=== PATIENT | male | born 1950 | race Caucasian/White ===

== ENCOUNTER → 2016-11-25 | Outpatient (CLI) | payer OTHER ==
[2016-11-25 12:58] LABS: BASO % 0.2 %; BASO ABS # 0.02 K/uL (0-0.2); COMPLETE YES; EOS % 2.2 %; IG% 0.7 %; LYMPH % 14.5 %; LYMPH ABS # 1.68 K/uL (1.2-3.4); MEAN CELL VOLUME 88.4 fL (80-100); MEAN CORPUSCULAR HEMOGLOBIN 29.5 pg (25-34); MEAN CORPUSCULAR HGB CONC 33.4 g/dl (32-36); MEAN PLATELET VOLUME 10.4 fL (7.4-10.4); MONO % 6.8 %; NEUT % 75.6 %; PLATELET COUNT 288 K/uL (130-400); RED BLOOD COUNT 4.64 M/uL (4.7-6.1); WHITE BLOOD COUNT 11.61 K/uL (4.8-10.8)
[2016-11-25 13:14] LABS: ALT/SGPT 30 U/L (12-78); AST/SGOT 17 U/L (15-37); BLOOD UREA NITROGEN 20 mg/dl (7-18); BUN/CREATININE RATIO 16.4 (10-20); CALCIUM 8.7 mg/dl (8.5-10.1); CARBON DIOXIDE 27 mmol/L (21-32); CHLORIDE 106 mmol/L (98-107); GLUCOSE 122 mg/dl (70-99); POTASSIUM 3.5 mmol/L (3.5-5.1); SODIUM 140 mmol/L (136-145)
[2016-11-25 13:24] LABS: ALB/GLOB RATIO 0.8 (0.9-2); ALKALINE PHOSPHATASE 91 U/L (45-117); CHOLESTEROL 103 mg/dl (0-200); CHOLESTEROL/HDL RATIO 3.7; HDL CHOLESTEROL 28 mg/dl; LDL CHOLESTEROL CALCULATED 34 mg/dl; THYROID STIMULATING HORMONE 0.682 uIu/ml (0.300-4.500); TRIGLYCERIDES 207 mg/dl (0-150); VERY LOW DENSITY LIPOPROT CALC 41 mg/dl
== END | disposition home or self-care (01) ==
LOC: C.LABPBG 08:42
PROVIDERS: ATTEND Neuromusculoskeletal Medicine & OMM
DX: Z00.00 Encounter for general adult medical examination without abnormal findings (principal); N40.0 Benign prostatic hyperplasia without lower urinary tract symptoms; E66.9 Obesity, unspecified

== ENCOUNTER → 2016-12-19 | Outpatient (CLI) | payer OTHER ==
[2016-12-19 12:49] LABS: ESTIMATED AVERAGE GLUCOSE 114 mg/dl; HA1C FLAG Normal (Normal)
== END | disposition home or self-care (01) ==
LOC: C.LABPBG 07:52
PROVIDERS: ATTEND Neuromusculoskeletal Medicine & OMM
DX: R73.09 Other abnormal glucose (principal)

== ENCOUNTER → 2017-04-22 | Outpatient (CLI) | payer OTHER ==
[2017-04-22 18:04] LABS: URINE APPEARANCE CLEAR (CLEAR); URINE BILIRUBIN NEG (NEG); URINE COLOR YELLOW; URINE NITRITE NEG (NEG); URINE SPECIFIC GRAVITY 1.023 (1.000-1.030); UROBILINOGEN NEG (NEG)
[2017-04-22 18:09] LABS: MANUAL MICROSCOPIC REQUIRED? NO; REVIEW REQ? NO
== END | disposition home or self-care (01) ==
LOC: C.LABSPEC 10:55
PROVIDERS: ATTEND Family Medicine
DX: R32 Unspecified urinary incontinence (principal)

== ENCOUNTER → 2017-04-23 | Outpatient (CLI) | payer OTHER ==
[2017-04-23 12:36] LABS: BASO % 0.2 %; BASO ABS # 0.02 K/uL (0-0.2); EOS % 2.3 %; EOS ABS # 0.24 K/uL (0-0.5); HEMATOCRIT 38.4 % (42-52); HEMOGLOBIN 13.1 g/dL (14.0-18.0); IG# 0.13 K/uL (0.00-0.02); LYMPH % 14.7 %; LYMPH ABS # 1.53 K/uL (1.2-3.4); MEAN CELL VOLUME 89.1 fL (80-100); MEAN CORPUSCULAR HEMOGLOBIN 30.4 pg (25-34); MEAN CORPUSCULAR HGB CONC 34.1 g/dl (32-36); MEAN PLATELET VOLUME 10.2 fL (7.4-10.4); MONO % 6.4 %; MONO ABS # 0.67 K/uL (0.11-0.59); NEUT % 75.1 %; PLATELET COUNT 251 K/uL (130-400); RED CELL DISTRIBUTION WIDTH CV 14.7 % (11.5-14.5); RED CELL DISTRIBUTION WIDTH SD 47.6 fL (36.4-46.3); WHITE BLOOD COUNT 10.39 K/uL (4.8-10.8)
[2017-04-23 12:48] LABS: ALBUMIN 3.4 gm/dl (3.4-5.0); ALT/SGPT 29 U/L (12-78); BLOOD UREA NITROGEN 17 mg/dl (7-18); CALCIUM 8.8 mg/dl (8.5-10.1); CARBON DIOXIDE 30 mmol/L (21-32); CHOLESTEROL 123 mg/dl (0-200); CREATININE 1.06 mg/dl (0.60-1.40); GLUCOSE 108 mg/dl (70-99); POTASSIUM 3.6 mmol/L (3.5-5.1); SODIUM 137 mmol/L (136-145)
[2017-04-23 12:51] LABS: ALKALINE PHOSPHATASE 92 U/L (45-117); AST/SGOT 18 U/L (15-37); LDL CHOLESTEROL CALCULATED 46 mg/dl; TOTAL PROTEIN 7.4 gm/dl (6.4-8.2)
== END | disposition home or self-care (01) ==
LOC: C.LABPBG 09:33
PROVIDERS: ATTEND Family Medicine
DX: E78.5 Hyperlipidemia, unspecified (principal); I10 Essential (primary) hypertension

== ENCOUNTER → 2017-05-16 | Outpatient (CLI) | payer OTHER ==
[2017-05-16 12:27] LABS: BASO % 0.2 %; BASO ABS # 0.02 K/uL (0-0.2); EOS ABS # 0.22 K/uL (0-0.5); HEMATOCRIT 39.6 % (42-52); HEMOGLOBIN 13.6 g/dL (14.0-18.0); IG# 0.07 K/uL (0.00-0.02); LYMPH % 15.2 %; MEAN CELL VOLUME 88.2 fL (80-100); MEAN CORPUSCULAR HEMOGLOBIN 30.3 pg (25-34); MEAN CORPUSCULAR HGB CONC 34.3 g/dl (32-36); MEAN PLATELET VOLUME 10.6 fL (7.4-10.4); MONO % 6.4 %; MONO ABS # 0.71 K/uL (0.11-0.59); NEUT % 75.6 %; NEUT ABS # 8.43 K/uL (1.4-6.5); PLATELET COUNT 279 K/uL (130-400); RED CELL DISTRIBUTION WIDTH CV 14.3 % (11.5-14.5); WHITE BLOOD COUNT 11.15 K/uL (4.8-10.8)
[2017-05-16 15:40] LABS: TRANSFERRIN 187 mg/dl (200-360)
== END | disposition home or self-care (01) ==
LOC: C.LABPBG 09:34
PROVIDERS: ATTEND Family Medicine
DX: D64.9 Anemia, unspecified (principal)

== ENCOUNTER 2019-07-04 11:22 | Inpatient (IN) ==
--- NOTE | 2019-07-04 12:20 | XRay Report ---
XR chest 1V portable HISTORY: Atypical Chest Pain COMPARISON: Chest 04/26/2019. FINDINGS: No change in the low lung volumes and cardiomegaly. No pleural effusions. There is mild satish tral pulmonary vascular congestion without overt edema. Left basilar densities remain unchanged. No p leural effusions. No pneumothorax. IMPRESSION: No change in the cardiomegaly, mild congestive change, and left basilar densities. ACT 112: Negative or not required by law. Electronically signed by: Karlo Garcia M.D. 07/04/2019 12:19 PM
[2019-07-04 12:27] LABS: Basophils # (auto) 0.02 K/uL (0-0.2); Basophils % (auto) 0.1 %; Eosinophils # (auto) 0.27 K/uL (0-0.5); Eosinophils % (auto) 1.8 %; Hematocrit (blood only) 42.5 % (42-52); Hemoglobin 13.6 g/dL (14.0-18.0); Immature Granulocytes # (auto) 0.09 K/uL (0.00-0.02); Immature Granulocytes % (auto) 0.6 %; Lymphocytes # (auto) 1.88 K/uL (1.2-3.4); Lymphocytes % (auto) 12.4 %; Mean Corpuscular Hemoglobin 29.4 pg (25-34); Mean Platelet Volume 10.3 fL (7.4-10.4); Monocytes # (auto) 0.95 K/uL (0.11-0.59); Monocytes % (auto) 6.3 %; Neutrophils % (auto) 78.8 %; Platelet Count 187 K/uL (130-400); RDW Coefficient of Variation 15.6 % (11.5-14.5); RDW Standard Deviation 52.8 fL (36.4-46.3); Red Blood Count 4.62 M/uL (4.7-6.1); White Blood Count 15.11 K/uL (4.8-10.8)
[2019-07-04 13:02] LABS: Albumin Globulin Ratio 0.7 (0.9-2); Albumin Level 3.4 gm/dl (3.4-5.0); BUN Creatinine Ratio 9.6 (10-20); Bilirubin,Total 0.6 mg/dl (0.2-1); Calcium 8.6 mg/dl (8.5-10.1); Est GFR (African American) 85.5; Est GFR (Non-African American) 73.8; Globulin 5.2 gm/dl (2.5-4.0); Phosphorus 3.1 mg/dl (2.5-4.9); Thyroid Stimulating Hormone 1.24 uIu/ml (0.300-4.500); Total Protein 8.6 gm/dl (6.4-8.2); Troponin I 0.017 ng/ml (0-0.045)
[2019-07-04 13:12] LABS: Influenza A virus by PCR Neg for Influ A (Neg); Influenza B virus by PCR Neg for Influ B (Neg)
[2019-07-04] MEDS ORDERED: ALBUT/IPRATROP 3MG/0.5MG NEB 3 ML VIAL NEB STA (13:53)
[2019-07-04] MEDS ORDERED: methylPREDNISolone 125 MG/2 ML VIAL IV STA (13:53)
[2019-07-04 14:12] LABS: INR 1.1 (0.9-1.1); Partial Thromboplastin Ratio 0.9; Partial Thromboplastin Time 24.9 Seconds (21.0-31.0); Prothrombin Time 11.1 Seconds (9.0-12.0)
[2019-07-04] MEDS ORDERED: OPTIRAY 320 125ml IV PRN (14:48)
[2019-07-04 14:49] LABS: Base Excess VBG 7.7 mEq/L; HCO3 VBG 37 mmol/L; Oxygen Saturation VBG < 60.0 %; PCO2 VBG 73 mmHg (38-50); PO2 VBG 35 mmHg; pH VBG 7.32 (7.36-7.41)
[2019-07-04 15:05] LABS: Potassium 3.8 mmol/L (3.5-5.1)
--- NOTE | 2019-07-04 15:05 | CT Scan Report ---
CHEST CTA for PULMONARY ARTERIES CT DOSE: 869.82 mGy.cm HISTORY: Shortness of breath. Difficulty breathing. TECHNIQUE: Multiaxial CT images of the chest were performed following the intravenous administration of contrast to evaluate the pulmonary arteries. Maximal intensity projection images were also obtaine d. A dose lowering technique was utilized adhering to the principles of ALARA. COMPARISON STUDY: None. FINDINGS: Normal caliber thoracic aorta with no evidence for dissection. The heart is mildly enlarged . There is a moderate pericardial effusion demonstrating a maximal thickness of 1.7 cm. No pleural ef fusions. Cholelithiasis. The visualized liver, spleen, adrenal glands are unremarkable. Normal esopha jeff. No mediastinal or hilar lymphadenopathy. Mild respiratory motion artifact. No definite filling d efects within the pulmonary arteries to suggest pulmonary embolus. No suspicious lytic or blastic oss eous lesions. No acute fractures within the visualized osseous structures. No pneumothorax. The centr al airways are patent. A few bibasilar and right posterior linear densities consistent with subsegmen huy atelectasis. Otherwise, lungs are clear. IMPRESSION: 1. No evidence for pulmonary embolus. 2. Moderate pericardial effusion. 3. Cholelithiasis. ACT 112: Negative or not required by law. Electronically signed by: Karlo Garcia M.D. 07/04/2019 3:04 PM
[2019-07-04 15:10] LABS: Magnesium 1.7 mg/dl (1.8-2.4)
[2019-07-04] MEDS ORDERED: FUROSEMIDE 40 MG/4 ML VIAL IV STA (15:31)
[2019-07-04] MEDS ORDERED: DOXYCYCLINE HYCLATE 100 MG in DEXTROSE 5% 100 ML IV STA (15:31)
[2019-07-04] MEDS ORDERED: MAGNESIUM SULFATE / D5W 1 GM/100 ML BAG IV ONE (15:32)
--- NOTE | 2019-07-04 16:42 | History & Physical Report ---
Date of Service July 04, 2019 Assessment & Plan (1) Acute and chronic respiratory failure: Admit to PCU on telemetry, Vital signs every 4 hours, Continue supplemental oxygen to keep oxygenation above 88%, Continue albuterol sulfate HFA 2 puff inhalation as needed, Possibly due to pneumonia with elevated white blood cell count, Blood cultures, sputum cultures pending, Empirically started ceftriaxone 2 g IV daily and doxycycline 100 mg IV twice daily for possible pneumonia. If blood cultures sputum cultures negative discontinue antibiotics. DVT prophylaxis SCDs and teds Full code Present on Admission?: Yes (2) Pericardial effusion: Discussed with Dr. Blake-cardiology. Recommended to start colchicine empirically-loading dose of 1.2, then continue 0.6 mg daily twice daily for 3 months if this is deemed to be due to viral pericarditis. Start ibuprofen 600 mg p.o. every 8 hours TTE pending Consult cardiology Present on Admission?: Yes (3) Hypercapnia: Chronic hypercapnia, patient is chronically retaining CO2. Supposed to have CPAP at night. Patient reports that CPAP is still on its way to his house. Use hospital CPAP while patient is hospitalized. Settings were placed Present on Admission?: Yes (4) Volume overload: Patient has 1+ pitting edema of the lower extremities but he does not appear to be overly volume overloaded. In the setting of moderate pericardial effusion would reevaluate patient in the morning in order to continue diuresis. Patient received only 1 dose of Lasix 40 mg IV in the ER and had brisk diuresis. Strict in and out, Daily weight, Restrict p.o. water to 1200 mils per day Present on Admission?: Yes (5) Acute diastolic (congestive) heart failure: As discussed above. We will carefully administer another dose of Lasix since patient has moderate pericardial effusion. TTE pending, s/p TTE ordered reevaluate and order another dose of Lasix if necessary. Present on Admission?: Yes (6) Morbid obesity with BMI of 40.0-44.9, adult: Patient advised to start proper diet, exercises and lifestyle changes. Present on Admission?: Yes (7) Anemia: H&H stable, 13.6/42.5 Mild megaloblastic anemia Iron study pending Present on Admission?: Yes (8) Leukocytosis: likely due to the PNA, see above Present on Admission?: Yes (9) Hypertension: BP elevated in the ER without focal signs. Present on Admission?: Yes (10) Hyperlipidemia: Fasting lipid panel pending, continue atorvastatin 40 mg p.o. daily Present on Admission?: Yes (11) GERD without esophagitis: Stable, continue omeprazole 20 mg p.o. daily Present on Admission?: Yes (12) Benign prostatic hyperplasia with urinary obstruction: Stable, continue tamsulosin 0.4 mg p.o. daily. Present on Admission?: Yes (13) Hypomagnesemia: Magnesium 1.7, in the ER replenish and 1 bag of IV. Recheck magnesium tomorrow a.m. and replenish as needed. Present on Admission?: Yes History of Present Illness Chief Complaint: Shortness of breath Primary Care Provider: Brittaney Dunn DO The patient is a 67 years old male with past medical history of diastolic congestive heart failure, morbid obesity with a BMI of 44.9, rheumatoid arthritis, anemia, hyperlipidemia, hypertension, GERD, first-degree AV block, benign prostatic hypertrophy, who started to have shortness of breath approximately 3 weeks ago and swelling of the lower extremities bilaterally. Patient went to see his PCP 2 weeks ago and he was diagnosed with walking pneumonia. He was given oxygen and nebulizer to use at night. Patient supposed to receive set CPAP soon and while he was waiting for CPAP he was using oxygen 2 L intermittently. Patient reports that he gained approximately 10 to 15 pounds of weight. He also reports feeling short of breath when he lays down to sleep. He coughs up some clear sputum and denies any fever, chills, chest pain, abdominal pain, frequency, urgency, history of smoking, history of exposure to dust and fumes,, recent travel or sick contacts. Labs are reviewed which shows WBCs of 15.11, RBCs 4.62, hemoglobin 13.6, hematocrit 42.5, platelets 187, PT 11.1, INR 1.1, APTT 24.9, body gases VBG 7.32, PCO2 73, PO2 35, HCO3 37, O2 saturation less than 60, base excess 7.7, sodium 139, potassium 3.8, chloride 101, carbon dioxide 34, anion gap 4, BUN 10, creatinine 1.03, GFR 73.8, glucose 98, lactate 1.5, calcium 8.6, phosphorus 3.1, magnesium 1.7, replenished in the ER, total bili 0.6, AST 14, ALT 24, alkaline phosphatase 129, troponin 0.017, BNP 144, total protein 8.6, albumin 3.4, globulin 5.2, lipase 83, TSH 1.24., Influenza A negative and influenza B negative. CTA of the chest shows no evidence of pulmonary embolism. A normal caliber thoracic aorta with no evidence of dissection. The heart is mildly enlarged. There is a moderate pericardial effusion demonstrated a maximal thickness of 1.7 cm. No pleural effusions. Cholelithiasis. The visualized liver spleen and adrenal glands are unremarkable. Normal esophagus. No mediastinal or hilar lymphadenopathy. Mild respiratory motion artifact. No definitive filling defects within the pulmonary arteries to suggest pulmonary embolus. No suspicious lytic or blastic osseous lesion. No acute fracture within the visualized osseous structure. No pneumothorax. The central airways are patent. A few bibasilar and right poste rior liner density consistent with subsegmental atelectasis. Otherwise lungs are clear.The decision was made to admit pt to PCU on tele for moderate pericarditis and CHF exacerbation. Allergies Allergy/AdvReac Type Severity Reaction Status Date / Time No Known Drug Allergies Allergy Verified 07/04/19 12:00 Home Medications Home Medications Medication Instructions Recorded Confirmed Type ascorbic acid (vitamin C) 500 mg 500 mg PO BID #60 cap 11/02/18 07/04/19 Rx capsule lisinopril 40 mg tablet 40 mg PO DAILY #30 tab 11/02/18 07/04/19 Rx multivitamin with minerals 1 tab PO DAILY #30 tab 11/02/18 07/04/19 Rx omega-3 fatty acids 1,000 mg 1,000 mg PO DAILY #30 cap 11/02/18 07/04/19 Rx capsule atorvastatin 40 mg tablet 40 mg PO DAILY #90 tab 11/04/18 07/04/19 Rx omeprazole 20 mg capsule,delayed See Rx Instructions .ROUTE 12/18/18 07/04/19 Rx release .COMPLEX #90 capsule albuterol sulfate 90 mcg/actuation 1 puffs INH .COMPLEX PRN #18 gm 02/12/19 07/04/19 Rx aerosol inhaler amlodipine 5 mg tablet 5 mg PO DAILY #90 tab 02/22/19 07/04/19 Rx cetirizine 10 mg tablet 10 mg PO HS #60 tab 03/12/19 07/04/19 Rx Oxygen Home #1 ea 03/29/19 07/04/19 Rx Portable Oxygen #1 ea 04/29/19 07/04/19 Rx trazodone 150 mg tablet 225 mg PO HS #135 tab 05/27/19 07/04/19 Rx potassium chloride 20 mEq 20 meq PO DAILY #30 tab 06/09/19 07/04/19 Rx tablet,extended release furosemide 20 mg tablet 20 mg PO BID #60 tab 06/18/19 07/04/19 Rx BiPAP #1 ea 07/02/19 07/04/19 Rx dutasteride 0.5 mg PO DAILY 07/04/19 07/04/19 History tamsulosin 0.4 mg PO DAILY 07/04/19 07/04/19 History Past Med/Surg History Medical History Allergic rhinitis Anatomical narrow angle, bilateral Anemia Arthritis Benign prostatic hyperplasia with urinary obstruction Central pterygium of left eye Combined forms of age-related cataract of both eyes Depression with anxiety Dry eye syndrome of bilateral lacrimal glands First degree AV block GERD without esophagitis History of alcohol abuse Hyperlipidemia Hypertension Internal hemorrhoids Nocturnal hypoxia Obstructive sleep apnea Pes planus Rectal bleeding (Resolved) Rheumatoid arthritis Right bundle branch block (RBBB) Strabismic amblyopia, right eye Strabismic amblyopia, right eye Urinary incontinence Venous insufficiency (chronic) (peripheral) Surgical History History of appendectomy History of prostate biopsy Family History Mother Diabetes Hypertension Other Blindness FH: cataracts Family history of blindness Glaucoma History of cataract Denies family history of Ovarian cancer Prostate cancer Myocardial infarction Breast cancer Colorectal cancer Social History Preferred Language: Lao Communication Ability: Effective Visual Impairment: Limited Hearing Ability: Normal Quality Control Assessor Required: No Beliefs That Will Affect Care: None marital status: Current Living Situation: Spouse current occupational status: retired Other Information That Helps Us Care for You: No Feels Safe at Home: Yes Safety Concerns: Feels Safe At This Time Smoking Status: Never smoker Do You Dip or Chew Tobacco: No ; Second Hand Exposure: No ; Tobacco Cessation Education Requested by Patient: No Hx Alcohol Use: No Hx Substance Use: No Childhood Exposure to Second-Hand Smoke: No Diet Comment: regular caffeine: No Dental Care, Regularly: No Physical Activity Frequency: Other Physical Activity Frequency Comment: limited by physical condition Seatbelt Use: always Sunscreen Use: No Review of Systems Review of Systems: All systems reviewed & are unremarkable except as noted in HPI & below Physical Exam Constitutional: WD/WN, vitals as above well developed and + ill appearing Eyes: PERRL, conjunctivae normal, anicteric sclerae ENMT: external ear and nose normal, oropharynx normal Neck: trachea midline, no thyromegaly Respiratory: normal respiratory effort, lungs clear to auscultation + respiratory distress, + labored breathing, + uses accessory muscles and + hyperresonance to percussion Auscultation: + crackles and + wheezes Cardiovascular: RRR, no murmur, no edema Vessels: + JVD and dorsalis pedis pulses present Extremities: + pedal edema Musculoskeletal: no cyanosis or clubbing, extremities motor strength 5/5 Skin: no rashes, warm and dry Neurologic: patellar DTR's 2+ bilat, sensation intact Psychiatric: A+Ox3, euthymic affect Lymphatic: no cervical or axillary lymphadenopathy Results & Data Vital Signs (Past 12 Hours) Vital Signs Temp Pulse Pulse Resp BP Pulse Ox 07/04/19 15:02 97 07/04/19 14:35 65 16 94 07/04/19 14:00 76 26 H 163/106 H 07/04/19 13:36 167/129 H 07/04/19 13:00 83 18 07/04/19 12:04 86 26 H 168/79 H 07/04/19 12:00 86 27 H 93 07/04/19 11:54 80 24 92 07/04/19 11:52 92 07/04/19 11:37 36.9 C 83 22 183/87 H 89 L 07/04/19 11:30 91 H 23 87 L 07/04/19 11:28 92 H 28 H 183/87 H 90 07/04/19 11:07 88 L Code Status & VTE Plan Code Status Full Code VTE Prophylaxis Plan VTE Prophylaxis will be ordered: No PG Care Time/CCT Total # of Minutes Spent Total Time Spent with Patient: Total time spent is greater than 50% in coordination of care (as documented) at patient's floor/unit and/or counseling patient: Coding Level of Care Code 17805 Initial Inpt Care Lvl 3 Diagnoses Acute and chronic respiratory failure J96.20 Pericardial effusion I31.3 Hypercapnia R06.89 Volume overload E87.70 Hypervolemia type: unspecified Acute diastolic (congestive) heart failure I50.31 Morbid obesity with BMI of 40.0-44.9, adult E66.01; Z68.41 Anemia D64.9 Anemia type: unspecified type Leukocytosis D72.829 Hypertension I10 Hypertension type: essential hypertension Hyperlipidemia E78.5 Hyperlipidemia type: unspecified GERD without esophagitis K21.9 Benign prostatic hyperplasia with urinary obstruction N40.1; N13.8 Hypomagnesemia E83.42 (1) Anemia Anemia type: unspecified type Qualified Code(s): D64.9 - Anemia, unspecified (2) Hyperlipidemia Hyperlipidemia type: unspecified Qualified Code(s): E78.5 - Hyperlipidemia, unspecified (3) Hypertension Hypertension type: essential hypertension Qualified Code(s): I10 - Essential (primary) hypertension (4) Volume overload Hypervolemia type: unspecified Qualified Code(s): E87.70 - Fluid overload, unspecified
--- NOTE | 2019-07-04 16:53 | Emergency Department Note ---
Entered by Isha Islas acting as a scribe for History of Present Illness General Chief complaint: Shortness of Breath/Dyspnea Stated complaint: Breathing difficulty Time Seen by Provider: 07/04/19 11:42 Source: patient and other (nursing staff) History of Present Illness Onset (ago): week(s) 3 Location: chest Quality: + other (SOB ) Exacerbated By: + other (lying down) Associated symptoms: + cough (wet, with clear sputum ) and + other (Negative fevers, recent steroid use, recent antibiotic use, or hx of smoking) The patient is a 68 year old male who presents to the ED with complaints of SOB beginning 3 weeks ago. As per nursing staff, the patient went to his PCP 2 weeks ago and was diagnosed with walking pneumonia. Nursing staff reports the patient was given oxygen and a nebulizer to use at night. Nursing staff states the patient does not normally wear oxygen however, he has been wearing his oxygen all the time due to his shortness of breath. The patient reports lying down worsens his shortness of breath. He has a wet cough with clear sputum but denies any fevers, recent steroid use, recent antibiotic use, hx of smoking. Home Medications Home Medications Medication Instructions Recorded Confirmed Type ascorbic acid (vitamin C) 500 mg 500 mg PO BID #60 cap 11/02/18 07/04/19 Rx capsule lisinopril 40 mg tablet 40 mg PO DAILY #30 tab 11/02/18 07/04/19 Rx multivitamin with minerals 1 tab PO DAILY #30 tab 11/02/18 07/04/19 Rx omega-3 fatty acids 1,000 mg 1,000 mg PO DAILY #30 cap 11/02/18 07/04/19 Rx capsule atorvastatin 40 mg tablet 40 mg PO DAILY #90 tab 11/04/18 07/04/19 Rx omeprazole 20 mg capsule,delayed See Rx Instructions .ROUTE 12/18/18 07/04/19 Rx release .COMPLEX #90 capsule albuterol sulfate 90 mcg/actuation 1 puffs INH .COMPLEX PRN #18 gm 02/12/19 07/04/19 Rx aerosol inhaler amlodipine 5 mg tablet 5 mg PO DAILY #90 tab 02/22/19 07/04/19 Rx cetirizine 10 mg tablet 10 mg PO HS #60 tab 03/12/19 07/04/19 Rx Oxygen Home #1 ea 03/29/19 07/04/19 Rx Portable Oxygen #1 ea 04/29/19 07/04/19 Rx trazodone 150 mg tablet 225 mg PO HS #135 tab 05/27/19 07/04/19 Rx potassium chloride 20 mEq 20 meq PO DAILY #30 tab 06/09/19 07/04/19 Rx tablet,extended release furosemide 20 mg tablet 20 mg PO BID #60 tab 06/18/19 07/04/19 Rx BiPAP #1 ea 07/02/19 07/04/19 Rx dutasteride 0.5 mg PO DAILY 07/04/19 07/04/19 History tamsulosin 0.4 mg PO DAILY 07/04/19 07/04/19 History Allergies Allergy/AdvReac Type Severity Reaction Status Date / Time No Known Drug Allergies Allergy Verified 07/04/19 12:00 Past Med/Surg History Medical History Allergic rhinitis Anatomical narrow angle, bilateral Anemia Arthritis Benign prostatic hyperplasia with urinary obstruction Central pterygium of left eye Combined forms of age-related cataract of both eyes Depression with anxiety Dry eye syndrome of bilateral lacrimal glands First degree AV block GERD without esophagitis History of alcohol abuse Hyperlipidemia Hypertension Internal hemorrhoids Nocturnal hypoxia Obstructive sleep apnea Pes planus Rectal bleeding (Resolved) Rheumatoid arthritis Right bundle branch block (RBBB) Strabismic amblyopia, right eye Strabismic amblyopia, right eye Urinary incontinence Venous insufficiency (chronic) (peripheral) Surgical History History of appendectomy History of prostate biopsy Family History Mother Diabetes Hypertension Other Blindness FH: cataracts Family history of blindness Glaucoma History of cataract Denies family history of Ovarian cancer Prostate cancer Myocardial infarction Breast cancer Colorectal cancer Social History Preferred Language: Israeli Communication Ability: Effective Visual Impairment: Limited Hearing Ability: Normal Meat Hostess Required: No Beliefs That Will Affect Care: None marital status: Current Living Situation: Spouse current occupational status: retired Other Information That Helps Us Care for You: No Feels Safe at Home: Yes Safety Concerns: Feels Safe At This Time Smoking Status: Never smoker Do You Dip or Chew Tobacco: No ; Second Hand Exposure: No ; Tobacco Cessation Education Requested by Patient: No Hx Alcohol Use: No Hx Substance Use: No Childhood Exposure to Second-Hand Smoke: No Diet Comment: regular caffeine: No Dental Care, Regularly: No Physical Activity Frequency: Other Physical Activity Frequency Comment: limited by physical condition Seatbelt Use: always Sunscreen Use: No Review of Systems See HPI for pertinent positives & negatives. and A total of 10 systems reviewed and were otherwise negative Physical Exam Vital Signs Vital Signs - 24 hr 07/04/19 11:07 07/04/19 11:28 07/04/19 11:30 Temperature Temperature Source Pulse Rate 92 H 91 H Pulse Rate [Apical] Pulse Rate from SpO2 Sensor 72 91 H Pulse Rhythm Pulse Strength Respiratory Rate 28 H 23 Respiratory Effort / Characteristics Non-Labored Spontaneous Respiratory Depth Normal Respiratory Pattern Regular Blood Pressure 183/87 H Blood Pressure Mean 95 Blood Pressure Position Pulse Oximetry 88 L 90 87 L Oxygen Delivery Method Room Air Room Air Nasal Cannula Oxygen Flow Rate 2 2 Sepsis Recent Fever Within 48 Hours Sepsis New/Unexplained Change in Mental Status Sepsis Action Taken by Nursing Oxygen Flow Rate - Titration 2 Pulse Oximetry Post Tiitration 92 07/04/19 11:37 07/04/19 11:52 07/04/19 11:54 Temperature 36.9 C Temperature Source Oral Pulse Rate 83 80 Pulse Rate [Apical] Pulse Rate from SpO2 Sensor Pulse Rhythm Regular Regular Pulse Strength Normal Respiratory Rate 22 24 Respiratory Effort / Characteristics Non-Labored Spontaneous Respiratory Depth Normal Respiratory Pattern Regular Blood Pressure 183/87 H Blood Pressure Mean 119 Blood Pressure Position Sitting Pulse Oximetry 89 L 92 92 Oxygen Delivery Method Room Air Nasal Cannula Nasal Cannula Oxygen Flow Rate 2 2 Sepsis Recent Fever Within 48 Hours No Sepsis New/Unexplained Change in Mental Status No Sepsis Action Taken by Nursing No Action Required Oxygen Flow Rate - Titration Pulse Oximetry Post Tiitration 07/04/19 12:00 07/04/19 12:04 07/04/19 13:00 Temperature Temperature Source Pulse Rate 86 86 83 Pulse Rate [Apical] Pulse Rate from SpO2 Sensor 88 Pulse Rhythm Pulse Strength Respiratory Rate 27 H 26 H 18 Respiratory Effort / Characteristics Respiratory Depth Respiratory Pattern Blood Pressure 168/79 H Blood Pressure Mean 113 Blood Pressure Position Pulse Oximetry 93 Oxygen Delivery Method Nasal Cannula Oxygen Flow Rate 2 Sepsis Recent Fever Within 48 Hours Sepsis New/Unexplained Change in Mental Status Sepsis Action Taken by Nursing Oxygen Flow Rate - Titration Pulse Oximetry Post Tiitration 07/04/19 13:36 07/04/19 14:00 07/04/19 14:35 Temperature Temperature Source Pulse Rate 76 Pulse Rate [Apical] 65 Pulse Rate from SpO2 Sensor Pulse Rhythm Pulse Strength Respiratory Rate 26 H 16 Respiratory Effort / Characteristics Spontaneous Respiratory Depth Respiratory Pattern Blood Pressure 167/129 H 163/106 H Blood Pressure Mean 150 129 Blood Pressure Position Pulse Oximetry 94 Oxygen Delivery Method Nasal Cannula Oxygen Flow Rate 2 Sepsis Recent Fever Within 48 Hours Sepsis New/Unexplained Change in Mental Status Sepsis Action Taken by Nursing Oxygen Flow Rate - Titration Pulse Oximetry Post Tiitration 07/04/19 15:02 07/04/19 16:00 07/04/19 16:01 Temperature Temperature Source Pulse Rate 88 85 Pulse Rate [Apical] Pulse Rate from SpO2 Sensor 99 H 89 84 Pulse Rhythm Pulse Strength Respiratory Rate 27 H 25 H Respiratory Effort / Characteristics Respiratory Depth Respiratory Pattern Blood Pressure 165/92 H Blood Pressure Mean 132 Blood Pressure Position Pulse Oximetry 97 97 95 Oxygen Delivery Method Oxygen Flow Rate Sepsis Recent Fever Within 48 Hours Sepsis New/Unexplained Change in Mental Status Sepsis Action Taken by Nursing Oxygen Flow Rate - Titration Pulse Oximetry Post Tiitration GENERAL: Awake, alert, fatigued-appearing, in no distress HENT: Normocephalic, atraumatic. Oropharynx unremarkable. EYES: Normal conjunctiva. Sclera non-icteric. NECK: Mild JVD. Supple. No nuchal rigidity. FROM. RESPIRATORY: Diminished breath sounds throughout with scant intermittent wheeze. CARDIAC: Regular rate, normal rhythm. Extremities warm and well perfused. Pulses equal. ABDOMEN: Soft, non-distended. No tenderness to palpation. No rebound or guarding. No masses. RECTAL: Deferred. MUSCULOSKELETAL: Chest examination reveals no tenderness. The back is symmetrical on inspection without obvious abnormality. There is no CVA tend erness to palpation. No joint edema. LOWER EXTREMITIES: 1+ BLE pitting edema. Calves are equal size bilaterally and non-tender. No discoloration. NEURO: Normal sensorium. No sensory or motor deficits noted. SKIN: No rash or jaundice noted. Course Course 1146: Past medical records reviewed. The patient was evaluated in room C9. A complete history and physical exam was performed. 1536: Discussed the patient's case with Dr. Rivera, [facility] Hospitalist. The patient will be evaluated for further management. Administered Medications Ioversol (Optiray 320 125ml) 120 ml IV ONCE PRN PRN Reason: Interaction Checking Stop: 07/08/19 14:47 Last Admin: 07/04/19 14:49 Dose: 120 ml Documented by: [id number] Discontinued Medications Albuterol (Duoneb) 3 ml NEB NOW STA Stop: 07/04/19 13:54 Last Admin: 07/04/19 14:33 Dose: 3 ml Documented by: [id number] Furosemide (Lasix) 40 mg IV NOW STA Stop: 07/04/19 15:32 Last Admin: 07/04/19 15:51 Dose: 40 mg Documented by: [id number] Doxycycline Hyclate 100 mg/ (Dextrose) 110 mls @ 50 mls/hr IV NOW STA Stop: 07/04/19 17:42 Last Admin: 07/04/19 15:58 Dose: 50 mls/hr Documented by: [id number] Magnesium Sulfate/Dextrose (Magnesium Sulfate / D5w) 1 gm in 100 mls @ 100 mls/hr IV ONE ONE Stop: 07/04/19 16:31 Last Infusion: 07/04/19 17:30 Dose: 0 mls/hr Documented by: [id number] Admin: 07/04/19 15:51 Dose: 100 mls/hr Documented by: [id number] Methylprednisolone (Solumedrol) 125 mg IV NOW STA Stop: 07/04/19 13:54 Last Admin: 07/04/19 14:41 Dose: 125 mg Documented by: [id number] Medical Decision Making Differential Diagnosis Differential diagnosis: Etiologies such as infections, reactive airway disease, pneumonia, pneumothorax, COPD, CHF, cardiac ischemia, pulmonary embolism, musculoskeletal, gastrointestinal, as well as others were entertained. Medical Records Attestation: I reviewed the patient's medical records. Home Medications Current Medication List: was personally reviewed by me Laboratory Data Attestation: I reviewed the patient's lab results. Result diagrams: 07/04/19 12:15 07/04/19 14:35 Lab Results 07/04/19 07/04/19 07/04/19 Range/Units 12:15 12:15 12:15 WBC 15.11 H (4.8-10.8) K/uL RBC 4.62 L (4.7-6.1) M/uL Hgb 13.6 L (14.0-18.0) g/dL Hct 42.5 (42-52) % MCV 92.0 (80-100) fL MCH 29.4 (25-34) pg MCHC 32.0 (32-36) g/dL RDW Std Deviation 52.8 H (36.4-46.3) fL RDW Coeff of Darian 15.6 H (11.5-14.5) % Plt Count 187 (130-400) K/uL MPV 10.3 (7.4-10.4) fL Immature Gran % (Auto) 0.6 % Neut % (Auto) 78.8 % Lymph % (Auto) 12.4 % [place] % (Auto) 6.3 % Eos % (Auto) 1.8 % Baso % (Auto) 0.1 % Immature Gran # (Auto) 0.09 H (0.00-0.02) K/uL Neut # (Auto) 11.90 H (1.4-6.5) K/uL Lymph # (Auto) 1.88 (1.2-3.4) K/uL [place] # (Auto) 0.95 H (0.11-0.59) K/uL Eos # (Auto) 0.27 (0-0.5) K/uL Baso # (Auto) 0.02 (0-0.2) K/uL PT Cancelled INR Cancelled APTT Cancelled PTT Ratio Cancelled VBG pH VBG pCO2 VBG pO2 VBG HCO3 VBG O2 Saturation VBG Base Excess Barometric Pressure Sodium 139 (136-145) mmol/L Potassium (3.5-5.1) mmol/L Chloride 101 (98-107) mmol/L Carbon Dioxide 34 H (21-32) mmol/L Anion Gap 4.0 (3-11) BUN 10 (7-18) mg/dl Creatinine 1.03 (0.6-1.4) mg/dl Est Cr Clr Drug Dosing 80.0 ml/min Est GFR ( Amer) 85.5 Est GFR (Non-Af Amer) 73.8 BUN/Creatinine Ratio 9.6 L (10-20) Glucose 98 (70-99) mg/dl Lactate (0.4-2.0) mmol/L Calcium 8.6 (8.5-10.1) mg/dl Phosphorus 3.1 (2.5-4.9) mg/dl Magnesium (1.8-2.4) mg/dl Total Bilirubin 0.6 (0.2-1) mg/dl AST (15-37) U/L ALT 24 (12-78) U/L Alkaline Phosphatase 129 H (45-117) U/L Troponin I 0.017 (0-0.045) ng/ml NT-Pro-B Natriuret Pep 144 (0-900) pg/ml Total Protein 8.6 H (6.4-8.2) gm/dl Albumin 3.4 (3.4-5.0) gm/dl Globulin 5.2 H (2.5-4.0) gm/dl Albumin/Globulin Ratio 0.7 L (0.9-2) Lipase 83 (73-393) U/L TSH 1.240 (0.300-4.500) uIu/ml Influenza Type A (PCR) (Neg) Influenza Type B (PCR) (Neg) 07/04/19 07/04/19 07/04/19 Range/Units 12:15 13:40 13:40 WBC (4.8-10.8) K/uL RBC (4.7-6.1) M/uL Hgb (14.0-18.0) g/dL Hct (42-52) % MCV (80-100) fL MCH (25-34) pg MCHC (32-36) g/dL RDW Std Deviation (36.4-46.3) fL RDW Coeff of Darian (11.5-14.5) % Plt Count (130-400) K/uL MPV (7.4-10.4) fL Immature Gran % (Auto) % Neut % (Auto) % Lymph % (Auto) % [place] % (Auto) % Eos % (Auto) % Baso % (Auto) % Immature Gran # (Auto) (0.00-0.02) K/uL Neut # (Auto) (1.4-6.5) K/uL Lymph # (Auto) (1.2-3.4) K/uL [place] # (Auto) (0.11-0.59) K/uL Eos # (Auto) (0-0.5) K/uL Baso # (Auto) (0-0.2) K/uL PT INR APTT PTT Ratio VBG pH Cancelled VBG pCO2 Cancelled VBG pO2 Cancelled VBG HCO3 Cancelled VBG O2 Saturation Cancelled VBG Base Excess Cancelled Barometric Pressure Cancelled Sodium (136-145) mmol/L Potassium (3.5-5.1) mmol/L Chloride (98-107) mmol/L Carbon Dioxide (21-32) mmol/L Anion Gap (3-11) BUN (7-18) mg/dl Creatinine (0.6-1.4) mg/dl Est Cr Clr Drug Dosing ml/min Est GFR ( Amer) Est GFR (Non-Af Amer) BUN/Creatinine Ratio (10-20) Glucose (70-99) mg/dl Lactate (0.4-2.0) mmol/L Calcium (8.5-10.1) mg/dl Phosphorus (2.5-4.9) mg/dl Magnesium (1.8-2.4) mg/dl Total Bilirubin (0.2-1) mg/dl AST (15-37) U/L ALT (12-78) U/L Alkaline Phosphatase (45-117) U/L Troponin I (0-0.045) ng/ml NT-Pro-B Natriuret Pep (0-900) pg/ml Total Protein (6.4-8.2) gm/dl Albumin (3.4-5.0) gm/dl Globulin (2.5-4.0) gm/dl Albumin/Globulin Ratio (0.9-2) Lipase (73-393) U/L TSH (0.300-4.500) uIu/ml Influenza Type A (PCR) Neg for Influ A (Neg) Influenza Type B (PCR) Neg for Influ B (Neg) 07/04/19 07/04/19 07/04/19 Range/Units 13:40 14:28 14:28 WBC (4.8-10.8) K/uL RBC (4.7-6.1) M/uL Hgb (14.0-18.0) g/dL Hct (42-52) % MCV (80-100) fL MCH (25-34) pg MCHC (32-36) g/dL RDW Std Deviation (36.4-46.3) fL RDW Coeff of Darian (11.5-14.5) % Plt Count (130-400) K/uL MPV (7.4-10.4) fL Immature Gran % (Auto) % Neut % (Auto) % Lymph % (Auto) % [place] % (Auto) % Eos % (Auto) % Baso % (Auto) % Immature Gran # (Auto) (0.00-0.02) K/uL Neut # (Auto) (1.4-6.5) K/uL Lymph # (Auto) (1.2-3.4) K/uL [place] # (Auto) (0.11-0.59) K/uL Eos # (Auto) (0-0.5) K/uL Baso # (Auto) (0-0.2) K/uL PT 11.1 INR 1.1 APTT 24.9 PTT Ratio 0.9 VBG pH 7.32 L VBG pCO2 73 H VBG pO2 35 VBG HCO3 37 VBG O2 Saturation < 60.0 VBG Base Excess 7.7 Barometric Pressure 741.1 Sodium (136-145) mmol/L Potassium (3.5-5.1) mmol/L Chloride (98-107) mmol/L Carbon Dioxide (21-32) mmol/L Anion Gap (3-11) BUN (7-18) mg/dl Creatinine (0.6-1.4) mg/dl Est Cr Clr Drug Dosing ml/min Est GFR ( Amer) Est GFR (Non-Af Amer) BUN/Creatinine Ratio (10-20) Glucose (70-99) mg/dl Lactate 1.5 (0.4-2.0) mmol/L Calcium (8.5-10.1) mg/dl Phosphorus (2.5-4.9) mg/dl Magnesium (1.8-2.4) mg/dl Total Bilirubin (0.2-1) mg/dl AST (15-37) U/L ALT (12-78) U/L Alkaline Phosphatase (45-117) U/L Troponin I (0-0.045) ng/ml NT-Pro-B Natriuret Pep (0-900) pg/ml Total Protein (6.4-8.2) gm/dl Albumin (3.4-5.0) gm/dl Globulin (2.5-4.0) gm/dl Albumin/Globulin Ratio (0.9-2) Lipase (73-393) U/L TSH (0.300-4.500) uIu/ml Influenza Type A (PCR) (Neg) Influenza Type B (PCR) (Neg) 07/04/19 Range/Units 14:35 WBC (4.8-10.8) K/uL RBC (4.7-6.1) M/uL Hgb (14.0-18.0) g/dL Hct (42-52) % MCV (80-100) fL MCH (25-34) pg MCHC (32-36) g/dL RDW Std Deviation (36.4-46.3) fL RDW Coeff of Darian (11.5-14.5) % Plt Count (130-400) K/uL MPV (7.4-10.4) fL Immature Gran % (Auto) % Neut % (Auto) % Lymph % (Auto) % [place] % (Auto) % Eos % (Auto) % Baso % (Auto) % Immature Gran # (Auto) (0.00-0.02) K/uL Neut # (Auto) (1.4-6.5) K/uL Lymph # (Auto) (1.2-3.4) K/uL [place] # (Auto) (0.11-0.59) K/uL Eos # (Auto) (0-0.5) K/uL Baso # (Auto) (0-0.2) K/uL PT INR APTT PTT Ratio VBG pH VBG pCO2 VBG pO2 VBG HCO3 VBG O2 Saturation VBG Base Excess Barometric Pressure Sodium (136-145) mmol/L Potassium 3.8 (3.5-5.1) mmol/L Chloride (98-107) mmol/L Carbon Dioxide (21-32) mmol/L Anion Gap (3-11) BUN (7-18) mg/dl Creatinine (0.6-1.4) mg/dl Est Cr Clr Drug Dosing ml/min Est GFR ( Amer) Est GFR (Non-Af Amer) BUN/Creatinine Ratio (10-20) Glucose (70-99) mg/dl Lactate (0.4-2.0) mmol/L Calcium (8.5-10.1) mg/dl Phosphorus (2.5-4.9) mg/dl Magnesium 1.7 L (1.8-2.4) mg/dl Total Bilirubin (0.2-1) mg/dl AST 14 L (15-37) U/L ALT (12-78) U/L Alkaline Phosphatase (45-117) U/L Troponin I (0-0.045) ng/ml NT-Pro-B Natriuret Pep (0-900) pg/ml Total Protein (6.4-8.2) gm/dl Albumin (3.4-5.0) gm/dl Globulin (2.5-4.0) gm/dl Albumin/Globulin Ratio (0.9-2) Lipase (73-393) U/L TSH (0.300-4.500) uIu/ml Influenza Type A (PCR) (Neg) Influenza Type B (PCR) (Neg) Imaging Data Radiologist's Impression: Radiology results as stated below per my review and the radiologist's interpretation: XR chest 1V portable HISTORY: Atypical Chest Pain COMPARISON: Chest 04/26/2019. FINDINGS: No change in the low lung volumes and cardiomegaly. No pleural effusions. There is mild central pulmonary vascular congestion without overt edema. Left basilar densities remain unchanged. No pleural effusions. No pneumothorax. IMPRESSION: No change in the cardiomegaly, mild congestive change, and left basilar densities. ACT 112: Negative or not required by law. Electronically signed by: Karlo Garcia M.D. 07/04/2019 12:19 PM CHEST CTA for PULMONARY ARTERIES CT DOSE: 869.82 mGy.cm HISTORY: Shortness of breath. Difficulty breathing. TECHNIQUE: Multiaxial CT images of the chest were performed following the intravenous administration of contrast to evaluate the pulmonary arteries. Maximal intensity projection images were also obtained. A dose lowering technique was utilized adhering to the principles of ALARA. COMPARISON STUDY: None. FINDINGS: Normal caliber thoracic aorta with no evidence for dissection. The heart is mildly enlarged. There is a moderate pericardial effusion demonstrating a maximal thickness of 1.7 cm. No pleural effusions. Cholelithiasis. The visualized liver, spleen, adrenal glands are unremarkable. Normal esophagus. No mediastinal or hilar lymphadenopathy. Mild respiratory motion artifact. No definite filling defects within the pulmonary arteries to suggest pulmonary embolus. No suspicious lytic or blastic osseous lesions. No acute fractures within the visualized osseous structures. No pneumothorax. The central airways are patent. A few bibasilar and right posterior linear densities consistent with subsegmental atelectasis. Otherwise, lungs are clear. IMPRESSION: 1. No evidence for pulmonary embolus. 2. Moderate pericardial effusion. 3. Cholelithiasis. ACT 112: Negative or not required by law. Electronically signed by: Karlo Garcia M.D. 07/04/2019 3:04 PM ECG Data Attestation: I personally reviewed and interpreted this ECG as follows: Indication: + SOB/dyspnea Rate (beats per minute): 88 Rhythm: + sinus with SA ECG Intervals/blocks: + Right Bundle branch block ECG ST segments: no ST depression and no ST elevation ECG Findings: + Other (QT-c 471, QRS 134) Blood Pressure Blood Pressure Findings: Elevated blood pressure Blood Pressure Disposition: further management by hospitalist TOM Kovacs The patient is a pleasant 68-year-old gentleman with a past medical history of diastolic heart failure on Lasix, GABRIELLE with nocturnal oxygen recently prescribed while awaiting CPAP for home, hypertension, hyperlipidemia, morbid obesity who presents emergency department with worsening shortness of breath with cough and congestion over the past several weeks being treated with course of steroids PCP per patient per HPI. On arrival the patient is fatigued, uncomfortable with mild dyspnea but no acute distress, afebrile with O2 saturation 88% on room air vital signs otherwise stable. On exam the patient has mild JVD with 1+ bilateral lower extremity edema. He has diminished breath sounds throughout with a scant intermittent wheeze. EKG demonstrates right bundle branch block similar to prior without overt acute ischemia. Chest x-ray with mild vascular congestion without overt edema. There are stable left basilar densities which are most likely atelectasis given not present on CT. WBC 15, nonspecific and in the setting of being on steroids per the patient. H/H 13.6/42.5 similar to prior values. Platelets within normal limits. VBG with pH of 7.32 and PCO2 of 73 likely representing a chronic component of hypercapnia given bicarb of 34 on chemistry. Magnesium 1.7 with repletion provided. Lactate 1.5, within normal limits. Electrolytes and LFTs otherwise unremarkable. Troponin 0.017, detectable but within normal limits. BNP 144, within normal limits. Flu negative. A CTA of the chest was performed and negative for PE or focal infiltrates. Comment is made of few bibasilar and right posterior linear densities that are consistent with atelectasis. Note is made of a moderate pericardial effusion. Etiology to the patient's hypoxia is likely multifactorial. Given the patient's bilateral lower extremity pitting edema certainly likely has a component of volume overload. The patient's chronic hypercapnia likely related to a component of restrictive lung disease as well with a possible component of bronchitis given his persistent cough. Patient was treated with dose of steroids, DuoNeb, doxycycline and Lasix. The patient's worsening respiratory symptoms reasonable to admit the patient for further management. The patient is agreeable with this. Case was discussed with Dr. Rivera, [facility] hospitalist, who will evaluate the patient for admission. Cardiac monitoring: An order was placed for continuous cardiac monitoring. The monitor shows a rate of 88 with sinus with SA rhythm. Impression & Plan Hypoxia, Volume overload, Hypercapnia, Right bundle branch block (RBBB) Discharge Plan Visit Data *Final* Discharge Date/Time: 07/04/19 17:32 Chief Complaint: Shortness of Breath/Dyspnea Stated Complaint: Breathing difficulty ED Provider: Freddy Herrera Discharge Problem: Hypoxia, Volume overload, Hypercapnia, Right bundle branch block (RBBB) Patient Disposition: Admitted As Inpatient Discharge Instructions Interventions: ED Discharge Assessment Last Done: 07/04/19 17:32 Discharge Problem: Volume overload Qualifiers: Hypervolemia type: unspecified Qualified Code(s): E87.70 - Fluid overload, uns pecified The scribe's documentation has been prepared under my direction and personally r eviewed by me in its entirety. I confirm that the note above accurately reflects all work, treatment, procedures, and medical decision making performed by me.
[2019-07-04] MEDS ORDERED: COLCHICINE 0.6 MG TAB PO STA (17:50)
[2019-07-04] MEDS ORDERED: [UNRECOGNIZED DRUG - OTHER] INH SCH (17:50)
[2019-07-04] MEDS ORDERED: ONDANSETRON INJ 2 MG/ML 2 ML VIAL IV PRN (17:50)
[2019-07-04] MEDS ORDERED: MAGNESIUM HYDROXIDE SUSP 30 ML UDC PO PRN (17:50)
[2019-07-04] MEDS ORDERED: ALUMINUM/MAGNESIUM SUSP 30 ML UDC PO PRN (17:50)
[2019-07-04] MEDS ORDERED: POLYETHYLENE (MIRALAX) 17 GM PACK PO PRN (17:50)
[2019-07-04] MEDS ORDERED: ALBUTEROL HFA 8 GM INHALER INH PRN (17:50)
[2019-07-04] MEDS ORDERED: ACETAMINOPHEN 325 MG TAB PO PRN (17:50)
[2019-07-04] MEDS ORDERED: IBUPROFEN 600 MG TAB PO SCH (18:00)
[2019-07-04] MEDS ORDERED: cefTRIAXone SODIUM 2,000 MG in DEXTROSE 5% 50 ML IV SCH (18:30)
[2019-07-04] MEDS: AMLODIPINE BESYLATE 5 MG TAB PO SCH (18:42)
[2019-07-04] MEDS: lisinopriL 40 MG TAB PO SCH (18:43)
[2019-07-04] MEDS: ATORVASTATIN 40 MG TAB PO SCH (18:43)
[2019-07-04] MEDS: TRAZODONE HCL 50 MG TAB PO SCH (19:58)
[2019-07-04] MEDS: ASCORBIC ACID 500 MG TAB PO SCH (19:58)
[2019-07-04] MEDS: CETIRIZINE HCL 10 MG TABLET PO SCH (19:58)
[2019-07-04] MEDS: COLCHICINE 0.6 MG TAB PO SCH (19:58)
[2019-07-04 20:35] LABS: Appearance Urine Clear (Clear); Bilirubin Urine Negative (Negative); Blood Urine Negative (Negative); Color Urine Yellow; Glucose Urine UA Negative (Negative); Ketones Urine Negative (Negative); Leukocyte Esterase Urine Negative (Negative); Nitrite Urine Negative (Negative); Protein Urine Negative (Negative); Urobilinogen Urine Negative (Negative)
[2019-07-05 02:40] LABS: Reticulocyte % 1.2 % (0.5-2.0); Reticulocytes # 0.05 10^6/uL (0.02-0.10)
[2019-07-05 02:44] LABS: Hematocrit (blood only) 40.9 % (42-52); Hemoglobin 13.2 g/dL (14.0-18.0); Mean Corpuscular Hemoglobin 29.4 pg (25-34); Mean Corpuscular Hgb Conc 32.3 g/dL (32-36); Mean Corpuscular Volume 91.1 fL (80-100); Mean Platelet Volume 10.4 fL (7.4-10.4); Platelet Count 287 K/uL (130-400); RDW Coefficient of Variation 15.5 % (11.5-14.5); Red Blood Count 4.49 M/uL (4.7-6.1); White Blood Count 16.36 K/uL (4.8-10.8)
[2019-07-05 02:58] LABS: Alanine Aminotransferase 22 U/L (12-78); Albumin Level 3.2 gm/dl (3.4-5.0); Aspartate Aminotransferase 11 U/L (15-37); BUN Creatinine Ratio 11.8 (10-20); Basophils # (auto) 0.01 K/uL (0-0.2); Basophils % (auto) 0.1 %; Blood Urea Nitrogen 15 mg/dl (7-18); Calcium 9.1 mg/dl (8.5-10.1); Carbon Dioxide 34 mmol/L (21-32); Chloride 99 mmol/L (98-107); Creatinine Clr Calc Pharmacy 62.9 ml/min; Est GFR (African American) 63.9; Est GFR (Non-African American) 55.2; Glucose 170 mg/dl (70-99); Immature Granulocytes # (auto) 0.07 K/uL (0.00-0.02); Immature Granulocytes % (auto) 0.4 %; Lymphocytes # (auto) 0.93 K/uL (1.2-3.4); Lymphocytes % (auto) 5.7 %; Magnesium 1.9 mg/dl (1.8-2.4); Monocytes # (auto) 0.28 K/uL (0.11-0.59); Monocytes % (auto) 1.7 %; Neutrophils # (auto) 15.07 K/uL (1.4-6.5); Neutrophils % (auto) 92.1 %; Potassium 4.3 mmol/L (3.5-5.1); RBC Morphology Unremarkable; Sodium 138 mmol/L (136-145)
[2019-07-05 03:03] LABS: Albumin Globulin Ratio 0.7 (0.9-2); Alkaline Phosphatase 118 U/L (45-117); Bilirubin,Total 0.3 mg/dl (0.2-1); Chol HDL Ratio 3; Cholesterol 123 mg/dl (0-200); Globulin 4.8 gm/dl (2.5-4.0); HDL Cholesterol 46 mg/dl; Iron 44 mcg/dl (35-175); LDL Cholesterol Calculated 64 mg/dl; Total Iron Binding Capacity 251 mcg/dl (250-450); Triglycerides 65 mg/dl (0-150); Troponin I < 0.015 ng/ml (0-0.045); VLDL Cholesterol 13 mg/dl
[2019-07-05 03:21] LABS: Folate (Folic Acid) 15.5 ng/ml (>5.38)
[2019-07-05] MEDS ORDERED: IBUPROFEN 600 MG TAB PO SCH (06:00)
[2019-07-05 06:18] LABS: Estimated Average Glucose 140 mg/dl; Hemoglobin A1C 6.5 % (4.5-5.6)
[2019-07-05] MEDS: lisinopriL 40 MG TAB PO SCH (08:34)
[2019-07-05] MEDS: ASCORBIC ACID 500 MG TAB PO SCH ×2 (08:34→20:16)
[2019-07-05] MEDS: OMEGA-3 (PURIFIED FISH OIL) 1 GM CAP PO SCH (08:34)
[2019-07-05] MEDS: POTASSIUM CHLORIDE 20 MEQ TABCR PO SCH (08:35)
[2019-07-05] MEDS: COLCHICINE 0.6 MG TAB PO SCH (08:35)
[2019-07-05] MEDS: ATORVASTATIN 40 MG TAB PO SCH (08:36)
[2019-07-05] MEDS: TAMSULOSIN HCL 0.4 MG CAP PO SCH (08:36)
[2019-07-05] MEDS: PANTOprazole 40 MG TAB PO SCH (08:36)
[2019-07-05] MEDS: CEROVITE ADV FORMULA TAB PO SCH (08:36)
[2019-07-05] MEDS: AMLODIPINE BESYLATE 5 MG TAB PO SCH (08:37)
[2019-07-05] MEDS ORDERED: FUROSEMIDE 40 MG/4 ML VIAL IV SCH (09:00)
[2019-07-05] MEDS ORDERED: FUROSEMIDE 40 MG in SYRINGE 0 ML IV SCH (09:00)
--- NOTE | 2019-07-05 13:00 | XCELERA ---
[id number] [id number]
--- NOTE | 2019-07-05 14:20 | Electrocardiogram Report ---
Test Reason : Blood Pressure : / mmHG Vent. Rate : 088 BPM Atrial Rate : 088 BPM P-R Int : 274 ms QRS Dur : 134 ms QT Int : 390 ms P-R-T Axes : 047 091 009 degrees QTc Int : 471 ms Sinus rhythm with marked sinus arrhythmia with 1st degree A-V block Right bundle branch block Abnormal ECG When compared with ECG of 26-APR-2019 10:39, No significant change was found Confirmed by Donnie Christensen ([id number]) on 07/05/2019 2:20:11 PM Referred By: REFERRED SELF Confirmed By:Donnie Christensen
--- NOTE | 2019-07-05 15:14 | Cardiology Consultation ---
Date of Consultation July 05, 2019 Assessment & Plan (1) Pericardial effusion: His asymmetric, mostly posterior pericardial effusion has been noted since March 2019 and does not appear hemodynamically significant. There is some mild increase on echocardiogram over this time, but this could be related to his worsening volume retention. Etiology is uncertain, rheumatoid arthritis can cause pericardial effusions, viral illness can be associated with this as well, often the source is idiopathic. Would recommend a follow-up echocardiogram at some point to ensure that this does not progress in future months. No immediate intervention necessary. (2) Acute and chronic respiratory failure: Although this patient does have an element of hypervolemia and possibly some diastolic congestive heart failure, this does not account for his profound daytime hypoxia with a relatively normal chest x-ray and chest CT. Despite significant respiratory symptoms since last January, he has had multiple prior chest x-rays which did not show infiltrates at the time of symptomatic exacerbation either. Although he has severe nocturnal hypoxemia due to sleep apnea, this may not fully explain his daytime hypoxemia in the absence of concurrent lung disease. Although there is some question of orthopnea historically, he denies this to me and is lying flat currently with no difficulty. No doubt he is currently volume overloaded and would benefit from diuresis/volume unloading, but attributing his hypoxemia and chronic complaints to diastolic heart failure may distract from evaluation of his underlying pulmonary disease. On this basis, would recommend pulmonary evaluation, he apparently was scheduled for pulmonary function test, but I was unable to locate any results. (3) Acute diastolic (congestive) heart failure: As noted, there is some element of volume overload/diastolic congestive heart failure, but I believe this is a relatively minor contributor to his overall respiratory failure. Since his pericardial effusion does not appear hemodynamically significant and he is hypertensive, would recommend aggressive diuresis while he is an inpatient. Could restart furosemide 40 mg IV twice daily. (4) Hypoxia: As noted above, his degree of hypoxia it is well out of proportion to any chest x-ray or exam findings from congestive heart failure (would expect significant pulmonary edema on chest x-ray and very abnormal lung exam in a patient who had hypoxia from heart failure). (5) Nocturnal hypoxia: As noted, he has severe sleep apnea. (6) Obstructive sleep apnea: (7) Venous insufficiency (chronic) (peripheral): Unclear to what degree his leg edema is due to venous insufficiency. He is currently hypervolemic overall and would benefit from diuresis. (8) Morbid obesity with BMI of 40.0-44.9, adult: (9) Rheumatoid arthritis: History of Present Illness Reason for Consultation: 67-year-old man with cardiac history notable only for diastolic congestive heart failure, who has multiple other medical problems including rheumatoid arthritis, admitted 07/04/2019 with progressive weight gain, lower extremity edema, and dyspnea on exertion. Patient first noted increased ankle edema September 2018, apparently no respiratory symptoms at that time. By January 2019 he had gained 13 pounds and was noted to have significant wheezing, treated with inhaled beta agonists and prednisone. Chest x-ray at that time was read as negative for significant pathology. In March he presented with increasing dyspnea and was found to become hypoxic on exertion (84% on room air after short walk). He was admitted overnight, felt to be volume overloaded, and treated with diuretics (discharged on furosemide 20 mg daily). An echocardiogram during that hospitalization showed normal systolic function with mild LVH, normal right ventricular systolic pressure, and a small predominantly posterior pericardial effusion. Of note, his chest x-ray during this hospitalization again showed clear lungs. In April he desaturated again on a 6-minute walk test. In May he was seen in the primary care office and noted progressive dyspnea and wheezing which worsened when he ran out of his Lasix. This month (June 2019) he underwent a sleep study that showed very severe sleep apnea/hypopnea with severe nocturnal hypoxemia. This was corrected with BiPAP. He presented to the ER yesterday with progressive edema and dyspnea,He received IV diuretics but his input/output appeared fairly neutral, did have a 3 pound weight loss overnight. At the time of my evaluation, the patient was lying flat and noted no dyspnea at rest. He has been wearing oxygen for several months now, but even with supplemental oxygen he notes dyspnea on minor exertion. No chest pain at any time. No subjective palpitations, presyncope, or syncope. He denied orthopnea or PND, but has noted increasing ankle edema and weight gain. Echocardiogram today shows normal systolic function with no wall motion abnormalities, medical reception ior pericardial effusion is again noted and is mildly increased versus March 2019, however does not appear to be hemodynamically significant. Chest x-ray this admission shows mild congestive change with left basilar densities, a chest CT shows no pleural effusions and shows only a few bibasilar and right posterior linear densities consistent with subsegmental atelectasis, otherwise lungs are c lear. At rest, the patient had no complaints. Attending Physician: Jose Chambers DO Allergies Allergy/AdvReac Type Severity Reaction Status Date / Time No Known Drug Allergies Allergy Verified 07/04/19 12:00 Home Medications Home Medications Medication Instructions Recorded Confirmed Type ascorbic acid (vitamin C) 500 mg 500 mg PO BID #60 cap 11/02/18 07/04/19 Rx capsule lisinopril 40 mg tablet 40 mg PO DAILY #30 tab 11/02/18 07/04/19 Rx multivitamin with minerals 1 tab PO DAILY #30 tab 11/02/18 07/04/19 Rx omega-3 fatty acids 1,000 mg 1,000 mg PO DAILY #30 cap 11/02/18 07/04/19 Rx capsule atorvastatin 40 mg tablet 40 mg PO DAILY #90 tab 11/04/18 07/04/19 Rx omeprazole 20 mg capsule,delayed See Rx Instructions .ROUTE 12/18/18 07/04/19 Rx release .COMPLEX #90 capsule albuterol sulfate 90 mcg/actuation 1 puffs INH .COMPLEX PRN #18 gm 02/12/19 07/04/19 Rx aerosol inhaler amlodipine 5 mg tablet 5 mg PO DAILY #90 tab 02/22/19 07/04/19 Rx cetirizine 10 mg tablet 10 mg PO HS #60 tab 03/12/19 07/04/19 Rx Oxygen Home #1 ea 03/29/19 07/04/19 Rx Portable Oxygen #1 ea 04/29/19 07/04/19 Rx trazodone 150 mg tablet 225 mg PO HS #135 tab 05/27/19 07/04/19 Rx potassium chloride 20 mEq 20 meq PO DAILY #30 tab 06/09/19 07/04/19 Rx tablet,extended release furosemide 20 mg tablet 20 mg PO BID #60 tab 06/18/19 07/04/19 Rx BiPAP #1 ea 07/02/19 07/04/19 Rx dutasteride 0.5 mg PO DAILY 07/04/19 07/04/19 History tamsulosin 0.4 mg PO DAILY 07/04/19 07/04/19 History Patient History Medical History Allergic rhinitis Anatomical narrow angle, bilateral Anemia Arthritis Benign prostatic hyperplasia with urinary obstruction Central pterygium of left eye Combined forms of age-related cataract of both eyes Depression with anxiety Dry eye syndrome of bilateral lacrimal glands First degree AV block GERD without esophagitis History of alcohol abuse Hyperlipidemia Hypertension Internal hemorrhoids Nocturnal hypoxia Obstructive sleep apnea Pes planus Rectal bleeding (Resolved) Rheumatoid arthritis Right bundle branch block (RBBB) (Acute) Strabismic amblyopia, right eye Strabismic amblyopia, right eye Urinary incontinence Venous insufficiency (chronic) (peripheral) Surgical History History of appendectomy History of prostate biopsy Family History History of cataract Diabetes Mother Family history of blindness Blindness FH: cataracts Glaucoma Hypertension Mother Denies family history of Ovarian cancer Prostate cancer Myocardial infarction Breast cancer Colorectal cancer Social History Preferred Language: Wolof Communication Ability: Effective Visual Impairment: Limited Hearing Ability: Normal Senior 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 Required: No Beliefs That Will Affect Care: None marital status: Current Living Situation: Spouse current occupational status: retired Other Information That Helps Us Care for You: No Feels Safe at Home: Yes Safety Concerns: Feels Safe At This Time Smoking Status: Never smoker Do You Dip or Chew Tobacco: No ; Second Hand Exposure: No ; Tobacco Cessation Education Requested by Patient: No Hx Alcohol Use: No Hx Substance Use: No Childhood Exposure to Second-Hand Smoke: No Diet Comment: regular caffeine: No Dental Care, Regularly: No Physical Activity Frequency: Other Physical Activity Frequency Comment: limited by physical condition Seatbelt Use: always Sunscreen Use: No Review of Systems Constitutional: + fatigue and + weight gain; no fever, no chills and no weight loss Eyes: no problem reported Ear, Nose, Mouth, Throat: no problem reported Respiratory: as per Subjective / HPI, + cough, + dyspnea, + dyspnea on exertion and + wheezing Cardiovascular: as per Subjective / HPI and + edema; no chest pain Gastrointestinal: no abdominal pain and no change in stools Musculoskeletal: no problem reported Integumentary: no rash and no new lesions Neurologic: no falls and no syncope Psychiatric: no problem reported Hematologic / Lymphatic: no easy bleeding and no easy bruising Physical Exam Physical Exam: Obese white male who appears somewhat chronically ill but not acutely distressed. BP consistently mildly hypertensive (BP of 99/87 from this morning is likely erroneous). Pulse in the 22800 range, generally normal). Respirations 1827 range. Skin: No generalized lesions. No ecchymoses. HEENT: Unremarkable. Neck: Jugular venous pulse is elevated to the angle of the jaw at 45 degrees, no obvious carotid bruits. Lungs: Mildly decreased breath sounds but generally clear. Wheezing noted on forced exhalation only. No accessory muscle use, abdominal paradox, or intercostal retractions. Cardiac: Regular rhythm with faint heart tones. No obvious murmur, gallop, or rub. Abdomen: Soft and nontender. Extremities: 1-2+ pretibial pitting edema. Pulses intact. Neurologic: Alert and oriented, normal affect, nonfocal. Results & Data ([facility]) Laboratory Results 07/04/19 07/04/19 07/05/19 12:15 20:45 02:28 WBC 16.36 H Hgb 13.2 L BUN Creatinine Troponin I < 0.015 NT-Pro-B Natriuret Pep 144 LDL Cholesterol, Calc 07/05/19 07/05/19 02:28 07:45 WBC Hgb BUN 15 Creatinine 1.31 Troponin I < 0.015 < 0.015 NT-Pro-B Natriuret Pep LDL Cholesterol, Calc 64 Diagnostic Findings As noted, multiple prior chest x-rays showed no infiltrates, his admission chest x-ray did suggest "mild" pulmonary vascular congestion, but CT did not show significant infiltrates. Echocardiograms in March and currently have shown normal systolic function with an asymmetric posterior pericardial effusion which is moderate (posteriorly) and trivial (anteriorly), not felt to be hemodynamically significant. ECG shows sinus rhythm with right bundle branch block, no acute findings. PG Care Time/CCT Total # of Minutes Spent Total Time Spent with Patient: Total time spent is greater than 50% in coordination of care (as documented) at patient's floor/unit and/or counseling patient: Coding Level of Care Code 27113 Initial Inpt Care Lvl 3 Diagnoses Pericardial effusion I31.3 Acute and chronic respiratory failure J96.20 Acute diastolic (congestive) heart failure I50.31 Hypoxia R09.02 Nocturnal hypoxia G47.34 Obstructive sleep apnea G47.33 Venous insufficiency (chronic) (peripheral) I87.2 Morbid obesity with BMI of 40.0-44.9, adult E66.01; Z68.41 Rheumatoid arthritis M06.9
--- NOTE | 2019-07-05 16:53 | Hospitalist Progress Note ---
Date of Service July 05, 2019 Assessment & Plan (1) Acute and chronic respiratory failure: While he recently had a pneumonia, his body habitus and his sleep study as well as his clear lungs on exam/CT, and echo that does not show anything diagnostic for hypoxia, all plead heavily towards obesity hypoventilation. -Discussed with the patient frankly, he expresses a good understanding that his weight is probably a significant contributor to his breathing difficulties -Treat nocturnal hypoxia with BiPAP as outlined in sleep study, goal to get it set up to be there whenever he gets out of the hospital -Started to discuss weight lossit seems that the "low hanging fruit" would be changing out candies and cookies for other snack foods to reduce his calorie intake. Per Randle [place] his resting energy expenditure is about 0 tana, started to teach him the basic idea of calorie restriction and calorie dense foods. He expressed a degree of understanding. -Continue oxygen support during his waking hours as well (2) Pericardial effusion: Agree with cardiology this is probably an incidental asymptomatic finding of uncertain significance, but given that he shows no tamponade type physiology no difficulty with forward blood flow, and no pulmonary edema, it seems unlikely that this is causative of any of his suffering. DC colchicine and ibuprofen. Follow. (3) Hypercapnia: Chronic hypercapnia, seems to be related to obesity hypoventilation. BiPAP at night, lifestyle changes outlined above. (4) Volume overload: Almost certainly venous stasis related, especially given that he has no pulmonary edema. (5) Acute diastolic (congestive) heart failure: After further review, I do not believe that he is suffering from any HFpEF at this time. I suspect that his breathing issues all relates to his weight. He shows no pulmonary edema on chest CT. DC diuretics. (6) Morbid obesity with BMI of 40.0-44.9, adult: Seems to be causative of his breathing difficulties. (7) Anemia: H&H stable, 13.6/42.5 Mild megaloblastic anemia Iron study pending, outpatient follow-up (8) Leukocytosis: likely due to the PNA/steroids given as an outpatient, follow-up CBC 1 to 2 weeks to ensure resolution (9) Hypertension: Pressure is reasonable, will continue to follow (10) Hyperlipidemia: Continue atorvastatin (11) GERD without esophagitis: Stable, continue omeprazole 20 mg p.o. daily (12) Benign prostatic hyperplasia with urinary obstruction: Stable, continue tamsulosin 0.4 mg p.o. daily. (13) Hypomagnesemia: Magnesium 1.7, in the ER replenish and 1 bag of IV. Recheck magnesium tomorrow a.m. and replenish as needed. (14) DVT prophylaxis: lovenox (15) Discharge planning issues: hopefully home tomorrow w Bipap set up, plan for lifestyle change, O2 (he already has) Admission and Anticipated Discharge Date Admission Date: July 04, 2019 Subjective Feeling okay at rest. No acute complaints. Discussing his chronic shortness of breath, it seems that even prior to his pneumonia he was struggling particularly with exertion. Since the pneumonia he is just never really bounced back, noting that his breathing got worse at that time and has not really improved since. No current fevers chills sweats cough sputum. On review of his diet, he notes that he eats about 1 meal a dayconsisting usually of a cup of rice or some beings and portion of chicken or pork most commonly. He drinks diet sodas predominantly. However he does note snacking excessively on candy and cookies. Is hard to quantify exactly how much, but he does note admittedly a lot. Review of Systems Review of Systems: All systems reviewed & are unremarkable except as noted in HPI & below Physical Exam Physical Exam: In general he is awake and alert pleasant no distress. HEENT normocephalic atraumatic mucous membranes moist. Lungs are diminished bilaterally no rales rhonchi or wheezes good effort no accessory muscle use. Skin shows no rashes no pallor or icterus. Neuro shows cranial nerves II through XII are grossly intact gross motor and sensory are intact. Results & Data ([facility]) Vital Signs (Past 12 Hours) Vital Signs Temp Pulse Pulse Resp BP BP Pulse Ox 07/05/19 15:59 98.2 F 82 20 128/61 92 07/05/19 11:41 78 07/05/19 08:04 97.7 F 90 20 99/87 L 96 PG Care Time/CCT Total # of Minutes Spent Total Time Spent with Patient: Total time spent is greater than 50% in coordination of care (as documented) at patient's floor/unit and/or counseling patient: Coding Level of Care Code 07600 Subseq Hosp Care Lvl 3 Diagnoses Acute and chronic respiratory failure J96.20 Pericardial effusion I31.3 Hypercapnia R06.89 Volume overload E87.70 Hypervolemia type: unspecified Acute diastolic (congestive) heart failure I50.31 Morbid obesity with BMI of 40.0-44.9, adult E66.01; Z68.41 Anemia D64.9 Anemia type: unspecified type Leukocytosis D72.829 Hypertension I10 Hypertension type: essential hypertension Hyperlipidemia E78.5 Hyperlipidemia type: unspecified GERD without esophagitis K21.9 Benign prostatic hyperplasia with urinary obstruction N40.1; N13.8 Hypomagnesemia E83.42 DVT prophylaxis Z29.9 Discharge planning issues Z02.9 (1) Volume overload Hypervolemia type: unspecified Qualified Code(s): E87.70 - Fluid overload, unspecified (2) Anemia Anemia type: unspecified type Qualified Code(s): D64.9 - Anemia, unspecified (3) Hypertension Hypertension type: essential hypertension Qualified Code(s): I10 - Essential (primary) hypertension (4) Hyperlipidemia Hyperlipidemia type: unspecified Qualified Code(s): E78.5 - Hyperlipidemia, unspecified
[2019-07-05] MEDS: TRAZODONE HCL 50 MG TAB PO SCH (20:16)
[2019-07-05] MEDS: CETIRIZINE HCL 10 MG TABLET PO SCH (20:16)
[2019-07-06] MEDS: PANTOprazole 40 MG TAB PO SCH (07:37)
[2019-07-06] MEDS: ASCORBIC ACID 500 MG TAB PO SCH ×2 (07:37→20:43)
[2019-07-06] MEDS: TAMSULOSIN HCL 0.4 MG CAP PO SCH (07:38)
[2019-07-06] MEDS: lisinopriL 40 MG TAB PO SCH (07:38)
[2019-07-06] MEDS: POTASSIUM CHLORIDE 20 MEQ TABCR PO SCH (07:38)
[2019-07-06] MEDS: OMEGA-3 (PURIFIED FISH OIL) 1 GM CAP PO SCH (07:39)
[2019-07-06] MEDS: CEROVITE ADV FORMULA TAB PO SCH (07:39)
[2019-07-06] MEDS: AMLODIPINE BESYLATE 5 MG TAB PO SCH (07:41)
[2019-07-06] MEDS: ENOXAPARIN INJ 40 MG/0.4 ML SYR SQ SCH (07:41)
[2019-07-06] MEDS: ATORVASTATIN 40 MG TAB PO SCH (07:42)
--- NOTE | 2019-07-06 11:09 | Cardiology Progress Note ---
Date of Service July 06, 2019 Assessment & Plan (1) Pericardial effusion: Not felt to be hemodynamically significant. However, would recommend a follow-up echocardiogram at some point to ensure that this does not progress in future months. No immediate intervention necessary. (2) Acute and chronic respiratory failure: See consultation from yesterday. Briefly, although this patient does have an element of hypervolemia and possibly some diastolic congestive heart failure, this does not account for his profound daytime hypoxia with a relatively normal chest x-ray and chest CT. No doubt he is currently volume overloaded and would benefit from diuresis/volume unloading, but attributing his hypoxemia and chronic complaints to diastolic heart failure may distract from evaluation of his underlying pulmonary disease. On this basis, would recommend pulmonary evaluation, he apparently was scheduled for pulmonary function test, but I was unable to locate any results. (3) Acute diastolic (congestive) heart failure: As noted, there is some element of volume overload/diastolic congestive heart failure, recommend aggressive diuresis while he is an inpatient. His weight is within 2 pounds of admission, suggesting minimal diuresis thus far, therefore would add furosemide 40 mg IV twice daily (unless his diarrhea is copious and he has excessive fluid losses) with target volume unloading at least 5-8 pounds fluid weight. (4) Nocturnal hypoxia: As noted, he has severe sleep apnea. (5) Obstructive sleep apnea: (6) Venous insufficiency (chronic) (peripheral): Unclear to what degree his leg edema is due to venous insufficiency. He is currently hypervolemic overall and would benefit from diuresis. (7) Morbid obesity with BMI of 40.0-44.9, adult: (8) Rheumatoid arthritis: Admission and Anticipated Discharge Date Admission Date: July 04, 2019 Subjective Patient states that he had a "bad" night, primarily due to significant diarrhea. Still becomes dyspneic with minimal exertion. No chest pain, palpitations, lightheadedness, presyncope, or syncope. Physical Exam Physical Exam: Obese white male who appears somewhat uncomfortable but not severely distressed. BP normotensive, pulse 80-90 bpm. Respirations 1820. Skin: No generalized lesions. No ecchymoses. HEENT: Unremarkable. Neck: Jugular venous pulse is elevated to the angle of the jaw at 45 degrees, no obvious carotid bruits. Lungs: Mildly decreased breath sounds but generally clear. Wheezing noted on forced exhalation only. No accessory muscle use, abdominal paradox, or intercostal retractions. Cardiac: Regular rhythm with faint heart tones. No obvious murmur, gallop, or rub. Abdomen: Soft and nontender. Extremities: 1-2+ pretibial pitting edema. Pulses intact. Neurologic: Alert and oriented, anxious affect, nonfocal. Results & Data ([facility]) Vital Signs (Past 12 Hours) Vital Signs Temp Pulse Pulse Pulse Pulse Resp BP 07/06/19 10:16 97.7 F 79 90 88 20 140/80 07/06/19 07:34 97.7 F 90 20 140/80 07/06/19 03:15 79 07/06/19 03:14 98.2 F 90 19 141/62 H 07/05/19 23:28 98.4 F 85 19 134/53 L BP Pulse Ox 07/06/19 10:16 128/61 93 07/06/19 07:34 93 07/06/19 03:15 07/06/19 03:14 93 07/05/19 23:28 95 PG Care Time/CCT Total # of Minutes Spent Total Time Spent with Patient: Total time spent is greater than 50% in coordination of care (as documented) at patient's floor/unit and/or counseling patient: Coding Level of Care Code 30562 Subseq Hosp Care Lvl 3 Diagnoses Pericardial effusion I31.3 Acute and chronic respiratory failure J96.20 Acute diastolic (congestive) heart failure I50.31 Nocturnal hypoxia G47.34 Obstructive sleep apnea G47.33 Venous insufficiency (chronic) (peripheral) I87.2 Morbid obesity with BMI of 40.0-44.9, adult E66.01; Z68.41 Rheumatoid arthritis M06.9
[2019-07-06 12:13] LABS: Basophils # (auto) 0.01 K/uL (0-0.2); Basophils % (auto) 0.1 %; Eosinophils # (auto) 0.12 K/uL (0-0.5); Eosinophils % (auto) 0.8 %; Hematocrit (blood only) 38.2 % (42-52); Immature Granulocytes # (auto) 0.05 K/uL (0.00-0.02); Immature Granulocytes % (auto) 0.3 %; Lymphocytes # (auto) 1.65 K/uL (1.2-3.4); Lymphocytes % (auto) 10.4 %; Mean Corpuscular Hemoglobin 29.4 pg (25-34); Mean Corpuscular Hgb Conc 31.4 g/dL (32-36); Mean Corpuscular Volume 93.6 fL (80-100); Mean Platelet Volume 10.6 fL (7.4-10.4); Monocytes # (auto) 0.95 K/uL (0.11-0.59); Neutrophils # (auto) 13.08 K/uL (1.4-6.5); Neutrophils % (auto) 82.4 %; Platelet Count 249 K/uL (130-400); RDW Coefficient of Variation 15.8 % (11.5-14.5); RDW Standard Deviation 54.3 fL (36.4-46.3); Red Blood Count 4.08 M/uL (4.7-6.1); White Blood Count 15.86 K/uL (4.8-10.8)
[2019-07-06 12:16] LABS: Allen Test Pos (Pos); Base Excess ABG 7.3 mEq/L (-9-1.8); HCO3 ABG 36 mmol/L (19-24); PCO2 ABG 74 mmHg (35-46); PO2 ABG 70 mmHg (80-95)
[2019-07-06 12:34] LABS: Calcium 8.7 mg/dl (8.5-10.1); Creatinine Clr Calc Pharmacy 73.2 ml/min; Est GFR (African American) 77.3; Est GFR (Non-African American) 66.7; Potassium 4.5 mmol/L (3.5-5.1)
--- NOTE | 2019-07-06 17:38 | Hospitalist Progress Note ---
Date of Service July 06, 2019 Assessment & Plan (1) Acute and chronic respiratory failure: While he recently had a pneumonia, his body habitus and his sleep study as well as his clear lungs on exam/CT, and echo that does not show anything diagnostic for hypoxia, all plead heavily towards obesity hypoventilation. -as the day progressed in attempts to get bipap covered ABG does show hypoventilation, PFTs c/w restrictive lung disease (and given no lung parenchymal disease on CT almost certainly points to OHS) -Treat nocturnal hypoxia with BiPAP as outlined in sleep study, goal to get it set up to be there whenever he gets out of the hospital -plan on weight lossit seems that the "low hanging fruit" would be changing out candies and cookies for other snack foods to reduce his calorie intake. Per Jer Montezuma his resting energy expenditure is about 2050 tana, working on teaching him the basic idea of calorie restriction and calorie dense foods. He expressed a degree of understanding and at least a strong motivation to quit candy -Continue oxygen support during his waking hours as well (2) Pericardial effusion: Agree with cardiology this is probably an incidental asymptomatic finding of uncertain significance, but given that he shows no tamponade type physiology no difficulty with forward blood flow, and no pulmonary edema, it seems unlikely that this is causative of any of his suffering. DC'd colchicine and ibuprofen. Follow up echo as outpt ~1 month for stability. (3) Hypercapnia: relates to KAREN/OHS. does have an acute component as evidenced by low pH on ABG - ?new weakness from recovering from pneumonia worsening respiratory muscle weakness (4) Volume overload: Almost certainly venous stasis related, especially given that he has no pulmonary edema. cardiology looking to offload volume - obviously carefully. (5) Acute diastolic (congestive) heart failure: After further review, I do not believe that he is suffering from any HFpEF at this time. I suspect that his breathing issues all relates to his weight. He shows no pulmonary edema on chest CT. (6) Morbid obesity with BMI of 40.0-44.9, adult: Seems to be causative of his breathing difficulties. (7) Anemia: H&H stable, follow clinically; otherwise outpt f/u - and colo if not done recently. (8) Leukocytosis: likely due to the PNA/steroids given as an outpatient, follow-up CBC 1 to 2 weeks to ensure resolution (9) Hypertension: pressures acceptable continue current meds, will continue to follow (10) Hyperlipidemia: Continue atorvastatin (11) GERD without esophagitis: Stable, continue omeprazole 20 mg p.o. daily (12) Benign prostatic hyperplasia with urinary obstruction: Stable, continue tamsulosin 0.4 mg p.o. daily. (13) Hypomagnesemia: Magnesium 1.7, in the ER replenish and 1 bag of IV. Recheck magnesium tomorrow a.m. and replenish as needed. (14) DVT prophylaxis: lovenox (15) Discharge planning issues: given that he appears to have fairly significant KAREN/OHS, and has an acute respiratory acidosis (albeit mild) i would be hard pressed to feel it safe to discharge him until we at least have some type of bipap device at home to assist in his sleep related breathing. is stable for medical, but would not feel it safe for home until respiratory issues have plan already set and in place. Admission and Anticipated Discharge Date Admission Date: July 04, 2019 Subjective had diarrhea through the night - stomach still a little queasy. eating well though no n/v. breathing about the same. motivated to stop candy - notes he did a few years ago and lost several pounds really quickly. doesn't really think there will be much of a barrier to doing so. discussed the physics of weight loss. otherwise no new complaints today working with case management - input greatly appreciated - they worked extensively all day on bipap or trilogy and surprsingly despite his sleep study showing severe karen, ABG showing elevated pCO2, clinical concern of obesity hypoventilation - unable to get approval as of yet. see a/p. Review of Systems Review of Systems: All systems reviewed & are unremarkable except as noted in HPI & below Physical Exam Physical Exam: gen awake pleasant nad heent nc at mmm breathing unlabored no accessory muscles good effort skin no rashes no pallor or icterus. neuro no focal deficits. Results & Data ([facility]) Vital Signs (Past 12 Hours) Vital Signs Temp Pulse Pulse Pulse Resp BP BP 07/06/19 16:00 97.7 F 74 18 128/78 07/06/19 10:16 97.7 F 79 90 88 20 140/80 128/61 07/06/19 07:34 97.7 F 90 20 140/80 Pulse Ox 07/06/19 16:00 87 L 07/06/19 10:16 93 07/06/19 07:34 93 PG Care Time/CCT Total # of Minutes Spent Total Time Spent with Patient: Total time spent is greater than 50% in coordination of care (as documented) at patient's floor/unit and/or counseling patient: Coding Level of Care Code 20823 Subseq Hosp Care Lvl 3 Diagnoses Acute and chronic respiratory failure J96.20 Pericardial effusion I31.3 Hypercapnia R06.89 Volume overload E87.70 Hypervolemia type: unspecified Acute diastolic (congestive) heart failure I50.31 Morbid obesity with BMI of 40.0-44.9, adult E66.01; Z68.41 Anemia D64.9 Anemia type: unspecified type Leukocytosis D72.829 Hypertension I10 Hypertension type: essential hypertension Hyperlipidemia E78.5 Hyperlipidemia type: unspecified GERD without esophagitis K21.9 Benign prostatic hyperplasia with urinary obstruction N40.1; N13.8 Hypomagnesemia E83.42 DVT prophylaxis Z29.9 Discharge planning issues Z02.9 (1) Anemia Anemia type: unspecified type Qualified Code(s): D64.9 - Anemia, unspecified (2) Hyperlipidemia Hyperlipidemia type: unspecified Qualified Code(s): E78.5 - Hyperlipidemia, unspecified (3) Hypertension Hypertension type: essential hypertension Qualified Code(s): I10 - Essential (primary) hypertension (4) Volume overload Hypervolemia type: unspecified Qualified Code(s): E87.70 - Fluid overload, unspecified
[2019-07-06] MEDS ORDERED: NYSTATIN POWDER 15GM BTL EXT ONE (19:00)
[2019-07-06] MEDS: NYSTATIN POWDER 15GM BTL EXT SCH (20:42)
[2019-07-06] MEDS: CETIRIZINE HCL 10 MG TABLET PO SCH (20:43)
[2019-07-06] MEDS: TRAZODONE HCL 50 MG TAB PO SCH (20:44)
[2019-07-07] MEDS: NYSTATIN POWDER 15GM BTL EXT SCH ×4 (09:02→21:06)
[2019-07-07] MEDS: TAMSULOSIN HCL 0.4 MG CAP PO SCH (09:02)
[2019-07-07] MEDS: AMLODIPINE BESYLATE 5 MG TAB PO SCH (09:03)
[2019-07-07] MEDS: ATORVASTATIN 40 MG TAB PO SCH (09:03)
[2019-07-07] MEDS: POTASSIUM CHLORIDE 20 MEQ TABCR PO SCH (09:03)
[2019-07-07] MEDS: OMEGA-3 (PURIFIED FISH OIL) 1 GM CAP PO SCH (09:03)
[2019-07-07] MEDS: CEROVITE ADV FORMULA TAB PO SCH (09:03)
[2019-07-07] MEDS: lisinopriL 40 MG TAB PO SCH (09:04)
[2019-07-07] MEDS: ENOXAPARIN INJ 40 MG/0.4 ML SYR SQ SCH (09:04)
[2019-07-07] MEDS: PANTOprazole 40 MG TAB PO SCH (09:04)
[2019-07-07] MEDS: ASCORBIC ACID 500 MG TAB PO SCH ×2 (09:04→21:05)
[2019-07-07 09:46] LABS: Basophils # (auto) 0.01 K/uL (0-0.2); Basophils % (auto) 0.1 %; Eosinophils # (auto) 0.24 K/uL (0-0.5); Eosinophils % (auto) 2.2 %; Hematocrit (blood only) 37.3 % (42-52); Hemoglobin 11.7 g/dL (14.0-18.0); Immature Granulocytes # (auto) 0.05 K/uL (0.00-0.02); Immature Granulocytes % (auto) 0.5 %; Lymphocytes # (auto) 1.61 K/uL (1.2-3.4); Lymphocytes % (auto) 14.7 %; Mean Corpuscular Hemoglobin 29.6 pg (25-34); Mean Corpuscular Hgb Conc 31.4 g/dL (32-36); Mean Corpuscular Volume 94.4 fL (80-100); Mean Platelet Volume 10.2 fL (7.4-10.4); Monocytes # (auto) 0.62 K/uL (0.11-0.59); Monocytes % (auto) 5.7 %; Neutrophils # (auto) 8.42 K/uL (1.4-6.5); Neutrophils % (auto) 76.8 %; Platelet Count 246 K/uL (130-400); RDW Coefficient of Variation 15.6 % (11.5-14.5); RDW Standard Deviation 54.1 fL (36.4-46.3); Red Blood Count 3.95 M/uL (4.7-6.1); White Blood Count 10.95 K/uL (4.8-10.8)
[2019-07-07 15:40] LABS: BUN Creatinine Ratio 19.4 (10-20); Calcium 8.4 mg/dl (8.5-10.1); Creatinine Clr Calc Pharmacy 72.6 ml/min; Est GFR (African American) 76.4; Potassium 4.1 mmol/L (3.5-5.1)
[2019-07-07 15:59] LABS: Magnesium 2.1 mg/dl (1.8-2.4); Phosphorus 2.8 mg/dl (2.5-4.9)
--- NOTE | 2019-07-07 20:38 | Hospitalist Progress Note ---
Date of Service July 07, 2019 Assessment & Plan (1) Acute and chronic respiratory failure: While he recently had a pneumonia, his body habitus and his sleep study as well as his clear lungs on exam/CT, and echo that does not show anything diagnostic for hypoxia, all plead heavily towards obesity hypoventilation. -as the day progressed in attempts to get bipap covered ABG does show hypoventilation, PFTs c/w restrictive lung disease (and given no lung parenchymal disease on CT almost certainly points to OHS) -Treat nocturnal hypoxia with BiPAP as outlined in sleep study, goal to get it set up to be there whenever he gets out of the hospital -plan on weight lossit seems that the "low hanging fruit" would be changing out candies and cookies for other snack foods to reduce his calorie intake. Per Jer Gaitan his resting energy expenditure is about 0 tana, working on teaching him the basic idea of calorie restriction and calorie dense foods. He expressed a degree of understanding and at least a strong motivation to quit candy -Continue oxygen support during his waking hours as well. Awaiting BIPAP for home. (2) Pericardial effusion: Agree with cardiology this is probably an incidental asymptomatic finding of uncertain significance, but given that he shows no tamponade type physiology no difficulty with forward blood flow, and no pulmonary edema, it seems unlikely that this is causative of any of his suffering. DC'd colchicine and ibuprofen. Follow up echo as outpt ~1 month for stability. (3) Hypercapnia: relates to GABRIELLE/OHS. does have an acute component as evidenced by low pH on ABG - ?new weakness from recovering from pneumonia worsening respiratory muscle weakness (4) Volume overload: Almost certainly venous stasis related, especially given that he has no pulmonary edema. cardiology looking to offload volume - obviously carefully. (5) Acute diastolic (congestive) heart failure: After further review, I do not believe that he is suffering from any HFpEF at this time. I suspect that his breathing issues all relates to his weight. He shows no pulmonary edema on chest CT. (6) Morbid obesity with BMI of 40.0-44.9, adult: Seems to be causative of his breathing difficulties. (7) Anemia: H&H stable, follow clinically; otherwise outpt f/u - and colo if not done recently. (8) Leukocytosis: likely due to the PNA/steroids given as an outpatient, follow-up CBC 1 to 2 weeks to ensure resolution (9) Hypertension: pressures acceptable continue current meds, will continue to follow (10) Hyperlipidemia: Continue atorvastatin (11) GERD without esophagitis: Stable, continue omeprazole 20 mg p.o. daily (12) Benign prostatic hyperplasia with urinary obstruction: Stable, continue tamsulosin 0.4 mg p.o. daily. (13) Hypomagnesemia: replenished (14) DVT prophylaxis: lovenox (15) Discharge planning issues: given that he appears to have fairly significant GABRIELLE/OHS, and has an acute respiratory acidosis (albeit mild) i would be hard pressed to feel it safe to discharge him until we at least have some type of bipap device at home to assist in his sleep related breathing. is stable for medical, but would not feel it safe for home until respiratory issues have plan already set and in place. Hoping for BIPAP either today 07/06 or 07/07 Admission and Anticipated Discharge Date Admission Date: July 04, 2019 Subjective Patient reports no news symptoms. Review of Systems Review of Systems: All systems reviewed & are unremarkable except as noted in HPI & below Physical Exam Physical Exam: Constitutional: WD/WN, vitals as above well developed Eyes: PERRL, conjunctivae normal, anicteric sclerae ENMT: external ear and nose normal, oropharynx normal Neck: trachea midline, no thyromegaly Respiratory: normal respiratory effort, lungs clear to auscultation Cardiovascular: RRR, no murmur, no edema Vessels: no JVD and dorsalis pedis pulses present Extremities: + pedal edema Musculoskeletal: no cyanosis or clubbing, extremities motor strength 5/5 Skin: no rashes, warm and dry Neurologic: patellar DTR's 2+ bilat, sensation intact Psychiatric: A+Ox3, euthymic affect Lymphatic: no cervical or axillary lymphadenopathy Results & Data ([facility]) Vital Signs (Past 12 Hours) Vital Signs Temp Pulse Pulse Pulse Resp BP BP 07/07/19 16:04 36.2 C L 64 17 146/81 H 07/07/19 09:56 36.9 C 76 76 77 18 140/80 149/73 H Pulse Ox 07/07/19 16:04 96 07/07/19 09:56 97 PG Care Time/CCT Total # of Minutes Spent Total Time Spent with Patient: Total time spent is greater than 50% in coordination of care (as documented) at patient's floor/unit and/or counseling patient: Coding Level of Care Code 64784 Subseq Hosp Care Lvl 3 Diagnoses Acute and chronic respiratory failure J96.20 Pericardial effusion I31.3 Hypercapnia R06.89 Volume overload E87.70 Hypervolemia type: unspecified Acute diastolic (congestive) heart failure I50.31 Morbid obesity with BMI of 40.0-44.9, adult E66.01; Z68.41 Anemia D64.9 Anemia type: unspecified type Leukocytosis D72.829 Hypertension I10 Hypertension type: essential hypertension Hyperlipidemia E78.5 Hyperlipidemia type: unspecified GERD without esophagitis K21.9 Benign prostatic hyperplasia with urinary obstruction N40.1; N13.8 Hypomagnesemia E83.42 DVT prophylaxis Z29.9 Discharge planning issues Z02.9 Time Spent (min) 35 Comment chart review (1) Anemia Anemia type: unspecified type Qualified Code(s): D64.9 - Anemia, unspecified (2) Hyperlipidemia Hyperlipidemia type: unspecified Qualified Code(s): E78.5 - Hyperlipidemia, unspecified (3) Hypertension Hypertension type: essential hypertension Qualified Code(s): I10 - Essential (primary) hypertension (4) Volume overload Hypervolemia type: unspecified Qualified Code(s): E87.70 - Fluid overload, unspecified
[2019-07-07 20:42] LABS: Hematocrit (blood only) 37.2 % (42-52); Hemoglobin 11.7 g/dL (14.0-18.0); Mean Corpuscular Hgb Conc 31.5 g/dL (32-36); Mean Corpuscular Volume 92.1 fL (80-100); Mean Platelet Volume 10.6 fL (7.4-10.4); Platelet Count 242 K/uL (130-400); RDW Coefficient of Variation 15.5 % (11.5-14.5); RDW Standard Deviation 52.9 fL (36.4-46.3); Red Blood Count 4.04 M/uL (4.7-6.1); White Blood Count 12.48 K/uL (4.8-10.8)
[2019-07-07] MEDS: CETIRIZINE HCL 10 MG TABLET PO SCH (21:06)
[2019-07-07] MEDS: TRAZODONE HCL 50 MG TAB PO SCH (21:11)
[2019-07-08] MEDS: ATORVASTATIN 40 MG TAB PO SCH (09:30)
[2019-07-08] MEDS: TAMSULOSIN HCL 0.4 MG CAP PO SCH (09:30)
[2019-07-08] MEDS: POTASSIUM CHLORIDE 20 MEQ TABCR PO SCH (09:30)
[2019-07-08] MEDS: AMLODIPINE BESYLATE 5 MG TAB PO SCH (09:31)
[2019-07-08] MEDS: CEROVITE ADV FORMULA TAB PO SCH (09:31)
[2019-07-08] MEDS: PANTOprazole 40 MG TAB PO SCH (09:32)
[2019-07-08] MEDS: lisinopriL 40 MG TAB PO SCH (09:32)
[2019-07-08] MEDS: OMEGA-3 (PURIFIED FISH OIL) 1 GM CAP PO SCH (09:32)
[2019-07-08] MEDS: ASCORBIC ACID 500 MG TAB PO SCH (09:33)
[2019-07-08] MEDS: ENOXAPARIN INJ 40 MG/0.4 ML SYR SQ SCH (09:34)
--- NOTE | 2019-07-13 16:32 | Discharge Summary ---
Date of Service July 08, 2019 Admission HPI Per Admitting Provider The patient is a 67 years old male with past medical history of diastolic congestive heart failure, morbid obesity with a BMI of 44.9, rheumatoid arthritis, anemia, hyperlipidemia, hypertension, GERD, first-degree AV block, benign prostatic hypertrophy, who started to have shortness of breath approximately 3 weeks ago and swelling of the lower extremities bilaterally. Patient went to see his PCP 2 weeks ago and he was diagnosed with walking pneumonia. He was given oxygen and nebulizer to use at night. Patient supposed to receive set CPAP soon and while he was waiting for CPAP he was using oxygen 2 L intermittently. Patient reports that he gained approximately 10 to 15 pounds of weight. He also reports feeling short of breath when he lays down to sleep. He coughs up some clear sputum and denies any fever, chills, chest pain, abdominal pain, frequency, urgency, history of smoking, history of exposure to dust and fumes,, recent travel or sick contacts. Labs are reviewed which shows WBCs of 15.11, RBCs 4.62, hemoglobin 13.6, hematocrit 42.5, platelets 187, PT 11.1, INR 1.1, APTT 24.9, body gases VBG 7.32, PCO2 73, PO2 35, HCO3 37, O2 saturation less than 60, base excess 7.7, sodium 139, potassium 3.8, chloride 101, carbon dioxide 34, anion gap 4, BUN 10, creatinine 1.03, GFR 73.8, glucose 98, lactate 1.5, calcium 8.6, phosphorus 3.1, magnesium 1.7, replenished in the ER, total bili 0.6, AST 14, ALT 24, alkaline phosphatase 129, troponin 0.017, BNP 144, total protein 8.6, albumin 3.4, globulin 5.2, lipase 83, TSH 1.24., Influenza A negative and influenza B negative. CTA of the chest shows no evidence of pulmonary embolism. A normal caliber thoracic aorta with no evidence of dissection. The heart is mildly enlarged. There is a moderate pericardial effusion demonstrated a maximal thickness of 1.7 cm. No pleural effusions. Cholelithiasis. The visualized liver spleen and adrenal glands are unremarkable. Normal esophagus. No mediastinal or hilar lymphadenopathy. Mild respiratory motion artifact. No definitive filling defects within the pulmonary arteries to suggest pulmonary embolus. No suspicious lytic or blastic osseous lesion. No acute fracture within the visualized osseous structure. No pneumothorax. The central airways are patent. A few bibasilar and right posterior liner density consistent with subsegmental atelectasis. Otherwise lungs are clear.The decision was made to admit pt to PCU on tele for moderate pericarditis and CHF exacerbation. Principal Diagnosis Acute on chronic hypercapnic respiratory failure Discharge Exam Constitutional: WD/WN, vitals as above well developed Eyes: PERRL, conjunctivae normal, anicteric sclerae ENMT: external ear and nose normal, oropharynx normal Neck: trachea midline, no thyromegaly Respiratory: normal respiratory effort, lungs clear to auscultation Cardiovascular: RRR, no murmur, no edema Vessels: no JVD and dorsalis pedis pulses present Extremities: + pedal edema Musculoskeletal: no cyanosis or clubbing, extremities motor strength 5/5 Skin: no rashes, warm and dry Neurologic: patellar DTR's 2+ bilat, sensation intact Psychiatric: A+Ox3, euthymic affect Lymphatic: no cervical or axillary lymphadenopathy Discharge Data Allergies Allergy/AdvReac Type Severity Reaction Status Date / Time No Known Drug Allergies Allergy Verified 07/04/19 12:00 Consultations 07/04/19 15:43 ED Decision to Admit Stat 07/04/19 20:34 Consult Cardiology Routine Ordered Studies 07/04/19 13:52 CT angio chest PE protocol Stat Hospital Course (1) Acute and chronic respiratory failure: While he recently had a pneumonia, his body habitus and his sleep study as well as his clear lungs on exam/CT, and echo that does not show anything diagnostic for hypoxia, all plead heavily towards obesity hypoventilation. -as the day progressed in attempts to get bipap covered ABG does show hypoventilation, PFTs c/w restrictive lung disease (and given no lung parenchymal disease on CT almost certainly points to OHS) -Treat nocturnal hypoxia with BiPAP as outlined in sleep study, goal to get it set up to be there whenever he gets out of the hospital -plan on weight lossit seems that the "low hanging fruit" would be changing out candies and cookies for other snack foods to reduce his calorie intake. Per Jer Gaitan his resting energy expenditure is about 0 tana, working on teaching him the basic idea of calorie restriction and calorie dense foods. He expressed a degree of understanding and at least a strong motivation to quit candy -Continue oxygen support during his waking hours as well. Awaiting BIPAP for home. (2) Pericardial effusion: Agree with cardiology this is probably an incidental asymptomatic finding of uncertain significance, but given that he shows no tamponade type physiology no difficulty with forward blood flow, and no pulmonary edema, it seems unlikely that this is causative of any of his suffering. DC'd colchicine and ibuprofen. Follow up echo as outpt ~1 month for stability. (3) Hypercapnia: relates to GABRIELLE/OHS. does have an acute component as evidenced by low pH on ABG - ?new weakness from recovering from pneumonia worsening respiratory muscle weakness (4) Volume overload: Almost certainly venous stasis related, especially given that he has no pulmonary edema. cardiology looking to offload volume - obviously carefully. (5) Acute diastolic (congestive) heart failure: After further review, I do not believe that he is suffering from any HFpEF at this time. I suspect that his breathing issues all relates to his weight. He shows no pulmonary edema on chest CT. (6) Morbid obesity with BMI of 40.0-44.9, adult: Seems to be causative of his breathing difficulties. (7) Anemia: H&H stable, follow clinically; otherwise outpt f/u - and colo if not done recently. (8) Leukocytosis: likely due to the PNA/steroids given as an outpatient, follow-up CBC 1 to 2 weeks to ensure resolution (9) Hypertension: pressures acceptable continue current meds, will continue to follow (10) Hyperlipidemia: Continue atorvastatin (11) GERD without esophagitis: Stable, continue omeprazole 20 mg p.o. daily (12) Benign prostatic hyperplasia with urinary obstruction: Stable, continue tamsulosin 0.4 mg p.o. daily. (13) Hypomagnesemia: replenished (14) DVT prophylaxis: lovenox (15) Discharge planning issues: given that he appears to have fairly significant GABRIELLE/OHS, and has an acute respiratory acidosis (albeit mild) i would be hard pressed to feel it safe to discharge him until we at least have some type of bipap device at home to assist in his sleep related breathing. is stable for medical, but would not feel it safe for home until respiratory issues have plan already set and in place. Total Time Total Time Spent Total Time Spent (In Minutes): 32 Total Time Includes: Examination of the Patient, Discharge Planning and Medication Reconciliation Discharge Plan Discharge Items Patient Disposition: Home - Self-Care Reason For Visit: PERICARDIAL EFFUSSION Discharge Diagnosis: hypoventilation syndrome (see below) Activity: Resume your previous activity Non-emergency contact: Primary Care Provider Call non-emergency contact if: you have any medication questions and your symptoms worsen Follow-up/Referrals: Brittaney Dunn DO [Primary Care Provider] - 07/14/19 9:20 am (PX NOTIFIED AT DISCHARGE OF FOLLOW-UP APPT.) Diet: Other - See Diet Comment Addtl Attending Provider Instructions: hypoventilation syndrome -what we're seeing is that your breathing issues do not appear to be true lung disease - your lungs look clear on chest CT (which is a good, accurate way to look for lung tissue disease) and your labs don't suggest any inflammat ion/infection (your white blood cells were a little up, but this fit more with the steroids you were on recently - Dr Dunn will repeat labs in a few weeks to ensure this goes back to normal) -what we do see on CT is that your lungs look fairly small/compressed compared to what we'd expect to be normal; this, combined with your sleep study, strongly suggests that the weight (and the fact that you hold your weight so much in the middle) is causing compression of your breathing -we'll need to treat this in mutliple ways -- managing the sleep-breathing portion as well as working on lifestyle change to help get some of the weight off (see below) sleep breathing -your sleep study from 06/28/19 showed really severe sleep apnea. what it showed was that you had somewhere on the order of 137 events an hour related to sleep apnea. -when we sleep, our brain secretes a natural muscle relaxant so that when we dream we don't wander around or wake up in our neighbor's yard! however, because of this, our neck muscles get loose and floppy allowing our airway to fold shut - this causes apnea (stop breathing) events, and hypopnea (ineffective breathing) events. these cause a whole slew of problems: most basically, nearly every event will disrupt sleep - our normal sleep cycle is 60-90 minutes of shallow --> deep sleep; in deep sleep is when we secrete the hormones that help us heal and feel refreshed, so when you have more than 2 events per minute on average, you're really rarely if ever hitting true deep sleep -- in that respect you probably feel way more tired than you realize (but likely aren't even aware of how bad you're feeling because it has been going on so long). beyond that, when we try to inhale against a closed airway, it generates a huge vacuum in our chest - this causes a lot of strain on our heart and the blood vessels in our lungs -- because of this, people with untreated sleep apnea are far more prone to heart failure, heart rhythm issues, and issues like pulmonary hypertension (high blood pressure in the lungs that interferes with our ability to get in oxygen). big picture, people with untreated or undertreated sleep apnea about 10 years younger than they should. -all of this is compounded by how the weight impedes your lungs' ability to expand -- so in addition to breathing getting blocked at your neck, your breathing is also likely moving a lot less air than your body needs due to chest wall and belly getting in the way of your lungs expanding as much as they should -the main treatment that can start to turn this quickly is the pressure mask. as we discussed, it can take a while to get used to, but it is absolutely critical to your well being -- so basically look at getting used to the mask as a "have to" rather than an "i should" or an "i guess i will" -- typically people will do better with behavior changes when they view it as an "i have to do this" -as you work on lifestyle change (see below) and some weight starts to come off, then your breathing should get easier from this as well (and while you might not be able to get rid of the mask entirely, they'll likely be able to dial back pressures to lower levels/be able to make it more comfortable/etc) lifestyle change -as noted above, a significant factor getting in the way of breathing all the time (and why you need oxygen even during the day) is that the way you hold your weight is getting in the way of your lungs being able to expand enough -dr dunn can measure this with lung volume measurements - called pulmonary function tests - if she feels it would help her take care of you better -we'll want to help you get weight off as best as possible - as this will help you breathe easier -basically, the way a human being gains or loses weight is based on how many tana ories they take in versus how many calories they burn off ----a calorie is simply a unit of energy - it's the basic unit that we use in measuring energy in/energy out in human beings (think of it like a solange) ----at your current age/weight, your body lugo about 2050 calories at rest (meaning that if you're doing absolutely nothing, your body lugo off about 2050 calories a day just to keep your heart beating, breathing, brain working, etc) (as you lose weight and there is less of you, that basic "burn" rate will get smaller -- if you google "basal energy expenditure" you can plug in your numbers and recalculate your "burn rate" when you lose weight) ----there are roughly 3500 calories in a pound, so to lose weight, you want to burn off more calories than you take in -- each time you burn off a total of 3500 calories more than you take in, you'll lose a pound ----remember that the scale might not always reflect this perfectly day-to-day -- things like fluid retention in your feet/legs can make the scale move more slowly than your "dry weight" would suggest ----as we discussed, the main foods getting you in trouble are the candies - candy is very calorie dense (meaning that you don't have to eat a lot to have it add up to a lot of calories) -- for instance, one [place] peanut butter meltaway (and they're pretty small) is 80 calories just for that one little bite. each [employer] chocolate chip cookie is almost 55 calories. one [place] Rancher is almost 25 calories. candy adds up really quickly as far as putting more calories in your body and adding weight. ---for the next several weeks, keep tabs on how many calories you're eating - in the world of [employer] and google, it's actually fairly easy to do -- apps such as "Lose it" are a free way of logging everything you eat and drink and it will keep a running tab of how much you're taking in, or you can google "calorie content of " or "nutrition information for " and get a reasonable estimate of how many calories are in what you're eating ---exercise (as best you are able) would help you get the weight down faster - as moving more helps you burn off calories above/beyond your resting rate of about 2050 calories per day. realize, however, that we all overestimate how much we burn off when we do things. as a reasonable reference, you'll burn off about 100-150 calories per mile you walk (so for comparison's sake, you have to walk at least a mile to burn off 2 peanut butter meltaways!). once again, in the world of google and smartphones, you can simply search for a reasonable "guestimate" on how many calories you'll burn in doing any particular activity. ---the goal will be to take in less calories than you burn off - and over time the weight should come down. as the weight comes down, then the breathing should get easier. *treating the sleep apnea may help you crave the sweets and candies less too - while it's "soft science" there is some science to suggest that when we're not sleeping well we find ourselves wanting sweeter foods to have a spike in certain hormones that briefly make us feel better. so all of it will work together to help you reclaim your health. pericardial effusion (fluid around the heart) -this was seen on the CT scan of your chest, and confirmed on the echocardiogram (ultrasound). it is a moderate amount of fluid, but it does not appear to actually be interfering with your heart's ability to fill with blood or pump blood, and appears only maybe slightly larger than it did on ultrasound several months ago. it is more or less an incidental finding that should be followed, but does not appear to be causing you harm at this time. Dr Dunn will guide you on follow ups for this Pending Studies at Discharge: No Stand-Alone Forms: [email or web address], Sm[facility] Cessation Medications and DC Order Prescriptions: New nystatin [Nystop] 100,000 unit/gram Powder 1 applic EXT QID Qty: 15 RF: 0 Continued atorvastatin 40 mg tablet 40 mg PO DAILY Qty: 90 RF: 1 omeprazole 20 mg capsule,delayed release(DR/EC) See Rx Instructions .ROUTE .COMPLEX Qty: 90 RF: 2 amlodipine 5 mg tablet 5 mg PO DAILY Qty: 90 RF: 3 (DME) Oxygen Home Liters Per Minute See Rx Instructions .ROUTE .MEDSUPPLY Qty: 1 RF: 0 trazodone 150 mg tablet 225 mg PO HS Qty: 135 RF: 0 (DME) BiPAP Qty: 1 RF: 0 (DME) Portable Oxygen Misc See Rx Instructions .ROUTE .MEDSUPPLY Qty: 1 RF: 0 furosemide [Lasix] 20 mg tablet 20 mg PO BID Qty: 60 RF: 0 ascorbic acid (vitamin C) 500 mg capsule 500 mg PO BID Qty: 60 RF: 5 lisinopril 40 mg tablet 40 mg PO DAILY Qty: 30 RF: 5 multivitamin with minerals [Men's One Daily] tablet 1 tab PO DAILY Qty: 30 RF: 5 omega-3 fatty acids 1,000 mg capsule 1,000 mg PO DAILY Qty: 30 RF: 5 cetirizine 10 mg tablet 10 mg PO HS Qty: 60 RF: 5 albuterol sulfate [Ventolin HFA] 90 mcg/actuation HFA aerosol inhaler 1 puffs INH .COMPLEX PRN (Reason: shortness of breath or wheezing) Qty: 18 RF: 0 potassium chloride 20 mEq tablet extended release 20 meq PO DAILY Qty: 30 RF: 5 tamsulosin 0.4 mg capsule 0.4 mg PO DAILY RF: 0 dutasteride 0.5 mg capsule 0.5 mg PO DAILY RF: 0 Discharge Orders: Discharge Order (Routine); Ordered 07/08/19 Ordered By: Joey Gregory/Other Patient Handouts: Diabetes Parachute/Combatant Diver Officer Complications, Diabetes Healt hy Meals, DVT Prevention, Diabetes Exercise Benefits, A1C Admission Data Admit Date/Time: 07/04/19 16:22 Attending Provider: Joey Glez Admit Provider: Alexsander Rivera Primary Care Provider: Brittaney Dunn Other Providers: Alexsander Rivera ; Donnie Christensen Other Interventions: Discharge Summary Assessment (RN) Last Done: 07/08/19 10:17 DC Date/Time DO NOT enter until pt leaves facility: 07/08/19 10:38 Coding Level of Care Code D/C Day Management >30 mins Diagnoses Acute and chronic respiratory failure J96.20 Pericardial effusion I31.3 Hypercapnia R06.89 Volume overload E87.70 Hypervolemia type: unspecified Acute diastolic (congestive) heart failure I50.31 Morbid obesity with BMI of 40.0-44.9, adult E66.01; Z68.41 Anemia D64.9 Anemia type: unspecified type Leukocytosis D72.829 Hypertension I10 Hypertension type: essential hypertension Hyperlipidemia E78.5 Hyperlipidemia type: unspecified GERD without esophagitis K21.9 Benign prostatic hyperplasia with urinary obstruction N40.1; N13.8 Hypomagnesemia E83.42 DVT prophylaxis Z29.9 Discharge planning issues Z02.9
== END 2019-07-08 10:38 | disposition home or self-care (01) | DRG 205 ==
LOC: ED 11:22 → 2E 16:22 → SUATTDRO 16:22 → 2E 17:32 → 3N 07-06 20:29

== ENCOUNTER 2023-02-06 11:23 | Inpatient (IN) ==
--- NOTE | 2023-02-06 11:31 | Emergency Department Note ---
Impression & Plan Cellulitis of scrotum, Hypervolemia, Elevated erythrocyte sedimentation rate, Elevated C-reactive protein ED Provider Note NAME: JULIEN LOGAN AGE: 72 SEX: M ARRIVES VIA: Ambulance INFORMANT: Patient ED PROVIDER(S): Freddy Herrera MD CHIEF COMPLAINT: Scrotal pain referred. PLAN: Disposition: Admit MEDICAL DECISION MAKING: The patient is a pleasant 72-year-old gentleman with a past medical history of restrictive lung disease, obesity hypoventilation syndrome on CPAP at night, diastolic heart failure, venous insufficiency, type 2 diabetes, BPH who presents emergency department via EMS, referred by his PCP office after being seen today in an emergency department follow-up after being seen in [place] yesterday evening for scrotal pain and swelling that began 2 days ago per his report. He reports they "did nothing" but does acknowledge that they did blood work and an ultrasound. He is not aware of the details of his results. Records were obtain ed and the patient had blood work and ultrasound. Ultrasound commented on possibly diminished blood flow to bilateral testes where bilateral torsion cannot be excluded however clinically this was considered to be not likely and orchitis was favored. He was treated with Levaquin and provided with a prescription. He denies any fevers, nausea, vomiting, diarrhea, burning with urination. Denies any cough, congestion, chest pain or abdominal pain. Per review of prior records patient was seen by heart failure clinic and is considered to have a dry weight of 260 pounds. On my evaluation the patient is no distress, afebrile heart in the 100s and blood pressure 150s/90s vital signs otherwise stable. He has 2+ pitting edema of bilateral lower extremities. He has significantly edematous scrotum without overt induration, erythema, warmth. It is diffusely tender without discrete underlying areas of fluctuance on exam. EKG demonstrates right bundle branch block and otherwise without overt acute ischemia, similar to prior. CXR negative for acute cardiopulmonary process. WBC 14.2 with neutrophil predominance though no significant left shift. H/H approximately prior your values though no recent values for comparison. Platelets within normal limits. ESR and CRP are elevated at 99 and 1.7, respectively. Chemistry without metabolic acidosis. Creatinine 1.4 slightly increased from baseline in the proximal to prior values. LFTs are unremarkable. BNP 115, mildly elevated but nonspecific and likely underestimated given patient's obesity. Procalcitonin is not elevated. UA without convincing evidence of infection. CT of the abdomen pelvis was performed and demonstrates diffuse wall thickening and edema of the scrotum. No organized fluid collection or soft tissue gas is seen. Enlarged inguinal lymph nodes are likely reactive. Given the contacting patient's significant tenderness suspect findings reflect cellulitis in setting of hypervolemia as well. Blood cultures were obtained and patient was treated with empiric Zosyn and daptomycin at this time. Additionally treated with Lasix for diuresis. Hay catheter placed to closely monitor diuresis but also to minimize contamination and irritation to scrotum. Of note, patient reports significant anxiety with procedures and so required sublingual Ativan for her IV placement as well as Hay catheter placement with Uro-Jet. To further characterize patient's symptoms scrotal ultrasound was performed and demonstrated normal color-flow and otherwise redemonstrates significant soft tissue edema. Findings reviewed the patient agrees with plan for admission for further management. Case was discussed with Dr. Osman [facility] hospitalist, who will evaluate the patient for admission. Triage Nursing notes reviewed and agree them. Prior/outside medical records reviewed Vital Signs: reviewed Differential diagnosis: Renal colic, UTI, appendicitis, diverticulitis, mesenteric ischemia, aortic pathology, infections, inflammatory bowel disease, PUD, biliary pathology, as well as other pathologies. ER treatment provided: See below. Diagnostics interpreted by me: ECG: Sinus tachycardia, 106 bpm, PVCs, right bundle branch block, no overt ST elevation or depression, QTc 470, QRS 138. Cardiac Monitoring: An order for continuous cardiac monitoring was placed and demonstrated Sinus tachycardia, 106 bpm, PVCs. Laboratory studies: See below Imaging studies: See below Consultation(s): Case was discussed with Dr. Osman, [facility] hospitalist, who will evaluate the pa tient for admission. HPI: The patient is a pleasant 72-year-old gentleman with a past medical history of restrictive lung disease, obesity hypoventilation syndrome on CPAP at night, diastolic heart failure, venous insufficiency, type 2 diabetes, BPH who presents emergency department via EMS, referred by his PCP office after being seen today in an emergency department follow-up after being seen in [place] yesterday evening for scrotal pain and swelling that began 2 days ago per his report. He reports they "did nothing" but does acknowledge that they did blood work and an ultrasound. He is not aware of the details of his results. He denies any fevers, nausea, vomiting, diarrhea, burning with urination. Denies any cough, congestion, chest pain or abdominal pain. Per review of prior records patient was seen by heart failure clinic and is considered to have a dry weight of 260 pounds. ROS: See above HPI for pertinent positives & negatives. A total of 10 systems reviewed and were otherwise negative. VITALS:See Below PHYSICAL EXAMINATION: GENERAL: Awake, alert, well-appearing, in no distress, BMI 41.3. HENT: Normocephalic, atraumatic. Oropharynx unremarkable. EYES: Normal conjunctiva. Sclera non-icteric. NECK: Supple. No nuchal rigidity. FROM. No JVD. RESPIRATORY: Clear to auscultation. CARDIAC: Regular rate, normal rhythm. Extremities warm and well perfused. Pulses equal. ABDOMEN: Soft, non-distended. No tenderness to palpation. No rebound or guarding. No masses. : Significantly edematous scrotum without overt induration, erythema, warmth. It is diffusely tender without discrete underlying areas of fluctuance on exam. MUSCULOSKELETAL: Chest examination reveals no tenderness. The back is symmetrical on inspection without obvious abnormality. There is no CVA ten derness to palpation. No joint edema. LOWER EXTREMITIES: Calves are equal size bilaterally and non-tender. 2+ pitting edema. No discoloration. NEURO: Normal sensorium. No sensory or motor deficits noted. SKIN: No rash or jaundice noted. Freddy Herrera MD Past Med/Surg History Medical History Allergic rhinitis Anatomical narrow angle, bilateral Anemia Arthritis Benign prostatic hyperplasia with urinary obstruction Bradycardia Central pterygium of left eye Chronic diastolic heart failure Combined forms of age-related cataract of both eyes Depression with anxiety Dry eye syndrome of bilateral lacrimal glands First degree AV block GERD without esophagitis History of alcohol abuse Hyperlipidemia Hypertension Internal hemorrhoids Leukocytosis Morbid obesity with BMI of 40.0-44.9, adult Nocturnal hypoxia Obesity hypoventilation syndrome Obstructive sleep apnea Pericardial effusion Pes planus Rectal bleeding Restrictive lung disease Rheumatoid arthritis Right bundle branch block (RBBB) Strabismic amblyopia, right eye T2DM (type 2 diabetes mellitus) Urinary incontinence Venous insufficiency (chronic) (peripheral) Surgical History History of appendectomy History of prostate biopsy Family History Mother Diabetes Hypertension Other Blindness FH: cataracts Family history of blindness Glaucoma History of cataract Denies family history of Ovarian cancer Prostate cancer Myocardial infarction Breast cancer Colorectal cancer Social History Smoking Status: Never smoker Second Hand Exposure: No; Do You Dip or Chew Tobacco: No; Hx Alcohol Use: No Hx Substance Use: No Preferred Language: Khmer Communication Ability: Effective Visual Impairment: Limited Hearing Ability: Normal Satellite Installation Technician Required: No Beliefs That Will Affect Care: None marital status: Current Living Situation: Spouse current occupational status: retired Other Information That Helps Us Care for You: No Feels Safe at Home: Yes Safety Concerns: Feels Safe At This Time Childhood Exposure to Second-Hand Smoke: No Diet: regular Diet Comment: regular caffeine: No during the past year weight has: remained stable Dental Care, Regularly: No Physical Activity Frequency: Other Physical Activity Frequency Comment: limited by physical condition Seatbelt Use: always Sunscreen Use: No Assistive Devices: CPAP, Scooter/Electric Scooter and Walker Allergies Allergies Allergy/AdvReac Type Severity Reaction Status Date / Time No Known Drug Allergies Allergy Verified 01/16/23 09:34 Home Meds Home Medications Medication Instructions Recorded Confirmed hydrocodone 5 mg-acetaminophen 325 1 tab PO Q4H 02/06/23 02/06/23 mg tablet levofloxacin 500 mg tablet 500 mg PO DAILY 02/06/23 02/06/23 Previous Rx's Medication Instructions Recorded multivitamin with minerals (Men's 1 tab PO DAILY #30 tabs 11/02/18 One Daily tablet) omega-3 fatty acids 1,000 mg 1,000 mg PO DAILY #30 caps 11/02/18 capsule amlodipine 5 mg tablet 5 mg PO DAILY #90 tabs 01/29/22 atorvastatin 40 mg tablet 40 mg PO DAILY #100 tabs 01/29/22 dutasteride 0.5 mg capsule 0.5 mg PO DAILY #90 caps 01/29/22 omeprazole 20 mg capsule,delayed 20 mg PO DAILY #90 caps 01/29/22 release bumetanide 2 mg tablet 2 mg PO BID #60 tabs 04/19/22 miscellaneous medical supply See Rx Instructions .Route 06/12/22 .COMPLEX #100 ea blood sugar diagnostic (OneTouch #100 ea 07/09/22 Ultra Test strips) blood-glucose meter (OneTouch #1 ea 07/09/22 Ultra2 Meter kit) lancets 28 gauge (1st Tier Unilet #100 ea 07/09/22 ComforTouch Lancet) ascorbic acid (vitamin C) 500 mg 500 mg PO DAILY #30 caps 10/30/22 capsule lisinopril 40 mg tablet 40 mg PO DAILY #90 tabs 10/30/22 mirtazapine 30 mg tablet 30 mg PO HS #90 tabs 10/30/22 BATTERY CHECK ON SCOOTER #1 ea 02/05/23 Results & Data (ED) Vital Signs Vital Signs - 24 hr 02/06/23 11:36 02/06/23 12:12 02/06/23 12:12 Temperature 36.8 C 37.1 C Temperature Source Oral Oral Pulse Rate 108 H Pulse Rate [Apical] 104 H Pulse Rate from SpO2 Sensor Pulse Rhythm Regular Pulse Rhythm [Apical] Regular Pulse Strength Normal Pulse Strength [Apical] Normal Respiratory Rate 20 17 Respiratory Effort / Characteristics Non-Labored Spontaneous Non-Labored Spontaneous Respiratory Depth Normal Normal Respiratory Pattern Regular Regular Blood Pressure 158/96 H Blood Pressure Mean 116 Blood Pressure Position Semi-fowlers Pulse Oximetry 95 95 Oxygen Delivery Method Room Air Room Air Room Air Sepsis Recent Fever Within 48 Hours No Sepsis New/Unexplained Change in Mental Status N/A Sepsis Action Taken by Nursing No Action Required 02/06/23 13:15 02/06/23 13:00 02/06/23 14:00 Temperature Temperature Source Pulse Rate 102 H 97 H 102 H Pulse Rate [Apical] Pulse Rate from SpO2 Sensor 97 H 103 H Pulse Rhythm Pulse Rhythm [Apical] Pulse Strength Pulse Strength [Apical] Respiratory Rate 19 22 Respiratory Effort / Characteristics Respiratory Depth Respiratory Pattern Blood Pressure 158/79 H 143/75 H Blood Pressure Mean 105 97 Blood Pressure Position Pulse Oximetry 92 93 Oxygen Delivery Method Room Air Room Air Sepsis Recent Fever Within 48 Hours Sepsis New/Unexplained Change in Mental Status Sepsis Action Taken by Nursing 02/06/23 14:30 Temperature Temperature Source Pulse Rate 97 H Pulse Rate [Apical] Pulse Rate from SpO2 Sensor Pulse Rhythm Pulse Rhythm [Apical] Pulse Strength Pulse Strength [Apical] Respiratory Rate 20 Respiratory Effort / Characteristics Respiratory Depth Respiratory Pattern Blood Pressure 156/93 H Blood Pressure Mean 114 Blood Pressure Position Pulse Oximetry 94 Oxygen Delivery Method Room Air Sepsis Recent Fever Within 48 Hours Sepsis New/Unexplained Change in Mental Status Sepsis Action Taken by Nursing Laboratory Data Attestation: I reviewed the patient's lab results. 02/06/23 12:05 02/06/23 12:05 Lab Results 02/06/23 02/06/23 02/06/23 Range/Units 12:05 12:05 12:05 WBC 14.21 H (4.8-10.8) K/ul RBC 3.58 L (4.70-6.10) M/uL Hgb 10.5 L (14.0-18.0) g/dl Hct 32.1 L (42.0-52.0) % MCV 89.7 (80.0-100.0) fL MCH 29.3 (25.0-34.0) pg MCHC 32.7 (32.0-36.0) g/dL RDW Std Deviation 59.7 H (36.4-46.3) fL RDW Coeff of Darian 18.2 H (11.5-14.5) % Plt Count 362 (130-400) K/uL MPV 10.5 (9.4-12.4) fL Immature Gran % (Auto) 1.3 % Neut % (Auto) 74.1 % Lymph % (Auto) 14.3 % Green % (Auto) 8.0 % Eos % (Auto) 2.1 % Baso % (Auto) 0.2 % Neut # (Auto) 10.53 H (1.40-6.50) K/uL Lymph # (Auto) 2.03 (1.20-3.40) K/uL Green # (Auto) 1.14 H (0.11-0.59) K/uL Eos # (Auto) 0.30 (0.00-0.50) K/uL Baso # (Auto) 0.03 (0.00-0.20) K/uL Immature Gran # (Auto) 0.18 (0.01-0.20) K/uL Absolute Nucleated RBC 0.02 (0.00-0.12) K/uL Nucleated RBC % (auto) 0.1 % ESR (0-20) mm/hr PT (9.0-12.0) Seconds INR (0.9-1.1) Sodium 135 L (136-145) mmol/L Potassium 4.7 (3.5-5.1) mmol/L Chloride 105 (98-107) mmol/L Carbon Dioxide 24 (21-32) mmol/L Anion Gap 6 (3-11) BUN 24 H (6-23) mg/dl Creatinine 1.42 H (0.6-1.4) mg/dl Est Cr Clr Drug Dosing 55.5 ml/min Est GFR ( Amer) 56.4 ml/min Est GFR (Non-Af Amer) 48.7 ml/min BUN/Creatinine Ratio 16.9 (10-20) Glucose 121 H (70-99(Fasting)) mg/dl Lactate (0.4-2.0) mmol/L Calcium 9.0 (8.6-10.3) mg/dl Magnesium 2.0 (1.7-2.4) mg/dl Total Bilirubin 0.3 (0.2-1.0) mg/dl Direct Bilirubin 0.0 (0-0.2) mg/dl AST 24 (13-39) U/L ALT 19 (7-52) U/L Alkaline Phosphatase 125 H (34-104) U/L C-Reactive Protein 1.76 H (0-0.5) mg/dl B-Natriuretic Peptide (0-100) pg/ml Total Protein 7.9 (6.0-8.3) gm/dl Albumin 3.9 (3.4-5.0) gm/dl Procalcitonin < 0.05 (0-0.5) ng/ml Urine Color Urine Appearance (Clear) Urine pH (4.5-7.5) Ur Specific [place] (1.000-1.030) Urine Protein (Negative) Urine Glucose (UA) (Negative) Urine Ketones (Negative) Urine Blood (Negative) Urine Nitrite (Negative) Urine Bilirubin (Negative) Urine Urobilinogen (Negative) Ur Leukocyte Esterase (Negative) Urine WBC (Auto) (0-5) /hpf Urine RBC (Auto) (0-4) /hpf U Hyaline Cast (Auto) (0-5) /lpf U Epithel Cells (Auto) (0-5) /lpf Urine Bacteria (Auto) (Negative) 02/06/23 02/06/23 02/06/23 Range/Units 12:05 12:05 12:05 WBC (4.8-10.8) K/ul RBC (4.70-6.10) M/uL Hgb (14.0-18.0) g/dl Hct (42.0-52.0) % MCV (80.0-100.0) fL MCH (25.0-34.0) pg MCHC (32.0-36.0) g/dL RDW Std Deviation (36.4-46.3) fL RDW Coeff of Darian (11.5-14.5) % Plt Count (130-400) K/uL MPV (9.4-12.4) fL Immature Gran % (Auto) % Neut % (Auto) % Lymph % (Auto) % Green % (Auto) % Eos % (Auto) % Baso % (Auto) % Neut # (Auto) (1.40-6.50) K/uL Lymph # (Auto) (1.20-3.40) K/uL Green # (Auto) (0.11-0.59) K/uL Eos # (Auto) (0.00-0.50) K/uL Baso # (Auto) (0.00-0.20) K/uL Immature Gran # (Auto) (0.01-0.20) K/uL Absolute Nucleated RBC (0.00-0.12) K/uL Nucleated RBC % (auto) % ESR 99 H (0-20) mm/hr PT 10.9 (9.0-12.0) Seconds INR 1.0 (0.9-1.1) Sodium (136-145) mmol/L Potassium (3.5-5.1) mmol/L Chloride (98-107) mmol/L Carbon Dioxide (21-32) mmol/L Anion Gap (3-11) BUN (6-23) mg/dl Creatinine (0.6-1.4) mg/dl Est Cr Clr Drug Dosing ml/min Est GFR ( Amer) ml/min Est GFR (Non-Af Amer) ml/min BUN/Creatinine Ratio (10-20) Glucose (70-99(Fasting)) mg/dl Lactate (0.4-2.0) mmol/L Calcium (8.6-10.3) mg/dl Magnesium (1.7-2.4) mg/dl Total Bilirubin (0.2-1.0) mg/dl Direct Bilirubin (0-0.2) mg/dl AST (13-39) U/L ALT (7-52) U/L Alkaline Phosphatase (34-104) U/L C-Reactive Protein (0-0.5) mg/dl B-Natriuretic Peptide 115 H (0-100) pg/ml Total Protein (6.0-8.3) gm/dl Albumin (3.4-5.0) gm/dl Procalcitonin (0-0.5) ng/ml Urine Color Urine Appearance (Clear) Urine pH (4.5-7.5) Ur Specific [place] (1.000-1.030) Urine Protein (Negative) Urine Glucose (UA) (Negative) Urine Ketones (Negative) Urine Blood (Negative) Urine Nitrite (Negative) Urine Bilirubin (Negative) Urine Urobilinogen (Negative) Ur Leukocyte Esterase (Negative) Urine WBC (Auto) (0-5) /hpf Urine RBC (Auto) (0-4) /hpf U Hyaline Cast (Auto) (0-5) /lpf U Epithel Cells (Auto) (0-5) /lpf Urine Bacteria (Auto) (Negative) 02/06/23 02/06/23 Range/Units 13:14 14:15 WBC (4.8-10.8) K/ul RBC (4.70-6.10) M/uL Hgb (14.0-18.0) g/dl Hct (42.0-52.0) % MCV (80.0-100.0) fL MCH (25.0-34.0) pg MCHC (32.0-36.0) g/dL RDW Std Deviation (36.4-46.3) fL RDW Coeff of Darian (11.5-14.5) % Plt Count (130-400) K/uL MPV (9.4-12.4) fL Immature Gran % (Auto) % Neut % (Auto) % Lymph % (Auto) % Green % (Auto) % Eos % (Auto) % Baso % (Auto) % Neut # (Auto) (1.40-6.50) K/uL Lymph # (Auto) (1.20-3.40) K/uL Green # (Auto) (0.11-0.59) K/uL Eos # (Auto) (0.00-0.50) K/uL Baso # (Auto) (0.00-0.20) K/uL Immature Gran # (Auto) (0.01-0.20) K/uL Absolute Nucleated RBC (0.00-0.12) K/uL Nucleated RBC % (auto) % ESR (0-20) mm/hr PT (9.0-12.0) Seconds INR (0.9-1.1) Sodium (136-145) mmol/L Potassium (3.5-5.1) mmol/L Chloride (98-107) mmol/L Carbon Dioxide (21-32) mmol/L Anion Gap (3-11) BUN (6-23) mg/dl Creatinine (0.6-1.4) mg/dl Est Cr Clr Drug Dosing ml/min Est GFR ( Amer) ml/min Est GFR (Non-Af Amer) ml/min BUN/Creatinine Ratio (10-20) Glucose (70-99(Fasting)) mg/dl Lactate 1.0 (0.4-2.0) mmol/L Calcium (8.6-10.3) mg/dl Magnesium (1.7-2.4) mg/dl Total Bilirubin (0.2-1.0) mg/dl Direct Bilirubin (0-0.2) mg/dl AST (13-39) U/L ALT (7-52) U/L Alkaline Phosphatase (34-104) U/L C-Reactive Protein (0-0.5) mg/dl B-Natriuretic Peptide (0-100) pg/ml Total Protein (6.0-8.3) gm/dl Albumin (3.4-5.0) gm/dl Procalcitonin (0-0.5) ng/ml Urine Color Yellow Urine Appearance Clear (Clear) Urine pH 5.0 (4.5-7.5) Ur Specific [place] 1.024 (1.000-1.030) Urine Protein Negative (Negative) Urine Glucose (UA) Negative (Negative) Urine Ketones Negative (Negative) Urine Blood 2+ H (Negative) Urine Nitrite Negative (Negative) Urine Bilirubin Negative (Negative) Urine Urobilinogen Negative (Negative) Ur Leukocyte Esterase Negative (Negative) Urine WBC (Auto) 1-5 (0-5) /hpf Urine RBC (Auto) >30 H (0-4) /hpf U Hyaline Cast (Auto) 1-5 (0-5) /lpf U Epithel Cells (Auto) 5-10 H (0-5) /lpf Urine Bacteria (Auto) Negative (Negative) Administered Medications Heparin Sodium (Porcine) (Heparin Sod 5,000 Unit/0.5 Ml Vial) 5,000 units SQ Q8 [facility] Stop: 03/08/23 21:59 Last Admin: 02/06/23 22:32 Dose: 5,000 units Documented By: LOUIS Insulin Aspart (Insulin Aspart Per Unit Charge) 0 units SC ACHS [facility] Stop: 03/08/23 20:59 Last Admin: 02/06/23 20:34 Dose: Not Given Documented By: COTY Co-signed By: ANABELLE Insulin Glargine (Lantus Per Unit Charge) 10 units SQ BID [facility] Stop: 03/08/23 20:59 Last Admin: 02/06/23 20:35 Dose: Not Given Documented By: COTY Mirtazapine (Mirtazapine Tab 15 Mg Tab) 30 mg PO HS [facility] Stop: 03/08/23 20:59 Last Admin: 02/06/23 20:47 Dose: Not Given Documented By: COTY Discontinued Medications Acetaminophen (Ofirmev) 1,000 mg in 100 mls @ 400 mls/hr IV NOW STA Stop: 02/06/23 11:57 Last Infusion: 02/06/23 12:25 Dose: 0 mls/hr Documented By: Admin: 02/06/23 11:48 Dose: 400 mls/hr Documented By: COTY Piperacillin Sod/Tazobactam Sod (Zosyn) 4.5 gm in 100 mls @ 200 mls/hr IV NOW ONE Stop: 02/06/23 14:39 Last Infusion: 02/06/23 16:35 Dose: 0 mls/hr Documented By: Admin: 02/06/23 14:19 Dose: 200 mls/hr Documented By: COTY Daptomycin 375 mg/ Syringe 7.5 mls @ 3.75 mls/min IV Q24H [facility]; Protocol Stop: 02/08/23 14:14 Last Admin: 02/06/23 15:32 Dose: 3.75 mls/min Documented By: COTY Bumetanide 2 mg/ Syringe 8 mls @ 4 mls/min IV ONE ONE Stop: 02/06/23 14:20 Last Admin: 02/06/23 16:45 Dose: 4 mls/min Documented By: COTY Doxycycline Hyclate 100 mg/ (Dextrose) 100 mls @ 50 mls/hr IV NOW STA Stop: 02/06/23 20:00 Last Infusion: 02/06/23 21:17 Dose: 0 mls/hr Documented By: Admin: 02/06/23 18:31 Dose: 50 mls/hr Documented By: COTY Ceftriaxone Sodium 2,000 mg/ (Dextrose) 50 mls @ 100 mls/hr IV NOW STA; Protocol Stop: 02/06/23 18:33 Last Infusion: 02/06/23 19:50 Dose: 0 mls/hr Documented By: Admin: 02/06/23 18:52 Dose: 100 mls/hr Documented By: COTY Ioversol (Optiray 320 100ml) 93 ml IV ONCE ONE Stop: 02/06/23 13:31 Last Admin: 02/06/23 13:30 Dose: 93 ml Documented By: HUMPHREY Lidocaine HCl (Lidocaine 2% Jelly 5 Ml Tube) 5 ml EXT NOW ONE Stop: 02/06/23 15:39 Last Admin: 02/06/23 15:53 Dose: 5 ml Documented By: COTY Lorazepam (Lorazepam 1 Mg Tab) 1 mg SL NOW STA Stop: 02/06/23 11:44 Last Admin: 02/06/23 11:48 Dose: 1 mg Documented By: COTY Lorazepam (Lorazepam 2 Mg/1 Ml Vial) 1 mg IV NOW STA Stop: 02/06/23 15:39 Last Admin: 02/06/23 16:35 Dose: Not Given Documented By: COTY Lorazepam (Lorazepam 1 Mg Tab) 1 mg SL NOW STA Stop: 02/06/23 15:52 Last Admin: 02/06/23 15:55 Dose: 1 mg Documented By: COTY Imaging Data Radiologist's Impression: Chest X-Ray 02/06/23 11:39 SINGLE VIEW CHEST CLINICAL HISTORY: Sepsis. FINDINGS: An AP, portable, upright chest radiograph is compared to chest x-ray and chest CT dated 07/04/2019. The examination is degraded by portable technique and apical lordotic positioning. The heart is enlarged noting atherosclerotic calcification of the thoracic aorta. The pulmonary vasculature is noncongested. Chronic interstitial thickening similar to previous. Atelectasis is noted at the lung bases and there is chronic elevation of right hemidiaphragm. No airspace consolidation or large pleural effusion is identified. No pneumothorax is seen. The skeletal structures are osteopenic. The bony thorax is grossly intact. IMPRESSION: Cardiomegaly with no acute cardiopulmonary abnormality identified. ACT 112: Negative or not required by law. Electronically signed by: Jhonny Ruiz M.D. 02/06/2023 1:00 PM Abdomen/Pelvis CT 02/06/23 11:42 CT SCAN OF THE ABDOMEN AND PELVIS WITH IV CONTRAST CLINICAL HISTORY: Scrotal pain and edema. COMPARISON STUDY: No priors. TECHNIQUE: Following the IV administration of 93 cc of Optiray 320, CT scan of the abdomen and pelvis is performed from the lung bases to the proximal femora. Images are reviewed in the axial, sagittal, and coronal planes. IV contrast was administered without complication. A dose lowering technique was utilized adhering to the principles of ALARA. CT DOSE: 2127.88 mGy.cm FINDINGS: Lung bases: The heart is mildly enlarged noting a small pericardial effusion. There are coronary artery calcifications. The lung bases are clear. There is a small hiatal hernia. Liver: The contrast-enhanced liver is normal in size, contour, and attenuation. There is no intrahepatic biliary ductal dilatation. The hepatic veins and portal veins are patent. Gallbladder: There are calcified gallstones without CT evidence of acute cholecystitis. Spleen: Normal in size and attenuation. Pancreas: Unremarkable. Adrenal glands: Unremarkable. Kidneys: The contrast enhanced kidneys demonstrate mild cortical atrophy and are without hydronephrosis. The kidneys enhance symmetrically. Bilateral cysts measure up to 5.3 cm. Additional subcentimeter cortical hypodensities also likely represent cysts but are too small for definitive characterization. Abdominal vasculature: The abdominal aorta is normal in course and caliber noting mild to moderate atherosclerotic calcification. Bowel: There is [id number] colonic diverticulosis without CT evidence of acute diverticulitis. No bowel obstruction is seen. The appendix is not identified and reported surgically absent. Peritoneum: There is no intraperitoneal free air or abdominal ascites. There is a fat-containing umbilical hernia. Lymphadenopathy: No pathologically enlarged lymph nodes are seen in the abdomen or pelvis. Mildly enlarged bilateral inguinal lymph nodes are likely reactive. Hospital Director left inguinal node on image #[id number] measures 2.6 x 1.4 cm. A right inguinal node on image #[id number] measures 2.5 x 1.9 cm. Pelvic viscera: The prostate gland is enlarged and heterogeneous. The bladder wall is thickened/trabeculated indicating chronic outlet obstruction. There is diffuse scrotal wall thickening and edema. No fluid collection is identified. No peroneal soft tissue gas is seen. Skeletal structures: The skeletal structures are osteopenic. No lytic or blastic lesions are seen. IMPRESSION: 1. There is diffuse wall thickening and edema of the scrotum. Clinical correlation will be required. 2. No organized fluid collection or perineal soft tissue gas is seen. 3. Mild enlarging inguinal lymph nodes are likely reactive. 4. Cholelithiasis. 5. Prostatomegaly with evidence of chronic bladder outlet obstruction. 6. Additional findings as above. ACT 112: Negative or not required by law. Electronically signed by: Jhonny Ruiz M.D. 02/06/2023 2:01 PM Scrotum Ultrasound 02/06/23 14:10 TESTICULAR ULTRASOUND HISTORY: edema pain, ?orchitis/scrotal cellulitis COMPARISON: Abdomen and pelvis CT 02/06/2023. FINDINGS: Right testis: 41 x 25 x 23 mm. There are no intratesticular masses. Normal color flow. No hydrocele. Small epididymal head cysts measuring up to 5 mm. Left testis: 39 x 23 x 18 mm. There are no intratesticular masses. Normal color flow. No hydrocele. The epididymis is unremarkable. Severe scrotal edema is noted. IMPRESSION: 1. Severe scrotal edema. 2. Normal testes. ACT 112: Negative or not required by law. Electronically signed by: Karlo Garcia M.D. 02/06/2023 3:02 PM Discharge Plan Visit Data Chief Complaint: Groin Pain Stated Complaint: SCROTAL PAIN ED Provider: Freddy Herrera Discharge Problem: Cellulitis of scrotum, Hypervolemia, Elevated erythrocyte sedimentation rate, Elevated C-reactive protein Patient Disposition: Admitted As Inpatient Discharge Instructions Interventions: ED Discharge Assessment Last Done: 02/06/23 19:53
[2023-02-06] MEDS ORDERED: LORazepam 1 MG TAB SL STA ×2 (11:43→15:51)
[2023-02-06] MEDS ORDERED: ACETAMINOPHEN 1,000 MG/100 ML VIAL IV STA (11:43)
[2023-02-06 12:51] LABS: Basophils # (auto) 0.03 K/uL (0.00-0.20); Basophils % (auto) 0.2 %; Eosinophils % (auto) 2.1 %; Hematocrit (blood only) 32.1 % (42.0-52.0); Hemoglobin 10.5 g/dl (14.0-18.0); Immature Granulocytes # (auto) 0.18 K/uL (0.01-0.20); Immature Granulocytes % (auto) 1.3 %; Lymphocytes # (auto) 2.03 K/uL (1.20-3.40); Lymphocytes % (auto) 14.3 %; Mean Corpuscular Hemoglobin 29.3 pg (25.0-34.0); Mean Corpuscular Hgb Conc 32.7 g/dL (32.0-36.0); Mean Corpuscular Volume 89.7 fL (80.0-100.0); Mean Platelet Volume 10.5 fL (9.4-12.4); Monocytes # (auto) 1.14 K/uL (0.11-0.59); Neutrophils # (auto) 10.53 K/uL (1.40-6.50); Neutrophils % (auto) 74.1 %; Nucleated RBC # (auto) 0.02 K/uL (0.00-0.12); Nucleated RBC % (auto) 0.1 %; Platelet Count 362 K/uL (130-400); RDW Coefficient of Variation 18.2 % (11.5-14.5); RDW Standard Deviation 59.7 fL (36.4-46.3); Red Blood Count 3.58 M/uL (4.70-6.10); White Blood Count 14.21 K/ul (4.8-10.8)
--- NOTE | 2023-02-06 13:02 | XRay Report ---
SINGLE VIEW CHEST CLINICAL HISTORY: Sepsis. FINDINGS: An AP, portable, upright chest radiograph is compared to chest x-ray and chest CT dated 07/03. The examination is degraded by portable technique and apical lordotic positioning. The heart i s enlarged noting atherosclerotic calcification of the thoracic aorta. The pulmonary vasculature is n oncongested. Chronic interstitial thickening similar to previous. Atelectasis is noted at the lung ba ses and there is chronic elevation of right hemidiaphragm. No airspace consolidation or large pleural effusion is identified. No pneumothorax is seen. The skeletal structures are osteopenic. The bony th orax is grossly intact. IMPRESSION: Cardiomegaly with no acute cardiopulmonary abnormality identified. ACT 112: Negative or not required by law. Electronically signed by: Jhonny Ruiz M.D. 02/06/2023 1:00 PM
[2023-02-06 13:07] LABS: Albumin Level 3.9 gm/dl (3.4-5.0); BUN Creatinine Ratio 16.9 (10-20); Bilirubin,Total 0.3 mg/dl (0.2-1.0); Creatinine Clr Calc Pharmacy 55.5 ml/min; Est GFR (African American) 56.4 ml/min; Est GFR (Non-African American) 48.7 ml/min; Potassium 4.7 mmol/L (3.5-5.1); Total Protein 7.9 gm/dl (6.0-8.3)
[2023-02-06 13:13] LABS: Prothrombin Time 10.9 Seconds (9.0-12.0)
[2023-02-06] MEDS ORDERED: OPTIRAY 320 100ml IV ONE (13:30)
--- NOTE | 2023-02-06 13:57 | Electrocardiogram Report ---
Test Reason : Blood Pressure : / mmHG Vent. Rate : 106 BPM Atrial Rate : 000 BPM P-R Int : 000 ms QRS Dur : 138 ms QT Int : 360 ms P-R-T Axes : 000 064 018 degrees QTc Int : 478 ms Sinus tachycardia with occasional Premature ventricular complexes Right bundle branch block Abnormal ECG When compared with ECG of 04-JUL-2019 11:32, No significant change Confirmed by Lucius Huffman ([id number]) on 02/06/2023 1:57:25 PM Referred By: Confirmed By:Lucius Huffman
--- NOTE | 2023-02-06 14:04 | CT Scan Report ---
CT SCAN OF THE ABDOMEN AND PELVIS WITH IV CONTRAST CLINICAL HISTORY: Scrotal pain and edema. COMPARISON STUDY: No priors. TECHNIQUE: Following the IV administration of 93 cc of Optiray 320, CT scan of the abdomen and pelvi s is performed from the lung bases to the proximal femora. Images are reviewed in the axial, sagittal , and coronal planes. IV contrast was administered without complication. A dose lowering technique wa s utilized adhering to the principles of ALARA. CT DOSE: 2127.88 mGy.cm FINDINGS: Lung bases: The heart is mildly enlarged noting a small pericardial effusion. There are coronary lizzeth ry calcifications. The lung bases are clear. There is a small hiatal hernia. Liver: The contrast-enhanced liver is normal in size, contour, and attenuation. There is no intrahepa tic biliary ductal dilatation. The hepatic veins and portal veins are patent. Gallbladder: There are calcified gallstones without CT evidence of acute cholecystitis. Spleen: Normal in size and attenuation. Pancreas: Unremarkable. Adrenal glands: Unremarkable. Kidneys: The contrast enhanced kidneys demonstrate mild cortical atrophy and are without hydronephros is. The kidneys enhance symmetrically. Bilateral cysts measure up to 5.3 cm. Additional subcentimeter cortical hypodensities also likely represent cysts but are too small for definitive characterization . Abdominal vasculature: The abdominal aorta is normal in course and caliber noting mild to moderate at herosclerotic calcification. Bowel: There is [id number] colonic diverticulosis without CT evidence of acute diverticulitis. No bowel obstruction is seen. The appendix is not identified and reported surgically absent. Peritoneum: There is no intraperitoneal free air or abdominal ascites. There is a fat-containing umbi lical hernia. Lymphadenopathy: No pathologically enlarged lymph nodes are seen in the abdomen or pelvis. Mildly enl arged bilateral inguinal lymph nodes are likely reactive. Audiovisual Librarian left inguinal node on image #425 measures 2.6 x 1.4 cm. A right inguinal node on image #360 measures 2.5 x 1.9 cm. Pelvic viscera: The prostate gland is enlarged and heterogeneous. The bladder wall is thickened/trabe culated indicating chronic outlet obstruction. There is diffuse scrotal wall thickening and edema. No fluid collection is identified. No peroneal soft tissue gas is seen. Skeletal structures: The skeletal structures are osteopenic. No lytic or blastic lesions are seen. IMPRESSION: 1. There is diffuse wall thickening and edema of the scrotum. Clinical correlation will be required. 2. No organized fluid collection or perineal soft tissue gas is seen. 3. Mild enlarging inguinal lymph nodes are likely reactive. 4. Cholelithiasis. 5. Prostatomegaly with evidence of chronic bladder outlet obstruction. 6. Additional findings as above. ACT 112: Negative or not required by law. Electronically signed by: Jhonny Ruiz M.D. 02/06/2023 2:01 PM
[2023-02-06] MEDS ORDERED: PIPERACILLIN/TAZOBACTAM 4.5 GM/100 ML BAG IV ONE (14:10)
[2023-02-06] MEDS ORDERED: DAPTOmycin 375 MG in SYRINGE 0 ML IV SCH (14:15)
[2023-02-06] MEDS ORDERED: BUMETANIDE 2 MG in SYRINGE 0 ML IV ONE (14:19)
--- NOTE | 2023-02-06 15:04 | Ultrasound Report ---
TESTICULAR ULTRASOUND HISTORY: edema pain, ?orchitis/scrotal cellulitis COMPARISON: Abdomen and pelvis CT 02/06/2023. FINDINGS: Right testis: 41 x 25 x 23 mm. There are no intratesticular masses. Normal color flow. No hydrocele. Small epididymal head cysts measuring up to 5 mm. Left testis: 39 x 23 x 18 mm. There are no intratesticular masses. Normal color flow. No hydrocele. T he epididymis is unremarkable. Severe scrotal edema is noted. IMPRESSION: 1. Severe scrotal edema. 2. Normal testes. ACT 112: Negative or not required by law. Electronically signed by: Karlo Garcia M.D. 02/06/2023 3:02 PM
[2023-02-06 15:05] LABS: C Reactive Protein 1.76 mg/dl (0-0.5)
[2023-02-06] MEDS ORDERED: LORazepam 2 MG/1 ML VIAL IV STA (15:38)
[2023-02-06] MEDS ORDERED: LIDOCAINE 2% JELLY 5 ML TUBE EXT ONE (15:38)
--- NOTE | 2023-02-06 16:16 | History & Physical Report ---
Date of Service February 06, 2023 Assessment & Plan (1) Orchitis: Plan: Scrotal swelling, suspect orchitis/epididymitis Scrotum is edematous, warm, tender and slightly pink although not overtly cellulitic. Increased tenderness on epididymal palpation CTA/P: Diffuse wall thickening and edema of the scrotum. No organized fluid collection or perineal soft tissue gas. Mild inguinal lymph node enlargement. Prostatic megaly with evidence of chronic bladder outlet obstruction Scrotal ultrasound: Severe scrotal edema, normal testes CXR: Cardiomegaly Leukocytosis of 14.21, ESR and CRP are elevated Procalcitonin is normal UA: Ordered at time of admission along with G/C due to suspected orchitis No history of MRSA infection. Patient converted to Rocephin/doxycycline on admission, UA and G/C are pending. BPH with LUTS With evidence of chronic bladder outlet obstruction on CT Continue dutasteride - Bladder scan PRN (2) Severe obstructive sleep apnea: Plan: GABRIELLE CPAP nightly (3) Chronic diastolic heart failure: Plan: Diastolic CHF, hypertension Dry weight approximately 260 pounds. 255.2lbs on admission Lisinopril, Bumex held for mild JENNA and patient is clinically near/below his dry weight. Statin held as patient was given a dose of daptomycin in ER. BNP is mildly elevated at 115, no baseline for comparison Continues with lower extremity edema, lungs are clear, and rapid progression scrotal edema suggests alternative diagnosis other than CHF. Clinically slightly hypervolemic, will continue his diuretics as noted (4) Morbid obesity with BMI of 40.0-44.9, adult: (5) T2DM (type 2 diabetes mellitus): Plan: Type II DM Diet controlled Basal bolus insulin while inpatient Hyperlipidemia - Statin 2/2 dapto admin while in ER. may resume on dc. Full Code History of Present Illness Primary Care Provider: DO Rashi Jimenes is a 72-year-old male with a past medical history of GABRIELLE, diastolic heart failure, BMI of 41, type II DM, restrictive lung disease, and venous insufficiency who presents to the ER on referral from PCP for scrotal pain. 2 days of scrotal pain and swelling. No fevers, chills, sweats. No nausea/vomiting. No cough, no sputum production. No chest pain or chest pressure. No abdominal pain. Taking his medications including his diuretics as recommended. He reports he was seen at [facility] and had an ultrasound and was placed on an antibiotic on discharge. He reports he is continued to have pain and swelling in his scrotum under he presented to the hospital for further care. Review of records show that he had diminished but intact Doppler flow at time of ultrasound and [facility], patient updated that scrotal ultrasound here shows normal color flow. He has had pain in the scrotum diffusely and some pain with voiding in the last 3 days. He reports he has chronically had swelling in his legs, but swelling of scrotum seems new and much more sudden. Denies fever/chills/sweats. No chest pain. He is hungry, otherwise no acute concerns. Has been taking his Levaquin as an outpatient as directed. Medical History: Reviewed Medications: Reviewed Surgical History: Reviewed Family history: Reviewed Allergies: Reviewed Social History: Reviewed Code Status: Full Allergies Allergy/AdvReac Type Severity Reaction Status Date / Time No Known Drug Allergies Allergy Verified 01/16/23 09:34 Home Medications Medication Instructions Recorded Confirmed Type multivitamin with minerals (Men's 1 tab PO DAILY #30 tabs 11/02/18 01/16/23 Rx One Daily tablet) omega-3 fatty acids 1,000 mg 1,000 mg PO DAILY #30 caps 11/02/18 02/06/23 Rx capsule amlodipine 5 mg tablet 5 mg PO DAILY #90 tabs 01/29/22 02/06/23 Rx atorvastatin 40 mg tablet 40 mg PO DAILY #100 tabs 01/29/22 02/06/23 Rx dutasteride 0.5 mg capsule 0.5 mg PO DAILY #90 caps 01/29/22 02/06/23 Rx omeprazole 20 mg capsule,delayed 20 mg PO DAILY #90 caps 01/29/22 02/06/23 Rx release bumetanide 2 mg tablet 2 mg PO BID #60 tabs 04/19/22 02/06/23 Rx miscellaneous medical supply See Rx Instructions .Route 06/12/22 02/06/23 Rx .COMPLEX #100 ea blood sugar diagnostic (OneTouch #100 ea 07/09/22 02/06/23 Rx Ultra Test strips) blood-glucose meter (OneTouch #1 ea 07/09/22 02/06/23 Rx Ultra2 Meter kit) lancets 28 gauge (1st Tier Unilet #100 ea 07/09/22 02/06/23 Rx ComforTouch Lancet) ascorbic acid (vitamin C) 500 mg 500 mg PO DAILY #30 caps 10/30/22 02/06/23 Rx capsule lisinopril 40 mg tablet 40 mg PO DAILY #90 tabs 10/30/22 02/06/23 Rx mirtazapine 30 mg tablet 30 mg PO HS #90 tabs 10/30/22 02/06/23 Rx BATTERY CHECK ON SCOOTER #1 ea 02/05/23 02/06/23 Rx hydrocodone 5 mg-acetaminophen 325 1 tab PO Q4H 02/06/23 02/06/23 History mg tablet levofloxacin 500 mg tablet 500 mg PO DAILY 02/06/23 02/06/23 History Past Med/Surg History Medical History Allergic rhinitis Anatomical narrow angle, bilateral Anemia Arthritis Benign prostatic hyperplasia with urinary obstruction Bradycardia Central pterygium of left eye Chronic diastolic heart failure Combined forms of age-related cataract of both eyes Depression with anxiety Dry eye syndrome of bilateral lacrimal glands First degree AV block GERD without esophagitis History of alcohol abuse Hyperlipidemia Hypertension Internal hemorrhoids Leukocytosis Morbid obesity with BMI of 40.0-44.9, adult Nocturnal hypoxia Obesity hypoventilation syndrome Obstructive sleep apnea Pericardial effusion Pes planus Rectal bleeding Restrictive lung disease Rheumatoid arthritis Right bundle branch block (RBBB) Strabismic amblyopia, right eye T2DM (type 2 diabetes mellitus) Urinary incontinence Venous insufficiency (chronic) (peripheral) Surgical History History of appendectomy History of prostate biopsy Family History Mother Diabetes Hypertension Other Blindness FH: cataracts Family history of blindness Glaucoma History of cataract Denies family history of Ovarian cancer Prostate cancer Myocardial infarction Breast cancer Colorectal cancer Social History Smoking Status: Never smoker Second Hand Exposure: No; Do You Dip or Chew Tobacco: No; Hx Alcohol Use: No Hx Substance Use: No Preferred Language: Peruvian Communication Ability: Effective Visual Impairment: Limited Hearing Ability: Normal Crane Service Technician Required: No Beliefs That Will Affect Care: None marital status: Current Living Situation: Spouse current occupational status: retired Feels Safe at Home: Yes Childhood Exposure to Second-Hand Smoke: No Diet: regular Diet Comment: regular caffeine: No during the past year weight has: remained stable Dental Care, Regularly: No Physical Activity Frequency: Other Physical Activity Frequency Comment: limited by physical condition Seatbelt Use: always Sunscreen Use: No Assistive Devices: None Physical Exam Physical Exam: General: A&Ox3. NAD. Cooperative. HEENT: Atraumatic, normocephalic. Pulm: CTAB A&P. -wheezes, -rales, -rhonchi. Symmetrical chest rise. No increased work of breathing. No respiratory distress. Cardiac: RRR, -mrg. Radial pulses intact and symmetrical. Abdominal: Nontender, nondistended, soft. BS present. : Scrotum diffusely swollen, warm, tender to palpation, slight pinkness without overt erythema. Increased tenderness on epididymal palpation Results & Data Results & Data Vital Signs (Past 12 Hours) Vital Signs Temp Pulse Pulse Resp BP Pulse Ox O2 Del Method 02/06/23 14:30 97 H 20 156/93 H 94 Room Air 02/06/23 14:00 102 H 22 143/75 H 93 Room Air 02/06/23 13:00 97 H 19 158/79 H 92 Room Air 02/06/23 13:15 102 H 02/06/23 12:12 95 Room Air 02/06/23 12:12 37.1 C 104 H 17 Room Air 02/06/23 11:36 36.8 C 108 H 20 158/96 H 95 Room Air PG Care Time/CCT Total # of Minutes Spent Total Time Spent with Patient: Total time spent is greater than 50% in coordination of care (as documented) at patient's floor/unit and/or counseling patient: Coding Level of Care Code 03454 INT INP/OBS CARE 3/75MIN Diagnoses Orchitis N45.2 Severe obstructive sleep apnea G47.33 Chronic diastolic heart failure I50.32 Morbid obesity with BMI of 40.0-44.9, adult E66.01; Z68.41 T2DM (type 2 diabetes mellitus) E11.9
[2023-02-06 16:29] LABS: Appearance Urine Clear (Clear); Bacteria Urine Automated Negative (Negative); Bilirubin Urine Negative (Negative); Blood Urine 2+ (Negative); Color Urine Yellow; Glucose Urine UA Negative (Negative); Ketones Urine Negative (Negative); Leukocyte Esterase Urine Negative (Negative); Nitrite Urine Negative (Negative); Protein Urine Negative (Negative); RBC Urine Automated >30 /hpf (0-4); Specific Gravity Urine 1.024 (1.000-1.030); Urobilinogen Urine Negative (Negative)
[2023-02-06] MEDS ORDERED: CARBOHYDRATES FOR HYPOGLYCEMIA PO PRN (17:11)
[2023-02-06] MEDS ORDERED: GLUCAGON FOR INJ 1 MG VIAL SQ PRN (17:11)
[2023-02-06] MEDS ORDERED: GLUCOSE 10 TAB/TUBE PO PRN (17:11)
[2023-02-06] MEDS ORDERED: DEXTROSE 50% 50 ML SYRINGE IV PRN (17:11)
[2023-02-06] MEDS ORDERED: GLUCOSE 40% GEL 15 GM TUBE PO PRN (17:11)
[2023-02-06] MEDS ORDERED: DOXYCYCLINE HYCLATE 100 MG in DEXTROSE 5% MINI-B 100 ML IV STA (18:01)
[2023-02-06] MEDS ORDERED: cefTRIAXone SODIUM 2,000 MG in DEXTROSE 5 % MINI-B 50 ML IV STA (18:04)
[2023-02-06] MEDS: INSULIN ASPART PER UNIT CHARGE SC SCH (20:34)
[2023-02-06] MEDS: LANTUS PER UNIT CHARGE SQ SCH (20:35)
[2023-02-06] MEDS: MIRTAZAPINE TAB 15 MG TAB PO SCH (20:47)
[2023-02-06] MEDS: HEPARIN SOD 5,000 UNIT/0.5 ML VIAL SQ SCH (22:32)
[2023-02-07] MEDS: HEPARIN SOD 5,000 UNIT/0.5 ML VIAL SQ SCH ×2 (05:37→20:17)
[2023-02-07] MEDS ORDERED: DOXYCYCLINE HYCLATE 100 MG in DEXTROSE 5% MINI-B 100 ML IV SCH (06:00)
[2023-02-07] MEDS: INSULIN ASPART PER UNIT CHARGE SC SCH ×4 (09:01→20:03)
[2023-02-07] MEDS: LANTUS PER UNIT CHARGE SQ SCH (09:02)
[2023-02-07] MEDS: FINASTERIDE 5 MG TAB PO SCH (09:03)
[2023-02-07] MEDS: amLODIPine BESYLATE 5 MG TAB PO SCH (09:03)
[2023-02-07] MEDS: ACETAMINOPHEN 325 MG TAB PO PRN (09:04)
[2023-02-07] MEDS ORDERED: ALBUT/IPRATROP 3MG/0.5MG NEB 3 ML VIAL NEB STA (09:34)
[2023-02-07 11:06] LABS: Basophils # (auto) 0.03 K/uL (0.00-0.20); Basophils % (auto) 0.2 %; Eosinophils # (auto) 0.17 K/uL (0.00-0.50); Eosinophils % (auto) 1.2 %; Hematocrit (blood only) 29.5 % (42.0-52.0); Hemoglobin 9.7 g/dl (14.0-18.0); Immature Granulocytes # (auto) 0.11 K/uL (0.01-0.20); Immature Granulocytes % (auto) 0.8 %; Lymphocytes # (auto) 0.92 K/uL (1.20-3.40); Lymphocytes % (auto) 6.6 %; Mean Corpuscular Hemoglobin 29.8 pg (25.0-34.0); Mean Corpuscular Hgb Conc 32.9 g/dL (32.0-36.0); Mean Corpuscular Volume 90.5 fL (80.0-100.0); Monocytes # (auto) 1.06 K/uL (0.11-0.59); Monocytes % (auto) 7.6 %; Neutrophils # (auto) 11.66 K/uL (1.40-6.50); Neutrophils % (auto) 83.6 %; Nucleated RBC # (auto) 0.02 K/uL (0.00-0.12); Nucleated RBC % (auto) 0.1 %; Platelet Count 313 K/uL (130-400); RDW Coefficient of Variation 18.3 % (11.5-14.5); RDW Standard Deviation 59.4 fL (36.4-46.3); Red Blood Count 3.26 M/uL (4.70-6.10); White Blood Count 13.95 K/ul (4.8-10.8)
[2023-02-07 11:13] LABS: Calcium 8.6 mg/dl (8.6-10.3); Creatinine Clr Calc Pharmacy 62.7 ml/min; Est GFR (African American) 56.9 ml/min; Est GFR (Non-African American) 49.1 ml/min; Potassium 4.5 mmol/L (3.5-5.1)
[2023-02-07] MEDS ORDERED: AMPICILLIN SOD/SULBACTAM SOD 3 GM VIAL IV SCH (11:45)
[2023-02-07] MEDS: FUROSEMIDE 40 MG/4 ML VIAL IV SCH ×2 (12:20→20:16)
[2023-02-07] MEDS: UNASYN 3000MG / NS q6h IV SCH ×2 (13:53→18:18)
--- NOTE | 2023-02-07 16:45 | Hospitalist Progress Note ---
Date of Service February 07, 2023 Assessment & Plan (1) Orchitis: Plan: Combined orchitis and epididymitis evident on admission. Hay catheter is now in place. Antibiotics have been switched to Unasyn. CT scan and ultrasound negative for torsion (2) Severe obstructive sleep apnea: Plan: Stable. Continue CPAP nightly (3) Chronic diastolic heart failure: Plan: No overt CHF seen on chest x-ray. However he does have significant edema and has responded nicely so far to parenteral Lasix. Monitor intake and output. Serial labs (4) Morbid obesity with BMI of 40.0-44.9, adult: Plan: Significant weight loss recommend (5) T2DM (type 2 diabetes mellitus): Plan: ADA diet. Sliding scale coverage as needed Full Code (6) BPH w urinary obs/LUTS: Plan: Hay catheter in place (7) Obesity hypoventilation syndrome: Plan: Significant weight loss Plan To be determined. OT and PT evaluations requested Admission and Anticipated Discharge Date Admission Date: February 06, 2023 Subjective Alert and oriented. No acute distress. He does have significant peripheral edema and he gets short of breath with minimal exertion but he is very sedentary at home and nonambulatory. He uses a power wheelchair. Nevertheless, intravenous Lasix was ordered twice daily and he has had significant urine output. This will continue. He has evidence of epididymitis/orchitis on admission. He is now on Unasyn. OT and PT evaluations have been requested. We will monitor serial lab studies. Review of Systems Review of Systems: Constitutional-no fever or chills ENT-no blurred vision, no double vision, no epistaxis, no sore throat Respiratory-no cough, no wheezing, no shortness of breath Cardiac-no palpitations, no chest pain, no syncope GI-no nausea, vomiting, diarrhea, melena, hematochezia -no urinary retention, no urinary incontinence, no dysuria, no hematuria. He does have scrotal edema and erythema more pronounced on the left than the right Musculoskeletal-no joint pain, no muscle tenderness. Significant peripheral edema noted Skin-no bruising, no rashes, no pruritus Neuro-no isolated weakness, no paresthesia, no weakness Psych-no depression, no anxiety Physical Exam Physical Exam: General-alert and oriented x3, no fevers, no chills. Morbidly obese HEENT-head atraumatic and normocephalic, pupils equal and reactive to light, extraocular muscles intact Neck-no lymphadenopathy or thyromegaly, trachea midline Chest-clear to auscultation percussion. No rales wheezing or rhonchi Cardiac-regular rate and rhythm, normal S1 and S2 Abdomen-normal bowel sounds, nontender, no hepatosplenomegaly GUscrotal edema and erythema more pronounced on the left than the right. Hay catheter in place Extremities-2+ pitting edema bilateral lower extremities Neuro-bilateral lower extremity paraplegia Psych-normal affect, normal mood Results & Data Results & Data Vital Signs (Past 12 Hours) Vital Signs Temp Pulse Resp BP BP Pulse Ox O2 Del Method 02/07/23 14:29 36.8 C 92 H 18 131/67 94 Room Air 02/07/23 10:21 85 18 95 Room Air 02/07/23 09:57 Room Air 02/07/23 06:58 36.6 C 76 18 167/82 H 100 CPAP Laboratory Results 02/07/23 10:29 02/07/23 10:29 PG Care Time/CCT Total # of Minutes Spent Total Time Spent with Patient: Total time spent is greater than 50% in coordination of care (as documented) at patient's floor/unit and/or counseling patient: Coding Level of Care Code 12961 SUB INP/OBS CARE 3/50MIN Diagnoses Orchitis N45.2 Severe obstructive sleep apnea G47.33 Chronic diastolic heart failure I50.32 Morbid obesity with BMI of 40.0-44.9, adult E66.01; Z68.41 T2DM (type 2 diabetes mellitus) E11.9 BPH w urinary obs/LUTS N40.1; N13.8 Obesity hypoventilation syndrome E66.2
[2023-02-07] MEDS ORDERED: cefTRIAXone SODIUM 2,000 MG in DEXTROSE 5 % MINI-B 50 ML IV SCH (18:00)
[2023-02-07] MEDS: ALBUT/IPRATROP 3MG/0.5MG NEB 3 ML VIAL NEB PRN (19:24)
[2023-02-07] MEDS: MIRTAZAPINE TAB 15 MG TAB PO SCH (20:15)
[2023-02-08] MEDS: UNASYN 3000MG / NS q6h IV SCH ×4 (00:27→18:03)
[2023-02-08] MEDS: ALBUT/IPRATROP 3MG/0.5MG NEB 3 ML VIAL NEB PRN (00:52)
[2023-02-08] MEDS: amLODIPine BESYLATE 5 MG TAB PO SCH (08:28)
[2023-02-08] MEDS: INSULIN ASPART PER UNIT CHARGE SC SCH ×4 (08:28→20:05)
[2023-02-08] MEDS: FINASTERIDE 5 MG TAB PO SCH (08:28)
[2023-02-08] MEDS: HEPARIN SOD 5,000 UNIT/0.5 ML VIAL SQ SCH ×2 (08:28→20:05)
[2023-02-08] MEDS: FUROSEMIDE 40 MG/4 ML VIAL IV SCH ×2 (08:28→20:04)
[2023-02-08 12:50] LABS: Basophils # (auto) 0.05 K/uL (0.00-0.20); Basophils % (auto) 0.4 %; Eosinophils # (auto) 0.34 K/uL (0.00-0.50); Eosinophils % (auto) 2.8 %; Hematocrit (blood only) 29.8 % (42.0-52.0); Hemoglobin 9.9 g/dl (14.0-18.0); Immature Granulocytes # (auto) 0.15 K/uL (0.01-0.20); Immature Granulocytes % (auto) 1.2 %; Lymphocytes # (auto) 1.46 K/uL (1.20-3.40); Mean Corpuscular Hemoglobin 29.4 pg (25.0-34.0); Mean Corpuscular Hgb Conc 33.2 g/dL (32.0-36.0); Mean Corpuscular Volume 88.4 fL (80.0-100.0); Monocytes # (auto) 1.24 K/uL (0.11-0.59); Monocytes % (auto) 10.2 %; Neutrophils # (auto) 8.94 K/uL (1.40-6.50); Neutrophils % (auto) 73.4 %; Nucleated RBC # (auto) 0.02 K/uL (0.00-0.12); Nucleated RBC % (auto) 0.2 %; Platelet Count 338 K/uL (130-400); RDW Coefficient of Variation 18.5 % (11.5-14.5); RDW Standard Deviation 59.2 fL (36.4-46.3); Red Blood Count 3.37 M/uL (4.70-6.10); White Blood Count 12.18 K/ul (4.8-10.8)
[2023-02-08 12:56] LABS: Calcium 8.8 mg/dl (8.6-10.3); Creatinine Clr Calc Pharmacy 66.5 ml/min; Est GFR (Non-African American) 52.7 ml/min; Potassium 4.2 mmol/L (3.5-5.1)
--- NOTE | 2023-02-08 13:38 | Hospitalist Progress Note ---
Date of Service February 08, 2023 Assessment & Plan (1) Orchitis: Plan: Combined orchitis and epididymitis evident on admission. Hay catheter is now in place. Unasyn, day 2. CT scan and ultrasound negative for torsion (2) Severe obstructive sleep apnea: Plan: Stable. Continue CPAP nightly (3) Chronic diastolic heart failure: Plan: No overt CHF seen on chest x-ray. However he does have significant edema and has responded nicely so far to parenteral Lasix. Monitor intake and output. Serial labs (4) Morbid obesity with BMI of 40.0-44.9, adult: Plan: Significant weight loss recommend (5) T2DM (type 2 diabetes mellitus): Plan: ADA diet. Sliding scale coverage as needed. (6) BPH w urinary obs/LUTS: Plan: Hay catheter in place (7) Obesity hypoventilation syndrome: Plan: Significant weight loss recommend Plan To be determined. OT and PT evaluations requested Admission and Anticipated Discharge Date Admission Date: February 07, 2023 Subjective Alert and oriented. Brisk diuresis with IV Lasix. Creatinine stable. Potassium 4.2. He states the scrotal edema and inflammation are resolving. He remains on intravenous Unasyn. Review of Systems Review of Systems: Constitutional-no fever or chills ENT-no blurred vision, no double vision, no epistaxis, no sore throat Respiratory-no cough, no wheezing, no shortness of breath Cardiac-no palpitations, no chest pain, no syncope GI-no nausea, vomiting, diarrhea, melena, hematochezia -no urinary retention, no urinary incontinence, no dysuria, no hematuria. He does have scrotal edema and erythema more pronounced on the left than the right Musculoskeletal-no joint pain, no muscle tenderness. Significant peripheral ed jeannine noted Skin-no bruising, no rashes, no pruritus Neuro-no isolated weakness, no paresthesia, no weakness Psych-no depression, no anxiety Physical Exam Physical Exam: General-alert and oriented x3, no fevers, no chills. Morbidly obese HEENT-head atraumatic and normocephalic, pupils equal and reactive to light, extraocular muscles intact Neck-no lymphadenopathy or thyromegaly, trachea midline Chest-clear to auscultation percussion. No rales wheezing or rhonchi Cardiac-regular rate and rhythm, normal S1 and S2 Abdomen-normal bowel sounds, nontender, no hepatosplenomegaly GUscrotal edema and erythema more pronounced on the left than the right. Hay catheter in place Extremities-2+ pitting edema bilateral lower extremities Neuro-bilateral lower extremity paraplegia Psych-normal affect, normal mood Results & Data Results & Data Vital Signs (Past 12 Hours) Vital Signs Temp Pulse Pulse Resp BP Pulse Ox O2 Del Method 02/08/23 07:41 36.8 C 74 18 120/69 95 Room Air 02/08/23 07:31 Room Air 02/08/23 03:30 91 H 22 91 O2 Flow Rate 02/08/23 07:41 02/08/23 07:31 02/08/23 03:30 2 Laboratory Results 02/08/23 12:19 02/08/23 12:19 PG Care Time/CCT Total # of Minutes Spent Total Time Spent with Patient: Total time spent is greater than 50% in coordination of care (as documented) at patient's floor/unit and/or counseling patient: Coding Level of Care Code 01706 SUB INP/OBS CARE 2/35MIN Diagnoses Orchitis N45.2 Severe obstructive sleep apnea G47.33 Chronic diastolic heart failure I50.32 Morbid obesity with BMI of 40.0-44.9, adult E66.01; Z68.41 T2DM (type 2 diabetes mellitus) E11.9 BPH w urinary obs/LUTS N40.1; N13.8 Obesity hypoventilation syndrome E66.2
[2023-02-08] MEDS: MIRTAZAPINE TAB 15 MG TAB PO SCH (20:03)
[2023-02-09] MEDS: UNASYN 3000MG / NS q6h IV SCH ×3 (00:58→14:31)
[2023-02-09] MEDS: INSULIN ASPART PER UNIT CHARGE SC SCH ×4 (08:44→20:25)
[2023-02-09] MEDS: FINASTERIDE 5 MG TAB PO SCH (08:46)
[2023-02-09] MEDS: amLODIPine BESYLATE 5 MG TAB PO SCH (08:46)
[2023-02-09] MEDS: FUROSEMIDE 40 MG/4 ML VIAL IV SCH ×2 (08:46→10:49)
[2023-02-09] MEDS: HEPARIN SOD 5,000 UNIT/0.5 ML VIAL SQ SCH ×2 (08:46→20:35)
[2023-02-09] MEDS: ACETAMINOPHEN 325 MG TAB PO PRN (10:48)
--- NOTE | 2023-02-09 14:24 | Hospitalist Progress Note ---
Date of Service February 09, 2023 Assessment & Plan (1) Orchitis: Plan: Combined orchitis and epididymitis evident on admission. Hay catheter is now in place. Unasyn, day 3. CT scan and ultrasound negative for torsion. Much improved overall. He has lost his IV access and refuses to have another IV placed. Unasyn has been switched to Augmentin. Intravenous Lasix switched to oral dosing. We will discontinue Hay catheter before discharge (2) Severe obstructive sleep apnea: Plan: Stable. Continue CPAP nightly (3) Chronic diastolic heart failure: Plan: No overt CHF seen on chest x-ray. However he does have significant edema and has responded nicely so far to parenteral Lasix which will be switched to oral dosing due to lack of IV access. Monitor intake and output. Serial labs (4) Morbid obesity with BMI of 40.0-44.9, adult: Plan: Significant weight loss recommend (5) T2DM (type 2 diabetes mellitus): Plan: ADA diet. Sliding scale coverage as needed. (6) BPH w urinary obs/LUTS: Plan: Hay catheter in place. This will be removed before discharge (7) Obesity hypoventilation syndrome: Plan: Significant weight loss recommend Plan Home tomorrow, February 10, on oral antibiotic and oral Lasix Admission and Anticipated Discharge Date Admission Date: February 07, 2023 Subjective Alert and oriented. No acute distress. His IV came out and he is refusing re placement. He has also refused his daily labs. He has diuresed nearly 10 L with IV Lasix and is doing much better. Scrotal edema is much better but there is some skin breakdown. Wound care nurse consultation placed. Hopefully home tomorrow, February 10, on an oral antibiotic and oral Lasix to replace his bumetanide Review of Systems Review of Systems: Constitutional-no fever or chills ENT-no blurred vision, no double vision, no epistaxis, no sore throat Respiratory-no cough, no wheezing, no shortness of breath Cardiac-no palpitations, no chest pain, no syncope GI-no nausea, vomiting, diarrhea, melena, hematochezia -no urinary retention, no urinary incontinence, no dysuria, no hematuria. He does have scrotal edema and erythema more pronounced on the left than the right Musculoskeletal-no joint pain, no muscle tenderness. Significant peripheral edema and scrotal edema have improved considerably since admission Skin-no bruising, no rashes, no pruritus Neuro-no isolated weakness, no paresthesia, no weakness Psych-no depression, no anxiety Physical Exam Physical Exam: General-alert and oriented x3, no fevers, no chills. Morbidly obese HEENT-head atraumatic and normocephalic, pupils equal and reactive to light, extraocular muscles intact Neck-no lymphadenopathy or thyromegaly, trachea midline Chest-clear to auscultation percussion. No rales wheezing or rhonchi Cardiac-regular rate and rhythm, normal S1 and S2 Abdomen-normal bowel sounds, nontender, no hepatosplenomegaly GUscrotal edema has markedly improved. There is some skin breakdown that needs attention. 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 Psych-normal affect, normal mood Results & Data Results & Data Vital Signs (Past 12 Hours) Vital Signs Temp Pulse Pulse Resp BP Pulse Ox O2 Del Method 02/09/23 07:01 36.5 C 71 18 153/68 H 96 Room Air 02/09/23 03:15 93 H 24 93 O2 Flow Rate 02/09/23 07:01 02/09/23 03:15 2 Laboratory Results 02/08/23 12:19 02/08/23 12:19 PG Care Time/CCT Total # of Minutes Spent Total Time Spent with Patient: Total time spent is greater than 50% in coordination of care (as documented) at patient's floor/unit and/or counseling patient: Coding Level of Care Code 69866 SUB INP/OBS CARE 3/50MIN Diagnoses Orchitis N45.2 Severe obstructive sleep apnea G47.33 Chronic diastolic heart failure I50.32 Morbid obesity with BMI of 40.0-44.9, adult E66.01; Z68.41 T2DM (type 2 diabetes mellitus) E11.9 BPH w urinary obs/LUTS N40.1; N13.8 Obesity hypoventilation syndrome E66.2
[2023-02-09] MEDS: AMOXICILLIN/CLAVULANATE 875 MG TAB PO SCH (17:07)
[2023-02-09] MEDS: FUROSEMIDE 40 MG TAB PO SCH (17:07)
[2023-02-09] MEDS: MIRTAZAPINE TAB 15 MG TAB PO SCH (20:35)
[2023-02-10] MEDS: amLODIPine BESYLATE 5 MG TAB PO SCH (09:12)
[2023-02-10] MEDS: AMOXICILLIN/CLAVULANATE 875 MG TAB PO SCH (09:12)
[2023-02-10] MEDS: FINASTERIDE 5 MG TAB PO SCH (09:12)
[2023-02-10] MEDS: FUROSEMIDE 40 MG TAB PO SCH (09:12)
[2023-02-10] MEDS: HEPARIN SOD 5,000 UNIT/0.5 ML VIAL SQ SCH (09:14)
[2023-02-10] MEDS: INSULIN ASPART PER UNIT CHARGE SC SCH ×2 (09:15→12:42)
[2023-02-10 10:21] LABS: Calcium 8.7 mg/dl (8.6-10.3); Potassium 4.9 mmol/L (3.5-5.1)
[2023-02-10 10:26] LABS: BUN Creatinine Ratio 22.1 (10-20); Creatinine Clr Calc Pharmacy 72.5 ml/min; Est GFR (African American) 67.7 ml/min; Est GFR (Non-African American) 58.5 ml/min
--- NOTE | 2023-02-10 12:14 | Discharge Summary ---
Date of Service February 10, 2023 Admission HPI Per Admitting Provider Rashi is a 72-year-old male with a past medical history of GABRIELLE, diastolic heart failure, BMI of 41, type II DM, restrictive lung disease, and venous insufficiency who presents to the ER on referral from PCP for scrotal pain. 2 days of scrotal pain and swelling. No fevers, chills, sweats. No nausea/vomiting. No cough, no sputum production. No chest pain or chest pressure. No abdominal pain. Taking his medications including his diuretics as recommended. He reports he was seen at [facility] and had an ultrasound and was placed on an antibiotic on discharge. He reports he is continued to have pain and swelling in his scrotum under he presented to the hospital for further care. Review of records show that he had diminished but intact Doppler flow at time of ultrasound and [facility], patient updated that scrotal ultrasound here shows normal color flow. He has had pain in the scrotum diffusely and some pain with voiding in the last 3 days. He reports he has chronically had swelling in his legs, but swelling of scrotum seems new and much more sudden. Denies fever/chills/sweats. No chest pain. He is hungry, otherwise no acute concerns. Has been taking his Levaquin as an outpatient as directed. Medical History: Reviewed Medications: Reviewed Surgical History: Reviewed Family history: Reviewed Allergies: Reviewed Social History: Reviewed Code Status: Full Principal Diagnosis Fluid overload, epididymitis with suspected orchitis Discharge Exam General-alert and oriented x3, no fevers, no chills. Morbidly obese HEENT-head atraumatic and normocephalic, pupils equal and reactive to light, extraocular muscles intact Neck-no lymphadenopathy or thyromegaly, trachea midline Chest-clear to auscultation percussion. No rales wheezing or rhonchi Cardiac-regular rate and rhythm, normal S1 and S2 Abdomen-normal bowel sounds, nontender, no hepatosplenomegaly GUscrotal edema has markedly improved. There is some skin breakdown that needs attention. 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 Hay catheter is now in place. Unasyn, day 4. CT scan and ultrasound negative for torsion. Much improved overall. He has lost his IV access and refuses to have another IV placed. Unasyn has been switched to Augmentin. Intravenous Lasix switched to oral dosing. Hay catheter will be removed before discharge today. (2) Severe obstructive sleep apnea: Stable. Continue CPAP nightly (3) Chronic diastolic heart failure: No overt CHF seen on chest x-ray. However he does have significant edema and has responded nicely so far to parenteral Lasix which was switched to oral dosing due to lack of IV access. Monitor intake and output. Serial labs (4) Morbid obesity with BMI of 40.0-44.9, adult: Significant weight loss recommend (5) T2DM (type 2 diabetes mellitus): ADA diet. Sliding scale coverage as needed. (6) BPH w urinary obs/LUTS: Hay catheter in place. This will be removed before discharge today, February 10 (7) Obesity hypoventilation syndrome: Significant weight loss recommend Plan Home today, February 10, on oral antibiotic and oral Lasix. Home health services requested Total Time Total Time Spent Total Time Spent (In Minutes): 45-minutes Discharge Plan Discharge Items Patient Disposition: Home - Home Health Services Reason For Visit: ORCHITIS Discharge Diagnosis: Epididymitis with suspected orchitis, fluid retention Condition on Discharge: Good Activity: Resume your previous activity Non-emergency contact: Primary Care Provider Call non-emergency contact if: you have any medication questions Follow-up/Referrals: Brittaney Dunn DO [Primary Care Provider] - Diet: Carb Consistent or DM2 and Heart Healthy Addtl Attending Provider Instructions: Bumex has been switched to Lasix. Continue antibiotic for 1 more week Pending Studies at Discharge: No Stand-Alone Forms: [email or web address], Smoking Cessation Medications and DC Order Prescriptions: New furosemide 40 mg Tablet 40 mg PO BID17 Qty: 60 0RF amoxicillin-pot clavulanate 875-125 mg Tablet 1 tab PO BIDM Qty: 20 0RF Continued miscellaneous medical [place] [facility] [place] Instructions .ROUTE .COMPLEX Qty: 100 3RF Rx Instructions: 1X ADULT BRIEF pull up fit- USING 3-4 per day - DX:R32 urinary incontinence. (DME) blood-glucose meter [OneTouch Ultra2 Meter] Kit See Rx Instructions .ROUTE .MEDSUPPLY Qty: 1 0RF Rx Instructions: As directed. DX: E11.9 (DME) OneTouch Ultra Test Strip See Rx Instructions .ROUTE .MEDSUPPLY Qty: 100 5RF Rx Instructions: Testing BS daily (DME) lancets [1st Tier Unilet ComforTouch] 28 gauge misc See Rx Instructions .Route Qty: 100 5RF Rx Instructions: Testing BS daily (DME) BATTERY CHECK ON SCOOTER See Rx Instructions .Route .MEDSUPPLY Qty: 1 0RF Rx Instructions: PLEASE GO INTO PATIENT HOME AND CHECK STATUS OF SCOOTER BATTERY FOR PATIENT. hydrocodone-acetaminophen 5-325 mg tablet 1 tab PO Q4H Rx Instructions: QTY 10- STARTED 02/03/23 amlodipine 5 mg tablet 5 mg PO DAILY Qty: 90 3RF atorvastatin 40 mg tablet 40 mg PO DAILY Qty: 100 3RF dutasteride 0.5 mg capsule 0.5 mg PO DAILY Qty: 90 3RF omeprazole 20 mg capsule,delayed release(DR/EC) 20 mg PO DAILY Qty: 90 3RF multivitamin with minerals [Men's One Daily] tablet 1 tab PO DAILY Qty: 30 5RF omega-3 fatty acids 1,000 mg capsule 1,000 mg PO DAILY Qty: 30 5RF mirtazapine 30 mg tablet 30 mg PO HS Qty: 90 1RF ascorbic acid (vitamin C) 500 mg capsule 500 mg PO DAILY Qty: 30 5RF lisinopril 40 mg tablet 40 mg PO DAILY Qty: 90 3RF Discontinued bumetanide 2 mg tablet 2 mg PO BID Qty: 60 5RF levofloxacin 500 mg tablet 500 mg PO DAILY Rx Instructions: started 02/03/23- x10 dAYS Discharge Orders: Discharge Order (Routine); Ordered 02/10/23 Ordered By: Rahul Mc Admission Data Admit Date/Time: 02/07/23 16:34 Attending Provider: Rahul Mc Admit Provider: Rahul Mc Primary Care Provider: Brittaney Dunn Other Providers: Jacinto Osman ; Rahul Mc ; [facility] ; [facility], ; [facility] Coding Level of Care Code 66141 INP/OBS DISCH >30 MIN Diagnoses Orchitis N45.2 Severe obstructive sleep apnea G47.33 Chronic diastolic heart failure I50.32 Morbid obesity with BMI of 40.0-44.9, adult E66.01; Z68.41 T2DM (type 2 diabetes mellitus) E11.9 BPH w urinary obs/LUTS N40.1; N13.8 Obesity hypoventilation syndrome E66.2
== END 2023-02-10 17:22 | disposition home health service (06) | DRG 728 ==
LOC: EDINP 11:23 → ED 11:23 → 3W 19:53

== ENCOUNTER 2023-02-23 22:55 | Inpatient (IN) ==
--- NOTE | 2023-02-23 23:39 | Emergency Department Note ---
Impression & Plan Cellulitis, Rash of groin, Edema of both legs ED Provider Note NAME: JULIEN LOGAN AGE: 72 SEX: M : 1950 ARRIVES VIA: Ambulance INFORMANT: Patient ED PROVIDER(S): Jose Crane DO CHIEF COMPLAINT: Groin pain HPI: Patient is a 72-year-old male morbidly obese with a past medical history of heart failure, restrictive lung disease, diabetes, alcohol abuse, GERD who pre sents to the ER for severe groin pain. He was seen and evaluated and admitted earlier this month for cellulitis. He returns tonight as he notes his pain is severe and unbearable. He is unable to walk or move around. He chronically is on his 2 L nasal cannula. He admits to increased swelling of the legs and some shortness of breath. No dysuria urgency or frequency ADDITIONAL HISTORY OBTAINED: Per HPI Chronic Medical/Social Conditions Affecting Care: Per HPI PAST MEDICAL HISTORY:See Below PAST SURGICAL HISTORY:See Below FAMILY HISTORY:See Below SOCIAL HISTORY:See Below HOME MEDICATIONS:See Below ALLERGIES:See Below VITALS:See Below PHYSICAL EXAMINATION: GENERAL: Sitting up in bed, alert, morbidly obese, disheveled EYE EXAM: normal conjunctiva. OROPHARYNX: no exudate, no erythema, lips, buccal mucosa, and tongue normal and mucous membranes are moist NECK: supple, no nuchal rigidity, no adenopathy, non-tender LUNGS: diminished B/L. Normal chest wall mechanics HEART: no murmurs, S1 normal and S2 normal ABDOMEN: abdomen soft, non-tender, normo-active bowel sounds, no masses, no rebound or guarding. : Significant pitting edema of the scrotum with mild erythema and peeling of the skin in the groin. Tenderness throughout the groin bilaterally and supra pubic region as well as mild tenderness in the scrotum. Pain is focal throughout the excoriation in the groin and suprapubic region. No crepitus or open wound of the scrotum. UPPER EXTREMITIES: upper extremities are grossly normal. LOWER EXTREMITIES: Extensive pitting edema bilateral lower extremities tracking up through the legs into the abdomen NEURO EXAM: Normal sensorium, cranial nerves II-XII grossly intact, normal speech, no gross weakness of arms, no gross weakness of legs. MEDICAL DECISION MAKING: Patient is a 72-year-old male with a past medical history of CHF who presents to the ER for increased swelling of the legs, shortness of breath and testicular pain. He is having significant difficulty getting around at home consequently came back in with worsening pain in the scrotum. He has been on Augmentin. Additional history was obtained by EMS as well as external records reviewed as described below. Labs show leukocytosis of 16,000 up from previous admission at 12-13. Mild anemia at 10.6. BNP mildly elevated at 150. CT of the abdomen p shaun shows diffuse edema of scrotum. He has had minimal tenderness in the scrotum but the majority of the pain is focal to the excoriation in his bilateral groin and erythema. Patient was given IV Zosyn and daptomycin. Discussed with Dr. Dirk Ugarte for further evaluation management treatm ent. US of scrotum was unremarkable. External Records Reviewed: Reviewed recent admission for cellulitis and volume overload Consults/Care Managements Discussions: Per [facility] Triage Nursing notes reviewed. Limited review of prior medical records performed Vital Signs: reviewed and remarkable for HTN Differential diagnosis: Testicular torsion, mass, infection, hernia, hydrocele, epididymitis, STI, trauma, intra-abdominal process, as well as other pathologies. ER treatment provided: See below Diagnostics interpreted by me include EKG and cardiac monitoring as listed below: -Cardiac Monitoring: An order was placed for continuous cardiac monitoring. The monitor shows a rate of 90 with sinus rhythm. -ECG: none -Laboratory studies:Interpreted by me as stated above in MDM and shown below. Imaging studies: Xrays: As interpreted by me:portable upright one view wiht enlarged heart CTs show: CT abdomen pelvis per my read showed no obvious obstruction CT abdomen pelvis per radiology's showed no necrotizing fasciitis Procedures:none Critical Care: None Past Med/Surg History Medical History Allergic rhinitis Anatomical narrow angle, bilateral Anemia Arthritis Benign prostatic hyperplasia with urinary obstruction Bradycardia Central pterygium of left eye Chronic diastolic heart failure Combined forms of age-related cataract of both eyes Depression with anxiety Dry eye syndrome of bilateral lacrimal glands First degree AV block GERD without esophagitis History of alcohol abuse Hyperlipidemia Hypertension Internal hemorrhoids Leukocytosis Morbid obesity with BMI of 40.0-44.9, adult Nocturnal hypoxia Obesity hypoventilation syndrome Obstructive sleep apnea Pericardial effusion Pes planus Rectal bleeding Restrictive lung disease Rheumatoid arthritis Right bundle branch block (RBBB) Strabismic amblyopia, right eye T2DM (type 2 diabetes mellitus) Urinary incontinence Venous insufficiency (chronic) (peripheral) Surgical History History of appendectomy History of prostate biopsy Family History Mother Diabetes Hypertension Other Blindness FH: cataracts Family history of blindness Glaucoma History of cataract Denies family history of Ovarian cancer Prostate cancer Myocardial infarction Breast cancer Colorectal cancer Social History Smoking Status: Never smoker Second Hand Exposure: No; Do You Dip or Chew Tobacco: No; Hx Alcohol Use: No (50 years ago) Hx Substance Use: No Preferred Language: Kyrgyz Communication Ability: Effective Visual Impairment: Limited Hearing Ability: Normal Hotel Or Motel Receptionist Required: No Beliefs That Will Affect Care: None marital status: Current Living Situation: Alone current occupational status: retired Feels Safe at Home: Yes Childhood Exposure to Second-Hand Smoke: No Diet: regular Diet Comment: regular caffeine: No during the past year weight has: remained stable Dental Care, Regularly: No Physical Activity Frequency: Other Physical Activity Frequency Comment: limited by physical condition Seatbelt Use: always Sunscreen Use: No Assistive Devices: Scooter/Electric Scooter Allergies Allergies Allergy/AdvReac Type Severity Reaction Status Date / Time No Known Drug Allergies Allergy . Verified 02/24/23 00:33 Home Meds Home Medications Medication Instructions Recorded Confirmed [id number] 1 tab PO DAILY 02/24/23 02/24/23 Previous Rx's Medication Instructions Recorded omeprazole 20 mg capsule,delayed 20 mg PO DAILY #90 caps 01/29/22 release ascorbic acid (vitamin C) 500 mg 500 mg PO DAILY #30 caps 10/30/22 capsule lisinopril 40 mg tablet 40 mg PO DAILY #90 tabs 10/30/22 mirtazapine 30 mg tablet 30 mg PO HS #90 tabs 10/30/22 BATTERY CHECK ON SCOOTER #1 ea 02/05/23 furosemide 40 mg tablet 40 mg PO BID17 #60 tabs 02/10/23 amlodipine 5 mg tablet 5 mg PO DAILY #90 tabs 02/12/23 atorvastatin 40 mg tablet 40 mg PO DAILY #100 tabs 02/13/23 dutasteride 0.5 mg capsule 0.5 mg PO DAILY #90 caps 02/13/23 hydrocodone 5 mg-acetaminophen 325 1 tab PO Q4H PRN pain #10 tabs 02/13/23 mg tablet blood sugar diagnostic (OneTouch #100 ea 02/14/23 Ultra Test strips) blood-glucose meter #1 ea 02/14/23 lancets 28 gauge #100 ea 02/14/23 nystatin 100,000 unit/gram topical 1 applic topical BID #30 grams 02/22/23 cream Results & Data (ED) Vital Signs Vital Signs - 24 hr 02/23/23 23:04 02/23/23 23:27 Temperature 37.0 C Temperature Source Oral Pulse Rate 96 H 87 Respiratory Rate 22 24 Respiratory Effort / Characteristics Non-Labored Respiratory Depth Normal Blood Pressure 169/80 H Blood Pressure Mean 109 Blood Pressure Position Lying Pulse Oximetry 97 94 Oxygen Delivery Method Room Air Room Air Sepsis Recent Fever Within 48 Hours No Sepsis New/Unexplained Change in Mental Status N/A Sepsis Action Taken by Nursing No Action Required Laboratory Data 02/23/23 Unknown 02/23/23 Unknown Lab Results 02/23/23 02/23/23 02/23/23 Range/Units Unknown Unknown Unknown WBC 16.27 H (4.8-10.8) K/ul RBC 3.61 L (4.70-6.10) M/uL Hgb 10.6 L (14.0-18.0) g/dl POC Hgb (14.0-18.0) g/dl Hct 32.0 L (42.0-52.0) % POC Hct (42-52) % MCV 88.6 (80.0-100.0) fL MCH 29.4 (25.0-34.0) pg MCHC 33.1 (32.0-36.0) g/dL RDW Std Deviation 55.7 H (36.4-46.3) fL RDW Coeff of Darian 17.3 H (11.5-14.5) % Plt Count 385 (130-400) K/uL MPV 10.2 (9.4-12.4) fL Immature Gran % (Auto) 0.7 % Neut % (Auto) 74.8 % Lymph % (Auto) 13.2 % [place] % (Auto) 8.4 % Eos % (Auto) 2.6 % Baso % (Auto) 0.3 % Neut # (Auto) 12.17 H (1.40-6.50) K/uL Lymph # (Auto) 2.14 (1.20-3.40) K/uL [place] # (Auto) 1.37 H (0.11-0.59) K/uL Eos # (Auto) 0.42 (0.00-0.50) K/uL Baso # (Auto) 0.05 (0.00-0.20) K/uL Immature Gran # (Auto) 0.12 (0.01-0.20) K/uL POC Sodium (135-144) mmol/L Sodium Cancelled POC Potassium (3.3-5.0) mmol/L Potassium Cancelled POC Chloride (101-112) mmol/L Chloride Cancelled Carbon Dioxide Cancelled POC Total CO2 (24-31) mmol/L Anion Gap Cancelled POC Anion Gap (16-25) mmol/L POC BUN (7-18) mg/dl BUN Cancelled Creatinine Cancelled POC Creatinine (0.6-1.3) mg/dl Est Cr Clr Drug Dosing Cancelled Est GFR ( Amer) Cancelled Est GFR (Non-Af Amer) Cancelled BUN/Creatinine Ratio Cancelled Glucose Cancelled POC Glucose (other) (70-99) mg/dl Calcium Cancelled POC Ioniz Calcium Tricia (1.12-1.32) mmol/l Total Bilirubin Cancelled AST Cancelled ALT Cancelled Alkaline Phosphatase Cancelled Troponin I High Sens (0-20) pg/ml B-Natriuretic Peptide 149 H (0-100) pg/ml Total Protein Cancelled Albumin Cancelled Globulin Cancelled Albumin/Globulin Ratio Cancelled Lipase Cancelled 02/24/23 02/24/23 Range/Units 00:36 00:41 WBC (4.8-10.8) K/ul RBC (4.70-6.10) M/uL Hgb (14.0-18.0) g/dl POC Hgb 10.9 L (14.0-18.0) g/dl Hct (42.0-52.0) % POC Hct 32 L (42-52) % MCV (80.0-100.0) fL MCH (25.0-34.0) pg MCHC (32.0-36.0) g/dL RDW Std Deviation (36.4-46.3) fL RDW Coeff of Darian (11.5-14.5) % Plt Count (130-400) K/uL MPV (9.4-12.4) fL Immature Gran % (Auto) % Neut % (Auto) % Lymph % (Auto) % [place] % (Auto) % Eos % (Auto) % Baso % (Auto) % Neut # (Auto) (1.40-6.50) K/uL Lymph # (Auto) (1.20-3.40) K/uL [place] # (Auto) (0.11-0.59) K/uL Eos # (Auto) (0.00-0.50) K/uL Baso # (Auto) (0.00-0.20) K/uL Immature Gran # (Auto) (0.01-0.20) K/uL POC Sodium 141 (135-144) mmol/L Sodium 138 POC Potassium 3.6 (3.3-5.0) mmol/L Potassium 3.5 POC Chloride 103 (101-112) mmol/L Chloride 106 Carbon Dioxide 26 POC Total CO2 24 (24-31) mmol/L Anion Gap 6 POC Anion Gap 18.0 (16-25) mmol/L POC BUN 13 (7-18) mg/dl BUN 14 Creatinine 1.05 POC Creatinine 1.0 (0.6-1.3) mg/dl Est Cr Clr Drug Dosing 83.4 Est GFR ( Amer) 81.2 Est GFR (Non-Af Amer) 70.1 BUN/Creatinine Ratio 13.3 Glucose 121 H POC Glucose (other) 126 H (70-99) mg/dl Calcium 8.6 POC Ioniz Calcium Tricia 1.13 (1.12-1.32) mmol/l Total Bilirubin 0.4 AST 17 ALT 17 Alkaline Phosphatase 104 Troponin I High Sens 3.3 (0-20) pg/ml B-Natriuretic Peptide (0-100) pg/ml Total Protein 7.6 Albumin 3.6 Globulin 4.0 Albumin/Globulin Ratio 0.9 Lipase 17 Administered Medications Acetaminophen (Acetaminophen 500 Mg Tab) 1,000 mg PO Q8H PAVAN Stop: 03/26/23 05:59 Last Admin: 02/25/23 04:24 Dose: 1,000 mg Documented By: Admin: 02/24/23 21:10 Dose: 1,000 mg Documented By: Admin: 02/24/23 15:06 Dose: Not Given Documented By: Admin: 02/24/23 06:03 Dose: 1,000 mg Documented By: MED Amlodipine Besylate (Amlodipine Besylate 5 Mg Tab) 5 mg PO DAILY PAVAN Stop: 03/26/23 08:59 Last Admin: 02/25/23 08:54 Dose: 5 mg Documented By: Admin: 02/24/23 07:58 Dose: 5 mg Documented By: HS Finasteride (Finasteride 5 Mg Tab) 5 mg PO DAILY PAVAN Stop: 03/26/23 08:59 Last Admin: 02/25/23 08:54 Dose: 5 mg Documented By: Admin: 02/24/23 07:58 Dose: 5 mg Documented By: HS Furosemide (Furosemide 40 Mg Tab) 40 mg PO BID17 [facility] Stop: 03/26/23 08:59 Last Admin: 02/24/23 17:55 Dose: 40 mg Documented By: Admin: 02/24/23 07:58 Dose: 40 mg Documented By: HS Heparin Sodium (Porcine) (Heparin Sod 5,000 Unit/0.5 Ml Vial) 7,500 units SQ Q8H [facility] Stop: 03/27/23 06:14 Last Admin: 02/25/23 06:40 Dose: Not Given Documented By: RAMAN Piperacillin Sod/Tazobactam (Sod 4.5 gm/ Dextrose) 100 mls @ 25 mls/hr IV Q8H PAVAN; Protocol Stop: 03/03/23 05:59 Last Infusion: 02/25/23 11:46 Dose: 0 mls/hr Documented By: Admin: 02/25/23 06:29 Dose: 25 mls/hr Documented By: Infusion: 02/25/23 05:04 Dose: 0 mls/hr Documented By: Infusion: 02/25/23 04:31 Dose: 25 mls/hr Documented By: Infusion: 02/25/23 00:44 Dose: 0 mls/hr Documented By: Admin: 02/24/23 20:49 Dose: 25 mls/hr Documented By: Infusion: 02/24/23 20:49 Dose: 25 mls/hr Documented By: Admin: 02/24/23 16:52 Dose: 25 mls/hr Documented By: Infusion: 02/24/23 10:33 Dose: 0 mls/hr Documented By: Admin: 02/24/23 06:33 Dose: 25 mls/hr Documented By: JIM Daptomycin 375 mg/ Syringe 7.5 mls @ 5.75 mls/min IV Q24H [facility]; Protocol Stop: 03/03/23 21:59 Last Admin: 02/24/23 20:48 Dose: 5.75 mls/min Documented By: RAMAN Insulin Aspart (Insulin Aspart Per Unit Charge) 0 units SC ACHS [facility] Stop: 03/26/23 07:29 Last Admin: 02/25/23 10:33 Dose: Not Given Documented By: Admin: 02/24/23 21:13 Dose: Not Given Documented By: RAMAN Co-signed By: IRIS Admin: 02/24/23 17:54 Dose: 2 units Documented By: WADE Co-signed By: CARLOS Admin: 02/24/23 12:44 Dose: 3 units Documented By: ARLETH Co-signed By: MITESH Admin: 02/24/23 08:11 Dose: 3 units Documented By: ARLETH Co-signed By: MITESH Lisinopril (Lisinopril 40 Mg Tab) 40 mg PO DAILY [facility] Stop: 03/26/23 08:59 Last Admin: 02/24/23 07:58 Dose: 40 mg Documented By: ARLETH Miconazole Nitrate (Miconazole Nitrate Powder 85 Gm) 1 appln EXT TID [facility] Stop: 03/26/23 20:59 Last Admin: 02/25/23 08:55 Dose: 1 appln Documented By: Admin: 02/24/23 21:11 Dose: 1 appln Documented By: RAMAN Mirtazapine (Mirtazapine Tab 15 Mg Tab) 30 mg PO [facility] Stop: 03/26/23 20:59 Last Admin: 02/24/23 20:49 Dose: 30 mg Documented By: RAMAN Morphine Sulfate (Morphine Sulfate 2 Mg/Ml Carp) 2 mg IV Q4H PRN PRN Reason: Pain Stop: 03/10/23 03:25 Last Admin: 02/25/23 08:30 Dose: 2 mg Documented By: Admin: 02/25/23 04:34 Dose: 2 mg Documented By: RAMAN Nystatin/Triamcinolone Acetonide (Nystatin/Triamcin Oint 15 Gm Tube) 1 appln EXT BID PAVAN Stop: 03/27/23 09:29 Last Admin: 02/25/23 10:41 Dose: 1 appln Documented By: GUILHERME Pantoprazole Sodium (Pantoprazole 40 Mg Tab) 40 mg PO DAILY PAVAN Stop: 03/26/23 08:59 Last Admin: 02/25/23 08:54 Dose: 40 mg Documented By: Admin: 02/24/23 07:58 Dose: 40 mg Documented By: ARLETH Polyethylene Glycol (Polyethylene (Miralax) 17 Gm Pack) 17 gm PO DAILY PRN PRN Reason: Constipation Stop: 03/26/23 03:25 Last Admin: 02/25/23 09:04 Dose: 17 gm Documented By: GUILHERME Discontinued Medications Furosemide (Furosemide 40 Mg/4 Ml Vial) 40 mg IV ONE ONE Stop: 02/24/23 20:30 Last Admin: 02/24/23 21:09 Dose: 40 mg Documented By: RAMAN Heparin Sodium (Porcine) (Heparin Sod 5,000 Unit/0.5 Ml Vial) 7,500 units SQ Q12 [facility] Stop: 03/26/23 08:59 Last Admin: 02/24/23 20:50 Dose: 7,500 units Documented By: Admin: 02/24/23 07:57 Dose: 7,500 units Documented By: ARLETH Piperacillin Sod/Tazobactam Sod (Zosyn) 4.5 gm in 100 mls @ 200 mls/hr IV NOW ONE Stop: 02/24/23 00:35 Last Infusion: 02/24/23 01:12 Dose: 0 mls/hr Documented By: Admin: 02/24/23 00:29 Dose: 200 mls/hr Documented By: MATI Daptomycin 375 mg/ Syringe 7.5 mls @ 3.75 mls/min IV Q24H [facility]; Protocol Stop: 02/26/23 00:14 Last Admin: 02/24/23 00:29 Dose: 3.75 mls/min Documented By: MATI Ioversol (Optiray 320 100ml) 94 ml IV ONCE ONE Stop: 02/23/23 23:53 Last Admin: 02/23/23 23:53 Dose: 94 ml Documented By: VERNON Ketorolac Tromethamine (Ketorolac Tromethamine 15 Mg/Ml Vial) 15 mg IV Q6H PRN PRN Reason: Pain Stop: 03/01/23 03:25 Last Admin: 02/24/23 14:44 Dose: 15 mg Documented By: WADE Morphine Sulfate (Morphine Sulfate 2 Mg/Ml Carp) 2 mg IV NOW STA Stop: 02/23/23 23:42 Last Admin: 02/24/23 00:02 Dose: 2 mg Documented By: MATI Nystatin (Nystatin Cr 15 Gm Tube) 1 appln EXT BID PAVAN Stop: 03/26/23 08:59 Last Admin: 02/24/23 07:57 Dose: 1 appln Documented By: ARLETH Ondansetron HCl (Ondansetron Inj 2 Mg/Ml 2 Ml Vial) 4 mg IV NOW STA Stop: 02/23/23 23:42 Last Admin: 02/24/23 00:02 Dose: 4 mg Documented By: MATI Imaging Data Radiologist's Impression: Abdomen/Pelvis CT 02/23/23 23:21 Exam(s): CT ABDOMEN + PELVIS With Contrast IV Amt: OPTIRAY 320 94ML EXAM: CT Abdomen and Pelvis With Intravenous Contrast CLINICAL HISTORY: Reason for exam: lower pelvis/groin/testicles. TECHNIQUE: Axial computed tomography images of the abdomen and pelvis with intravenous contrast. CTDI is 28.14 mGy and DLP is 2002.25 mGy-cm. Automated exposure control was utilized for the study. A dose lowering technique was utilized adhering to the principles of ALARA. CONTRAST: Patient received OPTIRAY 320 94ML of IV contrast COMPARISON: No relevant prior studies available. FINDINGS: Lung bases: Unremarkable. No mass. No consolidation. ABDOMEN: Liver: Hepatic steatosis. Gallbladder and bile ducts: Cholelithiasis. No ductal dilation. Pancreas: Unremarkable. No mass. No ductal dilation. Spleen: Unremarkable. No splenomegaly. Adrenals: Unremarkable. No mass. Kidneys and ureters: RIGHT lower pole renal cyst measures 4.9 cm. LEFT lower pole renal cyst measuring 1.8 cm. No hydronephrosis. Stomach and bowel: Diverticulosis, without acute diverticulitis. No small bowel obstruction. No free intraperitoneal air. PELVIS: Appendix: Normal appendix. Bladder: Unremarkable. No mass. Reproductive: Enlarged prostate gland, measures 6.1 cm medial-lateral. ABDOMEN and PELVIS: Intraperitoneal space: Unremarkable. No free air. No significant fluid collection. Bones/joints: Degenerative changes of the spine. No acute fracture. No dislocation. Soft tissues: Small fat-containing bilateral inguinal hernias. Severe scrotal edema, partially included in the [id number]. Mild skin thickening and subcutaneous edema within the bilateral inguinal/groin regions, correlate for cellulitis. Consider testicular ultrasound clinically indicated (these are only partially included in the field-of- view). Vasculature: Atherosclerotic changes of the aorta. No abdominal aortic aneurysm. Lymph nodes: Unremarkable. No enlarged lymph nodes. IMPRESSION: Small fat-containing bilateral inguinal hernias. Severe scrotal edema, partially included in the [id number]. Consider testicular ultrasound clinically indicated (these are only partially included in the [id number]). Mild skin thickening and subcutaneous edema within the bilateral inguinal/groin regions, correlate for cellulitis. Electronically signed by: Ced Banda MD 02/24/23 00:02 AM Discharge Plan Visit Data Chief Complaint: Groin Pain Stated Complaint: GROIN PAIN, SWOLLEN TESTICLES ED Provider: Jose Crane Discharge Problem: Cellulitis, Rash of groin, Edema of both legs Patient Disposition: Admitted As Inpatient Discharge Instructions Interventions: ED Discharge Assessment Last Done: 02/24/23 03:27
[2023-02-23 23:41] LABS: Basophils # (auto) 0.05 K/uL (0.00-0.20); Basophils % (auto) 0.3 %; Eosinophils # (auto) 0.42 K/uL (0.00-0.50); Eosinophils % (auto) 2.6 %; Hemoglobin 10.6 g/dl (14.0-18.0); Immature Granulocytes # (auto) 0.12 K/uL (0.01-0.20); Immature Granulocytes % (auto) 0.7 %; Lymphocytes # (auto) 2.14 K/uL (1.20-3.40); Lymphocytes % (auto) 13.2 %; Mean Corpuscular Hemoglobin 29.4 pg (25.0-34.0); Mean Corpuscular Hgb Conc 33.1 g/dL (32.0-36.0); Mean Corpuscular Volume 88.6 fL (80.0-100.0); Mean Platelet Volume 10.2 fL (9.4-12.4); Monocytes # (auto) 1.37 K/uL (0.11-0.59); Monocytes % (auto) 8.4 %; Neutrophils # (auto) 12.17 K/uL (1.40-6.50); Neutrophils % (auto) 74.8 %; Platelet Count 385 K/uL (130-400); RDW Coefficient of Variation 17.3 % (11.5-14.5); RDW Standard Deviation 55.7 fL (36.4-46.3); Red Blood Count 3.61 M/uL (4.70-6.10); White Blood Count 16.27 K/ul (4.8-10.8)
[2023-02-23] MEDS ORDERED: MoRPHine SULFATE 2 MG/ML CARP IV STA (23:41)
[2023-02-23] MEDS ORDERED: ONDANSETRON INJ 2 MG/ML 2 ML VIAL IV STA (23:41)
[2023-02-23] MEDS ORDERED: OPTIRAY 320 100ml IV ONE (23:52)
--- NOTE | 2023-02-24 00:02 | CT Scan Report ---
Exam(s): CT ABDOMEN + PELVIS With Contrast IV Amt: OPTIRAY 320 94ML EXAM: CT Abdomen and Pelvis With Intravenous Contrast CLINICAL HISTORY: Reason for exam: lower pelvis/groin/testicles. TECHNIQUE: Axial computed tomography images of the abdomen and pelvis with intravenous contrast. CTDI is 28.14 mGy and DLP is 2002.25 mGy-cm. Automated exposure control was utilized for the study. A dose lowering technique was utilized adhering to the principles of ALARA. CONTRAST: Patient received OPTIRAY 320 94ML of IV contrast COMPARISON: No relevant prior studies available. FINDINGS: Lung bases: Unremarkable. No mass. No consolidation. ABDOMEN: Liver: Hepatic steatosis. Gallbladder and bile ducts: Cholelithiasis. No ductal dilation. Pancreas: Unremarkable. No mass. No ductal dilation. Spleen: Unremarkable. No splenomegaly. Adrenals: Unremarkable. No mass. Kidneys and ureters: RIGHT lower pole renal cyst measures 4.9 cm. LEFT lower pole renal cyst measuring 1.8 cm. No hydronephrosis. Stomach and bowel: Diverticulosis, without acute diverticulitis. No small bowel obstruction. No free intraperitoneal air. PELVIS: Appendix: Normal appendix. Bladder: Unremarkable. No mass. Reproductive: Enlarged prostate gland, measures 6.1 cm medial-lateral. ABDOMEN and PELVIS: Intraperitoneal space: Unremarkable. No free air. No significant fluid collection. Bones/joints: Degenerative changes of the spine. No acute fracture. No dislocation. Soft tissues: Small fat-containing bilateral inguinal hernias. Severe scrotal edema, partially included in the [id number]. Mild skin thickening and subcutaneous edema within the bilateral inguinal/groin regions, correlate for cellulitis. Consider testicular ultrasound clinically indicated (these are only partially included in the field-of- view). Vasculature: Atherosclerotic changes of the aorta. No abdominal aortic aneurysm. Lymph nodes: Unremarkable. No enlarged lymph nodes. IMPRESSION: Small fat-containing bilateral inguinal hernias. Severe scrotal edema, partially included in the [id number]. Consider testicular ultrasound clinically indicated (these are only partially included in the [id number]). Mild skin thickening and subcutaneous edema within the bilateral inguinal/groin regions, correlate for cellulitis. Electronically signed by: Ced Banda MD 02/24/23 00:02 AM
[2023-02-24] MEDS ORDERED: PIPERACILLIN/TAZOBACTAM 4.5 GM/100 ML BAG IV ONE (00:06)
[2023-02-24] MEDS ORDERED: DAPTOmycin 375 MG in SYRINGE 0 ML IV SCH ×2 (00:15→22:00)
--- NOTE | 2023-02-24 00:16 | History & Physical Report ---
Date of Service February 24, 2023 Assessment & Plan (1) Cellulitis: Plan: 72yo male with PMHx of HFpEF, morbid obesity, DM2, restrictive lung disease, venous insufficiency, depression, anxiety, HTN, HLD, GERD, and BPH presents with bilateral groin/scrotal pain. #Cellulitis #Orchitis -presented with 5 days worsening swelling and pain in groin/scrotal region. Discharged from [facility] 2 weeks ago for similar complaints on augmentin and lasix. WBC 16. Afebrile. Did not meet SIRS on admission. Suspect bilateral groin cellulitis +/- unresolved orchitis although the scrotal area itself is nontender to palpation. -CT A/P: Severe scrotal edema, partially included in the [id number]. Mild skin thickening and subcutaneous edema within the bilateral inguinal/groin regions. -US scrotum ordered -started on daptomycin and zosyn in ED. Continue these. May need extended abx therapy, suspect previous duration was not enough. MRSA nares pending. -pain control, wound care, PT/OT #Venous Insufficiency #HFpEF -increased lower extremity edema without significant shortness of breath, lung sounds clear on exam. BNP 150. Cr wnl. -cont. lasix #BPH -cont. dutasteride #DM2 -started on SSI #HLD -hold statin while on daptomycin #HTN -cont. amlodipine, lisinopril #Depression/anxiety -cont. mirtazapine #GERD -cont. omeprazole DVT ppx: heparin SQ FEN/GI: DM2, low Na Code Status: full Dispo: med tele (2) BPH w urinary obs/LUTS: (3) Obesity hypoventilation syndrome: (4) Severe obstructive sleep apnea: (5) Chronic diastolic heart failure: (6) Restrictive lung disease: (7) Morbid obesity with BMI of 40.0-44.9, adult: (8) Leukocytosis: (9) T2DM (type 2 diabetes mellitus): (10) Venous insufficiency (chronic) (peripheral): (11) Anemia: (12) Hypertension: (13) Hyperlipidemia: (14) GERD without esophagitis: (15) Depression with anxiety: History of Present Illness Chief Complaint: groin pain Primary Care Provider: Brittaney Dunn, 72 yo male with PMHx of HFpEF, morbid obesity, DM2, restrictive lung disease, venous insufficiency, depression, anxiety, HTN, HLD, GERD, and BPH presents with bilateral groin/scrotal pain. Patient was discharged from [facility] 2 weeks ago for similar complaints. He was diagnosed with orchitis and following Unasyn in the hospital was discharged on Augmentin for 10 days (which he did complete. He was also advised to take Lasix 40 mg twice daily for his lower extremity edema. He states that when he left the hospital his pain was under control and he thought he was doing well but about 5 days ago his pain and swelling started coming back. He is unable to ambulate 2/2 pain. Otherwise denies headache, chest pain, shortness of breath, abdominal pain, nausea, vomiting, diarrhea, constipation, fatigue, dysuria, hematuria, lower extremity weakness/numbness/tingling. Allergies Allergy/AdvReac Type Severity Reaction Status Date / Time No Known Drug Allergies Allergy . Verified 02/24/23 00:33 Home Medications Medication Instructions Recorded Confirmed Type omeprazole 20 mg capsule,delayed 20 mg PO DAILY #90 caps 01/29/22 02/24/23 Rx release ascorbic acid (vitamin C) 500 mg 500 mg PO DAILY #30 caps 10/30/22 02/24/23 Rx capsule lisinopril 40 mg tablet 40 mg PO DAILY #90 tabs 10/30/22 02/24/23 Rx mirtazapine 30 mg tablet 30 mg PO HS #90 tabs 10/30/22 02/24/23 Rx BATTERY CHECK ON SCOOTER #1 ea 02/05/23 02/12/23 Rx furosemide 40 mg tablet 40 mg PO BID17 #60 tabs 02/10/23 02/24/23 Rx amlodipine 5 mg tablet 5 mg PO DAILY #90 tabs 02/12/23 02/24/23 Rx atorvastatin 40 mg tablet 40 mg PO DAILY #100 tabs 02/13/23 02/24/23 Rx dutasteride 0.5 mg capsule 0.5 mg PO DAILY #90 caps 02/13/23 02/24/23 Rx hydrocodone 5 mg-acetaminophen 325 1 tab PO Q4H PRN pain #10 tabs 02/13/23 02/24/23 Rx mg tablet blood sugar diagnostic (OneTouch #100 ea 02/14/23 Rx Ultra Test strips) blood-glucose meter #1 ea 02/14/23 Rx lancets 28 gauge #100 ea 02/14/23 Rx nystatin 100,000 unit/gram topical 1 applic topical BID #30 grams 02/22/23 02/24/23 Rx cream ekdwiovogywl-Mk-ehgw-minerals 1 tab PO DAILY 02/24/23 02/24/23 History Past Med/Surg History Medical History Allergic rhinitis Anatomical narrow angle, bilateral Anemia Arthritis Benign prostatic hyperplasia with urinary obstruction Bradycardia Central pterygium of left eye Chronic diastolic heart failure Combined forms of age-related cataract of both eyes Depression with anxiety Dry eye syndrome of bilateral lacrimal glands First degree AV block GERD without esophagitis History of alcohol abuse Hyperlipidemia Hypertension Internal hemorrhoids Leukocytosis Morbid obesity with BMI of 40.0-44.9, adult Nocturnal hypoxia Obesity hypoventilation syndrome Obstructive sleep apnea Pericardial effusion Pes planus Rectal bleeding Restrictive lung disease Rheumatoid arthritis Right bundle branch block (RBBB) Strabismic amblyopia, right eye T2DM (type 2 diabetes mellitus) Urinary incontinence Venous insufficiency (chronic) (peripheral) Surgical History History of appendectomy History of prostate biopsy Family History Mother Diabetes Hypertension Other Blindness FH: cataracts Family history of blindness Glaucoma History of cataract Denies family history of Ovarian cancer Prostate cancer Myocardial infarction Breast cancer Colorectal cancer Social History Smoking Status: Never smoker Second Hand Exposure: No; Do You Dip or Chew Tobacco: No; Hx Alcohol Use: No (50 years ago) Hx Substance Use: No Preferred Language: Beninese Communication Ability: Effective Visual Impairment: Limited Hearing Ability: Normal Clock Smith Required: No Beliefs That Will Affect Care: None marital status: Current Living Situation: Alone current occupational status: retired Feels Safe at Home: Yes Childhood Exposure to Second-Hand Smoke: No Diet: regular Diet Comment: regular caffeine: No during the past year weight has: remained stable Dental Care, Regularly: No Physical Activity Frequency: Other Physical Activity Frequency Comment: limited by physical condition Seatbelt Use: always Sunscreen Use: No Assistive Devices: Scooter/Electric Scooter Review of Systems Review of Systems: All systems reviewed & are unremarkable except as noted in HPI & below Physical Exam Physical Exam: Constitutional: in no acute distress, pleasant and normal affect, intact memory. AOx3. Vitals as above. HEENT: No scleral injection or discharge. Moist mucous membranes. Neck: Supple without lymphadenopathy or thyromegaly. Trachea midline. Lungs: Clear to auscultation bilaterally with good effort. No wheezes/rales/rhonchi. Cardiac: Regular rate and rhythm. +lymphedema with 2+ lower extremity edema. 2+ distal peripheral pulses. Bilateral calf tenderness. Abdomen: Bowel sounds present. Soft, nontender, and nondistended.No guarding. No hepatosplenomegaly. MSK: No cyanosis or clubbing. Skin: venous stasis changes bilateral lower extremities. +pannus abdomen with chronic skin changes in skin folds without tenderness/warmth. +scrotal swelling which is nontender. Excoriations with induration in bilateral groin region which is tender to palpation with erythema. Neurologic: no focal deficits Results & Data Results & Data Vital Signs (Past 12 Hours) Vital Signs Temp Pulse Resp BP Pulse Ox O2 Del Method 02/23/23 23:27 87 24 94 Room Air 02/23/23 23:04 37.0 C 96 H 22 169/80 H 97 Room Air Laboratory Results Laboratory Results WBC 16.27 K/ul (4.8-10.8) H 02/23/23 Unknown RBC 3.61 M/uL (4.70-6.10) L 02/23/23 Unknown Hgb 10.6 g/dl (14.0-18.0) L 02/23/23 Unknown POC Hgb 10.9 g/dl (14.0-18.0) L 02/24/23 00:41 Hct 32.0 % (42.0-52.0) L 02/23/23 Unknown POC Hct 32 % (42-52) L 02/24/23 00:41 MCV 88.6 fL (80.0-100.0) 02/23/23 Unknown MCH 29.4 pg (25.0-34.0) 02/23/23 Unknown MCHC 33.1 g/dL (32.0-36.0) 02/23/23 Unknown RDW Std Deviation 55.7 fL (36.4-46.3) H 02/23/23 Unknown RDW Coeff of Darian 17.3 % (11.5-14.5) H 02/23/23 Unknown Plt Count 385 K/uL (130-400) 02/23/23 Unknown MPV 10.2 fL (9.4-12.4) 02/23/23 Unknown Immature Gran % (Auto) 0.7 % 02/23/23 Unknown Neut % (Auto) 74.8 % 02/23/23 Unknown Lymph % (Auto) 13.2 % 02/23/23 Unknown [place] % (Auto) 8.4 % 02/23/23 Unknown Eos % (Auto) 2.6 % 02/23/23 Unknown Baso % (Auto) 0.3 % 02/23/23 Unknown Neut # (Auto) 12.17 K/uL (1.40-6.50) H 02/23/23 Unknown Lymph # (Auto) 2.14 K/uL (1.20-3.40) 02/23/23 Unknown [place] # (Auto) 1.37 K/uL (0.11-0.59) H 02/23/23 Unknown Eos # (Auto) 0.42 K/uL (0.00-0.50) 02/23/23 Unknown Baso # (Auto) 0.05 K/uL (0.00-0.20) 02/23/23 Unknown Immature Gran # (Auto) 0.12 K/uL (0.01-0.20) 02/23/23 Unknown POC Sodium 141 mmol/L (135-144) 02/24/23 00:41 Sodium 138 mmol/L (136-145) 02/24/23 00:36 POC Potassium 3.6 mmol/L (3.3-5.0) 02/24/23 00:41 Potassium 3.5 mmol/L (3.5-5.1) 02/24/23 00:36 POC Chloride 103 mmol/L (101-112) 02/24/23 00:41 Chloride 106 mmol/L (98-107) 02/24/23 00:36 Carbon Dioxide 26 mmol/L (21-32) 02/24/23 00:36 POC Total CO2 24 mmol/L (24-31) 02/24/23 00:41 Anion Gap 6 (3-11) 02/24/23 00:36 POC Anion Gap 18.0 mmol/L (16-25) 02/24/23 00:41 POC BUN 13 mg/dl (7-18) 02/24/23 00:41 BUN 14 mg/dl (6-23) 02/24/23 00:36 Creatinine 1.05 mg/dl (0.6-1.4) 02/24/23 00:36 POC Creatinine 1.0 mg/dl (0.6-1.3) 02/24/23 00:41 Est Cr Clr Drug Dosing 83.4 ml/min 02/24/23 00:36 Est GFR ( Amer) 81.2 ml/min 02/24/23 00:36 Est GFR (Non-Af Amer) 70.1 ml/min 02/24/23 00:36 BUN/Creatinine Ratio 13.3 (10-20) 02/24/23 00:36 Glucose 121 mg/dl (70-99(Fasting)) H 02/24/23 00:36 POC Glucose (other) 126 mg/dl (70-99) H 02/24/23 00:41 Calcium 8.6 mg/dl (8.6-10.3) 02/24/23 00:36 POC Ioniz Calcium Tricia 1.13 mmol/l (1.12-1.32) 02/24/23 00:41 Total Bilirubin 0.4 mg/dl (0.2-1.0) 02/24/23 00:36 AST 17 U/L (13-39) 02/24/23 00:36 ALT 17 U/L (7-52) 02/24/23 00:36 Alkaline Phosphatase 104 U/L (34-104) 02/24/23 00:36 Troponin I High Sens 3.3 pg/ml (0-20) 02/24/23 00:36 B-Natriuretic Peptide 149 pg/ml (0-100) H 02/23/23 Unknown Total Protein 7.6 gm/dl (6.0-8.3) 02/24/23 00:36 Albumin 3.6 gm/dl (3.4-5.0) 02/24/23 00:36 Globulin 4.0 gm/dl (2.5-4.0) 02/24/23 00:36 Albumin/Globulin Ratio 0.9 (0.9-2) 02/24/23 00:36 Lipase 17 U/L (11-82) 02/24/23 00:36 Impressions Abdomen/Pelvis CT 02/23/23 23:21 Exam(s): CT ABDOMEN + PELVIS With Contrast IV Amt: OPTIRAY 320 94ML EXAM: CT Abdomen and Pelvis With Intravenous Contrast CLINICAL HISTORY: Reason for exam: lower pelvis/groin/testicles. TECHNIQUE: Axial computed tomography images of the abdomen and pelvis with intravenous contrast. CTDI is 28.14 mGy and DLP is 2002.25 mGy-cm. Automated exposure control was utilized for the study. A dose lowering technique was utilized adhering to the principles of ALARA. CONTRAST: Patient received OPTIRAY 320 94ML of IV contrast COMPARISON: No relevant prior studies available. FINDINGS: Lung bases: Unremarkable. No mass. No consolidation. ABDOMEN: Liver: Hepatic steatosis. Gallbladder and bile ducts: Cholelithiasis. No ductal dilation. Pancreas: Unremarkable. No mass. No ductal dilation. Spleen: Unremarkable. No splenomegaly. Adrenals: Unremarkable. No mass. Kidneys and ureters: RIGHT lower pole renal cyst measures 4.9 cm. LEFT lower pole renal cyst measuring 1.8 cm. No hydronephrosis. Stomach and bowel: Diverticulosis, without acute diverticulitis. No small bowel obstruction. No free intraperitoneal air. PELVIS: Appendix: Normal appendix. Bladder: Unremarkable. No mass. Reproductive: Enlarged prostate gland, measures 6.1 cm medial-lateral. ABDOMEN and PELVIS: Intraperitoneal space: Unremarkable. No free air. No significant fluid collection. Bones/joints: Degenerative changes of the spine. No acute fracture. No dislocation. Soft tissues: Small fat-containing bilateral inguinal hernias. Severe scrotal edema, partially included in the [id number]. Mild skin thickening and subcutaneous edema within the bilateral inguinal/groin regions, correlate for cellulitis. Consider testicular ultrasound clinically indicated (these are only partially included in the field-of- view). Vasculature: Atherosclerotic changes of the aorta. No abdominal aortic aneurysm. Lymph nodes: Unremarkable. No enlarged lymph nodes. IMPRESSION: Small fat-containing bilateral inguinal hernias. Severe scrotal edema, partially included in the [id number]. Consider testicular ultrasound clinically indicated (these are only partially included in the [id number]). Mild skin thickening and subcutaneous edema within the bilateral inguinal/groin regions, correlate for cellulitis. Electronically signed by: Ced Banda MD 02/24/23 00:02 AM Supervising Physician Co-Signing Physician Notes Attending addendum: I have physically seen this patient, have supervised the medical residents activities, and agree with the H&P unless as otherwise noted. Assessment and Plan: Orchitis/cellulitis- Similar presenting symptom that necessitated admission to [facility] 2 weeks ago that was treated with Augmentin and Lasix CT scan abdomen/pelvis noted severe scrotal edema Suspect has recurrence due to inadequately long treatment in retrospect Continue daptomycin IV and Zosyn IV begun in the ED HFpEF/venous insufficiency- Resolving lower extremity edema and scrotal edema Continuing Lasix Diabetes mellitus- Check hemoglobin A1c Placed on Accu-Cheks with NovoLog SSI Resident Activity Tracking Resident Involvement: Resident Care Provided Care Provided: Adult Hospital Medicine (11) Anemia Anemia type: unspecified type Qualified Code(s): D64.9 - Anemia, unspecified (12) Hypertension Hypertension type: essential hypertension Qualified Code(s): I10 - Essential (primary) hypertension (13) Hyperlipidemia Hyperlipidemia type: unspecified Qualified Code(s): E78.5 - Hyperlipidemia, unspecified
[2023-02-24 00:55] LABS: iSTAT Hemoglobin 10.9 g/dl (14.0-18.0); iSTAT Ionized Calcium 1.13 mmol/l (1.12-1.32); iSTAT Potassium 3.6 mmol/L (3.3-5.0)
[2023-02-24 01:10] LABS: Albumin Globulin Ratio 0.9 (0.9-2); Albumin Level 3.6 gm/dl (3.4-5.0); BUN Creatinine Ratio 13.3 (10-20); Bilirubin,Total 0.4 mg/dl (0.2-1.0); Calcium 8.6 mg/dl (8.6-10.3); Creatinine Clr Calc Pharmacy 83.4 ml/min; Est GFR (African American) 81.2 ml/min; Est GFR (Non-African American) 70.1 ml/min; Potassium 3.5 mmol/L (3.5-5.1); Total Protein 7.6 gm/dl (6.0-8.3)
[2023-02-24 01:16] LABS: Troponin I High Sensitivity 3.3 pg/ml (0-20)
[2023-02-24 01:41] LABS: Appearance Urine Clear (Clear); Bilirubin Urine Negative (Negative); Blood Urine Negative (Negative); Color Urine Yellow; Glucose Urine UA Negative (Negative); Ketones Urine Negative (Negative); Leukocyte Esterase Urine Negative (Negative); Nitrite Urine Negative (Negative); Protein Urine Negative (Negative); Specific Gravity Urine 1.019 (1.000-1.030); Urobilinogen Urine Negative (Negative); pH Urine 5.5 (4.5-7.5)
[2023-02-24] MEDS ORDERED: GLUCAGON FOR INJ 1 MG VIAL SQ PRN (03:26)
[2023-02-24] MEDS ORDERED: POLYETHYLENE (MIRALAX) 17 GM PACK PO PRN (03:26)
[2023-02-24] MEDS ORDERED: CARBOHYDRATES FOR HYPOGLYCEMIA PO PRN (03:26)
[2023-02-24] MEDS ORDERED: DEXTROSE 50% 50 ML SYRINGE IV PRN (03:26)
[2023-02-24] MEDS ORDERED: ONDANSETRON 4 MG OD TAB PO PRN (03:26)
[2023-02-24] MEDS ORDERED: GLUCOSE 10 TAB/TUBE PO PRN (03:26)
[2023-02-24] MEDS ORDERED: GLUCOSE 40% GEL 15 GM TUBE PO PRN (03:26)
[2023-02-24] MEDS ORDERED: KETOROLAC TROMETHAMINE 15 MG/ML VIAL IV PRN (03:26)
[2023-02-24] MEDS: ACETAMINOPHEN 500 MG TAB PO SCH ×3 (06:03→21:10)
[2023-02-24] MEDS: PIPERACILLIN/TAZOBACTAM 4.5 GM in DEXTROSE 5% MINI-B 100 ML IV SCH ×3 (06:33→20:49)
[2023-02-24] MEDS: HEPARIN SOD 5,000 UNIT/0.5 ML VIAL SQ SCH ×2 (07:57→20:50)
[2023-02-24] MEDS: FINASTERIDE 5 MG TAB PO SCH (07:58)
[2023-02-24] MEDS: lisinopril 40 MG TAB PO SCH (07:58)
[2023-02-24] MEDS: amLODIPine BESYLATE 5 MG TAB PO SCH (07:58)
[2023-02-24] MEDS: PANTOprazole 40 MG TAB PO SCH (07:58)
[2023-02-24] MEDS: FUROSEMIDE 40 MG TAB PO SCH ×2 (07:58→17:55)
[2023-02-24] MEDS: INSULIN ASPART PER UNIT CHARGE SC SCH ×4 (08:11→21:13)
--- NOTE | 2023-02-24 08:49 | Ultrasound Report ---
TESTICULAR ULTRASOUND HISTORY: Scrotal pain/edema COMPARISON: Testicular ultrasound 02/06/2023. FINDINGS: Right testis: 40 x 26 x 18 mm. There are no intratesticular masses. Normal color flow. Trace hydrocel e. There are a few small epididymal head cysts measuring up to 5 mm. Left testis: 39 x 24 x 18 mm. There are no intratesticular masses. Normal color flow. No hydrocele. T he epididymis is not well visualized. There is severe scrotal edema with increased color flow. This could be seen in the setting of a cellu litis. No loculated fluid collections to suggest a scrotal abscess at this time. IMPRESSION: 1. Normal bilateral testes. 2. Trace right hydrocele. 3. There is severe scrotal edema with increased color flow, unchanged. This could be seen in the sett ing of a cellulitis. No loculated fluid collections to suggest a scrotal abscess at this time. ACT 112: Negative or not required by law. Electronically signed by: Karlo Garcia M.D. 02/24/2023 8:48 AM
[2023-02-24] MEDS ORDERED: NYSTATIN CR 15 GM TUBE EXT SCH (09:00)
--- NOTE | 2023-02-24 19:11 | Hospitalist Progress Note ---
Date of Service February 24, 2023 Assessment & Plan (1) Cellulitis: Plan: Treated for orchitis during 02/06 to 02/10 admission per d/c summary but testicular u/s showed normal testes. Further, records indicate he had severe scrotal edema and severe LE edema and was diuresed during that stay. At discharge was sent home on augmentin + lasix BID. Patient tells me he "never felt better" with respect to the scrotal edema and the groin issues. His main complaint during the visit was "itching" as opposed to pain. At minimum I do believe there is cellulitis in the b/l groin extending into the scrotal region. I cannot rule out concomitant candidal infection. I cannot fully rule out a very early Chacha's but he denied any pain in the scrotum when I examined him. Will consult urology for their opinion. Will continue zosyn/dapto. Unfortunately no blood cultures were sent at time of presentation late yesterday. (2) Rash of groin: Plan: see #1 above. I also believe he has a candidal rash in this general area given the extensive itching he is reporting. Change nystatin cream to miconazole powder TID as latter will keep things dry and wick moisture. Ideally we place him on fluconazole but QTc is prolonged in the setting of a RBBB. If rash worsens may be forced to add systemic anti-fungal Rx regardless. (3) BPH w urinary obs/LUTS: Plan: Enlarged prostate seen on imaging. During my assessment he was incontinent with fairly constant leaking of urine from the urethral meatus. He would benefit from a pires given the BPH, the incontinence, and need to keep the groin & scrotal areas clean and dry. To that end place a pires. Cont dutasteride in the form of finasteride. Really should be on an alpha vanessa. (4) Orchitis: Plan: Treated for such during prior admission but scrotal u/s then and scrotal u/s now does not show testicular swelling, etc to suggest this diagnosis. (5) Severe obstructive sleep apnea: Plan: Follows with Dr Roger Whiteside. John with settings 14/04. He does not have his home unit. Will place orders for a hospital unit. Check a VBG as he is tachypneic and looks dyspneic. (6) Obesity hypoventilation syndrome: Plan: Assess for O2 needs while here. (7) Chronic diastolic heart failure: Plan: Clinically appears volume overloaded with O2 requirement, severe LE edema, etc. I also ordered cxr and he appears to have pulm edema in comparison to previous cxr. BNP is elevated. Place PO lasix on hold; give lasix 40mg IV x 1 and assess response. (8) T2DM (type 2 diabetes mellitus): Plan: DM diet. No a1c since 07/2021. Check a Hba1c now. BSGs ac/hs. Novolog SSI. Likely to need basal insulin as well. (9) Right bundle branch block (RBBB): Plan: Chronic (10) Hypertension: Plan: Consider changing amlodipine to something else - could be contributing to LE edema. He will be receiving lasix. Cont lisinopril. (11) Morbid obesity with BMI of 50.0-59.9, adult: Plan: BMI 52 (12) Edema of both legs: Plan: SEVERE. This was noted during his admission earlier this month. Check dopplers - r/o DVT - given his scooter chair/wheelchair dependency. Diurese as tolerated. Check a TSH. CT a/p mentions he has fatty liver but they do not mention features of cirrhosis. Much of the edema may be diastolic CHF related. Plan DVT proph - change heparin BID to heparin 7500 units TID due to morbid obesity. Admission and Anticipated Discharge Date Admission Date: February 24, 2023 Subjective saw patient after he got to the tele unit he was requiring 2 L of NC O2 he is NOT on oxygen at home, but does use BIPAP at HS according to records his settings are 18/12 - he follows with Dr Whiteside he denied feeling dyspneic, but was visibly tachypneic and looked mildly short of breath he c/o severe itching in the b/l groin and scrotal region denied any abd pain was able to eat his meals today no fever states he does not ambulate at home; is scooter/wheelchair dependent at all times reports he had a pires catheter during his prior visit earlier in the month he is not opposed to another catheter here during my examination he had urinary incontinence and what appeared to be dripping of urine from his penis the penile head is completely buried in the scrotum, and only the urethral meatus is visible reports living with his in [place] Review of Systems Review of Systems: gen - no fevers or chills cv - no chest pain pulm - denies cough GI - no abd pain but is having groin discomfort in the skin folds - incontinent; denies testicular or scrotal pain Physical Exam Physical Exam: gen - severe morbid obesity, mildly tachypneic, subtle subcostal retractions mouth - MMM neck - very hard to assess JVD but I suspect JVD is present heart - RRR, s1 s2, either S3 or split S2 present, no obvious murmur lungs - decreased BS bases with faint rales, mild tachypnea, mild subcostal retractions abd - protuberant, obese, venous stasis changes of abdominal wall from chronic edema, NT, BS+ - enlarged scrotum with irritation of scrotal skin; nontender to palpation of either testicle or the scrotum itself; penile head is completely buried; only urethral meatus is visible; dripping of urine at times from meatus skin - severe erythematous rash of b/l groin and lower abdominal skin folds; some maceration and peeling; occasional satellite lesion; no true cellulitis seen ext - SEVERE edema of b/l thighs extending to both feet; edema is tense and almost lymphedema like; pulses feet 2+ b/l psych - alert, oriented Results & Data Results & Data Vital Signs (Past 12 Hours) Vital Signs Temp Pulse Pulse Resp BP Pulse Ox O2 Del Method 02/24/23 17:09 Nasal Cannula 02/24/23 16:28 73 02/24/23 14:37 36.4 C L 81 20 156/70 H 98 Nasal Cannula 02/24/23 12:21 84 20 178/78 H 97 Nasal Cannula O2 Flow Rate 02/24/23 17:09 2 02/24/23 16:28 02/24/23 14:37 2 02/24/23 12:21 2 Laboratory Results Laboratory Results - last 24 hr 02/24/23 02/24/23 02/24/23 00:36 08:04 12:18 VBG pH VBG pCO2 VBG pO2 VBG HCO3 VBG O2 Saturation VBG Base Excess Sodium Potassium Chloride Carbon Dioxide Anion Gap BUN Creatinine Est Cr Clr Drug Dosing Est GFR ( Amer) Est GFR (Non-Af Amer) BUN/Creatinine Ratio Glucose POC Glucose 128 H 154 H Estimat Average Glucose Hemoglobin A1c Calcium Magnesium Troponin I High Sens 3.3 C-Reactive Protein Urine Color Urine Appearance Urine pH Ur Specific [place] Urine Protein Urine Glucose (UA) Urine Ketones Urine Blood Urine Nitrite Urine Bilirubin Urine Urobilinogen Ur Leukocyte Esterase Nasal Screen MRSA (PCR) 02/24/23 Unknown VBG pH VBG pCO2 VBG pO2 VBG HCO3 VBG O2 Saturation VBG Base Excess Sodium Potassium Chloride Carbon Dioxide Anion Gap BUN Creatinine Est Cr Clr Drug Dosing Est GFR ( Amer) Est GFR (Non-Af Amer) BUN/Creatinine Ratio Glucose POC Glucose Estimat Average Glucose Hemoglobin A1c Calcium Magnesium Troponin I High Sens C-Reactive Protein Urine Color Urine Appearance Urine pH Ur Specific [place] Urine Protein Urine Glucose (UA) Urine Ketones Urine Blood Urine Nitrite Urine Bilirubin Urine Urobilinogen Ur Leukocyte Esterase Nasal Screen MRSA (PCR) Negative Diagnostic Findings Scrotum Ultrasound 02/24/23 00:42 TESTICULAR ULTRASOUND HISTORY: Scrotal pain/edema COMPARISON: Testicular ultrasound 02/06/2023. FINDINGS: Right testis: 40 x 26 x 18 mm. There are no intratesticular masses. Normal color flow. Trace hydrocele. There are a few small epididymal head cysts measuring up to 5 mm. Left testis: 39 x 24 x 18 mm. There are no intratesticular masses. Normal color flow. No hydrocele. The epididymis is not well visualized. There is severe scrotal edema with increased color flow. This could be seen in the setting of a cellulitis. No loculated fluid collections to suggest a scrotal abscess at this time. IMPRESSION: 1. Normal bilateral testes. 2. Trace right hydrocele. 3. There is severe scrotal edema with increased color flow, unchanged. This could be seen in the setting of a cellulitis. No loculated fluid collections to suggest a scrotal abscess at this time. ACT 112: Negative or not required by law. Electronically signed by: Karlo Garcia M.D. 02/24/2023 8:48 AM PG Care Time/CCT Total # of Minutes Spent Total Time Spent with Patient: Total time spent is greater than 50% in coordination of care (as documented) at patient's floor/unit and/or counseling patient: Coding Level of Care Code None Diagnoses Cellulitis L03.90 Rash of groin R21 BPH w urinary obs/LUTS N40.1; N13.8 Orchitis N45.2 Severe obstructive sleep apnea G47.33 Obesity hypoventilation syndrome E66.2 Chronic diastolic heart failure I50.32 T2DM (type 2 diabetes mellitus) E11.9 Right bundle branch block (RBBB) I45.10 Hypertension I10 Hypertension type: essential hypertension Morbid obesity with BMI of 50.0-59.9, adult E66.01; Z68.43 Edema of both legs R60.0 (10) Hypertension Hypertension type: essential hypertension Qualified Code(s): I10 - Essential (primary) hypertension
[2023-02-24] MEDS ORDERED: FUROSEMIDE 40 MG/4 ML VIAL IV ONE (20:29)
[2023-02-24] MEDS: MIRTAZAPINE TAB 15 MG TAB PO SCH (20:49)
[2023-02-24] MEDS: MICONAZOLE NITRATE POWDER 85 GM EXT SCH (21:11)
[2023-02-24 23:12] LABS: Base Excess VBG 4.2 mEq/L; HCO3 VBG 31 mmol/L; Oxygen Saturation VBG 72.4 %; PCO2 VBG 55 mmHg (38-50); PO2 VBG 47 mmHg; pH VBG 7.36 (7.36-7.41)
[2023-02-24 23:49] LABS: BUN Creatinine Ratio 11.6 (10-20); C Reactive Protein 4.74 mg/dl (0-0.5); Calcium 8.1 mg/dl (8.6-10.3); Creatinine Clr Calc Pharmacy 50.6 ml/min; Est GFR (African American) 44.4 ml/min; Est GFR (Non-African American) 38.3 ml/min; Magnesium 1.6 mg/dl (1.7-2.4); Potassium 3.7 mmol/L (3.5-5.1)
--- NOTE | 2023-02-25 01:40 | Ultrasound Report ---
Exam(s): US VENOUS BILATERAL LOWER EXTREMITIES EXAM: US Duplex Bilateral Lower Extremities Veins CLINICAL HISTORY: Reason for exam: severe LE edema b/l, pain; eval 4 DVT. TECHNIQUE: Real-time duplex ultrasound scan of the bilateral lower extremity veins integrating B-mode two-dimensional vascular structure, Doppler spectral analysis, color flow Doppler imaging and compression. COMPARISON: No relevant prior studies available. FINDINGS: Right deep veins: Unremarkable. No DVT in the right common femoral, femoral, proximal deep femoral or popliteal veins. The veins demonstrate normal color flow, are normally compressible, with normal phasic flow and/or augmentation response. Right superficial veins: Unremarkable. No thrombus in the visualized right great saphenous vein. Left deep veins: Unremarkable. No DVT in the left common femoral, femoral, proximal deep femoral or popliteal veins. The veins demonstrate normal color flow, are normally compressible, with normal phasic flow and/or augmentation response. Left superficial veins: Unremarkable. No thrombus in the visualized left great saphenous vein. Soft tissues: Extensive subcutaneous edema in the calves. Inguinal lymphadenopathy. No popliteal cyst. IMPRESSION: No evidence of DVT in the lower extremities. Electronically signed by: Fátima Child MD 02/25/23 01:38 AM
[2023-02-25] MEDS: ACETAMINOPHEN 500 MG TAB PO SCH ×3 (04:24→21:45)
[2023-02-25] MEDS: MoRPHine SULFATE 2 MG/ML CARP IV PRN ×3 (04:34→13:05)
--- NOTE | 2023-02-25 06:08 | Billing Data ---
Date of Service February 25, 2023 Coding Level of Care Code 99535 INT INP/OBS CARE
[2023-02-25] MEDS: PIPERACILLIN/TAZOBACTAM 4.5 GM in DEXTROSE 5% MINI-B 100 ML IV SCH ×2 (06:29→14:09)
[2023-02-25] MEDS: HEPARIN SOD 5,000 UNIT/0.5 ML VIAL SQ SCH ×3 (06:40→21:44)
[2023-02-25 07:13] LABS: Estimated Average Glucose 143 mg/dl; Hemoglobin A1C 6.6 % (4.5-5.6)
[2023-02-25] MEDS: FINASTERIDE 5 MG TAB PO SCH (08:54)
[2023-02-25] MEDS: PANTOprazole 40 MG TAB PO SCH (08:54)
[2023-02-25] MEDS: amLODIPine BESYLATE 5 MG TAB PO SCH (08:54)
[2023-02-25] MEDS: MICONAZOLE NITRATE POWDER 85 GM EXT SCH ×2 (08:55→14:17)
--- NOTE | 2023-02-25 10:09 | Urology Consultation ---
Date of Consultation February 25, 2023 Assessment & Plan (1) BPH w urinary obs/LUTS: (2) Rash of groin: (3) Edema of both legs: Plan 72-year-old with severe scrotal edema Uncertain he truly has cellulitisexam findings do not seem to be completely consistent with that but he does have an elevated white blood cell count so empiric coverage with antibiotics is absolutely appropriate I have prescribed topical triamcinolone and nystatin because I think he could have very minor fungal infection of the scrotum He should elevate his scrotum His ultrasound and CT have been reviewed He does not appear to have any abnormalities of the scrotum aside from edema No fluctuant areas or drainable abscesses visualized or palpated He has no skin breakdown I am uncertain about the cause of his hip and groin pain but I think this is not in nature Diurese him Conservative management of the scrotum Call if further issues History of Present Illness Attending Physician: Mirna Childs MD History of Present Illness Consult placed secondary to scrotal edema and question about possible cellulitis involving the scrotum and groin Patient has relatively complex medical history and has previously been admitted with a similar finding with severe scrotal edema He currently is afebrile, hemodynamically stable He does have a leukocytosis He is complaining about pain in his right hip and left groin fold He describes the pain as deep and not superficial He has a buried penis and is uncircumcised but has been voiding spontaneously Had a CT on the which I personally reviewed and discussed with the patient Although he has scrotal edema I see no fluid collections or air within the skin or tissue Creatinine values have fluctuated substantially over the past several weeks His current value is 1.7 from yesterday afternoon Hemoglobin A1c 6.6 Allergies Allergy/AdvReac Type Severity Reaction Status Date / Time No Known Drug Allergies Allergy . Verified 02/24/23 00:33 Home Medications Medication Instructions Recorded Confirmed Type omeprazole 20 mg capsule,delayed 20 mg PO DAILY #90 caps 01/29/22 02/24/23 Rx release ascorbic acid (vitamin C) 500 mg 500 mg PO DAILY #30 caps 10/30/22 02/24/23 Rx capsule lisinopril 40 mg tablet 40 mg PO DAILY #90 tabs 10/30/22 02/24/23 Rx mirtazapine 30 mg tablet 30 mg PO HS #90 tabs 10/30/22 02/24/23 Rx BATTERY CHECK ON SCOOTER #1 ea 02/05/23 02/12/23 Rx furosemide 40 mg tablet 40 mg PO BID17 #60 tabs 02/10/23 02/24/23 Rx amlodipine 5 mg tablet 5 mg PO DAILY #90 tabs 02/12/23 02/24/23 Rx atorvastatin 40 mg tablet 40 mg PO DAILY #100 tabs 02/13/23 02/24/23 Rx dutasteride 0.5 mg capsule 0.5 mg PO DAILY #90 caps 02/13/23 02/24/23 Rx hydrocodone 5 mg-acetaminophen 325 1 tab PO Q4H PRN pain #10 tabs 02/13/23 02/24/23 Rx mg tablet blood sugar diagnostic (OneTouch #100 ea 02/14/23 Rx Ultra Test strips) blood-glucose meter #1 ea 02/14/23 Rx lancets 28 gauge #100 ea 02/14/23 Rx nystatin 100,000 unit/gram topical 1 applic topical BID #30 grams 02/22/23 02/24/23 Rx cream nhrlijakkidt-Ae-xyqz-minerals 1 tab PO DAILY 02/24/23 02/24/23 History Patient History Medical History Allergic rhinitis Anatomical narrow angle, bilateral Anemia Arthritis Benign prostatic hyperplasia with urinary obstruction Bradycardia Central pterygium of left eye Chronic diastolic heart failure Combined forms of age-related cataract of both eyes Depression with anxiety Dry eye syndrome of bilateral lacrimal glands First degree AV block GERD without esophagitis History of alcohol abuse Hyperlipidemia Hypertension Internal hemorrhoids Leukocytosis Morbid obesity with BMI of 40.0-44.9, adult Nocturnal hypoxia Obesity hypoventilation syndrome Obstructive sleep apnea Pericardial effusion Pes planus Rectal bleeding Restrictive lung disease Rheumatoid arthritis Right bundle branch block (RBBB) Strabismic amblyopia, right eye T2DM (type 2 diabetes mellitus) Urinary incontinence Venous insufficiency (chronic) (peripheral) Surgical History History of appendectomy History of prostate biopsy Family History Mother Diabetes Hypertension Other Blindness FH: cataracts Family history of blindness Glaucoma History of cataract Denies family history of Ovarian cancer Prostate cancer Myocardial infarction Breast cancer Colorectal cancer Social History Smoking Status: Never smoker Second Hand Exposure: No; Do You Dip or Chew Tobacco: No; Hx Alcohol Use: No (50 years ago) Hx Substance Use: No Preferred Language: Estonian Communication Ability: Effective Visual Impairment: Limited Hearing Ability: Normal 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 Beliefs That Will Affect Care: None marital status: Current Living Situation: Alone current occupational status: retired Feels Safe at Home: Yes Childhood Exposure to Second-Hand Smoke: No Diet: regular Diet Comment: regular caffeine: No during the past year weight has: remained stable Dental Care, Regularly: No Physical Activity Frequency: Other Physical Activity Frequency Comment: limited by physical condition Seatbelt Use: always Sunscreen Use: No Assistive Devices: Scooter/Electric Scooter Physical Exam Physical Exam: Obese male Midline incisionno herniations Scrotum is substantially edematous Has vitiligo No true erythema or unusual warmth Findings not visibly consistent with cellulitis Is a slight pink extension onto the groin which may represent a superficial fungal infection Certainly no crepitus, no fluctuance, no skin breakdown Condom catheter is resting over his buried penis (not certain this is acco mplishing much...) Results & Data Vital Signs (Past 12 Hours) Vital Signs Temp Pulse Pulse Resp BP Pulse Ox O2 Del Method 02/25/23 08:00 36.5 C 70 20 157/69 H 98 Room Air 02/25/23 04:27 36.5 C 78 16 95 Room Air 02/25/23 00:09 36.6 C 70 18 150/64 H 94 Room Air, CPAP 02/24/23 23:00 68 23 96 O2 Flow Rate 02/25/23 08:00 02/25/23 04:27 02/25/23 00:09 02/24/23 23:00 2 PG Care Time/CCT Total # of Minutes Spent Total Time Spent with Patient: Total time spent is greater than 50% in coordination of care (as documented) at patient's floor/unit and/or counseling patient: Coding Level of Care Code 09447 IN/OBS CONSULT LVL 4,60M Diagnoses BPH w urinary obs/LUTS N40.1; N13.8 Rash of groin R21 Edema of both legs R60.0
[2023-02-25] MEDS: INSULIN ASPART PER UNIT CHARGE SC SCH ×4 (10:33→21:21)
[2023-02-25] MEDS: NYSTATIN/TRIAMCIN OINT 15 GM TUBE EXT SCH ×2 (10:41→21:04)
--- NOTE | 2023-02-25 13:41 | XRay Report ---
XR chest 1V portable CLINICAL HISTORY: pulm edema? dyspnea TECHNIQUE: Single frontal radiograph of the chest was obtained. Comparison: Comparison is made to chest radiograph 02/06/2023 FINDINGS: No lines and tubes are seen. Cardiomegaly is noted. The lungs are clear. No evidence of pleural effus ion or pneumothorax. IMPRESSION: No acute chest disease. Cardiomegaly is noted. No evidence of pulmonary hypertension. ACT 112: Negative or not required by law. Electronically signed by: Philippe Gasca M.D. 02/25/2023 1:39 PM
[2023-02-25] MEDS ORDERED: MoRPHine SULFATE 2 MG/ML CARP IV PRN (15:45)
[2023-02-25] MEDS ORDERED: FUROSEMIDE INJ 20 MG/2 ML VIAL IV ONE (17:38)
[2023-02-25] MEDS ORDERED: HYDROCODONE/ACETAMOPHEN 5/325MG TAB PO PRN (17:41)
--- NOTE | 2023-02-25 18:01 | Hospitalist Progress Note ---
Date of Service February 25, 2023 Assessment & Plan (1) Cellulitis: Plan: Treated for orchitis during 02/06 to 02/10 admission per d/c summary but testicular u/s showed normal testes. Further, records indicate he had severe scrotal edema and severe LE edema and was diuresed during that stay. At discharge was sent home on augmentin + lasix BID. seems likely there is some component of scrotal and groin cellulitis, however, I do not see evidence of orchitis at this time. ESR and CRP are elevated appreciate urology evaluation we will stop daptomycin, continue PIP Tazo for now likely changed to Augmentin tomorrow continue wound care including nystatin to bilateral groin skin folds stop amlodipine which may be exacerbating his edema, gently diurese see below (2) Chronic diastolic heart failure: Plan: Clinically appears volume overloaded with O2 requirement, severe LE edema, etc. also at risk for cor pulmonale/right heart failure I also ordered cxr and he appears to have pulm edema in comparison to previous cxr. BNP is elevated. - given Lasix 40 mg IV yesterday, creatinine has increased and volume status is unclear with difficult physical examination Lasix 20 mg IV once today, BMP in a.m., if volume status remains unclear we will get repeat echo amlodipine is held because of severe problems with edema has been seen in the heart failure clinic in the past but not since 03/19 (3) JENNA (acute kidney injury): Plan: JENNA on CKD stage IIIcreatinine was up to 1.7 yesterday but no morning labs hold lisinopril, gentle diuresis today, check bladder scan for PVR rule out urinary retention, a.m. BMP (4) BPH w urinary obs/LUTS: Plan: Enlarged prostate seen on imaging, chronic urinary incontinence. 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 (6) Rash of groin: Plan: bilateral candidiasis continue miconazole powder, consider fluconazole p.o. if not improving caution with QTc (7) Orchitis: Plan: Treated for such during prior admission but scrotal u/s then and scrotal u/s now does not show testicular swelling, etc to suggest this diagnosis. resolved if previously present. (8) Severe obstructive sleep apnea: Plan: GABRIELLE/OHS Follows with Dr Roger Whiteside. BiPAP with settings 14/04. He does not have his home unit, hospital unit ordered Will place orders for a hospital unit. reviewed VBG 02/24 was reassuring at 7.36/55/47 (9) Obesity hypoventilation syndrome: Plan: Assess for O2 needs while here. (10) T2DM (type 2 diabetes mellitus): Plan: DM diet. No a1c since 07/2021 --> Hba1c = 6.6 BSGs ac/hs. Novolog SSI, receiving minimal units. blood glucoses reviewed at goal 02/25 (11) Right bundle branch block (RBBB): Plan: Chronic (12) Hypertension: Plan: Consider changing amlodipine to something else - could be contributing to LE edema. He will be receiving lasix. Cont lisinopril. (13) Morbid obesity with BMI of 50.0-59.9, adult: Plan: BMI 52 (14) Edema of both legs: Plan: SEVERE. This was noted during his admission earlier this month. Check dopplers - r/o DVT - given his scooter chair/wheelchair dependenc --> no DVT. Diurese as tolerated. Check a TSH. CT a/p mentions he has fatty liver but they do not mention features of cirrhosis. Much of the edema may be diastolic CHF related, and venous stasis. (15) Depression with anxiety: (16) GERD without esophagitis: (17) Hyperlipidemia: (18) Anemia: (19) Venous insufficiency (chronic) (peripheral): (20) Leukocytosis: (21) Morbid obesity with BMI of 40.0-44.9, adult: (22) Restrictive lung disease: Plan DVT proph - heparin 7500 units TID due to morbid obesity. Admission and Anticipated Discharge Date Admission Date: February 24, 2023 Subjective complains of severe pain and asks for pain medicine, with clarification pain is not in his scrotum/testes/penis or skin rather bilateral upper legs and feels like deep pain "in the bones" he says this pain started after the hospitalization, states he's urinating a lot and frequently, was seen by urology, pires not placed, does have urinary incontinence Physical Exam Physical Exam: PHYSICAL EXAMINATION Last 24h vital signs reviewed, see documentation in flowsheet General: comfortable appearing, no distress HEENT: Normocephalic, atraumatic, pupils round and equal, sclerae anicteric, no conjunctival injection, moist mucus membranes Lungs: Normal respiratory effort. Clear to auscultation bilaterally. No RRW Heart: distant, Regular rate and rhythm, no murmurs. No JVD Abdomen: Soft, nontender, nondistended. Bowel sounds present. mild to moderate edema of pannus present Extremities: Warm, dry, well-perfused. 2+ extremity edema. : scrotal edema and penile edema present, mild erythema of scrotum with no evidence of open wound. Bilateral groins are macerated with some skin breakdown in deep skin folds, nystatin powder is in the groins Neuro: Alert and oriented x 4, face symmetric, moves 4 extremities well Psych: Normal affect and behavior Results & Data Results & Data Vital Signs (Past 12 Hours) Vital Signs Temp Pulse Pulse Resp BP BP Pulse Ox 02/25/23 15:49 36.4 C L 70 18 160/70 H 155/74 H 95 02/25/23 15:06 70 02/25/23 08:00 48 L 02/25/23 08:40 02/25/23 10:52 36.5 C 74 18 138/54 L 91 02/25/23 08:00 36.5 C 70 20 157/69 H 98 O2 Del Method O2 Flow Rate 02/25/23 15:49 Nasal Cannula 0.5 02/25/23 15:06 02/25/23 08:00 02/25/23 08:40 Nasal Cannula 2 02/25/23 10:52 Room Air 02/25/23 08:00 Room Air PG Care Time/CCT Total # of Minutes Spent Total Time Spent with Patient: Total time spent is greater than 50% in coordination of care (as documented) at patient's floor/unit and/or counseling patient: Coding Level of Care Code 35000 SUB INP/OBS CARE 3/50MIN Diagnoses Cellulitis L03.90 Chronic diastolic heart failure I50.32 JENNA (acute kidney injury) N17.9 BPH w urinary obs/LUTS N40.1; N13.8 Atrial fibrillation I48.91 Rash of groin R21 Orchitis N45.2 Severe obstructive sleep apnea G47.33 Obesity hypoventilation syndrome E66.2 T2DM (type 2 diabetes mellitus) E11.9 Right bundle branch block (RBBB) I45.10 Hypertension I10 Hypertension type: essential hypertension Morbid obesity with BMI of 50.0-59.9, adult E66.01; Z68.43 Edema of both legs R60.0 Depression with anxiety F41.8 GERD without esophagitis K21.9 Hyperlipidemia E78.5 Hyperlipidemia type: unspecified Anemia D64.9 Anemia type: unspecified type Venous insufficiency (chronic) (peripheral) I87.2 Leukocytosis D72.829 Morbid obesity with BMI of 40.0-44.9, adult E66.01; Z68.41 Restrictive lung disease J98.4 (12) Hypertension Hypertension type: essential hypertension Qualified Code(s): I10 - Essential (primary) hypertension (17) Hyperlipidemia Hyperlipidemia type: unspecified Qualified Code(s): E78.5 - Hyperlipidemia, unspecified (18) Anemia Anemia type: unspecified type Qualified Code(s): D64.9 - Anemia, unspecified
--- NOTE | 2023-02-25 19:47 | Communication Note ---
Date of Service: February 25, 2023 Around 1999 patient failed US guided IV placement. Refused re-attempt. Will switch patient to augmentin tonight instead of tomorrow. Resident Activity Tracking Resident Involvement: Resident Care Provided Care Provided: [facility]
[2023-02-25 20:16] LABS: Basophils # (auto) 0.05 K/uL (0.00-0.20); Basophils % (auto) 0.4 %; Eosinophils # (auto) 0.52 K/uL (0.00-0.50); Eosinophils % (auto) 3.7 %; Hematocrit (blood only) 29.2 % (42.0-52.0); Hemoglobin 9.6 g/dl (14.0-18.0); Immature Granulocytes # (auto) 0.15 K/uL (0.01-0.20); Immature Granulocytes % (auto) 1.1 %; Lymphocytes # (auto) 1.83 K/uL (1.20-3.40); Mean Corpuscular Hemoglobin 29.4 pg (25.0-34.0); Mean Corpuscular Hgb Conc 32.9 g/dL (32.0-36.0); Mean Corpuscular Volume 89.3 fL (80.0-100.0); Mean Platelet Volume 9.9 fL (9.4-12.4); Monocytes # (auto) 1.02 K/uL (0.11-0.59); Monocytes % (auto) 7.2 %; Neutrophils % (auto) 74.6 %; Nucleated RBC # (auto) 0.02 K/uL (0.00-0.12); Nucleated RBC % (auto) 0.1 %; Platelet Count 363 K/uL (130-400); RDW Coefficient of Variation 16.7 % (11.5-14.5); RDW Standard Deviation 54.2 fL (36.4-46.3); Red Blood Count 3.27 M/uL (4.70-6.10); White Blood Count 14.07 K/ul (4.8-10.8)
[2023-02-25 20:29] LABS: Calcium 8.4 mg/dl (8.6-10.3); Potassium 3.9 mmol/L (3.5-5.1)
[2023-02-25 20:35] LABS: BUN Creatinine Ratio 12.6 (10-20); Creatinine Clr Calc Pharmacy 59.6 ml/min; Est GFR (African American) 55.9 ml/min; Est GFR (Non-African American) 48.2 ml/min
[2023-02-25 20:48] LABS: Thyroid Stimulating Hormone 0.777 uIu/ml (0.300-4.500)
[2023-02-25] MEDS ORDERED: AMOXICILLIN/CLAVULANATE 875 MG TAB PO SCH (21:00)
[2023-02-25] MEDS: AMOXICILLIN/CLAVULANATE 875 MG TAB PO SCH (21:04)
[2023-02-25] MEDS: MIRTAZAPINE TAB 15 MG TAB PO SCH (21:04)
[2023-02-26] MEDS: MICONAZOLE NITRATE POWDER 85 GM EXT SCH ×4 (02:55→20:50)
[2023-02-26] MEDS: HEPARIN SOD 5,000 UNIT/0.5 ML VIAL SQ SCH ×3 (06:07→20:50)
[2023-02-26] MEDS: ACETAMINOPHEN 500 MG TAB PO SCH ×3 (06:11→20:49)
--- NOTE | 2023-02-26 08:52 | Electrocardiogram Report ---
Test Reason : Blood Pressure : / mmHG Vent. Rate : 063 BPM Atrial Rate : 063 BPM P-R Int : 310 ms QRS Dur : 148 ms QT Int : 434 ms P-R-T Axes : 027 043 020 degrees QTc Int : 444 ms Sinus rhythm with 1st degree A-V block with Premature atrial complexes Right bundle branch block Abnormal ECG When compared with ECG of 24-FEB-2023 01:06, (unconfirmed) QT has shortened Confirmed by Fidel Ch ([id number]) on 02/26/2023 8:51:24 AM Referred By: REFERRED SELF Confirmed By:Frank Ch
[2023-02-26] MEDS: INSULIN ASPART PER UNIT CHARGE SC SCH ×4 (08:53→20:51)
[2023-02-26] MEDS: AMOXICILLIN/CLAVULANATE 875 MG TAB PO SCH ×2 (09:15→20:48)
[2023-02-26] MEDS: ATORVASTATIN 40 MG TAB PO SCH (09:15)
[2023-02-26] MEDS: FINASTERIDE 5 MG TAB PO SCH (09:15)
[2023-02-26] MEDS: PANTOprazole 40 MG TAB PO SCH (09:15)
[2023-02-26] MEDS: NYSTATIN/TRIAMCIN OINT 15 GM TUBE EXT SCH ×2 (09:19→20:48)
[2023-02-26 09:32] LABS: BUN Creatinine Ratio 14.3 (10-20); Calcium 8.5 mg/dl (8.6-10.3); Creatinine Clr Calc Pharmacy 67.5 ml/min; Est GFR (African American) 65.2 ml/min; Est GFR (Non-African American) 56.2 ml/min
[2023-02-26] MEDS ORDERED: FUROSEMIDE 40 MG/4 ML VIAL IV SCH (11:45)
[2023-02-26] MEDS: POTASSIUM CHLORIDE CRTAB 20 MEQ TABCR PO SCH ×2 (12:53→14:24)
[2023-02-26] MEDS: BUMETANIDE 1 MG TAB PO SCH ×2 (15:14→20:50)
--- NOTE | 2023-02-26 17:47 | Hospitalist Progress Note ---
Date of Service February 26, 2023 Assessment & Plan (1) Cellulitis: Plan: Treated for orchitis during 02/06 to 02/10 admission per d/c summary but testicular u/s showed normal testes. Further, records indicate he had severe scrotal edema and severe LE edema and was diuresed during that stay. At discharge was sent home on augmentin + lasix BID. seems likely there is some component of scrotal and groin cellulitis, however, I do not see evidence of orchitis at this time. ESR and CRP are elevated appreciate urology evaluation -started on pip-tazo and dapto from ED, narrowed to pip-tazo, lost IV access evening of 02/25 now on po augmentin continue wound care including nystatin to bilateral groin skin folds stop amlodipine which may be exacerbating his edema, diurese (2) Chronic diastolic heart failure: Plan: Clinically appears volume overloaded with O2 requirement, severe LE edema, etc. also at risk for cor pulmonale/right heart failure I also ordered cxr and he appears to have pulm edema in comparison to previous cxr. BNP is elevated. - creatinine improved with IV lasix. Lost IV access, ordered bumex 2 mg po bid with oral potassium, only agrees to labs QOD amlodipine is held because of severe problems with edema has been seen in the heart failure clinic in the past but not since 03/19 -repeat TTE (3) JENNA (acute kidney injury): Plan: JENNA on CKD stage IIIcreatinine was up to 1.7 but came down to 1.26 after several doses of IV lasix, likely nephrosarca hold lisinopril, continue diuresis, check bladder scan for PVR - negative -BMP when he allows them (4) BPH w urinary obs/LUTS: Plan: Enlarged prostate seen on imaging, chronic urinary incontinence. 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 (6) Rash of groin: Plan: bilateral candidiasis continue miconazole powder, consider fluconazole p.o. if not improving caution with QTc (7) Orchitis: Plan: Treated for such during prior admission but scrotal u/s then and scrotal u/s now does not show testicular swelling, etc to suggest this diagnosis. resolved if previously present. (8) Severe obstructive sleep apnea: Plan: GABRIELLE/[facility] Follows with Dr Roger Whiteside. John with settings 14/04. He does not have his home unit, hospital unit ordered Will place orders for a hospital unit. reviewed VBG 02/24 was reassuring at 7.36/55/47 (9) Obesity hypoventilation syndrome: Plan: Assess for O2 needs while here. (10) T2DM (type 2 diabetes mellitus): Plan: DM diet. No a1c since 07/2021 --> Hba1c = 6.6 BSGs ac/hs. Novolog SSI, receiving minimal units. blood glucoses reviewed at goal 02/25 (11) Right bundle branch block (RBBB): Plan: Chronic (12) Hypertension: Plan: Consider changing amlodipine to something else - could be contributing to LE edema. Hypertensive above goal 02/26 Continue diuresis Add carvedilol - wait for TTE result (13) Morbid obesity with BMI of 50.0-59.9, adult: Plan: BMI 52 (14) Edema of both legs: Plan: SEVERE. This was noted during his admission earlier this month. Check dopplers - r/o DVT - given his scooter chair/wheelchair dependenc --> no DVT. Diurese as tolerated. Check a TSH. CT a/p mentions he has fatty liver but they do not mention features of cirrhosis. Much of the edema may be diastolic CHF related, and venous stasis. Also at risk for cor pulmonale (15) Depression with anxiety: (16) GERD without esophagitis: (17) Hyperlipidemia: (18) Anemia: (19) Venous insufficiency (chronic) (peripheral): (20) Leukocytosis: (21) Morbid obesity with BMI of 40.0-44.9, adult: (22) Restrictive lung disease: Plan DVT proph - heparin 7500 units TID due to morbid obesity. Admission and Anticipated Discharge Date Admission Date: February 24, 2023 Subjective I think he is feeling better, leg swelling a little better, leg pain resolved, scrotum pain better but still severely swollen. He refused his labs, RN later talked him into. He lost PIV overnight and refused IV. I went back and talked to him about that - causes pain and refuses IV, wants to try po, agrees to QOD blood draw only, I told him this approach might not work and we'd have to reset Physical Exam Physical Exam: PHYSICAL EXAMINATION Last 24h vital signs reviewed, see documentation in flowsheet General: comfortable appearing, no distress HEENT: Normocephalic, atraumatic, pupils round and equal, sclerae anicteric, no conjunctival injection, moist mucus membranes Lungs: Normal respiratory effort. Clear to auscultation bilaterally. No RRW Heart: distant, Regular rate and rhythm, no murmurs. No JVD Abdomen: Soft, nontender, nondistended. Bowel sounds present. mild to moderate edema of pannus present - unchanged 02/26 Extremities: Warm, dry, well-perfused. 2-3+ extremity edema. unchanged 02/26 : scrotal edema and penile edema present, mild erythema of scrotum with no evidence of open wound. Bilateral groins are macerated with some skin breakdown in deep skin folds, nystatin powder is in the groins. scrotal erythema better 02/26 Neuro: Alert and oriented x 4, face symmetric, moves 4 extremities well Psych: Normal affect and behavior Results & Data Results & Data Vital Signs (Past 12 Hours) Vital Signs Temp Pulse Pulse Resp BP Pulse Ox O2 Del Method 02/26/23 15:22 36.8 C 88 20 170/73 H 94 Room Air 02/26/23 14:51 74 02/26/23 07:50 Room Air 02/26/23 11:37 36.4 C L 54 L 18 186/63 H 94 Room Air 02/26/23 07:26 36.5 C 74 18 174/74 H 92 Room Air 02/26/23 07:15 49 L PG Care Time/CCT Total # of Minutes Spent Total Time Spent with Patient: Total time spent is greater than 55 minutes today, 2 visits. chart review, orders, discussions with RN Coding Level of Care Code 20350 SUB INP/OBS CARE 3/50MIN Diagnoses Cellulitis L03.90 Chronic diastolic heart failure I50.32 JENNA (acute kidney injury) N17.9 BPH w urinary obs/LUTS N40.1; N13.8 Atrial fibrillation I48.91 Rash of groin R21 Orchitis N45.2 Severe obstructive sleep apnea G47.33 Obesity hypoventilation syndrome E66.2 T2DM (type 2 diabetes mellitus) E11.9 Right bundle branch block (RBBB) I45.10 Hypertension I10 Hypertension type: essential hypertension Morbid obesity with BMI of 50.0-59.9, adult E66.01; Z68.43 Edema of both legs R60.0 Depression with anxiety F41.8 GERD without esophagitis K21.9 Hyperlipidemia E78.5 Hyperlipidemia type: unspecified Anemia D64.9 Anemia type: unspecified type Venous insufficiency (chronic) (peripheral) I87.2 Leukocytosis D72.829 Morbid obesity with BMI of 40.0-44.9, adult E66.01; Z68.41 Restrictive lung disease J98.4 (12) Hypertension Hypertension type: essential hypertension Qualified Code(s): I10 - Essential (primary) hypertension (17) Hyperlipidemia Hyperlipidemia type: unspecified Qualified Code(s): E78.5 - Hyperlipidemia, unspecified (18) Anemia Anemia type: unspecified type Qualified Code(s): D64.9 - Anemia, unspecified
[2023-02-26] MEDS: MIRTAZAPINE TAB 15 MG TAB PO SCH (20:48)
[2023-02-27] MEDS: ACETAMINOPHEN 500 MG TAB PO SCH ×3 (06:22→20:35)
[2023-02-27] MEDS: HEPARIN SOD 5,000 UNIT/0.5 ML VIAL SQ SCH ×3 (06:22→20:35)
[2023-02-27] MEDS: AMOXICILLIN/CLAVULANATE 875 MG TAB PO SCH ×2 (08:11→20:37)
[2023-02-27] MEDS: BUMETANIDE 1 MG TAB PO SCH ×2 (08:11→20:36)
[2023-02-27] MEDS: PANTOprazole 40 MG TAB PO SCH (08:11)
[2023-02-27] MEDS: ATORVASTATIN 40 MG TAB PO SCH (08:12)
[2023-02-27] MEDS: FINASTERIDE 5 MG TAB PO SCH (08:13)
[2023-02-27] MEDS: NYSTATIN/TRIAMCIN OINT 15 GM TUBE EXT SCH ×2 (08:14→20:37)
[2023-02-27] MEDS: MICONAZOLE NITRATE POWDER 85 GM EXT SCH ×3 (08:14→20:37)
[2023-02-27] MEDS: POTASSIUM CHLORIDE CRTAB 20 MEQ TABCR PO SCH ×2 (08:15)
[2023-02-27 08:54] LABS: BUN Creatinine Ratio 14.3 (10-20); Calcium 9.2 mg/dl (8.6-10.3); Creatinine Clr Calc Pharmacy 65.7 ml/min; Est GFR (African American) 65.2 ml/min; Est GFR (Non-African American) 56.2 ml/min; Potassium 4.3 mmol/L (3.5-5.1)
[2023-02-27] MEDS: INSULIN ASPART PER UNIT CHARGE SC SCH ×4 (10:01→20:20)
--- NOTE | 2023-02-27 10:27 | XCELERA ---
[id number] \\[id number]
--- NOTE | 2023-02-27 18:28 | Hospitalist Progress Note ---
Date of Service February 27, 2023 Assessment & Plan (1) Cellulitis: Plan: Treated for orchitis during 02/06 to 02/10 admission per d/c summary but testicular u/s showed normal testes. Further, records indicate he had severe scrotal edema and severe LE edema and was diuresed during that stay. At discharge was sent home on augmentin + lasix BID. seems likely there is some component of scrotal and groin cellulitis, however, I do not see evidence of orchitis at this time. ESR and CRP are elevated appreciate urology evaluation -started on pip-tazo and dapto from ED, narrowed to pip-tazo, lost IV access evening of 02/25 now on po augmentin - slowly improving but not yet resolved continue wound care including nystatin to bilateral groin skin folds stop amlodipine which may be exacerbating his edema, diurese (2) Chronic diastolic heart failure: Plan: Acute on chronic diastolic heart failure with severe anasarca causing skin breakdown and cellulitis in groin area -had hypoxia, congestion on CXR, nephrosarca/JENNA, and elevated BNP on admission - Lost IV access, ordered bumex 2 mg po bid with oral potassium, only agrees to labs QOD - seems effective no weight today but 143 kg --> 130 this admission so far amlodipine is held because of severe problems with edema has been seen in the heart failure clinic in the past but not since 03/19 -repeat TTE reviewed - moderate concentric LVH, LVEF normal at 65%, no sig TR, RV not visualized. May have right heart failure physiology, alternatively consider nephrotic syndrome - check spot urine prot:cr (3) JENNA (acute kidney injury): Plan: JENNA on CKD stage IIIcreatinine was up to 1.7 but came down to 1.26 after several doses of IV lasix, likely nephrosarca hold lisinopril, continue diuresis, checked bladder scan for PVR - negative -BMP when he allows them - reviewed today stable K 4.3, Cr 1.26 (4) BPH w urinary obs/LUTS: Plan: Enlarged prostate seen on imaging, chronic urinary incontinence. continue tamsulosin and finasteride check bladder scan - 17 mL on 02/25 (5) Rash of groin: Plan: bilateral candidiasis with skin breakdown in folds continue miconazole powder, improving (6) Orchitis: Plan: Treated for such during prior admission but scrotal u/s then and scrotal u/s now does not show testicular swelling, etc to suggest this diagnosis. resolved if previously present. (7) Severe obstructive sleep apnea: Plan: GABRIELLE/[facility] Follows with Dr Roger Whiteside. John with settings 14/04. He does not have his home unit, hospital unit ordered reviewed VBG 02/24 was reassuring at 7.36/55/47 (8) Obesity hypoventilation syndrome: (9) T2DM (type 2 diabetes mellitus): Plan: DM diet. No a1c since 07/2021 --> Hba1c = 6.6 BSGs ac/hs. Novolog SSI, receiving minimal units. blood glucoses reviewed at goal 02/27 (10) Right bundle branch block (RBBB): Plan: Chronic (11) Hypertension: Plan: Consider changing amlodipine to something else - could be contributing to LE edema. Hypertensive above goal 02/26, 02/27 improving with diuresis Add carvedilol (12) Morbid obesity with BMI of 50.0-59.9, adult: Plan: BMI 47 (13) Edema of both legs: Plan: Check dopplers ---> no DVT. Much of the edema may be diastolic CHF related, and venous stasis. Also at risk for cor pulmonale (14) Depression with anxiety: (15) GERD without esophagitis: (16) Hyperlipidemia: (17) Anemia: (18) Venous insufficiency (chronic) (peripheral): (19) Restrictive lung disease: Plan possible atrial fibrillation on aquatics manager, was ruled out on EKG - showed sinus with pac's DVT proph - heparin 7500 units TID due to morbid obesity. Admission and Anticipated Discharge Date Admission Date: February 24, 2023 Subjective he feels better, he thinks he is urinating a lot and that his scrotal swelling (though still severe) has improved. His bilateral thigh pain has resolved and scrotal pain has improved a lot. remains severely edematous. No dyspnea or chest pain Physical Exam Physical Exam: PHYSICAL EXAMINATION Last 24h vital signs reviewed, see documentation in flowsheet General: comfortable appearing, no distress, lying fairly flat in bed HEENT: Normocephalic, atraumatic, pupils round and equal, sclerae anicteric, no conjunctival injection, moist mucus membranes Lungs: Normal respiratory effort. Clear to auscultation bilaterally. No RRW Heart: distant, Regular rate and rhythm, no murmurs. No JVD Abdomen: Soft, nontender, nondistended. Bowel sounds present. mild to moderate edema of pannus present - sig improved last 48h still with maceration and some skin breakdown under pannus Extremities: Warm, dry, well-perfused. 2-3+ extremity edema. slightly improved 02/27 : scrotal edema and penile edema present, mild erythema of scrotum with no evidence of open wound. Bilateral groins are macerated with some skin breakdown in deep skin folds, nystatin powder is in the groins. scrotal erythema still present 02/27 Neuro: Alert and oriented x 4, face symmetric, moves 4 extremities well Psych: Normal affect and behavior Results & Data Results & Data Vital Signs (Past 12 Hours) Vital Signs Temp Pulse Pulse Pulse Resp BP BP 02/27/23 17:04 36.5 C 50 L 20 176/71 H 02/27/23 15:00 69 02/27/23 12:00 36.5 C 55 L 16 117/74 02/27/23 11:36 36.6 C 80 16 117/76 02/27/23 07:43 36.5 C 50 L 16 161/68 H 02/27/23 06:40 53 L 157/63 H Pulse Ox O2 Del Method 02/27/23 17:04 96 CPAP 02/27/23 15:00 02/27/23 12:00 96 Room Air 02/27/23 11:36 100 Room Air 02/27/23 07:43 93 Room Air 02/27/23 06:40 PG Care Time/CCT Total # of Minutes Spent Total Time Spent with Patient: Total time spent is greater than 50% in coordination of care (as documented) at patient's floor/unit and/or counseling patient: Coding Level of Care Code 32356 SUB INP/OBS CARE 3/50MIN Diagnoses Cellulitis L03.90 Chronic diastolic heart failure I50.32 JENNA (acute kidney injury) N17.9 BPH w urinary obs/LUTS N40.1; N13.8 Rash of groin R21 Orchitis N45.2 Severe obstructive sleep apnea G47.33 Obesity hypoventilation syndrome E66.2 T2DM (type 2 diabetes mellitus) E11.9 Right bundle branch block (RBBB) I45.10 Essential hypertension I10 Hypertension type: essential hypertension Morbid obesity with BMI of 50.0-59.9, adult E66.01; Z68.43 Edema of both legs R60.0 Depression with anxiety F41.8 GERD without esophagitis K21.9 Hyperlipidemia, unspecified hyperlipidemia type E78.5 Hyperlipidemia type: unspecified Anemia, unspecified type D64.9 Anemia type: unspecified type Venous insufficiency (chronic) (peripheral) I87.2 Restrictive lung disease J98.4 (11) Hypertension Hypertension type: essential hypertension Qualified Code(s): I10 - Essential (primary) hypertension (16) Hyperlipidemia Hyperlipidemia type: unspecified Qualified Code(s): E78.5 - Hyperlipidemia, unspecified (17) Anemia Anemia type: unspecified type Qualified Code(s): D64.9 - Anemia, unspecified
[2023-02-27] MEDS: MIRTAZAPINE TAB 15 MG TAB PO SCH (20:36)
[2023-02-28] MEDS: ACETAMINOPHEN 500 MG TAB PO SCH ×3 (05:37→20:52)
[2023-02-28] MEDS: HEPARIN SOD 5,000 UNIT/0.5 ML VIAL SQ SCH ×3 (05:37→20:54)
[2023-02-28] MEDS: INSULIN ASPART PER UNIT CHARGE SC SCH ×4 (09:36→20:58)
[2023-02-28] MEDS: POTASSIUM CHLORIDE CRTAB 20 MEQ TABCR PO SCH ×2 (09:37→09:40)
[2023-02-28] MEDS: AMOXICILLIN/CLAVULANATE 875 MG TAB PO SCH ×2 (09:37→21:50)
[2023-02-28] MEDS: FINASTERIDE 5 MG TAB PO SCH (09:37)
[2023-02-28] MEDS: PANTOprazole 40 MG TAB PO SCH (09:38)
[2023-02-28] MEDS: carvediloL 3.125 MG TAB PO SCH ×2 (09:38→18:18)
[2023-02-28] MEDS: ATORVASTATIN 40 MG TAB PO SCH (09:38)
[2023-02-28] MEDS: MICONAZOLE NITRATE POWDER 85 GM EXT SCH ×3 (09:39→20:52)
[2023-02-28] MEDS: NYSTATIN/TRIAMCIN OINT 15 GM TUBE EXT SCH ×2 (09:39→20:53)
[2023-02-28] MEDS: BUMETANIDE 1 MG TAB PO SCH ×2 (09:50→18:17)
--- NOTE | 2023-02-28 15:46 | Hospitalist Progress Note ---
Date of Service February 28, 2023 Assessment & Plan (1) Cellulitis: Plan: Treated for orchitis during 02/06 to 02/10 admission per d/c summary but testicular u/s showed normal testes. Further, records indicate he had severe scrotal edema and severe LE edema and was diuresed during that stay. At discharge was sent home on augmentin + lasix BID. seems likely there is some component of scrotal and groin cellulitis, however, I do not see evidence of orchitis at this time. ESR and CRP are elevated appreciate urology evaluation -started on pip-tazo and dapto from ED, narrowed to pip-tazo, lost IV access evening of 02/25 now on po augmentin - slowly improving but not yet resolved continue wound care including nystatin to bilateral groin skin folds stop amlodipine which may be exacerbating his edema, diurese (2) Chronic diastolic heart failure: Plan: Acute on chronic diastolic heart failure with severe anasarca causing skin breakdown and cellulitis in groin area Echo obtained 02/27 unchanged from prior, normal LVEF but could not get view of RV. Suspect he has significant component of RV failure given the recurrent presentation with severe anasarca -moderate concentric LVH, LVEF normal at 65%, no sig TR, RV not visualized -had hypoxia, congestion on CXR, nephrosarca/JENNA, and elevated BNP on admission - now intravascularly euvolemic - Lost IV access, ordered bumex 2 mg po bid with oral potassium - direusing well with this regimen, only agrees to labs QOD so none today- 143 kg --> 124.6 this admission so far. Last discharge 02/06 was 116.2 kg amlodipine is held because of severe problems with edema has been seen in the heart failure clinic in the past but not since 03/19 (3) JENNA (acute kidney injury): Plan: JENNA on CKD stage IIIcreatinine was up to 1.7 but came down to 1.26 after several doses of IV lasix, likely nephrosarca hold lisinopril, continue diuresis, checked bladder scan for PVR - negative -BMP when he allows them - 02/27 stable K 4.3, Cr 1.26 (4) BPH w urinary obs/LUTS: Plan: Enlarged prostate seen on imaging, chronic urinary incontinence. continue tamsulosin and finasteride check bladder scan - 17 mL on 02/25 (5) Rash of groin: Plan: bilateral candidiasis with skin breakdown in folds continue miconazole powder, improving (6) Orchitis: Plan: Treated for such during prior admission but scrotal u/s then and scrotal u/s now does not show testicular swelling, etc to suggest this diagnosis. resolved if previously present. (7) Severe obstructive sleep apnea: Plan: GABRIELLE/[facility] Follows with Dr Roger Whiteside. BiPAP with settings 14/04. Claims he uses it. He does not have his home unit, hospital unit ordered. reviewed VBG 02/24 was reassuring at 7.36/55/47 (8) Obesity hypoventilation syndrome: (9) T2DM (type 2 diabetes mellitus): Plan: DM diet. No a1c since 07/2021 --> Hba1c = 6.6 BSGs ac/hs. Novolog SSI, receiving minimal units. blood glucoses reviewed at goal 02/28 (10) Right bundle branch block (RBBB): Plan: Chronic (11) Hypertension: Plan: Consider changing amlodipine to something else - could be contributing to LE edema. Hypertensive above goal 02/26, 02/27 improving with diuresis Added carvedilol but no room for increase - HR low 50s Resume lisinopril (12) Morbid obesity with BMI of 50.0-59.9, adult: Plan: BMI 47 (13) Edema of both legs: Plan: Check dopplers ---> no DVT. Much of the edema may be diastolic CHF related, and venous stasis. Also at risk for cor pulmonale (14) Depression with anxiety: (15) GERD without esophagitis: (16) Hyperlipidemia: (17) Anemia: (18) Venous insufficiency (chronic) (peripheral): (19) Restrictive lung disease: Plan possible atrial fibrillation on machine shop helper, was ruled out on EKG - showed sinus with pac's DVT proph - heparin 7500 units TID due to morbid obesity. Admission and Anticipated Discharge Date Admission Date: February 24, 2023 Subjective leg edema significantly improved and penile/scrotal edema improved. no dyspnea. says he uses his CPAP at home Physical Exam Physical Exam: PHYSICAL EXAMINATION Last 24h vital signs reviewed, see documentation in flowsheet General: comfortable appearing, no distress, lying fairly flat in bed HEENT: Normocephalic, atraumatic, pupils round and equal, sclerae anicteric, no conjunctival injection, moist mucus membranes Lungs: Normal respiratory effort. Clear to auscultation bilaterally. No RRW Heart: distant, Regular rate and rhythm, no murmurs. No JVD Abdomen: Soft, nontender, nondistended. Bowel sounds present. mild to moderate edema of pannus present - still significant but improving still with maceration and some skin breakdown under pannus Extremities: Warm, dry, well-perfused. 2+ extremity edema. clearly improving, skin now with wrinkling : scrotal edema and penile edema present, mild erythema of scrotum with no evidence of open wound. Bilateral groins are macerated with some skin breakdown in deep skin folds, nystatin powder is in the groins. scrotal erythema still present 02/28 but no longer distended to shiny Neuro: Alert and oriented x 4, face symmetric, moves 4 extremities well. no asterixis Psych: Normal affect and behavior Results & Data Results & Data Vital Signs (Past 12 Hours) Vital Signs Temp Pulse Pulse Resp BP BP Pulse Ox 02/28/23 15:05 36.7 C 52 L 18 152/72 H 98 02/28/23 11:00 36.4 C L 50 L 18 182/73 H 96 02/28/23 08:01 65 02/28/23 07:15 36.5 C 51 L 17 175/78 H 95 O2 Del Method 02/28/23 15:05 Room Air 02/28/23 11:00 Room Air 02/28/23 08:01 02/28/23 07:15 Room Air PG Care Time/CCT Total # of Minutes Spent Total Time Spent with Patient: Total time spent is greater than 50% in coordination of care (as documented) at patient's floor/unit and/or counseling patient: Coding Level of Care Code 31011 SUB INP/OBS CARE 2/35MIN Diagnoses Cellulitis L03.90 Chronic diastolic heart failure I50.32 JENNA (acute kidney injury) N17.9 BPH w urinary obs/LUTS N40.1; N13.8 Rash of groin R21 Orchitis N45.2 Severe obstructive sleep apnea G47.33 Obesity hypoventilation syndrome E66.2 T2DM (type 2 diabetes mellitus) E11.9 Right bundle branch block (RBBB) I45.10 Essential hypertension I10 Hypertension type: essential hypertension Morbid obesity with BMI of 50.0-59.9, adult E66.01; Z68.43 Edema of both legs R60.0 Depression with anxiety F41.8 GERD without esophagitis K21.9 Hyperlipidemia, unspecified hyperlipidemia type E78.5 Hyperlipidemia type: unspecified Anemia, unspecified type D64.9 Anemia type: unspecified type Venous insufficiency (chronic) (peripheral) I87.2 Restrictive lung disease J98.4 (11) Hypertension Hypertension type: essential hypertension Qualified Code(s): I10 - Essential (primary) hypertension (16) Hyperlipidemia Hyperlipidemia type: unspecified Qualified Code(s): E78.5 - Hyperlipidemia, unspecified (17) Anemia Anemia type: unspecified type Qualified Code(s): D64.9 - Anemia, unspecified
[2023-02-28] MEDS ORDERED: BUMETANIDE 1 MG TAB PO SCH (17:00)
--- NOTE | 2023-02-28 20:45 | Electrocardiogram Report ---
Test Reason : Blood Pressure : / mmHG Vent. Rate : 101 BPM Atrial Rate : 105 BPM P-R Int : 000 ms QRS Dur : 144 ms QT Int : 400 ms P-R-T Axes : 000 075 020 degrees QTc Int : 518 ms Likely sinus tachycardia with 1st degree AV block and PVCs Right bundle branch block Abnormal ECG Confirmed by Fidel Ch ([id number]) on 02/28/2023 8:44:44 PM Referred By: REFERRED SELF Confirmed By:Frank Ch
[2023-02-28] MEDS: MIRTAZAPINE TAB 15 MG TAB PO SCH (20:53)
[2023-03-01] MEDS: ACETAMINOPHEN 500 MG TAB PO SCH ×3 (05:52→20:04)
[2023-03-01] MEDS: HEPARIN SOD 5,000 UNIT/0.5 ML VIAL SQ SCH ×3 (05:52→20:03)
[2023-03-01 08:11] LABS: Calcium 8.9 mg/dl (8.6-10.3); Potassium 4.2 mmol/L (3.5-5.1)
[2023-03-01 08:17] LABS: BUN Creatinine Ratio 15.1 (10-20); Creatinine Clr Calc Pharmacy 49.8 ml/min; Est GFR (African American) 51.9 ml/min; Est GFR (Non-African American) 44.8 ml/min
[2023-03-01] MEDS: carvediloL 3.125 MG TAB PO SCH (08:19)
[2023-03-01] MEDS: ATORVASTATIN 40 MG TAB PO SCH (09:16)
[2023-03-01] MEDS: FINASTERIDE 5 MG TAB PO SCH (09:16)
[2023-03-01] MEDS: PANTOprazole 40 MG TAB PO SCH (09:17)
[2023-03-01] MEDS: POTASSIUM CHLORIDE CRTAB 20 MEQ TABCR PO SCH ×2 (09:17→10:20)
[2023-03-01] MEDS: AMOXICILLIN/CLAVULANATE 875 MG TAB PO SCH ×2 (09:17→20:03)
[2023-03-01] MEDS: BUMETANIDE 1 MG TAB PO SCH (09:19)
[2023-03-01] MEDS: NYSTATIN/TRIAMCIN OINT 15 GM TUBE EXT SCH ×2 (09:20→20:04)
[2023-03-01] MEDS: MICONAZOLE NITRATE POWDER 85 GM EXT SCH ×3 (09:20→20:05)
--- NOTE | 2023-03-01 09:28 | Hospitalist Progress Note ---
Date of Service March 01, 2023 Assessment & Plan (1) Cellulitis: Plan: Treated for orchitis during 02/06 to 02/10 admission per d/c summary but testicular u/s showed normal testes. Further, records indicate he had severe scrotal edema and severe LE edema and was diuresed during that stay. At discharge was sent home on augmentin + lasix BID. seems likely there is some component of scrotal and groin cellulitis, however, I do not see evidence of orchitis at this time. ESR and CRP are elevated appreciate urology evaluation -started on pip-tazo and dapto from ED, narrowed to pip-tazo, lost IV access evening of 02/25 now on po augmentin through 03/04 - slowly improving but not yet resolved continue wound care including nystatin to bilateral groin skin folds stopped amlodipine which may be exacerbating his edema, diurese (2) Diarrhea: Plan: Antibiotic associated diarrhea -checked C. diff toxin today - negative -added probiotic Likely precipitated the sinus bradycardia this AM (personally reviewed EKG tracing: HR 40s sinus tanya 1 AVB RBBB, ordered CXR personally reviewed film - clear low lung volumes, symptomatic of dyspnea and malaise) -carvedilol stopped -might be able to resume, bradycardia was likely vagally mediated (3) Chronic diastolic heart failure: Plan: Acute on chronic diastolic heart failure with severe anasarca causing skin breakdown and cellulitis in groin area Echo obtained 02/27 unchanged from prior, normal LVEF but could not get view of RV. Suspect he has significant component of RV failure given the recurrent presentation with severe anasarca -moderate concentric LVH, LVEF normal at 65%, no sig TR, RV not visualized -had hypoxia, congestion on CXR, nephrosarca/JENNA, and elevated BNP on admission - now intravascularly euvolemic -Lost IV access, diuresed well on bumex 2 mg po bid with oral potassium - edema down a lot and Cr started to increase today so decrease bumex to 2 mg po daily. he only allows labs qod 143 kg --> 124.6 --> 111kg this admission so far. Last discharge 02/06 was 116.2 kg amlodipine is held because of severe problems with edema has been seen in the heart failure clinic in the past but not since 03/19 - would benefit from follow up appointment (4) JENNA (acute kidney injury): Plan: JENNA on CKD stage IIIcreatinine was up to 1.7 but came down to 1.26 after several doses of IV lasix, likely nephrosarca held lisinopril, continue diuresis, checked bladder scan for PVR - negative -BMP when he allows them - 03/01 stable K wnl, Cr 1.26-->1.52, increase may just reflect resumption of lisinopril but will slow on down diuresis (5) BPH w urinary obs/LUTS: Plan: Enlarged prostate seen on imaging, chronic urinary incontinence. continue tamsulosin and finasteride check bladder scan - 17 mL on 02/25 (6) Rash of groin: Plan: bilateral candidiasis with skin breakdown in folds continue miconazole powder, improving (7) Orchitis: Plan: Treated for such during prior admission but scrotal u/s then and scrotal u/s now does not show testicular swelling, etc to suggest this diagnosis. resolved if previously present. (8) Severe obstructive sleep apnea: Plan: GABRIELLE/[facility] Follows with Dr Roger Whiteside. BiPKENDRA with settings 14/04. Claims he uses it. He does not have his home unit, hospital unit ordered. reviewed VBG 02/24 was reassuring at 7.36/55/47 (9) Obesity hypoventilation syndrome: (10) T2DM (type 2 diabetes mellitus): Plan: DM diet. No a1c since 07/2021 --> Hba1c = 6.6 BSGs ac/hs. Novolog SSI, receiving minimal units. blood glucoses reviewed at goal 03/01 (11) Right bundle branch block (RBBB): Plan: Chronic (12) Hypertension: Plan: Consider changing amlodipine to something else - could be contributing to LE edema. Hypertensive above goal 02/26, 02/27 improving with diuresis - better 03/01 Added carvedilol but developed significant bradycardia - stopped 03/01 Resume lisinopril (13) Morbid obesity with BMI of 50.0-59.9, adult: Plan: BMI 47 (14) Edema of both legs: Plan: Check dopplers ---> no DVT. Much of the edema may be diastolic CHF related, and venous stasis. Also at risk for cor pulmonale (15) Depression with anxiety: (16) GERD without esophagitis: (17) Hyperlipidemia: (18) Anemia: (19) Venous insufficiency (chronic) (peripheral): (20) Restrictive lung disease: Plan possible atrial fibrillation on monitoring tech, was ruled out on EKG - showed sinus with pac's DVT proph - heparin 7500 units TID due to morbid obesity. Admission and Anticipated Discharge Date Admission Date: February 24, 2023 Subjective episode of dyspnea and feeling poorly this AM, was bradycardic in 30s-40s at the time - sinus tanya with 1 AVB. I saw him shortly after was feeling better, HR now normal on exam, leg pannus and scrotal edema continue to be significantly improved compared to yesterday. No chest pain. later in day several episodes of diarrhea Physical Exam Physical Exam: PHYSICAL EXAMINATION Last 24h vital signs reviewed, see documentation in flowsheet General: comfortable appearing, no distress, lying fairly flat in bed HEENT: Normocephalic, atraumatic, pupils round and equal, sclerae anicteric, no conjunctival injection, moist mucus membranes Lungs: Normal respiratory effort. Clear to auscultation bilaterally. No RRW Heart: distant, Regular rate and rhythm, no murmurs. No JVD. not bradycardic Abdomen: Soft, nontender, nondistended. Bowel sounds present. mild edema of pannus present - improving still with maceration and some skin breakdown under pannus Extremities: Warm, dry, well-perfused. 2+ extremity edema. improving : scrotal edema and penile edema resolving, mild erythema of scrotum with no evidence of open wound. Neuro: Alert and oriented x 4, face symmetric, moves 4 extremities well. no asterixis Psych: Normal affect and behavior Results & Data Results & Data Vital Signs (Past 12 Hours) Vital Signs Temp Pulse Pulse Resp BP BP Pulse Ox 03/01/23 07:21 46 L 16 162/97 H 96 03/01/23 02:53 36.7 C 73 20 175/70 H 92 02/28/23 23:12 60 22 95 02/28/23 23:00 49 L 02/28/23 22:40 36.6 C 63 18 176/73 H 95 02/28/23 22:00 O2 Del Method O2 Flow Rate 03/01/23 07:21 Room Air 03/01/23 02:53 Room Air 02/28/23 23:12 2 02/28/23 23:00 02/28/23 22:40 Room Air 02/28/23 22:00 Room Air, BiPAP PG Care Time/CCT Total # of Minutes Spent Total Time Spent with Patient: Total time spent is greater than 50% in coordination of care (as documented) at patient's floor/unit and/or counseling patient: Coding Level of Care Code 24807 SUB INP/OBS CARE 3/50MIN Diagnoses Cellulitis L03.90 Diarrhea R19.7 Chronic diastolic heart failure I50.32 JENNA (acute kidney injury) N17.9 BPH w urinary obs/LUTS N40.1; N13.8 Rash of groin R21 Orchitis N45.2 Severe obstructive sleep apnea G47.33 Obesity hypoventilation syndrome E66.2 T2DM (type 2 diabetes mellitus) E11.9 Right bundle branch block (RBBB) I45.10 Essential hypertension I10 Hypertension type: essential hypertension Morbid obesity with BMI of 50.0-59.9, adult E66.01; Z68.43 Edema of both legs R60.0 Depression with anxiety F41.8 GERD without esophagitis K21.9 Hyperlipidemia, unspecified hyperlipidemia type E78.5 Hyperlipidemia type: unspecified Anemia, unspecified type D64.9 Anemia type: unspecified type Venous insufficiency (chronic) (peripheral) I87.2 Restrictive lung disease J98.4 (12) Hypertension Hypertension type: essential hypertension Qualified Code(s): I10 - Essential (primary) hypertension (17) Hyperlipidemia Hyperlipidemia type: unspecified Qualified Code(s): E78.5 - Hyperlipidemia, unspecified (18) Anemia Anemia type: unspecified type Qualified Code(s): D64.9 - Anemia, unspecified
[2023-03-01] MEDS: INSULIN ASPART PER UNIT CHARGE SC SCH ×4 (09:29→21:09)
--- NOTE | 2023-03-01 09:38 | XRay Report ---
XR chest 1V portable CLINICAL HISTORY: shortness of breath TECHNIQUE: Single frontal radiograph of the chest was obtained. Comparison: Comparison is made to chest radiograph 02/24/2023 FINDINGS: No lines and tubes are seen. Cardiomegaly is noted. The aortic arch is calcified. Lungs are underinfl ated but clear. No evidence of pleural effusion or pneumothorax. IMPRESSION: No acute chest disease. Cardiomegaly is noted. ACT 112: Negative or not required by law. Electronically signed by: Philippe Gasca M.D. 03/01/2023 9:37 AM
[2023-03-01] MEDS: lisinopril 40 MG TAB PO SCH (10:24)
[2023-03-01] MEDS: ADVANCED PROBIOTIC 1250 MG CAPSULE PO SCH (13:26)
[2023-03-01] MEDS: MIRTAZAPINE TAB 15 MG TAB PO SCH (20:04)
[2023-03-02] MEDS: ACETAMINOPHEN 500 MG TAB PO SCH ×3 (06:30→19:49)
[2023-03-02] MEDS: HEPARIN SOD 5,000 UNIT/0.5 ML VIAL SQ SCH ×3 (06:30→19:49)
[2023-03-02] MEDS: BUMETANIDE 1 MG TAB PO SCH (07:30)
[2023-03-02] MEDS: PANTOprazole 40 MG TAB PO SCH (07:30)
[2023-03-02] MEDS: ADVANCED PROBIOTIC 1250 MG CAPSULE PO SCH (07:30)
[2023-03-02] MEDS: FINASTERIDE 5 MG TAB PO SCH (07:31)
[2023-03-02] MEDS: AMOXICILLIN/CLAVULANATE 875 MG TAB PO SCH (07:31)
[2023-03-02] MEDS: POTASSIUM CHLORIDE CRTAB 20 MEQ TABCR PO SCH (07:31)
[2023-03-02] MEDS: lisinopril 40 MG TAB PO SCH (07:32)
[2023-03-02] MEDS: MICONAZOLE NITRATE POWDER 85 GM EXT SCH ×3 (07:32→19:48)
[2023-03-02] MEDS: NYSTATIN/TRIAMCIN OINT 15 GM TUBE EXT SCH ×2 (07:32→19:48)
[2023-03-02] MEDS: ATORVASTATIN 40 MG TAB PO SCH (07:32)
[2023-03-02] MEDS: INSULIN ASPART PER UNIT CHARGE SC SCH ×4 (08:48→20:37)
[2023-03-02] MEDS: LOPERAMIDE HCL 2 MG CAP PO PRN ×2 (11:30→19:48)
--- NOTE | 2023-03-02 15:08 | Hospitalist Progress Note ---
Date of Service March 02, 2023 Assessment & Plan (1) Cellulitis: Plan: Treated for orchitis during 02/06 to 02/10 admission per d/c summary but testicular u/s showed normal testes. Further, records indicate he had severe scrotal edema and severe LE edema and was diuresed during that stay. At discharge was sent home on augmentin + lasix BID. seems likely there was some component of scrotal and groin cellulitis, however, I did not see evidence of orchitis. ESR and CRP are elevated urology consulted this admission -started on pip-tazo and dapto from ED, narrowed to pip-tazo, lost IV access evening of 02/25 changed to po augmentin through 03/02 - stopped because of diarrhea and resolution of infection continue wound care including nystatin to bilateral groin skin folds stopped amlodipine which may be exacerbating his edema, diuresed (2) Diarrhea: Plan: Antibiotic associated diarrhea -checked C. diff toxin - negative -added probiotic -stop antibiotic (3) Chronic diastolic heart failure: Plan: Acute on chronic diastolic heart failure with severe anasarca causing skin breakdown and cellulitis in groin area Echo obtained 02/27 unchanged from prior, normal LVEF but could not get view of RV. Suspect he has significant component of RV failure given the recurrent presentation with severe anasarca -moderate concentric LVH, LVEF normal at 65%, no sig TR, RV not visualized -had hypoxia, congestion on CXR, nephrosarca/JENNA, and elevated BNP on admission - resolved now intravascularly euvolemic -Lost IV access, diuresed well on bumex 2 mg po bid with oral potassium - edema down a lot and Cr started to increase so decreased bumex to 2 mg po daily. he only allows labs qod 143 kg --> 124.6 --> 111kg this admission so far. Last discharge 02/06 was 116.2 kg amlodipine is held because of severe problems with edema. will not resume on discharge -AM BMP ordered has been seen in the heart failure clinic in the past but not since 03/19 - would benefit from follow up appointment (4) JENNA (acute kidney injury): Plan: JENNA on CKD stage IIIcreatinine was up to 1.7 but came down to 1.26 after several doses of IV lasix, likely nephrosarca held lisinopril, continue diuresis, checked bladder scan for PVR - negative -BMP when he allows them - 03/01 stable K wnl, Cr 1.26-->1.52, increase may just reflect resumption of lisinopril but will slow on down diuresis -AM BMP (5) BPH w urinary obs/LUTS: Plan: Enlarged prostate seen on imaging, chronic urinary incontinence. continue tamsulosin and finasteride check bladder scan - 17 mL on 02/25 (6) Rash of groin: Plan: bilateral candidiasis with skin breakdown in folds continue miconazole powder, improving (7) Orchitis: Plan: Treated for such during prior admission but scrotal u/s then and scrotal u/s now does not show testicular swelling, etc to suggest this diagnosis. resolved if previously present. (8) Severe obstructive sleep apnea: Plan: GABRIELLE/OHS Follows with Dr Roger Whiteside. BiPKENDRA with settings 14/04. Claims he uses it. He does not have his home unit, hospital unit ordered. reviewed VBG 02/24 was reassuring at 7.36/55/47 (9) Obesity hypoventilation syndrome: (10) T2DM (type 2 diabetes mellitus): Plan: DM diet. No a1c since 07/2021 --> Hba1c = 6.6 BSGs ac/hs. Novolog SSI, receiving minimal units. blood glucoses reviewed at goal 03/02 (11) Right bundle branch block (RBBB): Plan: Chronic (12) Hypertension: Plan: Amlodipine stopped, because of recurrent severe edema/anasarca Added carvedilol but developed significant bradycardia - stopped 03/01 Resumed lisinopril BP above goal 03/02 - unfortunately there are no other attractive once a day agents. there will be compliance issues with bid dosing. bid hydralazine or alpha vanessa, though suboptimal, might be the next best agent. will reeval tomorrow once lisinopril is at steady state (13) Morbid obesity with BMI of 50.0-59.9, adult: Plan: BMI 47 (14) Edema of both legs: Plan: Check dopplers ---> no DVT. Much of the edema may be diastolic CHF related, and venous stasis. Also at risk for cor pulmonale (15) Depression with anxiety: (16) GERD without esophagitis: (17) Hyperlipidemia: (18) Anemia: (19) Venous insufficiency (chronic) (peripheral): (20) Restrictive lung disease: Plan possible atrial fibrillation on traffic monitor specialist, was ruled out on EKG - showed sinus with pac's DVT proph - heparin 7500 units TID due to morbid obesity. Admission and Anticipated Discharge Date Admission Date: February 24, 2023 Subjective had diarrhea yesterday and today. C. diff negative. Scrotal pain and swelling resolved. No shortness of breath. Physical Exam Physical Exam: PHYSICAL EXAMINATION Last 24h vital signs reviewed, see documentation in flowsheet General: awake lying in bed HEENT: Normocephalic, atraumatic, pupils round and equal, sclerae anicteric, no conjunctival injection, moist mucus membranes Lungs: Normal respiratory effort. Clear to auscultation bilaterally. No RRW Heart: distant, Regular rate and rhythm, no murmurs. No JVD. not bradycardic Abdomen: Soft, nontender, nondistended. Bowel sounds present. pannus edema nearly resolved still with maceration and some skin breakdown under pannus Extremities: Warm, dry, well-perfused. 1-2+ extremity edema. improving : scrotal edema and penile edema resolved, scrotal erythema nearly resolved. Neuro: Alert and oriented x 4, face symmetric, moves 4 extremities well. no asterixis Psych: Normal affect and behavior Results & Data Results & Data Vital Signs (Past 12 Hours) Vital Signs Temp Pulse Pulse Resp BP Pulse Ox O2 Del Method 03/02/23 11:30 36.5 C 59 L 19 179/67 H 96 Room Air 03/02/23 07:38 Room Air 03/02/23 07:28 36.5 C 55 L 18 150/78 H 100 Room Air 03/02/23 07:00 48 L PG Care Time/CCT Total # of Minutes Spent Total Time Spent with Patient: Total time spent is greater than 50% in coordination of care (as documented) at patient's floor/unit and/or counseling patient: Coding Level of Care Code 55500 SUB INP/OBS CARE 2/35MIN Diagnoses Cellulitis L03.90 Diarrhea R19.7 Chronic diastolic heart failure I50.32 JENNA (acute kidney injury) N17.9 BPH w urinary obs/LUTS N40.1; N13.8 Rash of groin R21 Orchitis N45.2 Severe obstructive sleep apnea G47.33 Obesity hypoventilation syndrome E66.2 T2DM (type 2 diabetes mellitus) E11.9 Right bundle branch block (RBBB) I45.10 Essential hypertension I10 Hypertension type: essential hypertension Morbid obesity with BMI of 50.0-59.9, adult E66.01; Z68.43 Edema of both legs R60.0 Depression with anxiety F41.8 GERD without esophagitis K21.9 Hyperlipidemia, unspecified hyperlipidemia type E78.5 Hyperlipidemia type: unspecified Anemia, unspecified type D64.9 Anemia type: unspecified type Venous insufficiency (chronic) (peripheral) I87.2 Restrictive lung disease J98.4 (12) Hypertension Hypertension type: essential hypertension Qualified Code(s): I10 - Essential (primary) hypertension (17) Hyperlipidemia Hyperlipidemia type: unspecified Qualified Code(s): E78.5 - Hyperlipidemia, unspecified (18) Anemia Anemia type: unspecified type Qualified Code(s): D64.9 - Anemia, unspecified
--- NOTE | 2023-03-02 18:10 | Electrocardiogram Report ---
Test Reason : Blood Pressure : / mmHG Vent. Rate : 046 BPM Atrial Rate : 046 BPM P-R Int : 320 ms QRS Dur : 148 ms QT Int : 522 ms P-R-T Axes : 021 069 051 degrees QTc Int : 456 ms Sinus bradycardia with 1st degree A-V block with Premature atrial complexes Right bundle branch block Abnormal ECG When compared with ECG of 25-FEB-2023 18:29, No significant change was found Confirmed by Donnie Christensen ([id number]) on 03/02/2023 6:10:31 PM Referred By: REFERRED SELF Confirmed By:Donnie Christensen
[2023-03-02] MEDS: MIRTAZAPINE TAB 15 MG TAB PO SCH (19:49)
[2023-03-03] MEDS: ACETAMINOPHEN 500 MG TAB PO SCH ×3 (05:49→20:13)
[2023-03-03] MEDS: HEPARIN SOD 5,000 UNIT/0.5 ML VIAL SQ SCH ×3 (05:50→20:13)
[2023-03-03] MEDS: INSULIN ASPART PER UNIT CHARGE SC SCH ×4 (09:23→20:20)
[2023-03-03] MEDS: ADVANCED PROBIOTIC 1250 MG CAPSULE PO SCH (09:24)
[2023-03-03] MEDS: ATORVASTATIN 40 MG TAB PO SCH (09:24)
[2023-03-03] MEDS: FINASTERIDE 5 MG TAB PO SCH (09:24)
[2023-03-03] MEDS: POTASSIUM CHLORIDE CRTAB 20 MEQ TABCR PO SCH (09:24)
[2023-03-03] MEDS: BUMETANIDE 1 MG TAB PO SCH ×2 (09:25→17:26)
[2023-03-03] MEDS: lisinopril 40 MG TAB PO SCH (09:25)
[2023-03-03] MEDS: PANTOprazole 40 MG TAB PO SCH (09:25)
[2023-03-03] MEDS: MICONAZOLE NITRATE POWDER 85 GM EXT SCH ×3 (09:25→20:14)
[2023-03-03] MEDS: NYSTATIN/TRIAMCIN OINT 15 GM TUBE EXT SCH ×2 (09:25→20:14)
--- NOTE | 2023-03-03 16:53 | Hospitalist Progress Note ---
Date of Service March 03, 2023 Assessment & Plan (1) Chronic diastolic heart failure: Plan: Acute on chronic diastolic heart failure with severe anasarca causing skin breakdown and cellulitis in groin area Echo obtained 02/27 unchanged from prior, normal LVEF but could not get view of RV. Suspect he has significant component of RV failure given the recurrent presentation with severe anasarca -moderate concentric LVH, LVEF normal at 65%, no sig TR, RV not visualized -had hypoxia, congestion on CXR, nephrosarca/JENNA, and elevated BNP on admission - resolved now intravascularly euvolemic -Lost IV access, diuresed well on bumex 2 mg po bid with oral potassium. my observations this week - 2 mg bid causes diuresis, 2 mg daily hold weight stable. ordered bid for today. -for home would make it simple and have him always take 2 mg in AM daily, if he's having increased swelling should take afternoon dose PRN 143 kg --> 124.6 --> 111kg-->111.8 this admission. Last discharge 02/06 was 116.2 kg amlodipine is held because of severe problems with edema. 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 Further, records indicate he had severe scrotal edema and severe LE edema and was diuresed during that stay. At discharge was sent home on augmentin + lasix BID. seems likely there was some component of scrotal and groin cellulitis, however, I did not see evidence of orchitis. ESR and CRP were elevated urology consulted this admission -started on pip-tazo and dapto from ED, narrowed to pip-tazo, lost IV access evening of 02/25 changed to po augmentin through 03/02 - stopped because of diarrhea and resolution of infection continue wound care including nystatin to bilateral groin skin folds stopped amlodipine which may be exacerbating his edema, diuresed -resolved (3) Diarrhea: Plan: Antibiotic associated diarrhea -checked C. diff toxin - negative -added probiotic -stopped antibiotic -resolved (4) JENNA (acute kidney injury): Plan: JENNA on CKD stage IIIcreatinine was up to 1.7 but came down to 1.26 after several doses of IV lasix, likely nephrosarca held lisinopril, continued diuresis, checked bladder scan for PVR - negative -BMP when he allows them - 03/01 stable K wnl, Cr 1.26-->1.52, increase may just reflect resumption of lisinopril but will slow on down diuresis -AM BMP - refused today (5) BPH w urinary obs/LUTS: Plan: Enlarged prostate seen on imaging, chronic urinary incontinence. continue tamsulosin and finasteride check bladder scan - 17 mL on 02/25 (6) Rash of groin: Plan: bilateral candidiasis with skin breakdown in folds continue miconazole po wder, improving (7) Orchitis: Plan: Treated for such during prior admission but scrotal u/s then and scrotal u/s now does not show testicular swelling, etc to suggest this diagnosis. resolved if previously present. (8) Severe obstructive sleep apnea: Plan: GABRIELLE/OHS Follows with Dr Roger Whiteside. BiPAP with settings 14/04. Claims he uses it. He does not have his home unit, hospital unit ordered. reviewed VBG 02/24 was reassuring at 7.36/55/47 (9) Obesity hypoventilation syndrome: (10) T2DM (type 2 diabetes mellitus): Plan: DM diet. No a1c since 07/2021 --> Hba1c = 6.6 BSGs ac/hs. Novolog SSI, receiving minimal units. blood glucoses reviewed at goal 03/03 (11) Right bundle branch block (RBBB): Plan: Chronic (12) Hypertension: Plan: Amlodipine stopped, because of recurrent severe edema/anasarca Added carvedilol but developed significant bradycardia - stopped 03/01 Resumed lisinopril BP above goal 03/02,6 - unfortunately there are no other attractive once a day agents. there will be compliance issues with bid dosing. -ordered hydralazine 25 mg po bid (13) Morbid obesity with BMI of 50.0-59.9, adult: Plan: BMI 47 (14) Edema of both legs: Plan: Check dopplers ---> no DVT. Much of the edema may be diastolic CHF related, and venous stasis. 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 Admission and Anticipated Discharge Date Admission Date: February 24, 2023 Subjective leg edema MUCH improved, scrotum and pannus edema nearly resolved, no dyspnea, no further diarrhea Physical Exam Physical Exam: PHYSICAL EXAMINATION Last 24h vital signs reviewed, see documentation in flowsheet No change in exam 03/03 except edema better General: awake lying in bed HEENT: Normocephalic, atraumatic, pupils round and equal, sclerae anicteric, no conjunctival injection, moist mucus membranes Lungs: Normal respiratory effort. Clear to auscultation bilaterally. No RRW Heart: distant, Regular rate and rhythm, no murmurs. No JVD. not bradycardic Abdomen: Soft, nontender, nondistended. Bowel sounds present. pannus edema nearly resolved still with maceration and some skin breakdown under pannus Extremities: Warm, dry, well-perfused. 1-2+ extremity edema. improving 03/03 : scrotal edema and penile edema resolved, scrotal erythema nearly resolved. Neuro: Alert and oriented x 4, face symmetric, moves 4 extremities well. no asterixis Psych: Normal affect and behavior Results & Data Results & Data Vital Signs (Past 12 Hours) Vital Signs Temp Pulse Pulse Resp BP BP Pulse Ox 03/03/23 15:15 36.4 C L 57 L 18 146/72 H 92 03/03/23 14:59 50 L 03/03/23 12:00 36.8 C 66 18 146/64 H 94 03/03/23 08:46 36.6 C 03/03/23 08:13 35.2 C L 64 18 154/64 H 95 03/03/23 08:00 03/03/23 07:00 50 L O2 Del Method 03/03/23 15:15 Room Air 03/03/23 14:59 03/03/23 12:00 Room Air 03/03/23 08:46 03/03/23 08:13 Room Air 03/03/23 08:00 Room Air 03/03/23 07:00 PG Care Time/CCT Total # of Minutes Spent Total Time Spent with Patient: Total time spent is greater than 50% in coordination of care (as documented) at patient's floor/unit and/or counseling patient: Coding Level of Care Code 33992 SUB INP/OBS CARE 2/35MIN Diagnoses Chronic diastolic heart failure I50.32 Cellulitis L03.90 Diarrhea R19.7 JENNA (acute kidney injury) N17.9 BPH w urinary obs/LUTS N40.1; N13.8 Rash of groin R21 Orchitis N45.2 Severe obstructive sleep apnea G47.33 Obesity hypoventilation syndrome E66.2 T2DM (type 2 diabetes mellitus) E11.9 Right bundle branch block (RBBB) I45.10 Essential hypertension I10 Hypertension type: essential hypertension Morbid obesity with BMI of 50.0-59.9, adult E66.01; Z68.43 Edema of both legs R60.0 Depression with anxiety F41.8 GERD without esophagitis K21.9 Hyperlipidemia, unspecified hyperlipidemia type E78.5 Hyperlipidemia type: unspecified Anemia, unspecified type D64.9 Anemia type: unspecified type Venous insufficiency (chronic) (peripheral) I87.2 Restrictive lung disease J98.4 (12) Hypertension Hypertension type: essential hypertension Qualified Code(s): I10 - Essential (primary) hypertension (17) Hyperlipidemia Hyperlipidemia type: unspecified Qualified Code(s): E78.5 - Hyperlipidemia, unspecified (18) Anemia Anemia type: unspecified type Qualified Code(s): D64.9 - Anemia, unspecified
[2023-03-03] MEDS: hydrALAZINE HCL 25 MG TAB PO SCH (20:11)
[2023-03-03] MEDS: MIRTAZAPINE TAB 15 MG TAB PO SCH (20:13)
[2023-03-04] MEDS: HEPARIN SOD 5,000 UNIT/0.5 ML VIAL SQ SCH ×2 (05:46→12:57)
[2023-03-04] MEDS: ACETAMINOPHEN 500 MG TAB PO SCH ×2 (06:12→12:57)
[2023-03-04] MEDS: PANTOprazole 40 MG TAB PO SCH (08:33)
[2023-03-04] MEDS: ATORVASTATIN 40 MG TAB PO SCH (08:33)
[2023-03-04] MEDS: POTASSIUM CHLORIDE CRTAB 20 MEQ TABCR PO SCH (08:34)
[2023-03-04] MEDS: NYSTATIN/TRIAMCIN OINT 15 GM TUBE EXT SCH (08:34)
[2023-03-04] MEDS: MICONAZOLE NITRATE POWDER 85 GM EXT SCH ×2 (08:34→12:57)
[2023-03-04] MEDS: FINASTERIDE 5 MG TAB PO SCH (08:34)
[2023-03-04] MEDS: lisinopril 40 MG TAB PO SCH (08:34)
[2023-03-04] MEDS: ADVANCED PROBIOTIC 1250 MG CAPSULE PO SCH (08:34)
[2023-03-04] MEDS: BUMETANIDE 1 MG TAB PO SCH ×2 (08:35→17:27)
[2023-03-04] MEDS: hydrALAZINE HCL 25 MG TAB PO SCH (09:16)
[2023-03-04] MEDS: INSULIN ASPART PER UNIT CHARGE SC SCH ×3 (09:18→17:42)
--- NOTE | 2023-03-04 09:52 | Heart Failure Consultation ---
Date of Consultation March 04, 2023 Assessment & Plan (1) (HFpEF) heart failure with preserved ejection fraction: (2) Hypervolemia: (3) Obesity hypoventilation syndrome: (4) Severe obstructive sleep apnea: (5) Morbid obesity with BMI of 50.0-59.9, adult: (6) Atrial fibrillation: (7) Venous insufficiency (chronic) (peripheral): Plan Hypervolemia: Previously followed by the heart failure program for a short time but was lost to follow up in 2021. Symptoms appears to be multifactorial. He carries a diagnosis of OHS/GABRIELLE as well as venous insufficiency. No evidence of pulmonary congestion on CXR. BNP only slightly elevated this admission. May be falsely low in the setting of obesity. It appears he was initially diagnosed with heart failure during his 2019 admissions. After complete review of his hospitalizations, symptoms more likely consistent with underlying pulmonary disease/OHS/GABRIELLE. Lower extremity edema is consistent with venous insufficiency and possibly Amlodipine. Regardless of the etiology patient would benefit from more intense management of his volume status. He has responded well to IV diuretics. He lost IV access and has been tolerating Bumex 2 mg daily with ongoing diuresis. He is current near euvolemic. Recommend daily standing weights. He does not have a scale at home. According to previous notes he was provided with one in the clinic. Notify HF program of 2+ lb weight gain overnight or 5+ lb in 1 week. Dry weight 245 lb? Recommend low sodium diet, less than 2,000 mg daily. We discussed the nature of heart failure and the goals of the program. Although he has evidence of fluid retention, this is possibly non- cardiac volume overload. OHS/GABRIELLE: Patient follows with Dr. Whiteside. He self reports good compliance with his CPAP. Venous insufficiency: Suspected. No documentation of vascular studies in his chart and he denies having these. Would optimize his volume status and consider venous insufficiency studies in the near future. He does not tolerate compression socks. Would try to reconsider as well as more frequent elevation. Hypertension: Currently better controlled. Continue current regimen for now. Will defer to PCP for management. Amlodipine discontinued this admission. Consider using other agents if needed for HTN. Obesity/deconditioning: Likely contributing to his symptoms. Recommend healthy diet/exercise as able. Patient has been referred to PT in the past but has declined. Disposition: Follow up with the heart failure program within 7 days of discharge. History of Present Illness Attending Physician: Arnoldo Mercer MD History of Present Illness This is a 72 year old male with history of HFpEF (suspected), venous insufficiency, GABRIELLE/OHS, hypertension, DMII, RA, hyperlipidemia. 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 Recent cardiac studies: 1. 10/08/21 Echo: Normal LV size and function. EF 60-65%. No RWMA. Moderate concentric LVH. No valvular stenosis or regurg. Normal RVSP. 2. 02/27/23 Echo: LV systolic function normal. EF 60-65%. Borderline left atrial enlargement. RVSP normal. Patient hospitalized in April 2019 and again in June 2019 for acute respiratory failure. This was likely combination of OHS/GABRIELLE, underlying pulmonary disease, and possibly CHF? His primary diagnosis at that time was CHF however there was no evidence of pulmonary edema and ProBNP < 300. Dr. Ruiz was formally consulted during the June admission. Although he did have an element of hypervolemia it did not account for his profound daytime hypoxia with normal imaging. Pulmonology eval recommended. PFTs consistent with restrictive disease. He has not had any outpatient cardiology or pulmonology follow up. Obesity hyperventilation syndrome ultimately considered over CHF at discharge. Patient recently evaluated by PCP for volume overload, mainly lower extremity edema but also weight gain and [place]. Lasix titrated to 80 mg without relief. Lasix converted to Bumex 1 mg BID early January. He is also taking Amiloride (gynecomastia on Spironolactone). He was referred to the heart failure program for more intensive management of his volume status. He was initially evaluated on 02/08/22. Bumex was 2mg BID. He was provided with a scale. Estimate dry weight to be 260 lb. He was provided with educational materials. Recommended reestablish with sleep medicine. Considering weaning down Amlodipine. Labs recommended. He was most recently evaluated 03/15/22 as an outpatient. He was admitted 02/07/23 through 02/10/23 hypervolemia and epididymitis. No CHF noted on CXR. BNP 115. Lower extremity edema responded well to diuretics. He was readmitted on 02/24/23 for cellulitis. He presented with bilateral groin and scrotal pain. BNP 149. No evidence of CHF on CXR. However he was requiring O2 and had increased lower extremity edema. He was treated with IV Lasix with good response however creatinine increased. Amlodipine discontinued to help with overall edema. Started on Hydralazine for HTN. He then lost IV access and was started on Bumex 2 mg daily. He's been euvolemic. He reports he's feeling well today. He denies shortness of breath. Edema is improved. He is sleeping well with his head elevated. Denies PND. He has been refusing labs. He denies chest pain, palpitations, cough. I&Os likely inaccurate with several missed voids. Weight 246 lb. SocHx: He lives in [place] in a 1st floor apartment. He is . He has 2 grown children, 1 is local. 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 He denies tobacco use. He denies alcohol use. He and his both drive. FamHx: Denies premature heart disease. Allergies Allergy/AdvReac Type Severity Reaction Status Date / Time No Known Drug Allergies Allergy . Verified 02/24/23 00:33 Home Medications Medication Instructions Recorded Confirmed Type omeprazole 20 mg capsule,delayed 20 mg PO DAILY #90 caps 01/29/22 02/24/23 Rx release ascorbic acid (vitamin C) 500 mg 500 mg PO DAILY #30 caps 10/30/22 02/24/23 Rx capsule lisinopril 40 mg tablet 40 mg PO DAILY #90 tabs 10/30/22 02/24/23 Rx mirtazapine 30 mg tablet 30 mg PO HS #90 tabs 10/30/22 02/24/23 Rx BATTERY CHECK ON SCOOTER #1 ea 02/05/23 02/12/23 Rx furosemide 40 mg tablet 40 mg PO BID17 #60 tabs 02/10/23 02/24/23 Rx amlodipine 5 mg tablet 5 mg PO DAILY #90 tabs 02/12/23 02/24/23 Rx atorvastatin 40 mg tablet 40 mg PO DAILY #100 tabs 02/13/23 02/24/23 Rx dutasteride 0.5 mg capsule 0.5 mg PO DAILY #90 caps 02/13/23 02/24/23 Rx hydrocodone 5 mg-acetaminophen 325 1 tab PO Q4H PRN pain #10 tabs 02/13/23 02/24/23 Rx mg tablet blood sugar diagnostic (OneTouch #100 ea 02/14/23 Rx Ultra Test strips) blood-glucose meter #1 ea 02/14/23 Rx lancets 28 gauge #100 ea 02/14/23 Rx nystatin 100,000 unit/gram topical 1 applic topical BID #30 grams 02/22/23 02/24/23 Rx cream kmsvxcuajwnb-Xp-wore-minerals 1 tab PO DAILY 02/24/23 02/24/23 History Patient History Medical History Allergic rhinitis Anatomical narrow angle, bilateral Anemia Arthritis Benign prostatic hyperplasia with urinary obstruction Bradycardia Central pterygium of left eye Chronic diastolic heart failure Combined forms of age-related cataract of both eyes Depression with anxiety Dry eye syndrome of bilateral lacrimal glands First degree AV block GERD without esophagitis History of alcohol abuse Hyperlipidemia Hypertension Internal hemorrhoids Leukocytosis Morbid obesity with BMI of 40.0-44.9, adult Nocturnal hypoxia Obesity hypoventilation syndrome Obstructive sleep apnea Pericardial effusion Pes planus Rectal bleeding Restrictive lung disease Rheumatoid arthritis Right bundle branch block (RBBB) Strabismic amblyopia, right eye T2DM (type 2 diabetes mellitus) Urinary incontinence Venous insufficiency (chronic) (peripheral) Surgical History History of appendectomy History of prostate biopsy Family History Mother Diabetes Hypertension Other Blindness FH: cataracts Family history of blindness Glaucoma History of cataract Denies family history of Ovarian cancer Prostate cancer Myocardial infarction Breast cancer Colorectal cancer Social History Smoking Status: Never smoker Second Hand Exposure: No; Do You Dip or Chew Tobacco: No; Hx Alcohol Use: No (50 years ago) Hx Substance Use: No Preferred Language: [place] Communication Ability: Effective Visual Impairment: Limited Hearing Ability: Normal 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 Assistant Required: No Beliefs That Will Affect Care: None marital status: Current Living Situation: Alone current occupational status: retired Feels Safe at Home: Yes Childhood Exposure to Second-Hand Smoke: No Diet: regular Diet Comment: regular caffeine: No during the past year weight has: remained stable Dental Care, Regularly: No Physical Activity Frequency: Other Physical Activity Frequency Comment: limited by physical condition Seatbelt Use: always Sunscreen Use: No Assistive Devices: BiPap, Cane, Scooter/Electric Scooter and Walker Physical Exam Physical Exam: Constitutional: Alert, oriented, in no acute distress. In power chair. HEENT: Head is atraumatic and normocephalic. EOMs intact. Sclera anicteric. Face is symmetric. No perioral cyanosis. Mucous membranes moist. Neck: Supple, no JVD but difficult exam due to body habitus. Pulmonary: Normal respiratory effort, clear to auscultation bilaterally. Cardiac: Regular rate and rhythm. Normal S1 and S2, no gallops, no rubs, no murmurs Extremities: 2+ radial pulses bilaterally. 2+ posterior tibialis pulses bilaterally. 1+ pitting edema to the knees. No cyanosis or clubbing. Abdomen: Normal bowel sounds, soft, non-tender, no abdominal mass palpated. Obese. Skin: Normal skin color, turgor, and pigmentation, no rash, no skin lesions Neurological: Patient is awake, alert, and oriented. Pleasant and cooperative. Answers questions appropriately. Speech is clear. Normal movement in all 4 extremities. Gait pattern not assessed. Results & Data Vital Signs (Past 12 Hours) Vital Signs Temp Pulse Pulse Resp BP Pulse Ox Pulse Ox 03/04/23 07:17 97.9 F 68 20 155/68 H 97 03/04/23 04:35 53 L 16 94 03/04/23 02:37 95 03/04/23 02:36 97.3 F L 48 L 18 175/72 H 95 03/03/23 23:23 97.5 F L 63 20 154/72 H 97 03/03/23 23:23 64 20 96 03/03/23 22:49 52 L O2 Del Method O2 Del Method O2 Flow Rate 03/04/23 07:17 BiPAP 03/04/23 04:35 2 03/04/23 02:37 CPAP 03/04/23 02:36 CPAP 03/03/23 23:23 CPAP 03/03/23 23:23 2 03/03/23 22:49 Coding Level of Care Code 53170 INT INP/OBS CARE 3/75MIN Diagnoses (HFpEF) heart failure with preserved ejection fraction I50.30 Hypervolemia E87.70 Obesity hypoventilation syndrome E66.2 Severe obstructive sleep apnea G47.33 Morbid obesity with BMI of 50.0-59.9, adult E66.01; Z68.43 Atrial fibrillation I48.91 Venous insufficiency (chronic) (peripheral) I87.2
[2023-03-04] MEDS ORDERED: LIDOCAINE/PRILOCAINE 2.5% EA CRM EXT ONE (16:04)
[2023-03-04 17:21] LABS: BUN Creatinine Ratio 21.5 (10-20); Calcium 9.5 mg/dl (8.6-10.3); Creatinine Clr Calc Pharmacy 44.1 ml/min; Est GFR (African American) 44.7 ml/min; Est GFR (Non-African American) 38.6 ml/min; Magnesium 2.1 mg/dl (1.7-2.4); Potassium 4.8 mmol/L (3.5-5.1)
--- NOTE | 2023-03-04 17:48 | Discharge Summary ---
Date of Service March 04, 2023 Admission HPI Per Admitting Provider 72 yo male with PMHx of HFpEF, morbid obesity, DM2, restrictive lung disease, venous insufficiency, depression, anxiety, HTN, HLD, GERD, and BPH presents with bilateral groin/scrotal pain. Patient was discharged from [facility] 2 weeks ago for similar complaints. He was diagnosed with orchitis and following Unasyn in the hospital was discharged on Augmentin for 10 days (which he did complete. He was also advised to take Lasix 40 mg twice daily for his lower extremity edema. He states that when he left the hospital his pain was under control and he thought he was doing well but about 5 days ago his pain and swelling started coming back. He is unable to ambulate 2/2 pain. Otherwise denies headache, chest pain, shortness of breath, abdominal pain, nausea, vomiting, diarrhea, constipation, fatigue, dysuria, hematuria, lower extremity weakness/numbness/tingling. Discharge Exam gen - severe morbid obesity, mildly tachypneic, subtle subcostal retractions mouth - MMM neck - very hard to assess JVD but I suspect JVD is present heart - RRR, s1 s2, either S3 or split S2 present, no obvious murmur lungs - decreased BS bases with faint rales, mild tachypnea, mild subcostal retractions abd - protuberant, obese, venous stasis changes of abdominal wall from chronic edema, NT, BS+ - enlarged scrotum with irritation of scrotal skin; nontender to palpation of either testicle or the scrotum itself; penile head is completely buried; only urethral meatus is visible; dripping of urine at times from meatus skin - severe erythematous rash of b/l groin and lower abdominal skin folds; some maceration and peeling; occasional satellite lesion; no true cellulitis seen ext - SEVERE edema of b/l thighs extending to both feet; edema is tense and almost lymphedema like; pulses feet 2+ b/l psych - alert, oriented Discharge Data Allergies Allergy/AdvReac Type Severity Reaction Status Date / Time No Known Drug Allergies Allergy . Verified 02/24/23 00:33 Consultations 02/24/23 00:13 ED Decision to Admit Stat 02/25/23 06:00 Consult Urology Routine 03/03/23 09:42 [facility] CHF Program Referral Routine Ordered Studies 02/23/23 23:21 CT abd pelvis IV con only Stat 02/24/23 00:42 US scrotum/testicle Urgent 02/24/23 19:14 US venous doppler LE BI Urgent Hospital Course (1) Cellulitis: Treated for orchitis during 02/06 to 02/10 admission per d/c summary but testicular u/s showed normal testes. Further, records indicate he had severe scrotal edema and severe LE edema and was diuresed during that stay. At discharge was sent home on augmentin + lasix BID. Patient tells me he "never felt better" with respect to the scrotal edema and the groin issues. His main complaint during the visit was "itching" as opposed to pain. At minimum I do believe there is cellulitis in the b/l groin extending into the scrotal region. I cannot rule out concomitant candidal infection. I cannot fully rule out a very early Chacha's but he denied any pain in the scrotum when I examined him. Will consult urology for their opinion. Will continue zosyn/dapto. Unfortunately no blood cultures were sent at time of presentation late yesterday. (2) Rash of groin: see #1 above. I also believe he has a candidal rash in this general area given the extensive itching he is reporting. Change nystatin cream to miconazole powder TID as latter will keep things dry and wick moisture. Ideally we place him on fluconazole but QTc is prolonged in the setting of a RBBB. If rash worsens may be forced to add systemic anti-fungal Rx regardless. (3) BPH w urinary obs/LUTS: Enlarged prostate seen on imaging. During my assessment he was incontinent with fairly constant leaking of urine from the urethral meatus. He would benefit from a pires given the BPH, the incontinence, and need to keep the groin & scrotal areas clean and dry. To that end place a pires. Cont dutasteride in the form of finasteride. Really should be on an alpha vanessa. (4) Orchitis: Treated for such during prior admission but scrotal u/s then and scrotal u/s now does not show testicular swelling, etc to suggest this diagnosis. (5) Severe obstructive sleep apnea: Follows with Dr Roger Whiteside. BiPKENDRA with settings 14/04. He does not have his home unit. Will place orders for a hospital unit. Check a VBG as he is tachypneic and looks dyspneic. (6) Obesity hypoventilation syndrome: Assess for O2 needs while here. (7) Chronic diastolic heart failure: Clinically appears volume overloaded with O2 requirement, severe LE edema, etc. I also ordered cxr and he appears to have pulm edema in comparison to previous cxr. BNP is elevated. Place PO lasix on hold; give lasix 40mg IV x 1 and assess response. (8) T2DM (type 2 diabetes mellitus): DM diet. No a1c since 07/2021. Check a Hba1c now. BSGs ac/hs. Novolog SSI. Likely to need basal insulin as well. (9) Right bundle branch block (RBBB): Chronic (10) Hypertension: Consider changing amlodipine to something else - could be contributing to LE edema. He will be receiving lasix. Cont lisinopril. (11) Morbid obesity with BMI of 50.0-59.9, adult: BMI 52 (12) Edema of both legs: SEVERE. This was noted during his admission earlier this month. Check dopplers - r/o DVT - given his scooter chair/wheelchair dependency. Diurese as tolerated. Check a TSH. CT a/p mentions he has fatty liver but they do not mention features of cirrhosis. Much of the edema may be diastolic CHF related. Plan DVT proph - change heparin BID to heparin 7500 units TID due to morbid obesity. Home Health Attestation I certify that this patient is under my care and that I, or a physicians wet process assistant head miller working with me, had a face to-face encounter that meets the home health [id number] encounter requirements with this patient. The encounter with the patient was in whole, or in part, for the following medical condition, which is the primary reason for home health care (list medical condition): I certify that, based on my findings, the following services are medically necessary home health services: My clinical findings support the need for the above services because: OT Assess ADL Status and Restore Function w ADLs PT Assessment for Endurance / Balance / Strength Skilled Nsg Assessment Further, I certify that my clinical findings support that this patient is homebound (i.e. absences from home require considerable and taxing effort and are for medical reasons or protestant services or infrequently or of short duration when for other reasons) because: Certification for Home Health Services: Based on the above findings, I certify that this patient is confined to the home and needs intermittent half-way care, physical therapy and/or speech therapy or continues to need occupational therapy. The patient is under my care, and I have initiated the establishment of the plan of care. This patient will be followed by a physician who will periodically review the plan of care. Discharge Plan Discharge Items Patient Disposition: Home - Home Health Services Reason For Visit: GROIN PAIN Discharge Diagnosis: 1. groin pain - due to severe candidal (yeast) rash along with bacterial skin infection - MUCH improved 2. fluid retention from congestive heart failure - improved 3. sleep apnea 4. type 2 diabetes Activity: Resume your previous activity Non-emergency contact: Primary Care Provider and Director [employer] Call non-emergency contact if: you have any medication questions and your symptoms worsen Follow-up/Referrals: Brittaney Dunn DO [Primary Care Provider] - (5-7 days ) Vesta Rojas PA-C [Physician Nipping Machine Operator] - 03/11/23 2:00 pm Diet: Carb Consistent or DM2 and Low Sodium (2gm) Fluids: 1800ml (7 cups) Addtl Attending Provider Instructions: Mr Uziel, You were hospitalized due to groin pain as well as worsening swelling of both legs and the scrotum. Your groin pain was due to a combination of yeast infection as well as bacterial infection. The rash in the groin is doing much better. The fluid retention in your abdomen, legs, and lungs was due to congestive heart failure. This improved with use of diuretics ("water pills") which remove excess water from the body. Your swelling in the legs & scrotum are much better following your hospitalization. We performed an ultrasound of your legs and did NOT find any DVT blood clots. We made several changes to your blood pressure medication as well as your diuretics. These changes were necessary to control your blood pressure more effectively and to control the congestive heart failure. Please do the following - 1. STOP furosemide (this is your previous water pill/diuretic). 2. HOLD lisinopril. 3. START a new diuretic -- bumetanide 1mg twice daily on 03/05/23. Take your morning dose with breakfast, and take your evening dose in the late afternoon/early evening. Prescription sent to pharmacy for you. 4. START hydralazine 25mg three times daily on the AM of 03/05/23. This is a blood pressure medicaiton. Prescription sent to pharmacy for you. 5. START miconazole powder -- apply liberally to your groin region, the lower skin folds of the abdomen, the scrotal region, etc. Do this 3 times a day for about 7-10 days. You can start this TONIGHT. 6. Check your blood sugar at least twice daily. Write these numbers down on a piece of paper and show them to your family doctor. We are not sending you home on diabetes medication - hopefully you can continue to control your diabetes with DIET ALONE. 7. Limit total fluid intake to about 1800ml in a 24-hour period each day. The 1800ml covers ANYTHING that you drink - water, juice, coffee, etc. 8. Limit total salt intake to no more than 2000mg in a 24-hour period each day. Follow-up appointments - see separate section It was our pleasure to care for you! -Dr Mercer Addtl Teacher Of The Sight Impaired Provider Instructions: CONGESTIVE HEART FAILURE INSTRUCTIONS: Call 911 and go to the Emergency Room if: * You have tightness or pain in your chest that does not go away with rest * You are very short of breath even with rest Call your doctor if any of the following symptoms or problems start or get worse: * Shortness of breath or difficulty breathing * Wake up at night short of breath * Chest pain * Cough * Swelling of your hands, fee, or legs * More fatigued or tired with your normal activity * Palpitations - sudden fast heart beats WEIGHT * If possible please weigh yourself every morning after using the bathroom. * Use the same scale. * Wear the same amount of clothing. * Write your weight down on your chart. * Call your doctor if you gain more than 3 pounds in 1-2 days. This is usually one of the first signs you are retaining water/fluid from congestive heart failure. If you are seeing weight gains call the harvester operator right away. MEDICATIONS * Use this discharge instruction sheet for instructions. * Take your medications at the time your doctor ordered. * Do not skip a dose of your medicines. * If you miss a dose of medicine, take as soon as possible, but DO NOT DOUBLE A DOSE. * Read your medicine information when you get home. * Know all of the side effects of your medicine. * Call your doctor's office if you have any side effects. * Be sure all of your doctors know what medicine and herbs you take (including cold, flu, and herbal medicine). * Pain Medicine: If you do not get relief from your pain, please call your doctor for help. Take the following with you to your follow-up doctor appointments: * Weight Chart * Medication List * List of questions Do not drink excessive alcohol, beer or wine. Use your BIPAP EVERY NIGHT when you sleep. Untreated sleep apnea will make your congestive heart failure worse. Pending Studies at Discharge: No Stand-Alone Forms: [facility], Smoking Cessation Medications and DC Order Prescriptions: New miconazole nitrate [Desenex] 2 % Powder 1 applic EXT TID Qty: 85 2RF Rx Instructions: apply liberally to groin, under skin folds, scrotal region, etc; use for 7-10 days then stop. hydralazine 25 mg Tablet 25 mg PO TID Qty: 90 2RF Rx Instructions: for high blood pressure bumetanide 1 mg Tablet 1 mg PO BID17 Qty: 60 2RF Rx Instructions: to keep fluid off Continued (DME) BATTERY CHECK ON SCOOTER See Rx Instructions .Route .MEDSUPPLY Qty: 1 0RF Rx Instructions: PLEASE GO INTO PATIENT HOME AND CHECK STATUS OF SCOOTER BATTERY FOR PATIENT. amlodipine 5 mg tablet 5 mg PO DAILY Qty: 90 3RF atorvastatin 40 mg tablet 40 mg PO DAILY Qty: 100 3RF dutasteride 0.5 mg capsule 0.5 mg PO DAILY Qty: 90 3RF hydrocodone-acetaminophen 5-325 mg tablet 1 tab PO Q4H PRN (Reason: pain) Qty: 10 0RF (DME) OneTouch Ultra Test Strip See Rx Instructions .ROUTE .MEDSUPPLY Qty: 100 5RF Rx Instructions: Testing BS daily (DME) blood-glucose meter Kit See Rx Instructions .ROUTE .MEDSUPPLY Qty: 1 0RF Rx Instructions: As directed. DX: E11.9 (DME) lancets 28 gauge misc See Rx Instructions .Route Qty: 100 5RF Rx Instructions: Testing BS daily omeprazole 20 mg capsule,delayed release(DR/EC) 20 mg PO DAILY Qty: 90 3RF mirtazapine 30 mg tablet 30 mg PO HS Qty: 90 1RF ascorbic acid (vitamin C) 500 mg capsule 500 mg PO DAILY Qty: 30 5RF Multiple Daily with Minerals Tablet 1 tab PO DAILY Held lisinopril 40 mg tablet 40 mg PO DAILY Qty: 90 3RF Hold Instructions: hold unless Dr Dunn or the harvester operator states it is OK to resume Discontinued nystatin 100,000 unit/gram cream 1 applic topical BID Qty: 30 1RF furosemide 40 mg Tablet 40 mg PO BID17 Qty: 60 0RF Discharge Orders: Discharge Order (Routine); Ordered 03/04/23 Ordered By: Arnoldo Gregory/Other Patient Handouts: Low-Salt Choices, Managing Type 2 Diabetes, Healthy Meals for Diabetes, ED Low-Salt Diet Admission Data Admit Date/Time: 02/24/23 01:07 Attending Provider: Arnoldo Mercer Admit Provider: Jose Wang Primary Care Provider: Brittaney Dunn Other Providers: Dirk Ugarte; Merritt Reilly; Lucinda Zamora; Vesta Rojas Coding Diagnoses Cellulitis L03.90 Rash of groin R21 BPH w urinary obs/LUTS N40.1; N13.8 Orchitis N45.2 Severe obstructive sleep apnea G47.33 Obesity hypoventilation syndrome E66.2 Chronic diastolic heart failure I50.32 T2DM (type 2 diabetes mellitus) E11.9 Right bundle branch block (RBBB) I45.10 Essential hypertension I10 Hypertension type: essential hypertension Morbid obesity with BMI of 50.0-59.9, adult E66.01; Z68.43 Edema of both legs R60.0
== END 2023-03-04 19:29 | disposition home health service (06) | DRG 602 ==
LOC: ED 22:55 → EDINP 02-24 01:07 → SUATTDRO 02-24 01:07 → 2W 02-24 03:27

== ENCOUNTER 2023-07-31 12:57 | Inpatient (IN) ==
--- NOTE | 2023-07-31 13:53 | ED Triage Note ---
Date of Service July 31, 2023 Provider in Triage Author: Anjum Brothers History of Present Illness This patient was briefly evaluated while in triage. An abbreviated physical exam was performed. This patient is a 72-year-old Male who presents to the ED via ambulance for evaluation of shortness of breath. Patient reports wearing oxygen 2 L per nasal cannula, but still felt short of breath. He did not try to increase his oxygen level, and called 911 for further assistance. Patient also had a CPAP at home, but it broke. He reports that he is awaiting approximately 2 weeks for the new machine to arrive. Patient currently denies any chest pain. Physical Exam CONSTITUTIONAL: Healthy and well nourished. Patient does not appear in any acute distress. HEENT: No scleral icterus or conjunctival injection. RESPIRATORY: Lung sounds are distant without obvious crackles, rhonchi or stridor. CARDIOVASCULAR: Regular rate and rhythm with no murmurs, rubs or gallops. INTEGUMENTARY: No rash or other significant dermatologic conditions noted. Peripheral edema is noted. HEMATOLOGIC: No ecchymosis or petechiae. PSYCHIATRIC: Positive affect. NEUROLOGIC: No focal neurologic deficits noted. Initial orders for labs and / or imaging were placed and patient was placed in the waiting area until a bed is available. Please see further documentation for the full ED course.
[2023-07-31 15:14] LABS: Adenovirus PCR Not Detected (NotDetected); Bordetella parapertussis PCR Not Detected (NotDetected); Bordetella pertussis PCR Not Detected (NotDetected); Chlamydia pneumoniae PCR Not Detected (NotDetected); Coronavirus 229E PCR Not Detected (NotDetected); Coronavirus CoV-2 (COVID19)PCR Not Detected (NotDetected); Coronavirus HKU1 PCR Not Detected (NotDetected); Coronavirus NL63 PCR Not Detected (NotDetected); Coronavirus OC43PCR Not Detected (NotDetected); Human Metapneumovirus PCR Not Detected (NotDetected); Influenza A PCR Not Detected (NotDetected); Influenza B PCR Not Detected (NotDetected); Mycoplasma pneumoniae PCR Not Detected (NotDetected); Parainfluenza Virus 1 PCR Not Detected (NotDetected); Parainfluenza Virus 2 PCR Not Detected (NotDetected); Parainfluenza Virus 3 PCR Not Detected (NotDetected); Parainfluenza Virus 4 PCR Not Detected (NotDetected); Respiratory Syncytial VirusPCR Not Detected (NotDetected); Rhinovirus/Enterovirus PCR Not Detected (NotDetected)
[2023-07-31 15:34] LABS: Basophils # (auto) 0.04 K/uL (0.00-0.20); Basophils % (auto) 0.3 %; Eosinophils # (auto) 0.14 K/uL (0.00-0.50); Eosinophils % (auto) 0.9 %; Hematocrit (blood only) 32.6 % (42.0-52.0); Hemoglobin 10.3 g/dl (14.0-18.0); Immature Granulocytes # (auto) 0.07 K/uL (0.01-0.20); Immature Granulocytes % (auto) 0.5 %; Lymphocytes # (auto) 0.94 K/uL (1.20-3.40); Lymphocytes % (auto) 6.2 %; Mean Corpuscular Hemoglobin 27.8 pg (25.0-34.0); Mean Corpuscular Hgb Conc 31.6 g/dL (32.0-36.0); Mean Corpuscular Volume 87.9 fL (80.0-100.0); Mean Platelet Volume 10.5 fL (9.4-12.4); Monocytes % (auto) 6.6 %; Neutrophils # (auto) 13.02 K/uL (1.40-6.50); Neutrophils % (auto) 85.5 %; Platelet Count 289 K/uL (130-400); RDW Coefficient of Variation 17.2 % (11.5-14.5); RDW Standard Deviation 55.1 fL (36.4-46.3); Red Blood Count 3.71 M/uL (4.70-6.10); White Blood Count 15.21 K/ul (4.8-10.8)
[2023-07-31 15:42] LABS: Albumin Level 3.7 gm/dl (3.4-5.0); Anion Gap 4 (3-11); Bilirubin,Total 0.6 mg/dl (0.2-1.0); Calcium 8.9 mg/dl (8.6-10.3); Carbon Dioxide 34 mmol/L (21-32); Chloride 102 mmol/L (98-107); Magnesium 1.7 mg/dl (1.7-2.4); Potassium 3.7 mmol/L (3.5-5.1); Sodium 140 mmol/L (136-145)
[2023-07-31 15:43] LABS: Partial Thromboplastin Ratio 0.9; Partial Thromboplastin Time 24 Seconds (21-31); Prothrombin Time 11.4 Seconds (9.0-12.0)
[2023-07-31 15:45] LABS: Troponin I High Sensitivity 3.8 pg/ml (0-20)
[2023-07-31 15:49] LABS: Alanine Aminotransferase 25 U/L (7-52); Albumin Globulin Ratio 0.9 (0.9-2); Alkaline Phosphatase 109 U/L (34-104); Aspartate Aminotransferase 24 U/L (13-39); BUN Creatinine Ratio 16.7 (10-20); Blood Urea Nitrogen 13 mg/dl (6-23); Est GFR (African American) 103.8 ml/min; Est GFR (Non-African American) 89.6 ml/min; Globulin 4.3 gm/dl (2.5-4.0); Glucose 122 mg/dl (70-99(Fasting))
--- NOTE | 2023-07-31 16:37 | XRay Report ---
TWO VIEW CHEST CLINICAL HISTORY: Dyspnea. FINDINGS: AP and lateral chest radiographs are compared to study dated 03/01/2023 and correlated with chest CT dated 07/04/2019. The heart is enlarged noting atherosclerotic calcification of the thoracic. There is pulmonary vascular congestion. Bilateral airspace opacities likely represent mild interstiti al edema. No large pleural effusion or pneumothorax is seen. The skeletal structures are osteopenic. The bony thorax appears intact. Degenerative change is noted in the spine. IMPRESSION: 1. Cardiomegaly with evidence of congestive. 2. Bilateral opacities likely represent pulmonary edema. Clinical correlation will be required and ra diographic follow-up to resolution is recommended. ACT 112: Negative or not required by law. Electronically signed by: Jhonny Ruiz M.D. 07/31/2023 4:35 PM
--- NOTE | 2023-07-31 19:07 | Emergency Department Note ---
Impression & Plan Dyspnea, Edema of both legs, Pulmonary edema ED Provider Note ED Provider Note NAME: JULIEN LOGAN AGE:72 SEX: Male : 1950 ARRIVES VIA: EMS INFORMANT: Patient ED PROVIDER(s): Maureen Velazquez DO CHIEF COMPLAINT: Shortness of breath HPI: This is a 72-year-old male presents from home due to increased shortness of breath. Patient states symptoms have been worsening over the last several days to 1 week. Patient states he does typically wear oxygen at home and use CPAP at night. He states 2 weeks ago his CPAP machine broke. He contacted the company however has not had this replaced. He states he sometimes does need to use his CPAP during the day additionally to help with breathing. Patient also states he has had increased lower extremity edema over the last week additionally. Patient states he does have an occasional cough but denies any sputum production. He denies fevers, chills, or other URI symptoms. He denies any coming chest pain or abdominal pain. Patient denies any history of asthma or COPD. PAST MEDICAL HISTORY:See Below PAST SURGICAL HISTORY:See Below FAMILY HISTORY:See Below SOCIAL HISTORY:See Below HOME MEDICATIONS:See Below ALLERGIES:See Below VITALS:See Below PHYSICAL EXAMINATION: GENERAL: alert, unwell appearing, well nourished, no distress, non-toxic, BMI 49 EYE EXAM: normal conjunctiva, PERRL and EOM's grossly intact OROPHARYNX: no exudate, no erythema, lips, buccal mucosa, and tongue normal and mucous membranes are moist NECK: supple, no nuchal rigidity, no adenopathy, non-tender LUNGS: Decreased bilaterally to auscultation. Normal chest wall mechanics, no w/r, Rales at bilateral bases, tachypnea and increased work of breathing noted HEART: no murmurs, S1 normal and S2 normal ABDOMEN: abdomen soft, non-tender, normo-active bowel sounds, no masses, no rebound or guarding. SKIN: no rashes, petechiae, orbruising UPPER EXTREMITIES: upper extremities are grossly normal. FROM, nml pulses b/l. LOWER EXTREMITIES: Acute on chronic bilateral pitting edema. FROM, nml pulses b/l. NEURO EXAM: Normal sensorium, cranial nerves II-XII grossly intact, normal speech, no facial droop,nogross weakness of arms, no gross weakness of legs. Gross sensation intact. No ataxia. Vital Signs: reviewed and remarkable Differential Diagnosis: pneumonia, bronchitis, COPD/Asthma exacerbation, pneumothorax, pulmonary embolism, congestive heart failure, acute coronary syndrome, as well as others were considered MEDICAL DECISION MAKING: This is a 72-year-old male presents the emergency department with increased shortness of breath. Patient with obvious increased work of breathing on exam. Patient with prior history of CHF and on chronic oxygen. Labs drawn and sent, IV established, EKG and chest ray performed bedside interpreted by me and patient monitored on telemetry. I did contact RT due to his increased work of breathing and prior history. Patient started on CPAP/BiPAP at bedside with improvement in work of breathing. No evidence pneumonia on chest x-ray. Nasal swab for viral respiratory panel also negative. Patient noted to have anemia although stable compared to prior. BNP elevated additionally, however troponin normal. Patient was noted to have leukocytosis of unclear etiology although has prior history of leukocytosis on review of EMR. Patient was given 1 mg of IV Bumex as he takes Bumex daily at home. Case discussed with the hospitalist team for additional evaluation and management. Consultation(s): 1939: Discussed with Dr. Ugarte, [facility] hospitalist team, for additional evaluation and management. ER Treatment Provided: 1925: RT contacted to come provide BiPAP/CPAP due to the patient's tachypnea and increased work of breathing. Diagnostics Interpreted By Me: -ECG: Sinus at 97, right bundle branch block, normal axis, nonspecific ST/T wave changes -Cardiac Monitoring: An order was placed for continuous cardiac monitoring. The monitor shows a rate of 82 with normal sinus rhythm. -Laboratory studies: As stated above and show below. -Imaging studies: Chest x-ray: Appearance of bilateral pulmonary edema, mild cardiomegaly, no wide mediastinum Triage Nursing Note Reviewed Prior/Outside Records Reviewed -prior echo reviewed Critical Care: Critical care of 39 min performed to assess and manage high likelihood of life- threatening dyspnea and pulmonary edema, involving labs and imaging performed with assessment to evaluate dyspnea and pulmonary edema diagnosis with frequent reassessment. This time includes bedside time, treatment discussions with patient/family/consultants, documentation time and excludes procedure time. 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 Arthritis Anemia History of alcohol abuse Right bundle branch block (RBBB) Rheumatoid arthritis Rectal bleeding Pes planus Obstructive sleep apnea Internal hemorrhoids Hypertension Hyperlipidemia GERD without esophagitis First degree AV block Depression with anxiety Combined forms of age-related cataract of both eyes Central pterygium of left eye Benign prostatic hyperplasia with urinary obstruction Anatomical narrow angle, bilateral Surgical History History of appendectomy History of prostate biopsy Family History Mother Diabetes Hypertension Other Blindness FH: cataracts Family history of blindness Glaucoma History of cataract Denies family history of Ovarian cancer Prostate cancer Myocardial infarction Breast cancer Colorectal cancer Social History Smoking Status: Unknown if ever smoked Second Hand Exposure: No; Do You Dip or Chew Tobacco: No; Hx Alcohol Use: No Hx Substance Use: No Preferred Language: Iranian Communication Ability: Effective Visual Impairment: Limited Hearing Ability: Normal Spa Manager/Esthetician Required: No Beliefs That Will Affect Care: None marital status: Current Living Situation: Spouse current occupational status: retired Other Information That Helps Us Care for You: No Feels Safe at Home: Yes Safety Concerns: Feels Safe At This Time Childhood Exposure to Second-Hand Smoke: No Diet: regular Diet Comment: regular caffeine: No during the past year weight has: remained stable Dental Care, Regularly: No Physical Activity Frequency: Other Physical Activity Frequency Comment: limited by physical condition Seatbelt Use: always Sunscreen Use: No Assistive Devices: Glasses and Scooter/Electric Scooter Allergies Allergies Allergy/AdvReac Type Severity Reaction Status Date / Time No Known Drug Allergies Allergy . Verified 07/31/23 20:47 Home Meds Home Medications Medication Instructions Recorded Confirmed [id number] 1 tab PO DAILY 02/24/23 07/31/23 bumetanide 1 mg tablet 1 mg PO BID 07/31/23 07/31/23 Previous Rx's Medication Instructions Recorded ascorbic acid (vitamin C) 500 mg 500 mg PO DAILY #30 caps 10/30/22 capsule lisinopril 40 mg tablet 40 mg PO DAILY #90 tabs 10/30/22 BATTERY CHECK ON SCOOTER #1 ea 02/05/23 amlodipine 5 mg tablet 5 mg PO DAILY #90 tabs 02/12/23 atorvastatin 40 mg tablet 40 mg PO DAILY #100 tabs 02/13/23 dutasteride 0.5 mg capsule 0.5 mg PO DAILY #90 caps 02/13/23 blood sugar diagnostic (OneTouch #100 ea 02/14/23 Ultra Test strips) blood-glucose meter #1 ea 02/14/23 lancets 28 gauge #100 ea 02/14/23 hydralazine 25 mg tablet 25 mg PO TID #90 tabs 03/04/23 miconazole nitrate 2 % topical 1 applic EXT TID #85 grams 03/04/23 powder (Desenex) Lift Chair #1 ea 03/13/23 omeprazole 20 mg capsule,delayed 20 mg PO DAILY #90 caps 03/13/23 release psyllium husk 3.4 gram/5.4 gram 1 tbsp PO DAILY #660 grams 03/13/23 oral powder (Metamucil) Hospital Bed Homecare (Hospital #1 ea 03/31/23 Bed) Results & Data (ED) Vital Signs Vital Signs - 24 hr 07/31/23 16:33 07/31/23 17:41 07/31/23 18:58 Pulse Rate Pulse Rate [Finger] 83 Respiratory Rate 30 H Respiratory Effort / Characteristics Respiratory Depth Respiratory Pattern Blood Pressure Blood Pressure [Right Arm] 192/82 H Blood Pressure Mean Blood Pressure Mean [Right Arm] 118 Pulse Oximetry 98 97 Oxygen Delivery Method Nasal Cannula Nasal Cannula Nasal Cannula Oxygen Flow Rate 2 2 2 Fraction of Inspired Oxygen 07/31/23 18:58 07/31/23 18:59 07/31/23 18:59 Pulse Rate 95 H 99 H Pulse Rate [Finger] Respiratory Rate 28 H Respiratory Effort / Characteristics Respiratory Depth Respiratory Pattern Blood Pressure 200/89 H Blood Pressure [Right Arm] Blood Pressure Mean 126 Blood Pressure Mean [Right Arm] Pulse Oximetry 99 97 Oxygen Delivery Method Nasal Cannula Nasal Cannula Oxygen Flow Rate 2 2 Fraction of Inspired Oxygen 07/31/23 19:30 07/31/23 19:42 07/31/23 20:00 Pulse Rate 105 H 85 92 H Pulse Rate [Finger] Respiratory Rate 28 H 20 24 Respiratory Effort / Characteristics Spontaneous Respiratory Depth Normal Respiratory Pattern Regular Blood Pressure 181/96 H 187/92 H Blood Pressure [Right Arm] Blood Pressure Mean 124 123 Blood Pressure Mean [Right Arm] Pulse Oximetry 100 98 99 Oxygen Delivery Method Oxygen Flow Rate Fraction of Inspired Oxygen 30 Laboratory Data 07/31/23 14:52 07/31/23 14:52 Lab Results 07/31/23 07/31/23 07/31/23 Range/Units 14:00 14:52 20:10 WBC 15.21 H (4.8-10.8) K/ul RBC 3.71 L (4.70-6.10) M/uL Hgb 10.3 L (14.0-18.0) g/dl Hct 32.6 L (42.0-52.0) % MCV 87.9 (80.0-100.0) fL MCH 27.8 (25.0-34.0) pg MCHC 31.6 L (32.0-36.0) g/dL RDW Std Deviation 55.1 H (36.4-46.3) fL RDW Coeff of [place]arian 17.2 H (11.5-14.5) % Plt Count 289 (130-400) K/uL MPV 10.5 (9.4-12.4) fL Immature Gran % (Auto) 0.5 % Neut % (Auto) 85.5 % Lymph % (Auto) 6.2 % [place] % (Auto) 6.6 % Eos % (Auto) 0.9 % Baso % (Auto) 0.3 % Neut # (Auto) 13.02 H (1.40-6.50) K/uL Lymph # (Auto) 0.94 L (1.20-3.40) K/uL [place] # (Auto) 1.00 H (0.11-0.59) K/uL Eos # (Auto) 0.14 (0.00-0.50) K/uL Baso # (Auto) 0.04 (0.00-0.20) K/uL Immature Gran # (Auto) 0.07 (0.01-0.20) K/uL PT 11.4 (9.0-12.0) Seconds INR 1.0 (0.9-1.1) APTT 24 (21-31) Seconds PTT Ratio 0.9 Sodium 140 (136-145) mmol/L Potassium 3.7 (3.5-5.1) mmol/L Chloride 102 (98-107) mmol/L Carbon Dioxide 34 H (21-32) mmol/L Anion Gap 4 (3-11) BUN 13 (6-23) mg/dl Creatinine 0.78 (0.6-1.4) mg/dl Est Cr Clr Drug Dosing Not Reportable Est GFR ( Amer) 103.8 ml/min Est GFR (Non-Af Amer) 89.6 ml/min BUN/Creatinine Ratio 16.7 (10-20) Glucose 122 H (70-99(Fasting)) mg/dl Calcium 8.9 (8.6-10.3) mg/dl Magnesium 1.7 (1.7-2.4) mg/dl Total Bilirubin 0.6 (0.2-1.0) mg/dl AST 24 (13-39) U/L ALT 25 (7-52) U/L Alkaline Phosphatase 109 H (34-104) U/L Troponin I High Sens 3.8 (0-20) pg/ml B-Natriuretic Peptide 534 H (0-100) pg/ml Total Protein 8.0 (6.0-8.3) gm/dl Albumin 3.7 (3.4-5.0) gm/dl Globulin 4.3 H (2.5-4.0) gm/dl Albumin/Globulin Ratio 0.9 (0.9-2) Urine Color Yellow Urine Appearance Clear (Clear) Urine pH 5.5 (4.5-7.5) Ur Specific [place] 1.021 (1.000-1.030) Urine Protein 3+ H (Negative) Urine Glucose (UA) Negative (Negative) Urine Ketones Trace H (Negative) Urine Blood Negative (Negative) Urine Nitrite Negative (Negative) Urine Bilirubin Negative (Negative) Urine Urobilinogen Negative (Negative) Ur Leukocyte Esterase Negative (Negative) Urine WBC (Auto) 1-5 (0-5) /hpf Urine RBC (Auto) 0-4 (0-4) /hpf U Hyaline Cast (Auto) 1-5 (0-5) /lpf U Epithel Cells (Auto) 20-30 H (0-5) /lpf Urine Bacteria (Auto) 2+ H (Negative) Adenovirus (PCR) Not Detected (NotDetected) B. pertussis DNA (PCR) Not Detected (NotDetected) B.parapertussis DNA PCR Not Detected (NotDetected) C. pneumoniae DNA (PCR) Not Detected (NotDetected) Coronavirus OC43 (PCR) Not Detected (NotDetected) Coronavirus HKU1 (PCR) Not Detected (NotDetected) Coronavirus 229E (PCR) Not Detected (NotDetected) SARS-CoV-2 (PCR) Not Detected (NotDetected) Coronavirus NL63 (PCR) Not Detected (NotDetected) Human Metapneumovir PCR Not Detected (NotDetected) Influenza Type A (PCR) Not Detected (NotDetected) Influenza Type B (PCR) Not Detected (NotDetected) M. pneumoniae (PCR) Not Detected (NotDetected) Parainfluenza 1 (PCR) Not Detected (NotDetected) Parainfluenza 2 (PCR) Not Detected (NotDetected) Parainfluenza 3 (PCR) Not Detected (NotDetected) Parainfluenza 4 (PCR) Not Detected (NotDetected) RSV (PCR) Not Detected (NotDetected) Entero/Rhino (PCR) Not Detected (NotDetected) Administered Medications Amlodipine Besylate (Amlodipine Besylate 5 Mg Tab) 5 mg PO DAILY [facility] Stop: 08/31/23 08:59 Last Admin: 08/01/23 08:05 Dose: 5 mg Documented By: SUMANTH Ascorbic Acid (Ascorbic Acid 500 Mg Tab) 500 mg PO DAILY [facility] Stop: 08/31/23 08:59 Last Admin: 08/01/23 08:05 Dose: 500 mg Documented By: SUMANTH Atorvastatin Calcium (Atorvastatin 40 Mg Tab) 40 mg PO DAILY [facility] Stop: 08/31/23 08:59 Last Admin: 08/01/23 08:05 Dose: 40 mg Documented By: SUMANTH Finasteride (Finasteride 5 Mg Tab) 5 mg PO DAILY [facility] Stop: 08/31/23 08:59 Last Admin: 08/01/23 08:05 Dose: 5 mg Documented By: SUMANTH Heparin Sodium (Porcine) (Heparin Sod 5,000 Unit/0.5 Ml Vial) 7,500 units SQ Q12 [facility] Stop: 08/30/23 22:00 Last Admin: 08/01/23 08:05 Dose: 7,500 units Documented By: Admin: 07/31/23 22:49 Dose: 7,500 units Documented By: LUANN Hydralazine HCl (Hydralazine Hcl 25 Mg Tab) 25 mg PO TID [facility] Stop: 08/30/23 22:00 Last Admin: 08/01/23 13:21 Dose: 25 mg Documented By: Admin: 08/01/23 08:04 Dose: 25 mg Documented By: Admin: 07/31/23 22:54 Dose: 25 mg Documented By: LUANN Bumetanide 2 mg/ Syringe 8 mls @ 4 mls/min IV BID@0900,1700 [facility] Stop: 08/31/23 08:59 Last Admin: 08/01/23 08:04 Dose: 4 mls/min Documented By: SUMANTH Lisinopril (Lisinopril 40 Mg Tab) 40 mg PO DAILY [facility] Stop: 08/31/23 08:59 Last Admin: 08/01/23 08:05 Dose: 40 mg Documented By: SUMANTH Pantoprazole Sodium (Pantoprazole 40 Mg Tab) 40 mg PO DAILY [facility] Stop: 08/31/23 08:59 Last Admin: 08/01/23 08:05 Dose: 40 mg Documented By: SUMANTH Psyllium Hydrophilic Mucilloid (Psyllium Or Guar Gum Fiber 4gm Packet) 4 gm PO DAILY [facility] Stop: 08/31/23 08:59 Last Admin: 08/01/23 08:04 Dose: 4 gm Documented By: SUMANTH Discontinued Medications Bumetanide 1 mg/ Syringe 4 mls @ 4 mls/min IV ONE ONE Stop: 07/31/23 19:06 Last Admin: 07/31/23 19:50 Dose: 4 mls/min Documented By: ISAI Bumetanide 1 mg/ Syringe 4 mls @ 4 mls/min IV ONE ONE Stop: 07/31/23 20:16 Last Admin: 07/31/23 20:46 Dose: 4 mls/min Documented By: ISAI Nitroglycerin (Nitroglycerin 2% Ointment 30gm Tube) 1 inch EXT NOW STA Stop: 07/31/23 19:06 Last Admin: 07/31/23 19:17 Dose: 1 inch Documented By: [facility] Imaging Data Radiologist's Impression: Chest X-Ray 07/31/23 13:54 TWO VIEW CHEST CLINICAL HISTORY: Dyspnea. FINDINGS: AP and lateral chest radiographs are compared to study dated 03/01/2023 and correlated with chest CT dated 07/04/2019. The heart is enlarged noting atherosclerotic calcification of the thoracic. There is pulmonary vascular congestion. Bilateral airspace opacities likely represent mild interstitial edema. No large pleural effusion or pneumothorax is seen. The skeletal structures are osteopenic. The bony thorax appears intact. Degenerative change is noted in the spine. IMPRESSION: 1. Cardiomegaly with evidence of congestive. 2. Bilateral opacities likely represent pulmonary edema. Clinical correlation will be required and radiographic follow-up to resolution is recommended. ACT 112: Negative or not required by law. Electronically signed by: Jhonny Ruiz M.D. 07/31/2023 4:35 PM Discharge Plan Visit Data Chief Complaint: Shortness of Breath/Dyspnea Stated Complaint: SOB, COUGH ED Provider: Maureen Velazquez Discharge Problem: Dyspnea, Edema of both legs, Pulmonary edema Patient Disposition: Admitted As Inpatient Discharge Instructions Interventions: ED Discharge Assessment Last Done: 07/31/23 21:32
[2023-07-31] MEDS: NITROGLYCERIN 2% OINTMENT 30GM TUBE EXT STA (19:17)
[2023-07-31] MEDS: BUMETANIDE 1 MG in SYRINGE 0 ML IV ONE ×2 (19:50→20:46)
--- NOTE | 2023-07-31 20:20 | History & Physical Report ---
Date of Service July 31, 2023 Assessment & Plan (1) Acute on chronic heart failure with preserved ejection fraction (HFpEF): (2) Pulmonary edema: (3) Atrial fibrillation: (4) Edema of both legs: (5) BPH w urinary obs/LUTS: (6) T2DM (type 2 diabetes mellitus): Plan Acute on chronic HFpEF/pulmonary edema/bilateral lower extremity edema- Patient initially given Bumex 1 mg IV in ED, and adding an additional 1 g IV now for 2 mg IV Continue on Bumex 2 mg IV twice daily started in the a.m. Continue hydralazine, lisinopril and amlodipine Hold oral bumetanide Serial CBC with differential, renal function panel magnesium levels Recheck CK in the a.m. Order complete echocardiogram BPH with LUTS- Patient with chronic groin irritation, with leakage of urine Placing Hay catheter to monitor output and help clear skin irritation Continue dutasteride Nizoral cream apply to groin twice daily Severe GABRIELLE/obesity hypoventilation syndrome- Continue BiPAP for treatment of this diagnosis and the acute CHF, titrate downward as symptoms improve Goal pulse ox 90 to 92% Hyperlipidemia- Continue atorvastatin History of Present Illness Chief Complaint: The patient presented to the emergency department with worsening shortness of breath, dyspnea on exertion and lower extremity edema over the past 2 weeks. Primary Care Provider: Brittaney Dunn DO The patient is a 72-year-old male with past medical history including morbid obesity, chronic diastolic heart failure, atrial fibrillation, BPH with LUTS, severe GABRIELLE, diabetes mellitus type 2, nocturnal hypoxia, rheumatoid arthritis, depression with anxiety. He presents to the emergency department with complaint of worsening shortness of breath, dyspnea exertion and lower extremity edema with past few weeks, in particular worse over the past 24 hours. Chest x-ray and pleural effusions, and patient significant lower extremity edema. Allergies Allergy/AdvReac Type Severity Reaction Status Date / Time No Known Drug Allergies Allergy . Verified 07/31/23 20:47 Home Medications Medication Instructions Recorded Confirmed Type ascorbic acid (vitamin C) 500 mg 500 mg PO DAILY #30 caps 10/30/22 07/31/23 Rx capsule lisinopril 40 mg tablet 40 mg PO DAILY #90 tabs 10/30/22 07/31/23 Rx BATTERY CHECK ON SCOOTER #1 ea 02/05/23 03/13/23 Rx amlodipine 5 mg tablet 5 mg PO DAILY #90 tabs 02/12/23 07/31/23 Rx atorvastatin 40 mg tablet 40 mg PO DAILY #100 tabs 02/13/23 07/31/23 Rx dutasteride 0.5 mg capsule 0.5 mg PO DAILY #90 caps 02/13/23 07/31/23 Rx blood sugar diagnostic (OneTouch #100 ea 02/14/23 03/13/23 Rx Ultra Test strips) blood-glucose meter #1 ea 02/14/23 03/13/23 Rx lancets 28 gauge #100 ea 02/14/23 03/13/23 Rx hdrwdlktqhvj-Iq-lngr-minerals 1 tab PO DAILY 02/24/23 07/31/23 History hydralazine 25 mg tablet 25 mg PO TID #90 tabs 03/04/23 07/31/23 Rx miconazole nitrate 2 % topical 1 applic EXT TID #85 grams 03/04/23 07/31/23 Rx powder (Desenex) Lift Chair #1 ea 03/13/23 03/13/23 Rx omeprazole 20 mg capsule,delayed 20 mg PO DAILY #90 caps 03/13/23 07/31/23 Rx release psyllium husk 3.4 gram/5.4 gram 1 tbsp PO DAILY #660 grams 03/13/23 07/31/23 Rx oral powder (Metamucil) Hospital Bed Home[facility] (Hospital #1 ea 03/31/23 Rx Bed) bumetanide 1 mg tablet 1 mg PO BID 07/31/23 07/31/23 History Past Med/Surg History Medical History (Updated 08/01/23 @ 10:31 by Dirk Ugarte MD) Bradycardia Chronic diastolic heart failure Restrictive lung disease T2DM (type 2 diabetes mellitus) Obesity hypoventilation syndrome Pericardial effusion Morbid obesity with BMI of 40.0-44.9, adult Leukocytosis Nocturnal hypoxia Allergic rhinitis Venous insufficiency (chronic) (peripheral) Urinary incontinence Strabismic amblyopia, 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 Arthritis Anemia History of alcohol abuse Right bundle branch block (RBBB) Rheumatoid arthritis Rectal bleeding Pes planus Obstructive sleep apnea Internal hemorrhoids Hypertension Hyperlipidemia GERD without esophagitis First degree AV block Depression with anxiety Combined forms of age-related cataract of both eyes Central pterygium of left eye Benign prostatic hyperplasia with urinary obstruction Anatomical narrow angle, bilateral Surgical History History of appendectomy History of prostate biopsy Family History Mother Diabetes Hypertension Other Blindness FH: cataracts Family history of blindness Glaucoma History of cataract Denies family history of Ovarian cancer Prostate cancer Myocardial infarction Breast cancer Colorectal cancer Social History Smoking Status: Unknown if ever smoked Second Hand Exposure: No; Do You Dip or Chew Tobacco: No; Hx Alcohol Use: No Hx Substance Use: No Preferred Language: Estonian Communication Ability: Effective Visual Impairment: Limited Hearing Ability: Normal [place] Required: No Beliefs That Will Affect Care: None marital status: Current Living Situation: Spouse current occupational status: retired Feels Safe at Home: Yes Childhood Exposure to Second-Hand Smoke: No Diet: regular Diet Comment: regular caffeine: No during the past year weight has: remained stable Dental Care, Regularly: No Physical Activity Frequency: Other Physical Activity Frequency Comment: limited by physical condition Seatbelt Use: always Sunscreen Use: No Assistive Devices: Glasses and Scooter/Electric Scooter Review of Systems Review of Systems: The patient denies chest pain, palpitations, sore throat, fevers, chills, sweats, nausea, vomiting, diarrhea , constipation, abdominal pain, pelvic pain, blood in urine or stool, dysuria, urinary frequency or urgency, lightheadedness, dizziness, headache, memory loss, loss of consciousness, rash, abnormal bruising or bleeding, imbalance, focal weakness, numbness or tingling in arms or legs, generalized arthralgias or myalgias, back or neck pain, or night sweats. The review of systems is otherwise negative other than for that already noted above, and at least 10 systems have been reviewed. Physical Exam Physical Exam: The patient is awake, alert and oriented 3, well developed and well nourished, normocephalic and atraumatic, sitting upright in bed and in mild acute respiratory distress. HEENT--PERRL, EOMI, mucous membranes and oropharynx dry, BiPAP in place and tolerated Neck--supple. No JVD. No bruits. Thyroid normal, trachea midline, no adenopathy. Heart--normal S1 and S2. No murmurs, rubs or gallops. Lungs--crackles at the bases bilaterally. Mild respiratory distress, no accessory muscle use. Abdomen--normal bowel sounds and soft. Nontender. Morbidly obese. Groin with excoriation and wet from urine right greater than left Extremities--no cyanosis or clubbing. 2+ bilateral pretibial pitting edema. Dermatologic--excoriation in groin bilaterally right greater than left Neurologic--cranial nerves II through XII grossly intact. Rheumatologic--normal range of motion. Psychiatric--normal affect. Results & Data Results & Data Vital Signs (Past 12 Hours) Vital Signs Temp Pulse Pulse Resp BP BP Pulse Ox 07/31/23 18:59 99 H 07/31/23 18:59 97 07/31/23 18:58 95 H 28 H 200/89 H 99 07/31/23 18:58 07/31/23 17:41 83 30 H 192/82 H 97 07/31/23 16:33 98 07/31/23 13:49 36.9 C 97 H 24 180/90 H 92 O2 Del Method O2 Flow Rate 07/31/23 18:59 07/31/23 18:59 Nasal Cannula 2 07/31/23 18:58 Nasal Cannula 2 07/31/23 18:58 Nasal Cannula 2 07/31/23 17:41 Nasal Cannula 2 07/31/23 16:33 Nasal Cannula 2 07/31/23 13:49 Nasal Cannula 2 Laboratory Results Laboratory Results WBC 15.21 K/ul (4.8-10.8) H 07/31/23 14:52 RBC 3.71 M/uL (4.70-6.10) L 07/31/23 14:52 Hgb 10.3 g/dl (14.0-18.0) L 07/31/23 14:52 Hct 32.6 % (42.0-52.0) L 07/31/23 14:52 MCV 87.9 fL (80.0-100.0) 07/31/23 14:52 MCH 27.8 pg (25.0-34.0) 07/31/23 14:52 MCHC 31.6 g/dL (32.0-36.0) L 07/31/23 14:52 RDW Std Deviation 55.1 fL (36.4-46.3) H 07/31/23 14:52 RDW Coeff of Darian 17.2 % (11.5-14.5) H 07/31/23 14:52 Plt Count 289 K/uL (130-400) 07/31/23 14:52 MPV 10.5 fL (9.4-12.4) 07/31/23 14:52 Immature Gran % (Auto) 0.5 % 07/31/23 14:52 Neut % (Auto) 85.5 % 07/31/23 14:52 Lymph % (Auto) 6.2 % 07/31/23 14:52 [place]kins % (Auto) 6.6 % 07/31/23 14:52 Eos % (Auto) 0.9 % 07/31/23 14:52 Baso % (Auto) 0.3 % 07/31/23 14:52 Neut # (Auto) 13.02 K/uL (1.40-6.50) H 07/31/23 14:52 Lymph # (Auto) 0.94 K/uL (1.20-3.40) L 07/31/23 14:52 [place]pkins # (Auto) 1.00 K/uL (0.11-0.59) H 07/31/23 14:52 Eos # (Auto) 0.14 K/uL (0.00-0.50) 07/31/23 14:52 Baso # (Auto) 0.04 K/uL (0.00-0.20) 07/31/23 14:52 Immature Gran # (Auto) 0.07 K/uL (0.01-0.20) 07/31/23 14:52 PT 11.4 Seconds (9.0-12.0) 07/31/23 14:52 INR 1.0 (0.9-1.1) 07/31/23 14:52 APTT 24 Seconds (21-31) 07/31/23 14:52 PTT Ratio 0.9 07/31/23 14:52 Sodium 140 mmol/L (136-145) 07/31/23 14:52 Potassium 3.7 mmol/L (3.5-5.1) 07/31/23 14:52 Chloride 102 mmol/L (98-107) 07/31/23 14:52 Carbon Dioxide 34 mmol/L (21-32) H 07/31/23 14:52 Anion Gap 4 (3-11) 07/31/23 14:52 BUN 13 mg/dl (6-23) 07/31/23 14:52 Creatinine 0.78 mg/dl (0.6-1.4) 07/31/23 14:52 Est Cr Clr Drug Dosing Not Reportable 07/31/23 14:52 Est GFR ( Amer) 103.8 ml/min 07/31/23 14:52 Est GFR (Non-Af Amer) 89.6 ml/min 07/31/23 14:52 BUN/Creatinine Ratio 16.7 (10-20) 07/31/23 14:52 Glucose 122 mg/dl (70-99(Fasting)) H 07/31/23 14:52 Calcium 8.9 mg/dl (8.6-10.3) 07/31/23 14:52 Magnesium 1.7 mg/dl (1.7-2.4) 07/31/23 14:52 Total Bilirubin 0.6 mg/dl (0.2-1.0) 07/31/23 14:52 AST 24 U/L (13-39) 07/31/23 14:52 ALT 25 U/L (7-52) 07/31/23 14:52 Alkaline Phosphatase 109 U/L (34-104) H 07/31/23 14:52 Troponin I High Sens 3.8 pg/ml (0-20) 07/31/23 14:52 B-Natriuretic Peptide 534 pg/ml (0-100) H 07/31/23 14:52 Total Protein 8.0 gm/dl (6.0-8.3) 07/31/23 14:52 Albumin 3.7 gm/dl (3.4-5.0) 07/31/23 14:52 Globulin 4.3 gm/dl (2.5-4.0) H 07/31/23 14:52 Albumin/Globulin Ratio 0.9 (0.9-2) 07/31/23 14:52 Urine Color Yellow 07/31/23 20:10 Urine Appearance Clear (Clear) 07/31/23 20:10 Urine pH 5.5 (4.5-7.5) 07/31/23 20:10 Ur Specific [place] 1.021 (1.000-1.030) 07/31/23 20:10 Urine Protein 3+ (Negative) H 07/31/23 20:10 Urine Glucose (UA) Negative (Negative) 07/31/23 20:10 Urine Ketones Trace (Negative) H 07/31/23 20:10 Urine Blood Negative (Negative) 07/31/23 20:10 Urine Nitrite Negative (Negative) 07/31/23 20:10 Urine Bilirubin Negative (Negative) 07/31/23 20:10 Urine Urobilinogen Negative (Negative) 07/31/23 20:10 Ur Leukocyte Esterase Negative (Negative) 07/31/23 20:10 Urine WBC (Auto) 1-5 /hpf (0-5) 07/31/23 20:10 Urine RBC (Auto) 0-4 /hpf (0-4) 07/31/23 20:10 U Hyaline Cast (Auto) 1-5 /lpf (0-5) 07/31/23 20:10 U Epithel Cells (Auto) 20-30 /lpf (0-5) H 07/31/23 20:10 Urine Bacteria (Auto) 2+ (Negative) H 07/31/23 20:10 Adenovirus (PCR) Not Detected (NotDetected) 07/31/23 14:00 B. pertussis DNA (PCR) Not Detected (NotDetected) 07/31/23 14:00 B.parapertussis DNA PCR Not Detected (NotDetected) 07/31/23 14:00 C. pneumoniae DNA (PCR) Not Detected (NotDetected) 07/31/23 14:00 Coronavirus OC43 (PCR) Not Detected (NotDetected) 07/31/23 14:00 Coronavirus HKU1 (PCR) Not Detected (NotDetected) 07/31/23 14:00 Coronavirus 229E (PCR) Not Detected (NotDetected) 07/31/23 14:00 SARS-CoV-2 (PCR) Not Detected (NotDetected) 07/31/23 14:00 Coronavirus NL63 (PCR) Not Detected (NotDetected) 07/31/23 14:00 Human Metapneumovir PCR Not Detected (NotDetected) 07/31/23 14:00 Influenza Type A (PCR) Not Detected (NotDetected) 07/31/23 14:00 Influenza Type B (PCR) Not Detected (NotDetected) 07/31/23 14:00 M. pneumoniae (PCR) Not Detected (NotDetected) 07/31/23 14:00 Parainfluenza 1 (PCR) Not Detected (NotDetected) 07/31/23 14:00 Parainfluenza 2 (PCR) Not Detected (NotDetected) 07/31/23 14:00 Parainfluenza 3 (PCR) Not Detected (NotDetected) 07/31/23 14:00 Parainfluenza 4 (PCR) Not Detected (NotDetected) 07/31/23 14:00 RSV (PCR) Not Detected (NotDetected) 07/31/23 14:00 Entero/Rhino (PCR) Not Detected (NotDetected) 07/31/23 14:00 Impressions Chest X-Ray 07/31/23 13:54 TWO VIEW CHEST CLINICAL HISTORY: Dyspnea. FINDINGS: AP and lateral chest radiographs are compared to study dated 03/01/2023 and correlated with chest CT dated 07/04/2019. The heart is enlarged noting atherosclerotic calcification of the thoracic. There is pulmonary vascular congestion. Bilateral airspace opacities likely represent mild interstitial edema. No large pleural effusion or pneumothorax is seen. The skeletal structures are osteopenic. The bony thorax appears intact. Degenerative change is noted in the spine. IMPRESSION: 1. Cardiomegaly with evidence of congestive. 2. Bilateral opacities likely represent pulmonary edema. Clinical correlation will be required and radiographic follow-up to resolution is recommended. ACT 112: Negative or not required by law. Electronically signed by: Jhonny Ruiz M.D. 07/31/2023 4:35 PM Code Status & VTE Plan Code Status Full code VTE Prophylaxis Plan VTE Prophylaxis will be ordered: Yes PG Care Time/CCT Total # of Minutes Spent Total Time Spent with Patient: Total time spent is greater than 50% in coordination of care (as documented) at patient's floor/unit and/or counseling patient: Coding Level of Care Code 10196 INT INP/OBS CARE 3/75MIN Diagnoses Acute on chronic heart failure with preserved ejection fraction (HFpEF) I50.33 Pulmonary edema J81.1 Atrial fibrillation I48.91 Edema of both legs R60.0 BPH w urinary obs/LUTS N40.1; N13.8 T2DM (type 2 diabetes mellitus) E11.9
[2023-07-31] MEDS ORDERED: KETOCONAZOLE 2% CR 15 GM TUBE EXT PRN (20:21)
[2023-07-31 20:38] LABS: Appearance Urine Clear (Clear); Bacteria Urine Automated 2+ (Negative); Bilirubin Urine Negative (Negative); Blood Urine Negative (Negative); Color Urine Yellow; Epithelial Cell Urine Auto 20-30 /lpf (0-5); Glucose Urine UA Negative (Negative); Ketones Urine Trace (Negative); Leukocyte Esterase Urine Negative (Negative); Nitrite Urine Negative (Negative); Protein Urine 3+ (Negative); RBC Urine Automated 0-4 /hpf (0-4); Specific Gravity Urine 1.021 (1.000-1.030); Urobilinogen Urine Negative (Negative); pH Urine 5.5 (4.5-7.5)
[2023-07-31] MEDS ORDERED: ONDANSETRON INJ 2 MG/ML 2 ML VIAL IV PRN (22:01)
[2023-07-31] MEDS: HEPARIN SOD 5,000 UNIT/0.5 ML VIAL SQ SCH (22:49)
[2023-07-31] MEDS: hydrALAZINE HCL 25 MG TAB PO SCH (22:54)
--- NOTE | 2023-08-01 07:48 | Hospitalist Progress Note ---
Date of Service August 01, 2023 Assessment & Plan (1) Acute on chronic diastolic (congestive) heart failure: Plan: 72 y/o with HFpEF, GABRIELLE/OHS, DM type 2 admitted with dyspnea. Severely hypertensive and dyspneic in ED with acute respiratory failure, treated with nitro paste, IV diuretics, Bipap. Weight up 20 kg since last admission in February, BNP 500s, and CXR with pulmonary edema -weight and I/O neg overnight. refused AM labs. we discussed this that I need blood draws to check electrolytes and kidney function or he could get JENNA or arrhythmia. Last admission same thing, only would allow QOD -continue bumex 2 IV change to daily -empiric potassium 20 meq x 1 -BP low, hold lisinopril since I can't get labs today. also has amlodipine and hydralazine. -TTE ordered and pending (2) Leukocytosis: Plan: WBC 15K in ED. CXR nonfocal, UA neg/contaminated with epi cells with GPCs on culture but no nitrates LE or WBC, resp biofire neg will check procalcitonin if he allows labs repeat UA - has pires at this time (3) (HFpEF) heart failure with preserved ejection fraction: Plan: see above (4) Atrial fibrillation: Plan: History of per chart Not on anticoagulation. In NSR so far this admission with PVCs on my tele review (5) Morbid obesity with BMI of 45.0-49.9, adult: Plan: Complications of GABRIELLE/OHS, DM type 2, LE venous stasis, hepatic steatosis (6) Severe obstructive sleep apnea: Plan: Continue nocturnal Bipap (settings /) for GABRIELLE/OHS (7) Obesity hypoventilation syndrome: (8) T2DM (type 2 diabetes mellitus): Plan: A1c 6.6% fall 2022, no primary care visits since then. will repeat (9) Rheumatoid arthritis: Plan BPH - dutasteride DVT ppx: bid SQ heparin Admission and Anticipated Discharge Date Admission Date: July 31, 2023 Subjective breathing is much better today. severe leg edema, abd wall edema, no scrotal swelling refused his am labs Physical Exam 2 Physical Exam: PHYSICAL EXAMINATION Last 24h vital signs reviewed, see documentation in flowsheet General: comfortable appearing, no distress, in chair HEENT: Normocephalic, atraumatic, pupils round and equal, sclerae anicteric, no conjunctival injection, moist mucus membranes Lungs: inc respiratory effort. bilateral crackes bases an mid bullard Heart: Regular rate and rhythm, no murmurs. +JVD Abdomen: Soft, nontender, nondistended. Bowel sounds present. Abd wall edema present Extremities: Warm, dry, well-perfused. 3-4+ lower extremity edema. to above knees and posterior thighs Neuro: Alert and oriented x 4, face symmetric, slight asterixis, moves 4 extremities well Psych: Normal affect and behavior Results & Data Results & Data Vital Signs (Past 12 Hours) Vital Signs Temp Pulse Pulse Resp BP BP BP 08/01/23 03:20 72 24 08/01/23 03:02 82 16 160/80 H 08/01/23 00:44 85 07/31/23 23:58 07/31/23 22:59 88 24 07/31/23 22:26 37.0 C 85 20 159/84 H 07/31/23 21:30 80 26 H 138/76 07/31/23 21:01 82 20 181/75 H 07/31/23 20:00 92 H 24 187/92 H 07/31/23 19:42 85 20 07/31/23 19:30 105 H 28 H 181/96 H Pulse Ox O2 Del Method FiO2 08/01/23 03:20 94 30 08/01/23 03:02 95 BiPAP 08/01/23 00:44 07/31/23 23:58 BiPAP 07/31/23 22:59 96 30 07/31/23 22:26 92 BiPAP 07/31/23 21:30 93 BiPAP 07/31/23 21:01 92 07/31/23 20:00 99 07/31/23 19:42 98 30 07/31/23 19:30 100 Laboratory Results 07/31/23 14:52 07/31/23 14:52 PG Care Time/CCT Total # of Minutes Spent Total Time Spent with Patient: Total time spent is greater than 50% in coordination of care (as documented) at patient's floor/unit and/or counseling patient: Coding Level of Care Code 80354 SUB INP/OBS CARE 2/35MIN Diagnoses Acute on chronic diastolic (congestive) heart failure I50.33 Leukocytosis D72.829 (HFpEF) heart failure with preserved ejection fraction I50.30 Atrial fibrillation I48.91 Morbid obesity with BMI of 45.0-49.9, adult E66.01; Z68.42 Severe obstructive sleep apnea G47.33 Obesity hypoventilation syndrome E66.2 T2DM (type 2 diabetes mellitus) E11.9 Rheumatoid arthritis M06.9
[2023-08-01] MEDS: BUMETANIDE 2 MG in SYRINGE 0 ML IV SCH (08:04)
[2023-08-01] MEDS: PSYLLIUM or GUAR GUM FIBER 4GM PACKET PO SCH (08:04)
[2023-08-01] MEDS: ATORVASTATIN 40 MG TAB PO SCH (08:05)
[2023-08-01] MEDS: amLODIPine BESYLATE 5 MG TAB PO SCH (08:05)
[2023-08-01] MEDS: PANTOprazole 40 MG TAB PO SCH (08:05)
[2023-08-01] MEDS: ASCORBIC ACID 500 MG TAB PO SCH (08:05)
[2023-08-01] MEDS: FINASTERIDE 5 MG TAB PO SCH (08:05)
[2023-08-01] MEDS: lisinopril 40 MG TAB PO SCH (08:05)
[2023-08-01] MEDS ORDERED: MULTIVITAMIN CA IRON MINERALS PO SCH (09:00)
--- NOTE | 2023-08-01 15:13 | XCELERA ---
[id number]
[2023-08-01] MEDS: POTASSIUM CHLORIDE CRTAB 20 MEQ TABCR PO STA (16:02)
[2023-08-01 21:44] LABS: Hematocrit (blood only) 31.2 % (42.0-52.0); Hemoglobin 9.9 g/dl (14.0-18.0); Mean Corpuscular Hemoglobin 27.4 pg (25.0-34.0); Mean Corpuscular Hgb Conc 31.7 g/dL (32.0-36.0); Mean Corpuscular Volume 86.4 fL (80.0-100.0); Platelet Count 303 K/uL (130-400); RDW Coefficient of Variation 17.2 % (11.5-14.5); RDW Standard Deviation 54.5 fL (36.4-46.3); Red Blood Count 3.61 M/uL (4.70-6.10); White Blood Count 16.14 K/ul (4.8-10.8)
[2023-08-01 21:59] LABS: Albumin Level 3.4 gm/dl (3.4-5.0); Calcium 8.3 mg/dl (8.6-10.3); Magnesium 1.6 mg/dl (1.7-2.4); Potassium 4.1 mmol/L (3.5-5.1)
[2023-08-01 22:12] LABS: BUN Creatinine Ratio 15.5 (10-20); Creatinine Clr Calc Pharmacy 64.8 ml/min; Est GFR (African American) 63.3 ml/min; Est GFR (Non-African American) 54.6 ml/min; Phosphorus 4.1 mg/dl (2.5-4.9)
[2023-08-01] MEDS: MAGNESIUM SULFATE / D5W 1 GM/100 ML BAG IV SCH (23:37)
[2023-08-01] MEDS: BENZONATATE 100 MG CAPSULE PO PRN (23:46)
[2023-08-02] MEDS: ALBUT/IPRATROP 3MG/0.5MG NEB 3 ML VIAL NEB STA (02:11)
[2023-08-02] MEDS: ALBUT/IPRATROP 3MG/0.5MG NEB 3 ML VIAL ONE (02:11)
--- NOTE | 2023-08-02 06:42 | Electrocardiogram Report ---
Test Reason : Blood Pressure : / mmHG Vent. Rate : 097 BPM Atrial Rate : 105 BPM P-R Int : 000 ms QRS Dur : 142 ms QT Int : 394 ms P-R-T Axes : 000 082 014 degrees QTc Int : 500 ms Possible sinus with 1st degree AV block with PAC Right bundle branch block Abnormal ECG When compared with ECG of 01-MAR-2023 07:28, Vent. rate has increased by 51 bpm Confirmed by Aroldo Gallegos ([id number]) on 08/02/2023 6:41:42 AM Referred By: Confirmed By:Aroldo Gallegos
[2023-08-02] MEDS: BUMETANIDE 1 MG TAB PO SCH (08:35)
[2023-08-02] MEDS ORDERED: BUMETANIDE 2 MG in SYRINGE 0 ML IV SCH (09:00)
[2023-08-02 09:04] LABS: Basophils # (auto) 0.03 K/uL (0.00-0.20); Basophils % (auto) 0.2 %; Eosinophils # (auto) 0.32 K/uL (0.00-0.50); Eosinophils % (auto) 2.3 %; Hematocrit (blood only) 30.2 % (42.0-52.0); Hemoglobin 9.5 g/dl (14.0-18.0); Immature Granulocytes # (auto) 0.15 K/uL (0.01-0.20); Immature Granulocytes % (auto) 1.1 %; Lymphocytes # (auto) 0.98 K/uL (1.20-3.40); Lymphocytes % (auto) 6.9 %; Mean Corpuscular Hemoglobin 27.9 pg (25.0-34.0); Mean Corpuscular Hgb Conc 31.5 g/dL (32.0-36.0); Mean Corpuscular Volume 88.8 fL (80.0-100.0); Mean Platelet Volume 11.1 fL (9.4-12.4); Monocytes # (auto) 1.12 K/uL (0.11-0.59); Monocytes % (auto) 7.9 %; Neutrophils # (auto) 11.57 K/uL (1.40-6.50); Neutrophils % (auto) 81.6 %; Nucleated RBC # (auto) 0.02 K/uL (0.00-0.12); Nucleated RBC % (auto) 0.1 %; Platelet Count 293 K/uL (130-400); RDW Coefficient of Variation 17.2 % (11.5-14.5); RDW Standard Deviation 55.3 fL (36.4-46.3); White Blood Count 14.17 K/ul (4.8-10.8)
[2023-08-02 09:32] LABS: Albumin Level 3.3 gm/dl (3.4-5.0); Calcium 8.5 mg/dl (8.6-10.3); Magnesium 1.9 mg/dl (1.7-2.4); Potassium 3.8 mmol/L (3.5-5.1)
[2023-08-02 09:38] LABS: BUN Creatinine Ratio 20.4 (10-20); Creatinine Clr Calc Pharmacy 84.4 ml/min; Est GFR (African American) 88.3 ml/min; Est GFR (Non-African American) 76.2 ml/min; Phosphorus 2.8 mg/dl (2.5-4.9)
[2023-08-02 09:48] LABS: Appearance Urine Clear (Clear); Bacteria Urine Automated 1+ (Negative); Bilirubin Urine Negative (Negative); Blood Urine 3+ (Negative); Color Urine Yellow; Epithelial Cell Urine Auto 0-5 /lpf (0-5); Glucose Urine UA Negative (Negative); Ketones Urine Negative (Negative); Leukocyte Esterase Urine 1+ (Negative); Nitrite Urine Negative (Negative); Protein Urine 2+ (Negative); RBC Urine Automated >30 /hpf (0-4); Urobilinogen Urine Negative (Negative)
[2023-08-02] MEDS: ALBUT/IPRATROP 3MG/0.5MG NEB 3 ML VIAL NEB PRN (09:55)
--- NOTE | 2023-08-02 16:58 | Hospitalist Progress Note ---
Date of Service August 02, 2023 Assessment & Plan (1) Acute on chronic diastolic (congestive) heart failure: Plan: 72 y/o with HFpEF, GABRIELLE/OHS, DM type 2 admitted with dyspnea. Severely hypertensive and dyspneic in ED with acute respiratory failure, treated with nitro paste, IV diuretics, Bipap. Weight up 20 kg since last admission in February, BNP 500s, and CXR with pulmonary edema -initially diuresed too fast on bumex 2 IV bid had bump in Cr and low BP that resolved with holding yesterday pm diuretics and only 1 mg oral this am -continue holding lisinopril until renal function more stable, use hydralazine meanwhile -stop amlodipine which may be exacerbating severe edema. consider replacing with toprol XL or carvedilol -resume IV bumex 1 bid -AM labs BMP, CBC (2) Leukocytosis: Plan: WBC 15K in ED, persists. CXR nonfocal, UA neg/contaminated with epi cells with GPCs on culture but no nitrates LE or WBC, resp biofire neg procalcitonin normal repeat UA - has pires at this time - remains concerning for UTI and E. faecalis from culture on admission -start amoxicillin x 7 days (3) (HFpEF) heart failure with preserved ejection fraction: Plan: see above (4) Atrial fibrillation: Plan: History of per chart Not on anticoagulation. In NSR so far this admission with PVCs on my tele review (5) Morbid obesity with BMI of 45.0-49.9, adult: Plan: Complications of GABRIELLE/OHS, DM type 2, LE venous stasis, hepatic steatosis (6) Severe obstructive sleep apnea: Plan: Continue nocturnal Bipap (settings 14/04) for GABRIELLE/OHS (7) Obesity hypoventilation syndrome: (8) T2DM (type 2 diabetes mellitus): Plan: A1c 6.6% fall 2022, no primary care visits since then. will repeat (9) Rheumatoid arthritis: Plan: said to have this per chart but not on RA meds and no joint inflammation/deformities Plan BPH - dutasteride DVT ppx: bid SQ heparin Admission and Anticipated Discharge Date Admission Date: July 31, 2023 Subjective Napping on bipap and not much effort to talk to me Finally allowed labs today Says shortness of breath better and when can I go home Physical Exam 2 Physical Exam: PHYSICAL EXAMINATION Last 24h vital signs reviewed, see documentation in flowsheet General: napping on bipap HEENT: Normocephalic, atraumatic, pupils round and equal, sclerae anicteric, no conjunctival injection, moist mucus membranes Lungs: normal respiratory effort. clear anteriorly Heart: Regular rate and rhythm, no murmurs. Abdomen: Soft, nontender, nondistended. Bowel sounds present. Abd wall edema improved Extremities: Warm, dry, well-perfused. 3+ lower extremity edema. to above knees improved Neuro: aroused to voice but didn't talk much and closed eyes again, face symmetric Psych: unable to assess Results & Data Results & Data Vital Signs (Past 12 Hours) Vital Signs Temp Pulse Pulse Resp BP Pulse Ox O2 Del Method 08/02/23 16:07 62 08/02/23 15:50 37.0 C 79 19 145/84 H 90 Nasal Cannula 08/02/23 11:02 36.6 C 71 19 125/79 95 Nasal Cannula 08/02/23 09:55 86 22 96 Nasal Cannula 08/02/23 07:40 Nasal Cannula 08/02/23 07:08 37.0 C 85 20 108/78 92 Nasal Cannula O2 Flow Rate 08/02/23 16:07 08/02/23 15:50 3 08/02/23 11:02 3 08/02/23 09:55 3 08/02/23 07:40 3 08/02/23 07:08 3 Laboratory Results 08/02/23 08:50 08/02/23 08:50 PG Care Time/CCT Total # of Minutes Spent Total Time Spent with Patient: Total time spent is greater than 50% in coordination of care (as documented) at patient's floor/unit and/or counseling patient: Coding Level of Care Code 08193 SUB INP/OBS CARE 3/50MIN Diagnoses Acute on chronic diastolic (congestive) heart failure I50.33 Leukocytosis D72.829 (HFpEF) heart failure with preserved ejection fraction I50.30 Atrial fibrillation I48.91 Morbid obesity with BMI of 45.0-49.9, adult E66.01; Z68.42 Severe obstructive sleep apnea G47.33 Obesity hypoventilation syndrome E66.2 T2DM (type 2 diabetes mellitus) E11.9 Rheumatoid arthritis M06.9
[2023-08-02] MEDS: BUMETANIDE 1 MG in SYRINGE 0 ML IV SCH (18:19)
[2023-08-02] MEDS: AMOXICILLIN 500 MG CAP PO SCH (20:50)
[2023-08-02] MEDS: POTASSIUM CHLORIDE CRTAB 20 MEQ TABCR PO SCH (20:50)
[2023-08-03 08:32] LABS: Basophils # (auto) 0.04 K/uL (0.00-0.20); Basophils % (auto) 0.3 %; Eosinophils % (auto) 3.4 %; Hematocrit (blood only) 31.3 % (42.0-52.0); Hemoglobin 9.7 g/dl (14.0-18.0); Immature Granulocytes # (auto) 0.16 K/uL (0.01-0.20); Immature Granulocytes % (auto) 1.1 %; Lymphocytes # (auto) 1.22 K/uL (1.20-3.40); Lymphocytes % (auto) 8.4 %; Mean Corpuscular Hemoglobin 27.2 pg (25.0-34.0); Mean Corpuscular Volume 87.7 fL (80.0-100.0); Mean Platelet Volume 11.1 fL (9.4-12.4); Monocytes # (auto) 1.02 K/uL (0.11-0.59); Neutrophils # (auto) 11.58 K/uL (1.40-6.50); Neutrophils % (auto) 79.8 %; Nucleated RBC # (auto) 0.02 K/uL (0.00-0.12); Nucleated RBC % (auto) 0.1 %; Platelet Count 279 K/uL (130-400); RDW Coefficient of Variation 17.5 % (11.5-14.5); RDW Standard Deviation 55.8 fL (36.4-46.3); Red Blood Count 3.57 M/uL (4.70-6.10); White Blood Count 14.52 K/ul (4.8-10.8)
[2023-08-03 08:52] LABS: Albumin Level 3.2 gm/dl (3.4-5.0); Calcium 8.3 mg/dl (8.6-10.3); Magnesium 1.7 mg/dl (1.7-2.4); Potassium 3.9 mmol/L (3.5-5.1)
[2023-08-03 08:57] LABS: BUN Creatinine Ratio 23.7 (10-20); Creatinine Clr Calc Pharmacy 85.6 ml/min; Est GFR (African American) 89.4 ml/min; Est GFR (Non-African American) 77.1 ml/min; Phosphorus 3.3 mg/dl (2.5-4.9)
[2023-08-03 09:27] LABS: Estimated Average Glucose 160 mg/dl; Hemoglobin A1C 7.2 % (4.5-5.6)
[2023-08-03] MEDS: BUMETANIDE 2 MG in SYRINGE 0 ML IV ONE (15:52)
--- NOTE | 2023-08-03 16:39 | Hospitalist Progress Note ---
Date of Service August 03, 2023 Assessment & Plan (1) Acute on chronic diastolic (congestive) heart failure: Plan: 72 y/o with HFpEF, GABRIELLE/OHS, DM type 2 admitted with dyspnea. Severely hypertensive and dyspneic in ED with acute respiratory failure, treated with nitro paste, IV diuretics, Bipap. Weight up 20 kg since last admission in February, BNP 500s, and CXR with pulmonary edema Reviewed outpatient rx database has not filled any bumex for several months, so not taking at home or not taking regularly. I talked to his Haydee by phone 08/02 and she said he didn't take his diuretic for five days prior to admission, but she generally doesn't know what meds he takes. -initially diuresed too fast on bumex 2 IV bid had bump in Cr and low BP that resolved with holding yesterday pm diuretics and only 1 mg oral this am -continue holding lisinopril until renal function more stable, use hydralazine meanwhile -stop amlodipine which may be exacerbating severe edema. replacing with carvedilol -increase IV bumex - 2 mg IV this afternoon then go to 2 mg IV in AM and 1 mg IV in afternoon. -AM labs BMP, CBC -mediset or blister pack would likely be helpful for his meds and keeping everything once a day dosing if possible. (2) Leukocytosis: Plan: WBC 15K in ED, persists. CXR nonfocal, UA neg/contaminated with epi cells with GPCs on culture but no nitrates LE or WBC, resp biofire neg procalcitonin normal repeat UA - has pires at this time - remains concerning for UTI and E. faecalis from culture on admission -amoxicillin x 7 days (3) (HFpEF) heart failure with preserved ejection fraction: Plan: see above (4) Atrial fibrillation: Plan: History of per chart Not on anticoagulation. In NSR so far this admission with PVCs on my tele review (5) Morbid obesity with BMI of 45.0-49.9, adult: Plan: Complications of GABRIELLE/OHS, DM type 2, LE venous stasis, hepatic steatosis (6) Severe obstructive sleep apnea: Plan: Continue nocturnal Bipap (settings 18/12) for GABRIELLE/OHS His home CPAP is broken, care coord left msg with [facility] (7) Obesity hypoventilation syndrome: (8) T2DM (type 2 diabetes mellitus): Plan: A1c 6.6% fall 2022, no primary care visits since then. will repeat (9) Rheumatoid arthritis: Plan: said to have this per chart but not on RA meds and no joint inflammation/deformities Plan BPH - dutasteride DVT ppx: bid SQ heparin Admission and Anticipated Discharge Date Admission Date: July 31, 2023 Subjective HE wants to go home, denies shortness of breath Said he has home O2 (but his called and said he does not - care coord said same thing, only CPAP at home) His CPAP is broken - we left message with his O2 supply company, [employer] Remains on O2, 2-3L not much diuresis on bumex 1 IV bid Physical Exam 2 Physical Exam: PHYSICAL EXAMINATION Last 24h vital signs reviewed, see documentation in flowsheet General: awake and alert HEENT: Normocephalic, atraumatic, pupils round and equal, sclerae anicteric, no conjunctival injection, moist mucus membranes Lungs: normal respiratory effort. clear anteriorly, bibasilar crackles Heart: Regular rate and rhythm, no murmurs. Abdomen: Soft, nontender, nondistended. Bowel sounds present. Abd wall edema improved. Severe edema near groin Extremities: Warm, dry, well-perfused. 3+ lower extremity edema. to above knees unchanged today Neuro: awake and alert, face symmetric, moves 4 extremities Psych: normal affect and behavior Results & Data Results & Data Vital Signs (Past 12 Hours) Vital Signs Temp Pulse Pulse Resp BP BP Pulse Ox 08/03/23 16:02 78 08/03/23 15:53 36.9 C 92 H 19 163/77 H 90 08/03/23 11:25 36.5 C 69 18 165/63 H 98 08/03/23 08:00 70 08/03/23 07:38 36.5 C 59 L 19 153/81 H 98 08/03/23 07:30 O2 Del Method O2 Flow Rate 08/03/23 16:02 08/03/23 15:53 Nasal Cannula 2 08/03/23 11:25 Nasal Cannula 3 08/03/23 08:00 08/03/23 07:38 Nasal Cannula 3 08/03/23 07:30 Nasal Cannula 3 Laboratory Results 08/03/23 08:09 08/03/23 08:09 PG Care Time/CCT Total # of Minutes Spent Total Time Spent with Patient: I personally spent: 50 minutes today on clinical care activities including: reviewing chart notes and vital signs reviewing labs reviewing notes in old chart discussion with career development coordinator examining and counseling the patient counseling the patient's family writing orders documentation Coding Level of Care Code 53393 SUB INP/OBS CARE 3/50MIN Diagnoses Acute on chronic diastolic (congestive) heart failure I50.33 Leukocytosis D72.829 (HFpEF) heart failure with preserved ejection fraction I50.30 Atrial fibrillation I48.91 Morbid obesity with BMI of 45.0-49.9, adult E66.01; Z68.42 Severe obstructive sleep apnea G47.33 Obesity hypoventilation syndrome E66.2 T2DM (type 2 diabetes mellitus) E11.9 Rheumatoid arthritis M06.9
[2023-08-03] MEDS: MAGNESIUM SULFATE / D5W 1 GM/100 ML BAG IV SCH (17:37)
[2023-08-03] MEDS: BUMETANIDE 1 MG in SYRINGE 0 ML IV SCH (17:37)
[2023-08-04] MEDS: HYDROCODONE/ACETAMOPHEN 5/325MG TAB PO PRN (02:17)
[2023-08-04] MEDS: BUMETANIDE 2 MG in SYRINGE 0 ML IV SCH (08:00)
--- NOTE | 2023-08-04 14:54 | Hospitalist Progress Note ---
Date of Service August 04, 2023 Assessment & Plan (1) Acute on chronic diastolic (congestive) heart failure: Plan: 72 y/o with HFpEF, GABRIELLE/OHS, DM type 2 admitted with dyspnea. Severely hypertensive and dyspneic in ED with acute respiratory failure, treated with nitro paste, IV diuretics, Bipap. Weight up 20 kg since last admission in February, BNP 500s, and CXR with pulmonary edema Reviewed outpatient rx database has not filled any bumex for several months, so not taking at home or not taking regularly. I talked to his Haydee by phone 08/02 and she said he didn't take his diuretic for five days prior to admission, but she generally doesn't know what meds he takes. He said "I don't know why, I guess I forgot" when asked. -initially diuresed too fast on bumex 2 IV bid had bump in Cr and low BP that resolved with holding -continue holding lisinopril until renal function more stable, use hydralazine meanwhile -stop amlodipine which may be exacerbating severe edema. replacing with carvedilol or metoprolol after IV diuresis -continue bumex 2 mg IV in AM and 1 mg IV in afternoon. (1 bid not effective but 2 IV bid too much, previous admission 2 po bid resulted in diuresis and 2 po qAM resulted in stability). Prefer once a day diuretics for discharge since he is noncompliant and unlikely to ever take afternoon doses. -AM labs BMP, CBC - often refuses, reordered this afternoon -mediset or blister pack would likely be helpful for his meds and keeping everything once a day dosing if possible. Discussed with development geologist - will check with his pharmacy/insurance (2) Leukocytosis: Plan: WBC 15K in ED, persists. CXR nonfocal, UA neg/contaminated with epi cells with GPCs on culture but no nitrates LE or WBC, resp biofire neg procalcitonin normal repeat UA - has pires at this time - remains concerning for UTI and E. faecalis from culture on admission -amoxicillin x 7-10 days (3) (HFpEF) heart failure with preserved ejection fraction: Plan: see above (4) Atrial fibrillation: Plan: History of per chart Not on anticoagulation. In NSR so far this admission with PVCs on my tele review through 08/03 (5) Morbid obesity with BMI of 45.0-49.9, adult: Plan: Complications of GABRIELLE/OHS, DM type 2, LE venous stasis, hepatic steatosis (6) Severe obstructive sleep apnea: Plan: Continue nocturnal Bipap (settings 14/04) for GABRIELLE/OHS His home CPAP is broken, care coord left msg with [facility] (7) Obesity hypoventilation syndrome: (8) T2DM (type 2 diabetes mellitus): Plan: A1c 6.6% fall 2022, no primary care visits since then. Now 7.2 -start metformin. extremely unlikely to check BG at home (9) Rheumatoid arthritis: Plan: said to have this per chart but not on RA meds and no joint inflammation/deformities Plan BPH - dutasteride DVT ppx: bid SQ heparin Admission and Anticipated Discharge Date Admission Date: July 31, 2023 Subjective appears he refused AM labs again, a constant michael breathing slowly improving still on 2-3L O2 lower pannus edema improved Physical Exam Physical Exam: PHYSICAL EXAMINATION Last 24h vital signs reviewed, see documentation in flowsheet General: awake and alert sitting up in chair HEENT: Normocephalic, atraumatic, pupils round and equal, sclerae anicteric, no conjunctival injection, moist mucus membranes Lungs: normal respiratory effort. clear anteriorly, bibasilar crackles unchanged Heart: Regular rate and rhythm, no murmurs. Abdomen: Soft, nontender, nondistended. Bowel sounds present. Abd wall edema improved. lower pannus/groin edema still severe but improved Extremities: Warm, dry, well-perfused. 3+ lower extremity edema. to above knees unchanged to slightly better today Neuro: awake and alert, face symmetric, moves 4 extremities, no asterixis Psych: normal affect and behavior Results & Data Results & Data Vital Signs (Past 12 Hours) Vital Signs Temp Pulse Pulse Resp BP BP Pulse Ox 08/04/23 14:45 102 H 26 H 154/88 H 94 08/04/23 11:16 36.4 C L 70 23 156/108 H 90 08/04/23 07:30 74 08/04/23 07:30 08/04/23 07:17 36.4 C L 84 26 H 143/87 H 97 08/04/23 02:58 36.4 C L 77 25 H 143/67 H 96 O2 Del Method O2 Flow Rate 08/04/23 14:45 Nasal Cannula 08/04/23 11:16 Nasal Cannula 08/04/23 07:30 08/04/23 07:30 Nasal Cannula 3 08/04/23 07:17 Nasal Cannula 08/04/23 02:58 Nasal Cannula PG Care Time/CCT Total # of Minutes Spent Total Time Spent with Patient: Total time spent is greater than 50% in coordination of care (as documented) at patient's floor/unit and/or counseling patient: Coding Level of Care Code 99718 SUB INP/OBS CARE 2/35MIN Diagnoses Acute on chronic diastolic (congestive) heart failure I50.33 Leukocytosis D72.829 (HFpEF) heart failure with preserved ejection fraction I50.30 Atrial fibrillation I48.91 Morbid obesity with BMI of 45.0-49.9, adult E66.01; Z68.42 Severe obstructive sleep apnea G47.33 Obesity hypoventilation syndrome E66.2 T2DM (type 2 diabetes mellitus) E11.9 Rheumatoid arthritis M06.9
[2023-08-04 16:06] LABS: Calcium 8.6 mg/dl (8.6-10.3); Potassium 4.5 mmol/L (3.5-5.1)
[2023-08-04 16:09] LABS: BUN Creatinine Ratio 15.9 (10-20); Creatinine Clr Calc Pharmacy 54.2 ml/min; Est GFR (African American) 52.4 ml/min; Est GFR (Non-African American) 45.2 ml/min
--- NOTE | 2023-08-04 16:26 | Communication Note ---
Date of Service: August 04, 2023 Cr increased to 1.5 When WET his baseline has been below 1, however, 1.2-1.4 may be more realistic with reasonable volume status Stopped afternoon bumex dose Held AM 2 mg dose Changed labs for tomorrow for 10 AM. Seems to be better success getting him to allow labs later in day.
[2023-08-05] MEDS: metFORMIN HCL ER 500 MG TABCR PO SCH (08:49)
[2023-08-05] MEDS ORDERED: POTASSIUM CHLORIDE CRTAB 20 MEQ TABCR PO SCH (09:00)
--- NOTE | 2023-08-05 15:38 | Hospitalist Progress Note ---
Date of Service August 05, 2023 Assessment & Plan (1) Acute on chronic diastolic (congestive) heart failure: Plan: improving did have rise in creatinine yesterday - diuretics placed on hold repeat Creatinine today 1.2 -- thus, will give 2mg of bumex IV x 1 now I counseled him that we need to obtain blood work on a near-daily basis due to the use of diuretics and his sensitivity to such (2) Leukocytosis: Plan: initially thought 2nd to UTI but despite adequate Rx his wbc count remains elevated has been elevated chronically for some time with next blood draw obtain peripheral smear (3) (HFpEF) heart failure with preserved ejection fraction: Plan: see above #1 (4) Atrial fibrillation: Plan: PAF, per his chart not on chronic anticoagulation in NSR since admission cont tele (5) Morbid obesity with BMI of 45.0-49.9, adult: Plan: BMI 46 (6) Severe obstructive sleep apnea: Plan: Continue nocturnal BiPAP (settings /) for GABRIELLE/OHS His home CPAP is apparently broken? waiting to hear back from [facility] re: such (7) Obesity hypoventilation syndrome: Plan: VBG checked - has compensated hypercapnia Cont BiPAP with sleep (8) T2DM (type 2 diabetes mellitus): Plan: A1c 7.2% Metformin 500mg daily started; caution with fluctuating creatinine cont BSG checks, DM diet, etc (9) Rheumatoid arthritis: Plan: per his chart, but not on meds for such (10) BPH w urinary obs/LUTS: Plan: cont finasteride daily (11) Hypertension: Plan: uncontrolled increase hydralazine to 50mg TID amlodipine stopped due to chronic edema SOBEIDA on hold due to recently elevated Creatinine (12) Acute hypoxic respiratory failure: Plan: 2nd to #1 improving wean O2 as tolerated (13) UTI (urinary tract infection): Plan: 2nd enterococcus cont amox Rx at least 7-10 days Plan DVT proph - heparin SC PT, OT aide Admission and Anticipated Discharge Date Admission Date: July 31, 2023 Subjective tele with NSR overnight pt sitting in chair during the visit he seemed confused, sometimes staring across the room, sometimes taking a while to answer questions he states he uses 2 L of [place] O2 at home I looked back at his records -- in 02/2023 I discharged him to home and he was not on oxygen at that time he has been refusing labs all day today stating "they can't get it" and he doesn't want to be stuck again I offered him EMLA cream prior to being stuck for blood to make it more comfortable when asked about his breathing he stated it was better Review of Systems Review of Systems: Unobtainable due to cognitive status Physical Exam Physical Exam: gen - morbidly obese, sitting in chair, ?confused neck - mild JVD sitting upright mouth - MMM heart - RRR, s1 s2, no obvious murmur lungs - b/l basilar rales abd - soft NT ND BS+ ext - 1-2+ edema b/l, pulses 2+ b/l neuro - no asterixis Results & Data Results & Data Vital Signs (Past 12 Hours) Vital Signs Temp Pulse Pulse Resp BP Pulse Ox O2 Del Method 08/05/23 15:11 66 08/05/23 12:02 36.6 C 70 28 H 154/91 H 98 Nasal Cannula 08/05/23 07:47 81 08/05/23 07:45 Nasal Cannula 08/05/23 07:34 36.5 C 85 22 150/79 H 91 Nasal Cannula O2 Flow Rate 08/05/23 15:11 08/05/23 12:02 08/05/23 07:47 08/05/23 07:45 3 08/05/23 07:34 Laboratory Results Laboratory Results - last 24 hr 08/05/23 19:48 WBC 15.26 H RBC 3.84 L Hgb 10.4 L Hct 33.7 L MCV 87.8 MCH 27.1 MCHC 30.9 L RDW Std Deviation 54.9 H RDW Coeff of Darian 17.3 H Plt Count 353 MPV 10.7 VBG pH 7.45 H VBG pCO2 64 H VBG pO2 51 VBG HCO3 45 VBG O2 Saturation 79.9 VBG Base Excess 17.0 Sodium 137 Potassium 4.9 Chloride 95 L Carbon Dioxide 38 H Anion Gap 4 BUN 26 H Creatinine 1.21 D Est Cr Clr Drug Dosing 67.1 Est GFR ( Amer) 68.4 Est GFR (Non-Af Amer) 59.0 BUN/Creatinine Ratio 21.5 H Glucose 141 H Calcium 8.9 Magnesium 1.9 Ammonia 39.0 PG Care Time/CCT Total # of Minutes Spent Total Time Spent with Patient: Total time spent is greater than 50% in coordination of care (as documented) at patient's floor/unit and/or counseling patient: Coding Level of Care Code 34730 SUB INP/OBS CARE 350MIN Diagnoses Acute on chronic diastolic (congestive) heart failure I50.33 Leukocytosis D72.829 (HFpEF) heart failure with preserved ejection fraction I50.30 Atrial fibrillation I48.91 Morbid obesity with BMI of 45.0-49.9, adult E66.01; Z68.42 Severe obstructive sleep apnea G47.33 Obesity hypoventilation syndrome E66.2 T2DM (type 2 diabetes mellitus) E11.9 Rheumatoid arthritis M06.9 BPH w urinary obs/LUTS N40.1; N13.8 Essential hypertension I10 Hypertension type: essential hypertension Acute hypoxic respiratory failure J96.01 UTI (urinary tract infection) N39.0 (11) Hypertension Hypertension type: essential hypertension Qualified Code(s): I10 - Essential (primary) hypertension
[2023-08-05] MEDS: LIDOCAINE/PRILOCAINE 2.5% EA CRM EXT PRN (17:57)
[2023-08-05 20:07] LABS: HCO3 VBG 45 mmol/L; Oxygen Saturation VBG 79.9 %; PCO2 VBG 64 mmHg (38-50); PO2 VBG 51 mmHg; pH VBG 7.45 (7.36-7.41)
[2023-08-05] MEDS: hydrALAZINE TAB 50 MG TAB PO SCH (20:19)
[2023-08-05 20:26] LABS: Hematocrit (blood only) 33.7 % (42.0-52.0); Hemoglobin 10.4 g/dl (14.0-18.0); Mean Corpuscular Hemoglobin 27.1 pg (25.0-34.0); Mean Corpuscular Hgb Conc 30.9 g/dL (32.0-36.0); Mean Corpuscular Volume 87.8 fL (80.0-100.0); Mean Platelet Volume 10.7 fL (9.4-12.4); Platelet Count 353 K/uL (130-400); RDW Coefficient of Variation 17.3 % (11.5-14.5); RDW Standard Deviation 54.9 fL (36.4-46.3); Red Blood Count 3.84 M/uL (4.70-6.10); White Blood Count 15.26 K/ul (4.8-10.8)
[2023-08-05 20:38] LABS: BUN Creatinine Ratio 21.5 (10-20); Calcium 8.9 mg/dl (8.6-10.3); Creatinine Clr Calc Pharmacy 67.1 ml/min; Est GFR (African American) 68.4 ml/min; Magnesium 1.9 mg/dl (1.7-2.4); Potassium 4.9 mmol/L (3.5-5.1)
[2023-08-05] MEDS: BUMETANIDE 2 MG in SYRINGE 0 ML IV ONE (21:18)
[2023-08-06] MEDS: BUMETANIDE 2 MG in SYRINGE 0 ML IV ONE (10:01)
[2023-08-06] MEDS: BENZONATATE 100 MG CAPSULE PO SCH (20:38)
[2023-08-06] MEDS: guaiFENesin 600 MG TABCR PO SCH (20:38)
--- NOTE | 2023-08-06 20:40 | Hospitalist Progress Note ---
Date of Service August 06, 2023 Assessment & Plan (1) Acute on chronic diastolic (congestive) heart failure: Plan: improving gave 2mg of bumex IV x 1 last pm will give 2mg of bumex again today I counseled him that we need to obtain blood work on a near-daily basis - MINIMUM QOD - due to the use of diuretics and his sensitivity to such will attempt to get blood work tomorrow (2) Leukocytosis: Plan: initially thought 2nd to UTI but despite adequate Rx his wbc count remains elevated has been elevated chronically for some time with next blood draw obtain peripheral smear (3) (HFpEF) heart failure with preserved ejection fraction: Plan: see above #1 (4) Atrial fibrillation: Plan: PAF, per his chart not on chronic anticoagulation in NSR since admission cont tele (5) Morbid obesity with BMI of 45.0-49.9, adult: Plan: BMI 45 (6) Severe obstructive sleep apnea: Plan: Continue nocturnal BiPAP (settings 14/04) for GABRIELLE/OHS His home unit is apparently broken?? waiting to hear back from [facility] re: such will f/u with [facility] tomorrow (7) Obesity hypoventilation syndrome: Plan: VBG checked - has compensated hypercapnia Cont BiPAP with sleep - encouraged to use such (8) T2DM (type 2 diabetes mellitus): Plan: A1c 7.2% Metformin 500mg daily started; caution with fluctuating creatinine cont BSG checks, DM diet, etc (9) Rheumatoid arthritis: Plan: per his chart, but not on meds for such (10) BPH w urinary obs/LUTS: Plan: cont finasteride daily (11) Hypertension: Plan: uncontrolled increased hydralazine to 50mg TID amlodipine stopped due to chronic edema SOBEIDA on hold due to recently elevated Creatinine could consider coreg 3.125mg BID for additional BP control (12) Acute hypoxic respiratory failure: Plan: 2nd to #1 improving wean O2 as tolerated typically NOT on daytime o2 at home (13) UTI (urinary tract infection): Plan: 2nd enterococcus cont amox Rx at least 7-10 days Plan DVT proph - heparin SC PT, OT add mucinex and scheduled tessalon for cough Admission and Anticipated Discharge Date Admission Date: July 31, 2023 Subjective more awake/alert today did allow blood work late yesterday did not use BIPAP overnight he again states his machine at home is "Broken" breathing improved no new complaints Review of Systems Review of Systems: gen - eating well cv - no chest pain pulm - no dyspnea at rest; c/o cough - asks for medicine for such Physical Exam Physical Exam: gen - morbidly obese, sitting in chair, looks better today neck - no JVD sitting upright today mouth - MMM heart - RRR, s1 s2, no obvious murmur lungs - b/l basilar rales still present, R>L; no wheeze abd - soft NT ND BS+ ext - 1-2+ edema b/l, pulses 2+ b/l Results & Data Results & Data Vital Signs (Past 12 Hours) Vital Signs Temp Pulse Pulse Resp BP BP Pulse Ox 08/06/23 19:00 36.5 C 78 18 164/69 H 97 08/06/23 16:28 36.7 C 79 149/82 H 99 08/06/23 15:36 65 08/06/23 11:03 37.0 C 65 19 130/60 95 O2 Del Method O2 Flow Rate 08/06/23 19:00 Nasal Cannula 08/06/23 16:28 Room Air 2 08/06/23 15:36 08/06/23 11:03 Nasal Cannula 2 PG Care Time/CCT Total # of Minutes Spent Total Time Spent with Patient: Total time spent is greater than 50% in coordination of care (as documented) at patient's floor/unit and/or counseling patient: Coding Level of Care Code 83626 SUB INP/OBS CARE 2/35MIN Diagnoses Acute on chronic diastolic (congestive) heart failure I50.33 Leukocytosis D72.829 (HFpEF) heart failure with preserved ejection fraction I50.30 Atrial fibrillation I48.91 Morbid obesity with BMI of 45.0-49.9, adult E66.01; Z68.42 Severe obstructive sleep apnea G47.33 Obesity hypoventilation syndrome E66.2 T2DM (type 2 diabetes mellitus) E11.9 Rheumatoid arthritis M06.9 BPH w urinary obs/LUTS N40.1; N13.8 Essential hypertension I10 Hypertension type: essential hypertension Acute hypoxic respiratory failure J96.01 UTI (urinary tract infection) N39.0 (11) Hypertension Hypertension type: essential hypertension Qualified Code(s): I10 - Essential (primary) hypertension
[2023-08-07] MEDS: ACETAMINOPHEN 325 MG TAB PO PRN (09:01)
[2023-08-07 11:17] LABS: BUN Creatinine Ratio 21.1 (10-20); Creatinine Clr Calc Pharmacy 70.2 ml/min; Est GFR (African American) 73.5 ml/min; Est GFR (Non-African American) 63.4 ml/min; Magnesium 1.8 mg/dl (1.7-2.4); Potassium 4.8 mmol/L (3.5-5.1)
[2023-08-07] MEDS: BUMETANIDE 2 MG in SYRINGE 0 ML IV ONE (14:31)
--- NOTE | 2023-08-07 19:31 | Hospitalist Progress Note ---
Date of Service August 07, 2023 Assessment & Plan (1) Acute on chronic diastolic (congestive) heart failure: Plan: improving BMP stable today will give 2mg of bumex again today weight decreasing nicely feeling better cause of decompensation - noncompliance with meds, BIPAP at home, etc (2) Leukocytosis: Plan: initially thought 2nd to UTI but despite adequate Rx his wbc count remains elevated has been elevated chronically for some time formal peripheral smear obtained -- no features of myeloproliferative d/o seen per pathology (3) (HFpEF) heart failure with preserved ejection fraction: Plan: see above #1 (4) Atrial fibrillation: Plan: PAF, per his chart not on chronic anticoagulation in NSR since admission cont tele (5) Morbid obesity with BMI of 45.0-49.9, adult: Plan: BMI 45 (6) Severe obstructive sleep apnea: Plan: Continue nocturnal BiPAP (settings 14/04) for GABRIELLE/OHS His home unit is apparently broken?? waiting to hear back from [facility] re: such will f/u with [facility] tomorrow he is willing to try nasal pillows while here will ask respiratory to set up for tonight (7) Obesity hypoventilation syndrome: Plan: VBG checked - has compensated hypercapnia Cont BiPAP with sleep - encouraged to use such - but cont to decline (8) T2DM (type 2 diabetes mellitus): Plan: A1c 7.2% Metformin 500mg daily started; caution with fluctuating creatinine cont BSG checks, DM diet, etc (9) Rheumatoid arthritis: Plan: per his chart, but not on meds for such (10) BPH w urinary obs/LUTS: Plan: cont finasteride daily (11) Hypertension: Plan: uncontrolled increased hydralazine to 50mg TID amlodipine stopped due to chronic edema SOBEIDA on hold due to recently elevated Creatinine could consider coreg 3.125mg BID for additional BP control - will add (12) Acute hypoxic respiratory failure: Plan: 2nd to #1 improving wean O2 as tolerated typically NOT on daytime o2 at home (13) UTI (urinary tract infection): Plan: 2nd enterococcus cont amox Rx at least 7-10 days Plan DVT proph - heparin SC PT, OT updated pt's daughter by phone this evening patient very poor access - send to gen surg post-d/c for consideration of a-port placement? Admission and Anticipated Discharge Date Admission Date: July 31, 2023 Subjective pt did not use BIPAP last night once again he said "I can't use it" when I asked him if he uses his BIPAP at home he said "I was until it broke" he has a full facemask for his BIPAP machine he lost IV access earlier today and has repeatedly refused replacement he wants his pires out breathing is better eating well significant fatigue Review of Systems Review of Systems: cv - no chest pain GI - no abd pain Physical Exam Physical Exam: gen - morbidly obese, sitting in chair, eating his meal neck - no JVD sitting upright mouth - MMM heart - RRR, s1 s2, no obvious murmur lungs - mild b/l basilar rales; no wheeze abd - soft NT ND BS+ ext - 1+ firm edema b/l shins and ankles/feet, pulses 2+ b/l Results & Data Results & Data Vital Signs (Past 12 Hours) Vital Signs Temp Pulse Pulse Resp BP BP Pulse Ox 08/07/23 19:14 36.6 C 81 18 160/81 H 93 08/07/23 16:11 64 08/07/23 15:26 36.7 C 64 20 147/66 H 99 08/07/23 11:18 36.6 C 64 18 131/55 L 96 08/07/23 09:26 54 L 08/07/23 09:00 08/07/23 07:40 36.8 C 73 18 124/76 97 O2 Del Method O2 Flow Rate 08/07/23 19:14 Nasal Cannula 08/07/23 16:11 08/07/23 15:26 Nasal Cannula 2 08/07/23 11:18 Nasal Cannula 2 08/07/23 09:26 08/07/23 09:00 Nasal Cannula, CPAP 2 08/07/23 07:40 Nasal Cannula 2.0 Laboratory Results Laboratory Results - last 24 hr 08/07/23 10:40 Sodium 138 Potassium 4.8 Chloride 96 L Carbon Dioxide 39 H Anion Gap 3 BUN 24 H Creatinine 1.14 Est Cr Clr Drug Dosing 70.2 Est GFR ( Amer) 73.5 Est GFR (Non-Af Amer) 63.4 BUN/Creatinine Ratio 21.1 H Glucose 163 H Calcium 9.0 Magnesium 1.8 PG Care Time/CCT Total # of Minutes Spent Total Time Spent with Patient: Total time spent is greater than 50% in coordination of care (as documented) at patient's floor/unit and/or counseling patient: Coding Level of Care Code 75688 SUB INP/OBS CARE 2/35MIN Diagnoses Acute on chronic diastolic (congestive) heart failure I50.33 Leukocytosis D72.829 (HFpEF) heart failure with preserved ejection fraction I50.30 Atrial fibrillation I48.91 Morbid obesity with BMI of 45.0-49.9, adult E66.01; Z68.42 Severe obstructive sleep apnea G47.33 Obesity hypoventilation syndrome E66.2 T2DM (type 2 diabetes mellitus) E11.9 Rheumatoid arthritis M06.9 BPH w urinary obs/LUTS N40.1; N13.8 Essential hypertension I10 Hypertension type: essential hypertension Acute hypoxic respiratory failure J96.01 UTI (urinary tract infection) N39.0 (11) Hypertension Hypertension type: essential hypertension Qualified Code(s): I10 - Essential (primary) hypertension
[2023-08-07] MEDS: carvediloL 3.125 MG TAB PO SCH (20:47)
[2023-08-08] MEDS: BUMETANIDE 1 MG TAB PO ONE ×2 (08:49→17:50)
[2023-08-08] MEDS: hydrALAZINE HCL 25 MG TAB PO SCH (08:50)
--- NOTE | 2023-08-08 17:04 | Hospitalist Progress Note ---
Date of Service August 08, 2023 Assessment & Plan (1) Acute on chronic diastolic (congestive) heart failure: Plan: improving will give 2mg of bumex this am, 1mg this afternoon feeling better but still volume overloaded cause of decompensation - noncompliance with meds, BIPAP at home, etc (2) Leukocytosis: Plan: initially thought 2nd to UTI but despite adequate Rx his wbc count remains elevated has been elevated chronically for some time formal peripheral smear obtained -- no features of myeloproliferative d/o seen per pathology (3) (HFpEF) heart failure with preserved ejection fraction: Plan: see above #1 (4) Atrial fibrillation: Plan: PAF, per his chart not on chronic anticoagulation in NSR since admission cont tele (5) Morbid obesity with BMI of 45.0-49.9, adult: Plan: BMI 45 (6) Severe obstructive sleep apnea: Plan: is supposed to be on nocturnal BiPAP (settings 14/04) for [facility]ELLE/[facility]HS His home unit is apparently broken?? waiting to hear back from [facility] re: such asked case folder to f/u with [facility] refused BIPAP again last night here (7) Obesity hypoventilation syndrome: Plan: VBG checked - has compensated hypercapnia Cont BiPAP with sleep - encouraged to use such - but cont to decline (8) T2DM (type 2 diabetes mellitus): Plan: A1c 7.2% Metformin 500mg daily started; caution with fluctuating creatinine cont BSG checks, DM diet, etc (9) Rheumatoid arthritis: Plan: per his chart, but not on meds for such (10) BPH w urinary obs/LUTS: Plan: cont finasteride daily (11) Hypertension: Plan: uncontrolled increase hydralazine to 75mg TID amlodipine stopped due to chronic edema SOBEIDA on hold due to recently elevated Creatinine added coreg 3.125mg BID for additional BP control - tolerating (12) Acute hypoxic respiratory failure: Plan: 2nd to #1 improving wean O2 as tolerated typically NOT on daytime o2 at home (13) UTI (urinary tract infection): Plan: 2nd enterococcus finished 7 day course of amox Plan DVT proph - heparin SC PT, OT updated pt's daughter by phone yesterday evening patient very poor access - send to gen surg post-d/c for consideration of a-port placement? Admission and Anticipated Discharge Date Admission Date: July 31, 2023 Subjective tele overnight wnl no new complaints anxious to go home refusing BIPAP consistently at bedtime still refusing IV placement states breathing is close to normal Review of Systems Review of Systems: gen - no fevers or chills; eating well cv - no chest pain pulm - cough Physical Exam Physical Exam: gen - morbidly obese, sitting in chair neck - no JVD sitting upright mouth - MMM heart - RRR, s1 s2, no obvious murmur lungs - ongoing mild b/l basilar rales; no wheeze abd - soft NT ND BS+ ext - 1+ firm edema b/l shins and ankles/feet - unchanged; pulses 2+ b/l Results & Data Results & Data Vital Signs (Past 12 Hours) Vital Signs Temp Pulse Pulse Resp BP Pulse Ox O2 Del Method 08/08/23 15:26 36.7 C 63 19 143/86 H 96 Nasal Cannula 08/08/23 11:01 36.3 C L 64 20 149/65 H 96 Nasal Cannula 08/08/23 09:31 53 L 08/08/23 08:01 Nasal Cannula, CPAP 08/08/23 07:35 36.6 C 67 20 166/84 H 96 Nasal Cannula O2 Flow Rate 08/08/23 15:26 2 08/08/23 11:01 2 08/08/23 09:31 08/08/23 08:01 2 08/08/23 07:35 2 PG Care Time/CCT Total # of Minutes Spent Total Time Spent with Patient: Total time spent is greater than 50% in coordination of care (as documented) at patient's floor/unit and/or counseling patient: Coding Level of Care Code 12130 SUB INP/OBS CARE 2/35MIN Diagnoses Acute on chronic diastolic (congestive) heart failure I50.33 Leukocytosis D72.829 (HFpEF) heart failure with preserved ejection fraction I50.30 Atrial fibrillation I48.91 Morbid obesity with BMI of 45.0-49.9, adult E66.01; Z68.42 Severe obstructive sleep apnea G47.33 Obesity hypoventilation syndrome E66.2 T2DM (type 2 diabetes mellitus) E11.9 Rheumatoid arthritis M06.9 BPH w urinary obs/LUTS N40.1; N13.8 Essential hypertension I10 Hypertension type: essential hypertension Acute hypoxic respiratory failure J96.01 UTI (urinary tract infection) N39.0 (11) Hypertension Hypertension type: essential hypertension Qualified Code(s): I10 - Essential (primary) hypertension
[2023-08-09 12:53] LABS: BUN Creatinine Ratio 22.7 (10-20); Calcium 9.2 mg/dl (8.6-10.3); Creatinine Clr Calc Pharmacy 61.1 ml/min; Est GFR (African American) 61.6 ml/min; Est GFR (Non-African American) 53.1 ml/min; Potassium 4.9 mmol/L (3.5-5.1)
[2023-08-09] MEDS: BUMETANIDE 1 MG TAB PO ONE (14:52)
--- NOTE | 2023-08-09 19:03 | Hospitalist Progress Note ---
Date of Service August 09, 2023 Assessment & Plan (1) Acute on chronic diastolic (congestive) heart failure: Plan: improving will give 2mg of bumex today difficult to tell if he is still decompensated has LE edema but lungs are relatively clear re-eval tomorrow cont low-dose coreg cause of decompensation - noncompliance with meds, BIPAP at home, etc (2) Leukocytosis: Plan: initially thought 2nd to UTI but despite adequate Rx his wbc count remains elevated has been elevated chronically for several years in 2019 had flow cytometry - ordered by Dr Kevin Godoy from oncology I don't see he had f/u for this since then formal peripheral smear obtained this admission -- no features of myeloproliferative d/o seen per pathology will repeat a flow cytometry given the persistent leukocytosis (3) (HFpEF) heart failure with preserved ejection fraction: Plan: see above #1 (4) Atrial fibrillation: Plan: PAF, per his chart not on chronic anticoagulation in NSR since admission cont tele cont low-dose coreg (5) Morbid obesity with BMI of 45.0-49.9, adult: Plan: BMI 45 (6) Severe obstructive sleep apnea: Plan: is supposed to be on nocturnal BiPAP (settings /) for [facility] His home unit is apparently broken?? manager of case were in touch with [facility] to [facility] this with pt and his family refused BIPAP again last night here (7) Obesity hypoventilation syndrome: Plan: VBG checked - has compensated hypercapnia Cont BiPAP with sleep - encouraged to use such - but cont to decline (8) T2DM (type 2 diabetes mellitus): Plan: A1c 7.2% Metformin 500mg daily started; caution with fluctuating creatinine cont BSG checks, DM diet, etc at discharge increase to 500mg BID as AM BSG is still elevated (9) Rheumatoid arthritis: Plan: per his chart, but not on meds for such (10) BPH w urinary obs/LUTS: Plan: cont finasteride daily (11) Hypertension: Plan: uncontrolled increased hydralazine to 75mg TID amlodipine stopped due to chronic edema SOBEIDA on hold due to fluctuating Creatinine added coreg 3.125mg BID for additional BP control - tolerating without significant bradycardia (12) Acute hypoxic respiratory failure: Plan: 2nd to #1 improving wean O2 as tolerated typically NOT on daytime o2 at home -- just prn ? (13) UTI (urinary tract infection): Plan: 2nd enterococcus finished 7 day course of amox (14) Ambulatory dysfunction: Plan: PT notes state he walked about 20 feet spoke with daughter - she reports his mobility has gotten quite poor last few years will check CT head and CT lumbar spine to ensure no chronic process is interfering with his walking Plan DVT proph - heparin SC PT, OT updated pt's daughter by phone again this evening discussed potential discharge on 08/09 patient very poor access - send to gen surg post-d/c for consideration of a-port placement? Admission and Anticipated Discharge Date Admission Date: July 31, 2023 Subjective no events overnight sitting in chair asks about discharge frustrated by being here, needing blood work, etc refusing BIPAP at hs per staff states edema is worse than usual but then later stated it was near his baseline edema? denies any dyspnea cough just about resolved eating well Review of Systems Review of Systems: cv - no chest pain pulm - no wheezing GI - no abd pain or N/V Physical Exam Physical Exam: gen - morbidly obese, sitting in chair, NAD, no cough today neck - no JVD sitting upright mouth - MMM heart - RRR, s1 s2, no obvious murmur lungs - mild rales R base, minimal/scant rales L base; no wheeze; no increased work of breathing abd - soft NT ND BS+ ext - 1-2+ firm edema b/l shins and ankles/feet - unchanged; pulses 2+ b/l Results & Data Results & Data Vital Signs (Past 12 Hours) Vital Signs Temp Pulse Pulse Resp BP Pulse Ox O2 Del Method 08/09/23 16:15 95 Room Air 08/09/23 15:16 36.4 C L 62 20 144/66 H 99 Nasal Cannula 08/09/23 14:42 58 L 08/09/23 10:58 36.4 C L 71 19 140/68 96 Nasal Cannula 08/09/23 07:59 Nasal Cannula 08/09/23 07:35 36.7 C 57 L 19 132/74 99 Nasal Cannula O2 Flow Rate 08/09/23 16:15 08/09/23 15:16 08/09/23 14:42 08/09/23 10:58 2 08/09/23 07:59 2 08/09/23 07:35 2 Laboratory Results Laboratory Results - last 24 hr 08/09/23 08/09/23 12:10 13:18 Sodium 138 Potassium 4.9 Chloride 97 L Carbon Dioxide 35 H Anion Gap 6 BUN 30 H Creatinine 1.32 Est Cr Clr Drug Dosing 61.1 Est GFR ( Amer) 61.6 Est GFR (Non-Af Amer) 53.1 BUN/Creatinine Ratio 22.7 H Glucose 159 H Calcium 9.2 Flow Cytometry Comment Pending PG Care Time/CCT Total # of Minutes Spent Total Time Spent with Patient: Total time spent is greater than 50% in coordination of care (as documented) at patient's floor/unit and/or counseling patient: Coding Level of Care Code 85395 SUB INP/OBS CARE 2/35MIN Diagnoses Acute on chronic diastolic (congestive) heart failure I50.33 Leukocytosis D72.829 (HFpEF) heart failure with preserved ejection fraction I50.30 Atrial fibrillation I48.91 Morbid obesity with BMI of 45.0-49.9, adult E66.01; Z68.42 Severe obstructive sleep apnea G47.33 Obesity hypoventilation syndrome E66.2 T2DM (type 2 diabetes mellitus) E11.9 Rheumatoid arthritis M06.9 BPH w urinary obs/LUTS N40.1; N13.8 Essential hypertension I10 Hypertension type: essential hypertension Acute hypoxic respiratory failure J96.01 UTI (urinary tract infection) N39.0 Ambulatory dysfunction R26.2 (11) Hypertension Hypertension type: essential hypertension Qualified Code(s): I10 - Essential (primary) hypertension
[2023-08-10] MEDS: MELATONIN 3 MG TAB PO PRN (02:08)
--- NOTE | 2023-08-10 07:05 | Ultrasound Report ---
BILATERAL LOWER EXTREMITY VENOUS DOPPLER HISTORY: Acute pain and swelling of the lower legs severe edema, sedentary/immobile; r/o DVT COMPARISON STUDY: 02/25/2023 FINDINGS: Limited exam secondary to patient body habitus, patient condition and subcutaneous edema. P atient refused compressibility. As visualized, there is normal flow within the bilateral lower extrem ity deep venous systems. IMPRESSION: No DVT within the right or left lower extremity. ACT 112: Negative or not required by law. Electronically signed by: Live Hill M.D. 08/10/2023 7:03 AM
[2023-08-10] MEDS: BUMETANIDE 1 MG TAB PO ONE ×2 (11:24→12:01)
--- NOTE | 2023-08-10 12:01 | Hospitalist Progress Note ---
Date of Service August 10, 2023 Assessment & Plan (1) Right hip pain: Plan: x 48 hours 2nd intrinsic hip disease (OA vs infection vs other) vs extrinsic factors - including but not limited to psoas abscess or fluid collection vs subacute fracture vs other check x-rays of R hip check CT of pelvis w/o contrast - r/o psoas abscess, other pathology of right hip region check CT of lumbar spine - rule out radiculopathy contributing to the right groin pain tylenol prn (2) Acute on chronic diastolic (congestive) heart failure: Plan: likely approaching euvolemia although he has LE edema his lungs are clear today does not need O2 at rest will give 1mg of bumex today cont low-dose coreg cause of decompensation - noncompliance with meds, BIPAP at home, etc (3) Leukocytosis: Plan: initially thought 2nd to UTI but despite adequate Rx his wbc count remains elevated has been elevated chronically for several years in 2019 had flow cytometry - ordered by Dr Kevin Godoy from oncology I don't see he had f/u for this since then formal peripheral smear obtained this admission -- no features of myeloproliferative d/o seen per pathology will repeat a flow cytometry given the persistent leukocytosis - dispatched & pending (4) (HFpEF) heart failure with preserved ejection fraction: Plan: see above #1 (5) Atrial fibrillation: Plan: history of PAF, per his chart not on chronic anticoagulation in NSR since admission cont tele cont low-dose coreg (6) Morbid obesity with BMI of 45.0-49.9, adult: Plan: BMI 45 (7) Severe obstructive sleep apnea: Plan: is supposed to be on nocturnal BiPAP (settings 14/04) for [facility] His home unit is apparently broken?? therapeutic case manager [facility] to address this with pt and his family refused BIPAP again last night here (8) Obesity hypoventilation syndrome: Plan: VBG checked - has compensated hypercapnia BiPAP with sleep - encouraged to use such but refusing to wear here (9) T2DM (type 2 diabetes mellitus): Plan: A1c 7.2% Metformin 500mg daily started; caution with fluctuating creatinine cont BSG checks, DM diet, etc at discharge increase to 500mg BID as AM BSG is still elevated (10) Rheumatoid arthritis: Plan: per his chart, but not on meds for such (11) BPH w urinary obs/LUTS: Plan: cont finasteride daily no issues (12) Hypertension: Plan: improved with increased hydralazine dose of 75mg TID amlodipine stopped due to chronic edema SOBEIDA on hold due to fluctuating Creatinine added coreg 3.125mg BID for additional BP control - tolerating without significant bradycardia (13) Acute hypoxic respiratory failure: Plan: 2nd to #1 resolved NC O2 weaned off during the daytime, but should use with sleep (14) UTI (urinary tract infection): Plan: 2nd enterococcus finished 7 day course of amox (15) Ambulatory dysfunction: Plan: PT notes state he walked about 20 feet spoke with daughter - she reports his mobility has gotten quite poor last few years advised checking CT head and CT lumbar spine to ensure no chronic process is interfering with his walking refused the CTs overnight he is agreeable, however, to imaging of the right hip will get hip and l-spine imaging Plan DVT proph - heparin SC PT, OT updated pt's daughter by phone yesterday evening ; will attempt again later tonight was anticipating d/c to home today but patient declined discharge due to right groin pain await imaging of right hip and go from there patient very poor access - send to gen surg post-d/c for consideration of a-port placement? Admission and Anticipated Discharge Date Admission Date: July 31, 2023 Subjective tele overnight - NSR, PACs, PVCs, occasional ventricular bigem did not use BIPAP overnight when I walked into his room he stated he wasn't ready to go home reports R groin pain - started mildly about 2 days ago, got worse overnight flexing the hip makes the pain worse denies any paresthesias of either leg denies any current back pain no pain on lateral aspect of right thigh denies any dyspnea at rest eating well Review of Systems Review of Systems: gen - no fevers or chills cv - no chest pain pulm - cough is resolved GI - no abd pain or N/V Physical Exam Physical Exam: gen - morbidly obese, sitting at side of bed, NAD neck - no JVD sitting upright at 90 degrees mouth - MMM heart - RRR, s1 s2, no obvious murmur lungs - essentially CTA b/l; no rales abd - soft NT ND BS+ ext - 1+ firm edema b/l shins and ankles/feet; pulses 2+ b/l musculo - no tenderness to palpation over the l-spine or the paraspinal regions b/l; no tenderness to palpation over the right trochanter; patient has pain/tenderness in the right groin with active and passive flexion of right hip; no pain with knee extension b/l; strength 5/5 x all muscle groups of legs; DTRs 2+ patellar b/l; 0 achilles b/l Results & Data Results & Data Vital Signs (Past 12 Hours) Vital Signs Temp Pulse Pulse Resp BP BP Pulse Ox 08/10/23 10:27 36.7 C 72 20 140/75 98 08/10/23 09:53 08/10/23 07:55 36.6 C 60 19 151/53 H 95 08/10/23 07:03 58 L 08/10/23 02:55 36.5 C 81 18 148/61 H 98 Pulse Ox O2 Del Method O2 Flow Rate 08/10/23 10:27 Room Air 08/10/23 09:53 95 08/10/23 07:55 Room Air 08/10/23 07:03 08/10/23 02:55 Nasal Cannula 2 PG Care Time/CCT Total # of Minutes Spent Total Time Spent with Patient: Total time spent is greater than 50% in coordination of care (as documented) at patient's floor/unit and/or counseling patient: Coding Level of Care Code 46480 SUB INP/OBS CARE 2/35MIN Diagnoses Right hip pain M25.551 Acute on chronic diastolic (congestive) heart failure I50.33 Leukocytosis D72.829 (HFpEF) heart failure with preserved ejection fraction I50.30 Atrial fibrillation I48.91 Morbid obesity with BMI of 45.0-49.9, adult E66.01; Z68.42 Severe obstructive sleep apnea G47.33 Obesity hypoventilation syndrome E66.2 T2DM (type 2 diabetes mellitus) E11.9 Rheumatoid arthritis M06.9 BPH w urinary obs/LUTS N40.1; N13.8 Essential hypertension I10 Hypertension type: essential hypertension Acute hypoxic respiratory failure J96.01 UTI (urinary tract infection) N39.0 Ambulatory dysfunction R26.2 (12) Hypertension Hypertension type: essential hypertension Qualified Code(s): I10 - Essential (primary) hypertension
--- NOTE | 2023-08-10 18:26 | XRay Report ---
XR hip RT min 2V HISTORY: 72 years-old Male R groin pain, pain with hip flexion; assess OA, Fx acute pain of the righ t hip COMPARISON: CT abdomen and pelvis 02/23/2023 TECHNIQUE: 2 views of the right hip FINDINGS: Limited exam secondary to patient body habitus with overlying pannus. Moderate right hip osteoarthrit is without acute fracture, dislocation or avascular necrosis. Unremarkable soft tissues. Arterial tana cifications. IMPRESSION: No acute fracture or dislocation identified, however the study is limited secondary to pa tient body habitus. ACT 112: Negative or not required by law. The above report was generated using voice recognition software. It may contain grammatical, syntax o r spelling errors. Electronically signed by: Live Hill M.D. 08/10/2023 6:25 PM
--- NOTE | 2023-08-11 09:20 | CT Scan Report ---
CT pelvis wo con CT DOSE: CLINICAL HISTORY: walking issues, R groin pain; R hip OA?psoas mayda? TECHNIQUE: Multiaxial CT images of the pelvis are performed without contrast and reformatted in the s agittal and coronal plane. A dose lowering technique was utilized adhering to the principles of SIMONA Alejandre. COMPARISON STUDY: Right hip radiograph 08/10/2023. FINDINGS: No fracture or dislocation within the pelvis or hips. Mild degenerative changes within the bilateral hips and sacroiliac joints. The sacrum is intact. Severe facet degenerative changes at L5-S 1 and moderate facet degenerative changes at L4-L5. Presacral soft tissues are intact. No evidence fo r a pelvic hematoma. Specifically, there is no evidence for a psoas hematoma. Skin thickening and sub cutaneous fat stranding within the lower pannus suggestive of a mild cellulitis. No fluid collections identified. A few borderline enlarged bilateral inguinal lymph nodes. This may be reactive to the andrews spected mild cellulitis. The prostate gland is mildly enlarged. No pelvic free fluid. Partially visua lized 4 cm hypodense lesion within the right kidney. This favors a cyst. Colonic diverticulosis. No e vidence for acute diverticulitis. IMPRESSION: 1. No fracture or dislocation within the pelvis or hips. 2. 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 3. Skin thickening and subcutaneous fat stranding within the lower pannus suggestive of a cellulitis. This may account for the prominent bilateral inguinal lymph nodes. 4. Additional findings as described above. ACT 112: Negative or not required by law. Electronically signed by: Karlo Garcia M.D. 08/11/2023 9:18 AM
[2023-08-11 09:45] LABS: BUN Creatinine Ratio 25.9 (10-20); Calcium 9.2 mg/dl (8.6-10.3); Est GFR (African American) 59.9 ml/min; Est GFR (Non-African American) 51.7 ml/min; Potassium 4.4 mmol/L (3.5-5.1)
[2023-08-11] MEDS: BUMETANIDE 1 MG TAB PO ONE (11:21)
--- NOTE | 2023-08-11 11:29 | CT Scan Report ---
LUMBAR SPINE CT WITHOUT CONTRAST CLINICAL HISTORY: weakness, difficulty walking COMPARISON STUDY: Lumbar spine radiographs March 15, 2022. TECHNIQUE: Axial images of the lumbar spine were obtained without IV contrast. Sagittal and coronal r eformats were viewed. Automated exposure control was utilized for the study. A dose lowering techniq ue was utilized adhering to the principles of ALARA. FINDINGS: For purposes of numbering on this exam, the L5-S1 disc space is assigned to axial image 305 of 390. Alignment of the lumbar spine is anatomic with the exception of slight anterolisthesis of L5 on S1. Vertebral body heights are maintained. There is no lumbar spine fracture. There are no osseou s lesions. Paravertebral soft tissues are unremarkable. Moderate elevation right renal lesion were sh own to represent a cyst on prior contrast enhanced CT. Central canal and neural foramen are suboptima lly assessed by CT technique. However, there is no evidence for severe central canal stenosis. There is mild multilevel disc space narrowing and osteophytosis and moderate facet arthrosis within the lum bar spine. IMPRESSION: 1. No lumbar spine fracture or subluxation. 2. Mild multilevel degenerative disc disease and moderate facet arthrosis within the lumbar spine. Magaña boptimal evaluation of the central canal and neural foramen given CT technique. ACT 112: Negative or not required by law. Electronically signed by: Kenroy Kendrick M.D. 08/11/2023 11:27 AM
[2023-08-11] MEDS: metFORMIN HCL ER 500 MG TABCR PO SCH (17:04)
--- NOTE | 2023-08-11 17:44 | Discharge Summary ---
Date of Service August 11, 2023 Admission HPI Per Admitting Provider The patient is a 72-year-old male with past medical history including morbid obesity, chronic diastolic heart failure, atrial fibrillation, BPH with LUTS, severe GABRIELLE, diabetes mellitus type 2, nocturnal hypoxia, rheumatoid arthritis, depression with anxiety. He presents to the emergency department with complaint of worsening shortness of breath, dyspnea exertion and lower extremity edema with past few weeks, in particular worse over the past 24 hours. Chest x-ray and pleural effusions, and patient significant lower extremity edema. Discharge Exam gen - morbidly obese, sitting at side of bed, NAD neck - no JVD sitting upright at 90 degrees mouth - MMM heart - RRR, s1 s2, no obvious murmur lungs - essentially CTA b/l; no rales abd - soft NT ND BS+ ext - 1+ firm edema b/l shins and ankles/feet; pulses 2+ b/l musculo - no tenderness to palpation over the l-spine or the paraspinal regions b/l; no tenderness to palpation over the right trochanter; patient has pain/tenderness in the right groin with active and passive flexion of right hip; no pain with knee extension b/l; strength 5/5 x all muscle groups of legs; DTRs 2+ patellar b/l; 0 achilles b/l Discharge Data Allergies Allergy/AdvReac Type Severity Reaction Status Date / Time No Known Drug Allergies Allergy . Verified 07/31/23 20:47 Consultations 07/31/23 19:44 ED Decision to Admit Stat Ordered Studies 08/09/23 19:15 CT lumbar spine wo con Routine 08/10/23 US venous doppler LE BI Routine 08/10/23 11:50 CT pelvis wo con Routine Hospital Course (1) Right hip pain: x 48 hours 2nd intrinsic hip disease (OA vs infection vs other) vs extrinsic factors - including but not limited to psoas abscess or fluid collection vs subacute fracture vs other check x-rays of R hip check CT of pelvis w/o contrast - r/o psoas abscess, other pathology of right hip region check CT of lumbar spine - rule out radiculopathy contributing to the right groin pain tylenol prn (2) Acute on chronic diastolic (congestive) heart failure: likely approaching euvolemia although he has LE edema his lungs are clear today does not need O2 at rest will give 1mg of bumex today cont low-dose coreg cause of decompensation - noncompliance with meds, BIPAP at home, etc (3) Leukocytosis: initially thought 2nd to UTI but despite adequate Rx his wbc count remains elevated has been elevated chronically for several years in 2019 had flow cytometry - ordered by Dr Kevin Godoy from oncology I don't see he had f/u for this since then formal peripheral smear obtained this admission -- no features of myeloproliferative d/o seen per pathology will repeat a flow cytometry given the persistent leukocytosis - dispatched & pending (4) (HFpEF) heart failure with preserved ejection fraction: see above #1 (5) Atrial fibrillation: history of PAF, per his chart not on chronic anticoagulation in NSR since admission cont tele cont low-dose coreg (6) Morbid obesity with BMI of 45.0-49.9, adult: BMI 45 (7) Severe obstructive sleep apnea: is supposed to be on nocturnal BiPAP (settings 18/12) for GABRIELLE/OHS His home unit is apparently broken?? case picker were in touch with [facility] regarding this issue [facility] to address this with pt and his family refused BIPAP again last night here (8) Obesity hypoventilation syndrome: VBG checked - has compensated hypercapnia BiPAP with sleep - encouraged to use such but refusing to wear here (9) T2DM (type 2 diabetes mellitus): A1c 7.2% Metformin 500mg daily started; caution with fluctuating creatinine cont BSG checks, DM diet, etc at discharge increase to 500mg BID as AM BSG is still elevated (10) Rheumatoid arthritis: per his chart, but not on meds for such (11) BPH w urinary obs/LUTS: cont finasteride daily no issues (12) Hypertension: improved with increased hydralazine dose of 75mg TID amlodipine stopped due to chronic edema SOBEIDA on hold due to fluctuating Creatinine added coreg 3.125mg BID for additional BP control - tolerating without significant bradycardia (13) Acute hypoxic respiratory failure: 2nd to #1 resolved NC O2 weaned off during the daytime, but should use with sleep (14) UTI (urinary tract infection): 2nd enterococcus finished 7 day course of amox (15) Ambulatory dysfunction: PT notes state he walked about 20 feet spoke with daughter - she reports his mobility has gotten quite poor last few years advised checking CT head and CT lumbar spine to ensure no chronic process is interfering with his walking refused the CTs overnight he is agreeable, however, to imaging of the right hip will get hip and l-spine imaging Plan DVT proph - heparin SC PT, OT updated pt's daughter by phone yesterday evening ; will attempt again later brandan was anticipating d/c to home today but patient declined discharge due to right groin pain await imaging of right hip and go from there patient very poor access - send to gen surg post-d/c for consideration of a-port placement? Home Health Attestation I certify that this patient is under my care and that I, or a physicians as sistant working with me, had a face to-face encounter that meets the home health [id number] encounter requirements with this patient. The encounter with the patient was in whole, or in part, for the following medical condition, which is the primary reason for home health care (list medical condition): CHF I certify that, based on my findings, the following services are medically necessary home health services: My clinical findings support the need for the above services because: Daily Weights Home Safety Assessment Hydration / Nutrition Medication Compliance and Monitoring Effective of New Medications OT Assess ADL Status and Restore Function w ADLs PT Eval for Safety, Gait Training, Assistive Devices PT Gait and Balance Training, Strengthening and Safety Safety Skilled Nsg Assessment Skilled Nsg Assess and Instruct on Diet Skilled Nsg Instruction New Medications Skilled Nsg Assess Pt Illness, Disease and Sx Monitoring S/S to Report to Provider Teach on Disease Management and Interventions Vital Signs Further, I certify that my clinical findings support that this patient is homebound (i.e. absences from home require considerable and taxing effort and are for medical reasons or yazdanism services or infrequently or of short duration when for other reasons) because: Transportation Assistance/Unable to Leave Home Unassisted Certification for Home Health Services: Based on the above findings, I certify that this patient is confined to the home and needs intermittent mcfp care, physical therapy and/or speech therapy or continues to need occupational therapy. The patient is under my care, and I have initiated the establishment of the plan of care. This patient will be followed by a physician who will periodically review the plan of care. Discharge Plan Discharge Items Patient Disposition: Home - Home Health Services Reason For Visit: CHF EXACERBATION Discharge Diagnosis: 1. Congestive heart failure (CHF) with resulting fluid build-up - improved 2. Urinary tract infection 3. Sleep apnea 4. High blood pressure 5. Type 2 diabetes 6. Right hip/groin pain - likely due to arthritis of the hip Activity: Resume your previous activity Non-emergency contact: Primary Care Provider and Metalsmith Call non-emergency contact if: you have any medication questions and your symptoms worsen Follow-up/Referrals: Brittaney Dunn DO [Primary Care Provider] - 08/13/23 8:20 am (within 1 week) Vesta Rojas PA-C [Physician Site Director] - (within 1 week for congestive heart failure ) Diet: Carb Consistent or DM2 and Heart Healthy Fluids: 1800ml (7 cups) Addtl Attending Provider Instructions: Mr Triplett, You were hospitalized due to severe fluid weight gain from congestive heart failure. Your weight & fluid improved significantly with use of diuretics (fluid pills). You have lost a significant amount of fluid weight while here. It is likely that your high blood pressure, missing some of your medicines, and not having your CPAP machine for sleep apnea all contributed to the fluid weight-gain. In addition, we treated you for a urinary tract infection with antibiotics. You have mild type 2 diabetes and we have started you on a medicine called metformin for the sugar. You are tolerating this well so far. On 08/10/23 you complained of right groin pain. You have a moderate amount of hip arthritis on the right. I suspect your pain was from the hip. You have mild arthritis of your back but I do not believe this caused your pain. Your hip pain improved relatively fast with pain medicine. RECOMMENDATIONS - 1. take bumetanide 2mg every morning. This is your fluid pill to keep excess fluid out of your system (also known as a diuretic). I have sent a new prescription into the pharmacy for you at [facility]. 2. for high blood pressure we have increased your hydralazine to 100mg twice daily. New prescription sent to your pharmacy for you. 3. we have STOPPED your amlodipine and lisinopril blood pressure medicines due to side effects and other reasons. Do not take these upon return home. 4. for diabetes take metformin XR 500mg with breakfast and 500mg with dinner. Please follow-up with Dr Dunn for your diabetes. Please check your blood sugars in the morning and at bedtime. Write these numbers down in a notebook and show them to Dr Dunn. 5. check your weight EVERY DAY in the morning. Write your weight down in a notebook. If you gain more than 3 pounds in 1-2 days please assume this is fluid weight gain. If this occurs please call Dr Dunn (your family doctor) OR Ms Rojas (congestive heart failure clinic). Do not delay - call one of your doctors right away. 6. We have called [facility] to begin the process of getting your CPAP machine fixed. 7. Use your oxygen 2 liters via nasal cannula while you sleep, while you nap, and when you leave your home. At rest you do not need to wear it. Follow-up - see separate section Return to [facility] if - * you have fevers over 100 degrees * you have worsening shortness of breath * you have chest pains * you have any concerns about your congestive heart failure * any other concerns Take care and continue to feel better! Addtl Label Rewinder Provider Instructions: Call 911 and go to the Emergency Room if: * You have tightness or pain in your chest that does not go away with rest or Nitroglycerin * You are very short of breath even with rest Call your doctor if any of the following symptoms or problems start or get worse: * Shortness of breath or difficulty breathing * Wake up at night short of breath * Chest pain * Cough * Swelling of your hands, fee, or legs * More fatigued or tired with your normal activity * Palpitations - sudden fast heart beats WEIGHT * Weigh yourself every morning after using the bathroom. * Use the same scale. * Wear the same amount of clothing. * Write your weight down on your chart. * Call your doctor if you gain more than 3 pounds in 1-2 days. This is usually the first sign of fluid weight gain from your congestive heart failure. Do not delay - call right away. MEDICATIONS * Use this discharge instruction sheet for instructions. * Take your medications at the time your doctor ordered. * Do not skip a dose of your medicines. * If you miss a dose of medicine, take as soon as possible, but DO NOT DOUBLE A DOSE. * Read your medicine information when you get home. * Know all of the side effects of your medicine. * Call your doctor's office if you have any side effects. * Be sure all of your doctors know what medicine and herbs you take (including cold, flu, and herbal medicine). * Pain Medicine: If you do not get relief from your pain, please call your doctor for help. Take the following with you to your follow-up doctor appointments: * Weight Chart * Medication List * List of questions Do not drink excessive alcohol, beer or wine. Pending Studies at Discharge: No Stand-Alone Forms: My [facility] Appercode, Smoking Cessation Medications and DC Order Prescriptions: New metformin 500 mg Tablet Extended Release 24 Hr 500 mg PO BIDM Qty: 60 1RF Rx Instructions: for diabetes (high sugar) Continued (DME) BATTERY CHECK ON SCOOTER See Rx Instructions .Route .MEDSUPPLY Qty: 1 0RF Rx Instructions: PLEASE GO INTO PATIENT HOME AND CHECK STATUS OF SCOOTER BATTERY FOR PATIENT. atorvastatin 40 mg tablet 40 mg PO DAILY Qty: 100 3RF dutasteride 0.5 mg capsule 0.5 mg PO DAILY Qty: 90 3RF (DME) OneTouch Ultra Test Strip See Rx Instructions .ROUTE .MEDSUPPLY Qty: 100 5RF Rx Instructions: Testing BS daily (DME) blood-glucose meter Kit See Rx Instructions .ROUTE .MEDSUPPLY Qty: 1 0RF Rx Instructions: As directed. DX: E11.9 (DME) lancets 28 gauge misc See Rx Instructions .Route Qty: 100 5RF Rx Instructions: Testing BS daily omeprazole 20 mg capsule,delayed release(DR/EC) 20 mg PO DAILY Qty: 90 3RF (DME) Hospital Bed Misc See Rx Instructions .Route Qty: 1 0RF Rx Instructions: Semi Electric Hospital Bed with Mattress and Side Rails (DME) Lift Chair Misc See Rx Instructions .Route Qty: 1 0RF Rx Instructions: As directed Metamucil 3.4 gram/5.4 gram powder 1 tbsp PO DAILY Qty: 660 0RF Rx Instructions: mix into at least 8 oz of water or juice before administering ascorbic acid (vitamin C) 500 mg capsule 500 mg PO DAILY Qty: 30 5RF [id number]-minerals Tablet 1 tab PO DAILY miconazole nitrate [Desenex] 2 % Powder 1 applic EXT TID Qty: 85 2RF Rx Instructions: apply liberally to groin, under skin folds, scrotal region, etc; use for 7-10 days then stop. Changed hydralazine 100 mg tablet 100 mg PO BID Qty: 60 2RF Rx Instructions: for high blood pressure bumetanide 1 mg tablet 2 mg PO QAM Qty: 60 2RF Rx Instructions: for fluid/swelling Discontinued amlodipine 5 mg tablet 5 mg PO DAILY Qty: 90 3RF lisinopril 40 mg tablet 40 mg PO DAILY Qty: 90 3RF Hold Instructions: hold unless Dr Dunn or the environmental engineering aide states it is OK to resume Discharge Orders: Discharge Order (Routine); Ordered 08/11/23 Ordered By: Arnoldo Gregory/Other Patient Handouts: Heart Failure Meds, Tips for Using Less Salt, What Is Heart Failure, Low-Salt Choices, Heart Failure Flare Up Signs, Heart Failure: Tracking Your Weight, High Blood Sugar (Hyperglycemia), Hypoglycemia (Low Blood Sugar), Managing Type 2 Diabetes, Coping with Heart Failure, Heart Failure Make Changes Diet, Diabetes: Meal Planning Admission Data Admit Date/Time: 07/31/23 20:20 Attending Provider: Arnoldo Mercer Admit Provider: Dirk Ugarte Primary Care Provider: Brittaney Dunn Other Providers: Dirk Ugarte Other Interventions: Discharge Summary Assessment (RN) Last Done: 08/11/23 17:28 Coding Diagnoses Right hip pain M25.551 Acute on chronic diastolic (congestive) heart failure I50.33 Leukocytosis D72.829 (HFpEF) heart failure with preserved ejection fraction I50.30 Atrial fibrillation I48.91 Morbid obesity with BMI of 45.0-49.9, adult E66.01; Z68.42 Severe obstructive sleep apnea G47.33 Obesity hypoventilation syndrome E66.2 T2DM (type 2 diabetes mellitus) E11.9 Rheumatoid arthritis M06.9 BPH w urinary obs/LUTS N40.1; N13.8 Essential hypertension I10 Hypertension type: essential hypertension Acute hypoxic respiratory failure J96.01 UTI (urinary tract infection) N39.0 Ambulatory dysfunction R26.2
== END 2023-08-11 18:15 | disposition home health service (06) | DRG 291 ==
LOC: ED 12:57 → SUATTDRO 20:20 → 2E 20:20

== ENCOUNTER 2023-11-18 10:00 | Inpatient (IN) ==
--- NOTE | 2023-11-18 10:55 | Emergency Department Note ---
Impression & Plan Acute exacerbation of CHF (congestive heart failure) ED Provider Note HISTORY OF PRESENT ILLNESS: Patient is a 72 year old male presenting with lower extremity edema and shortness of breath. Patient reports he has been having progressively worsening symptoms for 3 weeks, but worse in the last 5 days. States that he has had progressively worsening swelling of his legs over that time. Reports he is on Bumex 3 mg and has been making good urine. Denies chest pain. Reports shortness of breath both at rest and with exertion. Patient is on Eliquis. Denies any fevers. Denies any recent sick contact exposures. ROS: as above PHYSICAL EXAM: Constitutional: Patient appears in no acute distress. Morbidly obese HENT: Head: Normocephalic and atraumatic. Eyes: EOMI, PERRL Mouth/Throat: Mucous membranes moist. Neck: Trachea midline. Neck supple. Cardiovascular: RRR, No murmurs, rubs or gallops. Intact distal pulses. Pulmonary/Chest: No respiratory distress. Breath sounds clear and equal bilaterally. No wheezes or rales. Tachypenic. Abdominal: Abdomen soft, no tenderness, rebound or guarding. Musculoskeletal: No tenderness or deformity noted. +3 pitting edema of bilateral lower extremities extending to groins. Skin: Warm and dry. No rash, erythema, pallor or cyanosis Psychiatric: Appropriate mood and affect for situation. Neurological: Alert and keenly responsive. CN II-XII grossly intact, moving all extremities equally and fully. MDM: - Vitals signs showed hypertension, tachycardia and tachypnea. - History obtained via patient. History as above. - Chronic conditions affecting care: HFpEF; morbid obesity; pulmonary edema; Afib; BPH; severe GABRIELLE; DM-2; HTN; HLD; depression/anxiety - Differential diagnoses include, but are not limited to: Congestive heart failure; acute coronary syndrome; COPD/asthma exacerbation; pulmonary edema; pulmonary embolism; pneumonia; pneumothorax; viral syndrome - Order placed for continuous cardiac monitoring. At this time, monitor showed rate of 80 bpm with normal sinus rhythm, per my interpretation. - External medical records reviewed. Discharge summary dated 09/24/2023 was reviewed. summary dated 09/16/2023 was reviewed. Patient was admitted at that time for CHF exacerbation. - EKG interpreted by myself showed normal sinus rhythm. Rate 89 bpm. QT 428. No acute ischemic changes. Noted to have a right bundle branch block. - Laboratory workup interpreted by myself showed leukocytosis (WBC 15.45) with left shift; normal PT/INR; stable electrolytes; normal troponin; elevated BNP (236) - VGB grossly unremarkable - CXR negative for pneumonia, per my interpretation - Given patient's significant lower extremity edema and shortness of breath, 40 mg IV lasix ordered. - Discussion was had with community case manager about patient's case and need for admission - Hospitalist consulted for admission - [facility] ASSESSMENT AND PLAN: Diagnosis: acute CHF exacerbation Plan: admit Past Med/Surg History Problem List (Updated 11/18/23 @ 13:46 by Sendy Stearns MD) Acute exacerbation of CHF (congestive heart failure) (Acute) B12 deficiency Fatigue C. difficile diarrhea Mobitz I Cough Acute metabolic encephalopathy Acute pain of right knee Acute hypercapnic respiratory failure Acute pain of right hip (Acute) Fall (Acute) Pericardial effusion Pulmonary HTN Right hip pain Ambulatory dysfunction Acute hypoxic respiratory failure Acute on chronic heart failure with preserved ejection fraction (HFpEF) Morbid obesity with BMI of 45.0-49.9, adult Pulmonary edema (Acute) (HFpEF) heart failure with preserved ejection fraction Atrial fibrillation Edema of both legs (Acute) Morbid obesity with BMI of 50.0-59.9, adult BPH w urinary obs/LUTS Elevated erythrocyte sedimentation rate (Acute) Elevated C-reactive protein (Acute) Circadian rhythm sleep disorder, advanced sleep phase type Obesity hypoventilation syndrome Severe obstructive sleep apnea Bradycardia Chronic diastolic heart failure Restrictive lung disease Morbid obesity with BMI of 40.0-44.9, adult Leukocytosis History of alcohol abuse T2DM (type 2 diabetes mellitus) Nocturnal hypoxia Allergic rhinitis Venous insufficiency (chronic) (peripheral) Urinary incontinence Strabismic amblyopia, 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 Arthritis Anemia Right bundle branch block (RBBB) (Acute) Rheumatoid arthritis Pes planus Obstructive sleep apnea Internal hemorrhoids Hypertension Hyperlipidemia GERD without esophagitis First degree AV block Depression with anxiety Combined forms of age-related cataract of both eyes Central pterygium of left eye Benign prostatic hyperplasia with urinary obstruction Anatomical narrow angle, bilateral Medical History (Updated 11/18/23 @ 13:46 by Sendy Stearns MD) Obesity hypoventilation syndrome Rectal bleeding Surgical History History of appendectomy History of prostate biopsy Family History Mother Diabetes Hypertension Other Blindness FH: cataracts Family history of blindness Glaucoma History of cataract Denies family history of Ovarian cancer Prostate cancer Myocardial infarction Breast cancer Colorectal cancer Social History Smoking Status: Never smoker Second Hand Exposure: No; Do You Dip or Chew Tobacco: No; Hx Alcohol Use: No Hx Substance Use: No Preferred Language: Kinyarwanda Communication Ability: Effective Visual Impairment: Limited Hearing Ability: Normal 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 Beliefs That Will Affect Care: None marital status: Current Living Situation: Spouse current occupational status: retired Feels Safe at Home: Yes Childhood Exposure to Second-Hand Smoke: No Diet: regular Diet Comment: regular caffeine: No during the past year weight has: remained stable Dental Care, Regularly: No Physical Activity Frequency: Other Physical Activity Frequency Comment: limited by physical condition Seatbelt Use: always Sunscreen Use: No Assistive Devices: Cane, CPAP, Oxygen - Continuous, Scooter/Electric Scooter and Walker Allergies Allergies Allergy/AdvReac Type Severity Reaction Status Date / Time No Known Drug Allergies Allergy . Verified 10/20/23 09:58 Home Meds Home Medications Medication Instructions Recorded Confirmed [id number]-minerals 1 tab PO DAILY 02/24/23 08/27/23 Previous Rx's Medication Instructions Recorded ascorbic acid (vitamin C) 500 mg 500 mg PO DAILY #30 caps 10/30/22 capsule atorvastatin 40 mg tablet 40 mg PO DAILY #100 tabs 02/13/23 omeprazole 20 mg capsule,delayed 20 mg PO DAILY #90 caps 03/13/23 release psyllium husk 3.4 gram/5.4 gram 1 tbsp PO DAILY #660 grams 03/13/23 oral powder (Metamucil) metformin 500 mg tablet,extended 500 mg PO BIDM #60 tabs 08/11/23 release 24 hr ammonium lactate 12 % topical cream 1 applic topical DAILY PRN dry 08/25/23 skin #385 grams acetaminophen 325 mg tablet 650 mg (2 x 325 mg) PO Q4H PRN #1 09/14/23 tab diclofenac sodium 1 % topical gel 2 g EXT TID PRN joint pain #1 tube 09/14/23 (Voltaren Arthritis Pain) hydralazine 50 mg tablet 100 mg (2 x 50 mg) PO TID #90 tabs 09/14/23 ipratropium 0.5 mg-albuterol 3 mg 3 ml NEB QIDR PRN #1 box 09/14/23 (2.5 mg base)/3 mL nebulization soln magnesium oxide 400 mg (241.3 mg 400 mg PO QAM #0 tabs 09/14/23 magnesium) tablet vancomycin 125 mg capsule 125 mg PO Q6H #1 cap 09/14/23 bumetanide 1 mg tablet 3 mg (3 x 1 mg) PO QAM #90 tabs 09/16/23 tramadol 50 mg tablet 50 mg PO Q8H PRN pain #30 tabs 09/16/23 omeprazole 20 mg capsule,delayed 20 mg PO DAILY #30 caps 10/02/23 release betamethasone valerate 0.1 % 1 applic topical BID PRN skin 10/20/23 topical cream irritation #45 grams blood sugar diagnostic (OneTouch #100 ea 10/24/23 Ultra Test strips) apixaban 5 mg tablet (Eliquis) 5 mg PO BID #180 tabs 11/03/23 dutasteride 0.5 mg capsule 0.5 mg PO DAILY #90 caps 11/03/23 Results & Data (ED) Vital Signs Vital Signs - 24 hr 11/18/23 09:36 11/18/23 09:36 11/18/23 09:36 Temperature 36.5 C Temperature Source Oral Pulse Rate 90 Pulse Rate [Apical] Pulse Rhythm Irregular Pulse Rhythm [Apical] Respiratory Rate 30 H Respiratory Effort / Characteristics Short of Breath SOB on Exertion Short of Breath Respiratory Depth Respiratory Pattern Tachypnea Blood Pressure 157/104 H Blood Pressure [Left Arm] Blood Pressure Mean 121 Blood Pressure Mean [Left Arm] Blood Pressure Position [Left Arm] Pulse Oximetry 98 Oxygen Delivery Method Room Air Nasal Cannula Nasal Cannula Oxygen Flow Rate 2 2 Sepsis Recent Fever Within 48 Hours No Sepsis New/Unexplained Change in Mental Status No Sepsis Action Taken by Nursing No Action Required 11/18/23 10:17 11/18/23 10:27 11/18/23 12:49 Temperature Temperature Source Pulse Rate 101 H Pulse Rate [Apical] 89 74 Pulse Rhythm Pulse Rhythm [Apical] Irregular Respiratory Rate 30 H 19 Respiratory Effort / Characteristics Short of Breath Non-Labored Spontaneous Respiratory Depth Normal Respiratory Pattern Blood Pressure Blood Pressure [Left Arm] 148/64 H Blood Pressure Mean Blood Pressure Mean [Left Arm] 92 Blood Pressure Position [Left Arm] Lying Pulse Oximetry 94 95 Oxygen Delivery Method Nasal Cannula Room Air Oxygen Flow Rate 2 Sepsis Recent Fever Within 48 Hours Sepsis New/Unexplained Change in Mental Status Sepsis Action Taken by Nursing 11/18/23 13:20 Temperature Temperature Source Pulse Rate Pulse Rate [Apical] 80 Pulse Rhythm Pulse Rhythm [Apical] Respiratory Rate 20 Respiratory Effort / Characteristics Non-Labored Respiratory Depth Respiratory Pattern Blood Pressure Blood Pressure [Left Arm] 169/67 H Blood Pressure Mean Blood Pressure Mean [Left Arm] 101 Blood Pressure Position [Left Arm] Lying Pulse Oximetry 98 Oxygen Delivery Method Oxygen Flow Rate Sepsis Recent Fever Within 48 Hours Sepsis New/Unexplained Change in Mental Status Sepsis Action Taken by Nursing Laboratory Data 11/18/23 11:07 11/18/23 11:07 Lab Results 11/18/23 11/18/23 Range/Units 11:07 Unknown WBC 15.45 H (4.8-10.8) K/ul RBC 3.50 L (4.70-6.10) M/uL Hgb 10.1 L (14.0-18.0) g/dl Hct 31.8 L (42.0-52.0) % MCV 90.9 (80.0-100.0) fL MCH 28.9 (25.0-34.0) pg MCHC 31.8 L (32.0-36.0) g/dL RDW Std Deviation 60.1 H (36.4-46.3) fL RDW Coeff of Darian 18.3 H (11.5-14.5) % Plt Count 369 (130-400) K/uL MPV 10.5 (9.4-12.4) fL Immature Gran % (Auto) 1.0 % Neut % (Auto) 82.5 % Lymph % (Auto) 6.3 % [place] % (Auto) 7.1 % Eos % (Auto) 2.7 % Baso % (Auto) 0.4 % Neut # (Auto) 12.75 H (1.40-6.50) K/uL Lymph # (Auto) 0.98 L (1.20-3.40) K/uL [place] # (Auto) 1.10 H (0.11-0.59) K/uL Eos # (Auto) 0.41 (0.00-0.50) K/uL Baso # (Auto) 0.06 (0.00-0.20) K/uL Immature Gran # (Auto) 0.15 (0.01-0.20) K/uL PT 11.2 (9.0-12.0) Seconds INR 1.0 (0.9-1.1) VBG pH 7.43 H (7.36-7.41) VBG pCO2 46 (38-50) mmHg VBG pO2 33 mmHg VBG HCO3 31 mmol/L VBG O2 Saturation < 60.0 % VBG Base Excess 5.4 mEq/L Sodium 140 (136-145) mmol/L Potassium 4.2 (3.5-5.1) mmol/L Chloride 103 (98-107) mmol/L Carbon Dioxide 31 (21-32) mmol/L Anion Gap 6 (3-11) BUN 20 (6-23) mg/dl Creatinine 0.93 (0.6-1.4) mg/dl Est Cr Clr Drug Dosing 73.0 ml/min Est GFR ( Amer) 94.1 ml/min Est GFR (Non-Af Amer) 81.2 ml/min BUN/Creatinine Ratio 21.5 H (10-20) Glucose 109 H (70-99(Fasting)) mg/dl Calcium 9.0 (8.6-10.3) mg/dl Magnesium 2.0 (1.7-2.4) mg/dl Total Bilirubin 0.4 (0.2-1.0) mg/dl AST 15 (13-39) U/L ALT 14 (7-52) U/L Alkaline Phosphatase 94 (34-104) U/L Troponin I High Sens 3.0 (0-20) pg/ml B-Natriuretic Peptide 236 H (0-100) pg/ml Total Protein 7.7 (6.0-8.3) gm/dl Albumin 3.7 (3.4-5.0) gm/dl Globulin 4.0 (2.5-4.0) gm/dl Albumin/Globulin Ratio 0.9 (0.9-2) Urine Color Yellow Urine Appearance Clear (Clear) Urine pH 8.5 H (4.5-7.5) Ur Specific [place] 1.010 (1.000-1.030) Urine Protein Negative (Negative) Urine Glucose (UA) Negative (Negative) Urine Ketones Trace H (Negative) Urine Blood Negative (Negative) Urine Nitrite Negative (Negative) Urine Bilirubin Negative (Negative) Urine Urobilinogen Negative (Negative) Ur Leukocyte Esterase Negative (Negative) Administered Medications Discontinued Medications Furosemide (Furosemide 40 Mg/4 Ml Vial) 40 mg IV ONE ONE Stop: 11/18/23 12:22 Last Admin: 11/18/23 13:02 Dose: 40 mg Documented By: HANNAH Imaging Data Radiologist's Impression: Chest X-Ray 11/18/23 10:12 XR chest 1V portable CLINICAL HISTORY: Dyspnea. COMPARISON STUDY: Chest radiograph August 27, 2023. FINDINGS: Cardiac megaly is unchanged. Elevation of the right hemidiaphragm is unchanged. There is no evidence for pulmonary edema. There is no consolidation to suggest pneumonia. IMPRESSION: No acute cardiopulmonary findings. No change in appearance of the chest. ACT 112: Negative or not required by law. Electronically signed by: Kenroy Kendrick M.D. 11/18/2023 11:12 AM Discharge Plan Visit Data Chief Complaint: Shortness of Breath/Dyspnea ED Provider: Sendy Stearns Discharge Problem: Acute exacerbation of CHF (congestive heart failure) Forms Stand Alone Forms: My [facility] [employer] Prescriptions Prescriptions: No Action atorvastatin 40 mg tablet 40 mg PO DAILY Qty: 100 3RF omeprazole 20 mg capsule,delayed release(DR/EC) 20 mg PO DAILY Qty: 90 3RF ammonium lactate 12 % cream 1 applic topical DAILY PRN (Reason: dry skin) Qty: 385 0RF omeprazole 20 mg capsule,delayed release(DR/EC) 20 mg PO DAILY Qty: 30 2RF (DME) OneTouch Ultra Test Strip See Rx Instructions .Route Qty: 100 5RF Rx Instructions: Testing one to three times per day DX: E11.9 Eliquis 5 mg tablet 5 mg PO BID Qty: 180 3RF dutasteride 0.5 mg capsule 0.5 mg PO DAILY Qty: 90 3RF Metamucil 3.4 gram/5.4 gram powder 1 tbsp PO DAILY Qty: 660 0RF Rx Instructions: mix into at least 8 oz of water or juice before administering ascorbic acid (vitamin C) 500 mg capsule 500 mg PO DAILY Qty: 30 5RF betamethasone valerate 0.1 % cream 1 applic topical BID PRN (Reason: skin irritation) Qty: 45 0RF znisjwrqemtd-Oa-ygdj-minerals Tablet 1 tab PO DAILY metformin 500 mg Tablet Extended Release 24 Hr 500 mg PO BIDM Qty: 60 1RF Rx Instructions: for diabetes (high sugar) vancomycin 125 mg capsule 125 mg PO Q6H Qty: 1 0RF Rx Instructions: stop after 09/18/23 acetaminophen 325 mg Tablet 650 mg PO Q4H PRNQty: 1 0RF ipratropium-albuterol 0.5 mg-3 mg(2.5 mg base)/3 mL Solution For Nebulization 3 ml NEB QIDR PRNQty: 1 0RF hydralazine 50 mg Tablet 100 mg PO TID Qty: 90 0RF diclofenac sodium [Voltaren Arthritis Pain] 1 % Gel 2 g EXT TID PRN (Reason: joint pain) Qty: 1 0RF magnesium oxide 400 mg (241.3 mg magnesium) Tablet 400 mg PO QAM Qty: 0 0RF bumetanide 1 mg tablet 3 mg PO QAM Qty: 90 2RF Rx Instructions: for fluid/swelling tramadol 50 mg tablet 50 mg PO Q8H PRN (Reason: pain) Qty: 30 0RF Referrals Referrals: Brittaney Dunn DO [Primary Care Provider] -
--- NOTE | 2023-11-18 11:13 | XRay Report ---
XR chest 1V portable CLINICAL HISTORY: Dyspnea. COMPARISON STUDY: Chest radiograph August 27, 2023. FINDINGS: Cardiac megaly is unchanged. Elevation of the right hemidiaphragm is unchanged. There is no evidence for pulmonary edema. There is no consolidation to suggest pneumonia. IMPRESSION: No acute cardiopulmonary findings. No change in appearance of the chest. ACT 112: Negative or not required by law. Electronically signed by: Kenroy Kendrick M.D. 11/18/2023 11:12 AM
[2023-11-18 11:17] LABS: Base Excess VBG 5.4 mEq/L; HCO3 VBG 31 mmol/L; Oxygen Saturation VBG < 60.0 %; PCO2 VBG 46 mmHg (38-50); PO2 VBG 33 mmHg; pH VBG 7.43 (7.36-7.41)
[2023-11-18 11:35] LABS: Basophils # (auto) 0.06 K/uL (0.00-0.20); Basophils % (auto) 0.4 %; Eosinophils # (auto) 0.41 K/uL (0.00-0.50); Eosinophils % (auto) 2.7 %; Hematocrit (blood only) 31.8 % (42.0-52.0); Hemoglobin 10.1 g/dl (14.0-18.0); Immature Granulocytes # (auto) 0.15 K/uL (0.01-0.20); Lymphocytes # (auto) 0.98 K/uL (1.20-3.40); Lymphocytes % (auto) 6.3 %; Mean Corpuscular Hemoglobin 28.9 pg (25.0-34.0); Mean Corpuscular Hgb Conc 31.8 g/dL (32.0-36.0); Mean Corpuscular Volume 90.9 fL (80.0-100.0); Mean Platelet Volume 10.5 fL (9.4-12.4); Monocytes % (auto) 7.1 %; Neutrophils # (auto) 12.75 K/uL (1.40-6.50); Neutrophils % (auto) 82.5 %; Platelet Count 369 K/uL (130-400); RDW Coefficient of Variation 18.3 % (11.5-14.5); RDW Standard Deviation 60.1 fL (36.4-46.3); White Blood Count 15.45 K/ul (4.8-10.8)
[2023-11-18 11:39] LABS: Albumin Globulin Ratio 0.9 (0.9-2); Albumin Level 3.7 gm/dl (3.4-5.0); BUN Creatinine Ratio 21.5 (10-20); Bilirubin,Total 0.4 mg/dl (0.2-1.0); Est GFR (African American) 94.1 ml/min; Est GFR (Non-African American) 81.2 ml/min; Potassium 4.2 mmol/L (3.5-5.1); Total Protein 7.7 gm/dl (6.0-8.3)
[2023-11-18 11:56] LABS: Prothrombin Time 11.2 Seconds (9.0-12.0)
--- NOTE | 2023-11-18 11:58 | Electrocardiogram Report ---
Test Reason : Blood Pressure : / mmHG Vent. Rate : 089 BPM Atrial Rate : 000 BPM P-R Int : 000 ms QRS Dur : 142 ms QT Int : 428 ms P-R-T Axes : 000 091 010 degrees QTc Int : 520 ms Sinus rhythm with frequent Premature atrial complexes vs. AFIB Right bundle branch block Abnormal ECG When compared with ECG of 04-SEP-2023 06:28, Rhythm no longer clearly sinus Confirmed by Alexis Ruiz ([id number]) on 11/18/2023 11:57:26 AM Referred By: Confirmed By:Alexis Ruiz
[2023-11-18] MEDS: FUROSEMIDE 40 MG/4 ML VIAL IV ONE ×2 (13:02→16:55)
--- NOTE | 2023-11-18 13:03 | History & Physical Report ---
Date of Service November 18, 2023 Assessment & Plan (1) Acute exacerbation of CHF (congestive heart failure): (2) Acute hypercapnic respiratory failure: (3) (HFpEF) heart failure with preserved ejection fraction: (4) Atrial fibrillation: (5) T2DM (type 2 diabetes mellitus): (6) Nocturnal hypoxia: (7) Hyperlipidemia: (8) Hypertension: Plan Acute on chronic HFrEF/pulmonary edema/bilateral lower extremity edema - Last echo 07/2023 showed preserved ejection fraction (EF 50-55%) and new finding of pulmonary hypertension - Patient initially given Lasix 40 mg IV in ED, and adding additional 40 mg IV - Continue on Bumex 3 mg PO in the a.m. - Continue hydralazine for blood pressure control - Serial CBC with differential, renal function panel magnesium levels Severe GABRIELLE/obesity hypoventilation syndrome/nocturnal hypoxia - Continue BiPAP for treatment of this diagnosis and the acute CHF, titrate downward as symptoms improve - Goal pulse ox 90 to 92% Elevated white count - Elevated white count at 15.45, infectious process unlikely given no infectious symptoms - CRP slightly elevated, respiratory BioFire pending - Patient declined blood cultures this afternoon, will reassess need in the AM AFib - Patient has a history of paroxysmal atrial fibrillation, on anticoagulation. Previously failed beta vanessa given Mobitz Type I and low heart rate. - Continue apixaban Hyperlipidemia - Continue atorvastatin Hypertension - Continue home blood pressure medications: hydralazine T2DM - hold metformin - SSI while inpatient - AM A1c Code: DNR/DNI Diet: T2DM heart healthy DVT prophylaxis: on apixaban for afib, continue Dispo: Med with tele Admission and Anticipated Discharge Date Admission Date: Attending Physician Supervision Note: I independently interviewed and examined the patient and verified the garcia history and physical, reviewed labs and image studies and agree with findings and care plan noted above. presented with worsening shortness of breath. no chest pain, palpitation. known HFmrEF; non-adherence to diuretics. Received 40mgs lasix IV in ED o/e - mild respiratory distress. RRR, JVD +, bilateral leg edema + base crackles. Acute on chronic HFmrEF - will repeat one more dose of lasix 40mgs IV. -exacerbation likely from non-adherence. follow for any dysrhythmia on Tele and BP readings. -follow symptoms improvement and I and O -follow renal function -resume bumex in am. Leukocytosis - likely reactive. declined blood cx draw. reassess in am. GABRIELLE- bipap Apixaban. History of Present Illness Chief Complaint: shortness of breath Primary Care Provider: Brittaney Dunn DO Rashi is a 72yo M with past medical history of T2DM, Afib on anticoagulation, hypertension, chronic diastolic heart failure, BPH, sleep apnea, obesity hypoventilation syndrome, morbid obesity, venous insufficiency, rheumatoid arthritis, anxiety, depression, GERD, cataracts presenting for worsening shortness of breath. The shortness of breath worsened this past weekend and is worse with activity and lying flat. He also has noticed worsening lower extremit y swelling, to the point where it is painful and his skin started draining some fluid. He reports that his diet has not changed recently. He does not report any chest pain, fever, chills, or cough. No nausea, vomiting, or diarrhea. Allergies Allergy/AdvReac Type Severity Reaction Status Date / Time No Known Drug Allergies Allergy . Verified 10/20/23 09:58 Home Medications Medication Instructions Recorded Confirmed Type ascorbic acid (vitamin C) 500 mg 500 mg PO DAILY #30 caps 10/30/22 11/18/23 Rx capsule atorvastatin 40 mg tablet 40 mg PO DAILY #100 tabs 02/13/23 11/18/23 Rx lwkoruaopkei-Kc-jutm-minerals 1 tab PO DAILY 02/24/23 11/18/23 History omeprazole 20 mg capsule,delayed 20 mg PO DAILY #90 caps 03/13/23 11/18/23 Rx release psyllium husk 3.4 gram/5.4 gram 1 tbsp PO DAILY #660 grams 03/13/23 11/18/23 Rx oral powder (Metamucil) metformin 500 mg tablet,extended 500 mg PO BIDM #60 tabs 08/11/23 11/18/23 Rx release 24 hr ammonium lactate 12 % topical cream 1 applic topical DAILY PRN dry 08/25/23 11/18/23 Rx skin #385 grams acetaminophen 325 mg tablet 650 mg (2 x 325 mg) PO Q4H PRN #1 09/14/23 11/18/23 Rx tab diclofenac sodium 1 % topical gel 2 g EXT TID PRN joint pain #1 tube 09/14/23 11/18/23 Rx (Voltaren Arthritis Pain) ipratropium 0.5 mg-albuterol 3 mg 3 ml NEB QIDR PRN #1 box 09/14/23 11/18/23 Rx (2.5 mg base)/3 mL nebulization soln magnesium oxide 400 mg (241.3 mg 400 mg PO QAM #0 tabs 09/14/23 11/18/23 Rx magnesium) tablet betamethasone valerate 0.1 % 1 applic topical BID PRN skin 10/20/23 11/18/23 Rx topical cream irritation #45 grams apixaban 5 mg tablet (Eliquis) 5 mg PO BID #180 tabs 11/03/23 11/18/23 Rx dutasteride 0.5 mg capsule 0.5 mg PO DAILY #90 caps 11/03/23 11/18/23 Rx bumetanide 1 mg tablet 1 mg PO QAM 11/18/23 11/18/23 History bumetanide 2 mg tablet 2 mg PO QAM 11/18/23 11/18/23 History hydralazine 100 mg tablet 100 mg PO BID 11/18/23 11/18/23 History Past Med/Surg History Problem List (Updated 11/18/23 @ 13:46 by Sendy Stearns MD) Acute exacerbation of CHF (congestive heart failure) (Acute) B12 deficiency Fatigue C. difficile diarrhea Mobitz I Cough Acute metabolic encephalopathy Acute pain of right knee Acute hypercapnic respiratory failure Acute pain of right hip (Acute) Fall (Acute) Pericardial effusion Pulmonary HTN Right hip pain Ambulatory dysfunction Acute hypoxic respiratory failure Acute on chronic heart failure with preserved ejection fraction (HFpEF) Morbid obesity with BMI of 45.0-49.9, adult Pulmonary edema (Acute) (HFpEF) heart failure with preserved ejection fraction Atrial fibrillation Edema of both legs (Acute) Morbid obesity with BMI of 50.0-59.9, adult BPH w urinary obs/LUTS Elevated erythrocyte sedimentation rate (Acute) Elevated C-reactive protein (Acute) Circadian rhythm sleep disorder, advanced sleep phase type Obesity hypoventilation syndrome Severe obstructive sleep apnea Bradycardia Chronic diastolic heart failure Restrictive lung disease Morbid obesity with BMI of 40.0-44.9, adult Leukocytosis History of alcohol abuse T2DM (type 2 diabetes mellitus) Nocturnal hypoxia Allergic rhinitis Venous insufficiency (chronic) (peripheral) Urinary incontinence Strabismic amblyopia, 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 Arthritis Anemia Right bundle branch block (RBBB) (Acute) Rheumatoid arthritis Pes planus Obstructive sleep apnea Internal hemorrhoids Hypertension Hyperlipidemia GERD without esophagitis First degree AV block Depression with anxiety Combined forms of age-related cataract of both eyes Central pterygium of left eye Benign prostatic hyperplasia with urinary obstruction Anatomical narrow angle, bilateral Medical History (Updated 11/18/23 @ 13:46 by Sendy Stearns MD) Obesity hypoventilation syndrome Rectal bleeding Surgical History History of appendectomy History of prostate biopsy Family History Mother Diabetes Hypertension Other Blindness FH: cataracts Family history of blindness Glaucoma History of cataract Denies family history of Ovarian cancer Prostate cancer Myocardial infarction Breast cancer Colorectal cancer Social History Smoking Status: Never smoker Second Hand Exposure: No; Do You Dip or Chew Tobacco: No; Hx Alcohol Use: No Hx Substance Use: No Preferred Language: Kyrgyz Communication Ability: Effective Visual Impairment: Limited Hearing Ability: Normal Rn Support Services Required: No Beliefs That Will Affect Care: None marital status: Current Living Situation: Spouse current occupational status: retired Feels Safe at Home: Yes Safety Concerns: Feels Safe At This Time Childhood Exposure to Second-Hand Smoke: No Diet: regular Diet Comment: regular caffeine: No during the past year weight has: remained stable Dental Care, Regularly: No Physical Activity Frequency: Other Physical Activity Frequency Comment: limited by physical condition Seatbelt Use: always Sunscreen Use: No Assistive Devices: Walker Review of Systems Review of Systems: see HPI Physical Exam Physical Exam: General: Patient is lying in bed and in no acute distress. Alert and oriented x3 HEENT: PERRL, EOMI, mucous membranes and oropharynx dry. Neck: supple. No JVD. No bruits. Thyroid normal, trachea midline, no adenopathy. Heart: normal S1 and S2. No murmurs, rubs or gallops. Lungs: clear bilaterally, no respiratory distress, no accessory muscle use. Abdomen: normal bowel sounds and soft. Nontender. Nondistended. Morbidly obese Extremities: 3+ edema to bilateral lower extremities with weepiness. Chronic venous stasis discoloration noted. Dermatologic: no rash Neurologic: cranial nerves II through XII grossly intact. Results & Data Results & Data Vital Signs (Past 12 Hours) Vital Signs Temp Pulse Pulse Resp BP BP Pulse Ox 11/18/23 12:49 74 19 148/64 H 95 11/18/23 10:27 101 H 11/18/23 10:17 89 30 H 94 11/18/23 09:36 11/18/23 09:36 36.5 C 90 30 H 157/104 H 98 11/18/23 09:36 O2 Del Method O2 Flow Rate 11/18/23 12:49 Room Air 11/18/23 10:27 11/18/23 10:17 Nasal Cannula 2 11/18/23 09:36 Nasal Cannula 2 11/18/23 09:36 Nasal Cannula 2 11/18/23 09:36 Room Air Laboratory Results Cardiac Enzymes 11/18/23 Range/Units 11:07 AST 15 (13-39) U/L Troponin I High Sens 3.0 (0-20) pg/ml B-Natriuretic Peptide 236 H (0-100) pg/ml Coagulation 11/18/23 Range/Units 11:07 PT 11.2 (9.0-12.0) Seconds B-Natriuretic Peptide 236 H (0-100) pg/ml CBC 11/18/23 Range/Units 11:07 WBC 15.45 H (4.8-10.8) K/ul RBC 3.50 L (4.70-6.10) M/uL Hgb 10.1 L (14.0-18.0) g/dl Hct 31.8 L (42.0-52.0) % Plt Count 369 (130-400) K/uL Neut # (Auto) 12.75 H (1.40-6.50) K/uL Lymph # (Auto) 0.98 L (1.20-3.40) K/uL [place] # (Auto) 1.10 H (0.11-0.59) K/uL Eos # (Auto) 0.41 (0.00-0.50) K/uL Baso # (Auto) 0.06 (0.00-0.20) K/uL Comprehensive Metabolic Panel 11/18/23 Range/Units 11:07 Sodium 140 (136-145) mmol/L Potassium 4.2 (3.5-5.1) mmol/L Chloride 103 (98-107) mmol/L Carbon Dioxide 31 (21-32) mmol/L BUN 20 (6-23) mg/dl Creatinine 0.93 (0.6-1.4) mg/dl Glucose 109 H (70-99(Fasting)) mg/dl Calcium 9.0 (8.6-10.3) mg/dl AST 15 (13-39) U/L ALT 14 (7-52) U/L Alkaline Phosphatase 94 (34-104) U/L Total Protein 7.7 (6.0-8.3) gm/dl Albumin 3.7 (3.4-5.0) gm/dl Intake and Output 11/18/23 11/18/23 11/18/23 06:59 14:59 22:59 Other: Weight 104 kg Weight Measurement Method Built in [facility] Patient Weight 11/19/23 06:59 Weight 104 kg Code Status & VTE Plan Code Status DNR/DNI (7) Hyperlipidemia Hyperlipidemia type: unspecified Qualified Code(s): E78.5 - Hyperlipidemia, unspecified (8) Hypertension Hypertension type: essential hypertension Qualified Code(s): I10 - Essential (primary) hypertension
[2023-11-18 13:45] LABS: Appearance Urine Clear (Clear); Bilirubin Urine Negative (Negative); Blood Urine Negative (Negative); Color Urine Yellow; Glucose Urine UA Negative (Negative); Ketones Urine Trace (Negative); Leukocyte Esterase Urine Negative (Negative); Nitrite Urine Negative (Negative); Protein Urine Negative (Negative); Urobilinogen Urine Negative (Negative); pH Urine 8.5 (4.5-7.5)
[2023-11-18 14:23] LABS: C Reactive Protein 2.58 mg/dl (0-0.5)
[2023-11-18 14:46] LABS: Adenovirus PCR Not Detected (NotDetected); Bordetella parapertussis PCR Not Detected (NotDetected); Bordetella pertussis PCR Not Detected (NotDetected); Chlamydia pneumoniae PCR Not Detected (NotDetected); Coronavirus 229E PCR Not Detected (NotDetected); Coronavirus CoV-2 (COVID19)PCR Not Detected (NotDetected); Coronavirus HKU1 PCR Not Detected (NotDetected); Coronavirus NL63 PCR Not Detected (NotDetected); Coronavirus OC43PCR Not Detected (NotDetected); Human Metapneumovirus PCR Not Detected (NotDetected); Influenza A PCR Not Detected (NotDetected); Influenza B PCR Not Detected (NotDetected); Mycoplasma pneumoniae PCR Not Detected (NotDetected); Parainfluenza Virus 1 PCR Not Detected (NotDetected); Parainfluenza Virus 2 PCR Not Detected (NotDetected); Parainfluenza Virus 3 PCR Not Detected (NotDetected); Parainfluenza Virus 4 PCR Not Detected (NotDetected); Respiratory Syncytial VirusPCR Not Detected (NotDetected); Rhinovirus/Enterovirus PCR Not Detected (NotDetected)
[2023-11-18] MEDS ORDERED: GLUCOSE 40% GEL 15 GM TUBE PO PRN (16:17)
[2023-11-18] MEDS ORDERED: GLUCOSE 10 TAB/TUBE PO PRN (16:17)
[2023-11-18] MEDS ORDERED: DEXTROSE 50% 50 ML SYRINGE IV PRN (16:17)
[2023-11-18] MEDS ORDERED: GLUCAGON FOR INJ 1 MG VIAL SQ PRN (16:17)
[2023-11-18] MEDS ORDERED: CARBOHYDRATES FOR HYPOGLYCEMIA PO PRN (16:17)
[2023-11-18] MEDS ORDERED: ONDANSETRON INJ 2 MG/ML 2 ML VIAL IV PRN (16:17)
[2023-11-18] MEDS: INSULIN ASPART PER UNIT CHARGE SC SCH (17:51)
[2023-11-18] MEDS: ALBUT/IPRATROP 3MG/0.5MG NEB 3 ML VIAL NEB PRN (18:24)
[2023-11-18] MEDS: APIXABAN 5 MG TABLET PO SCH (20:10)
[2023-11-18] MEDS: hydrALAZINE TAB 50 MG TAB PO SCH (20:11)
[2023-11-18] MEDS: AMMONIUM LACTATE 12% LOTION 225 GM BTL EXT PRN (20:47)
[2023-11-19] MEDS: BUMETANIDE 1 MG TAB PO SCH (08:18)
[2023-11-19] MEDS: CEROVITE ADV FORMULA TAB PO SCH (08:18)
[2023-11-19] MEDS: MAGNESIUM OXIDE 400 MG TAB PO SCH (08:18)
[2023-11-19] MEDS: ATORVASTATIN 40 MG TAB PO SCH (08:18)
[2023-11-19] MEDS: PANTOprazole 40 MG TAB PO SCH (08:18)
--- NOTE | 2023-11-19 14:53 | Hospitalist Progress Note ---
Date of Service November 19, 2023 Assessment & Plan (1) Acute exacerbation of CHF (congestive heart failure): (2) Acute hypercapnic respiratory failure: (3) (HFpEF) heart failure with preserved ejection fraction: (4) Atrial fibrillation: (5) T2DM (type 2 diabetes mellitus): (6) Nocturnal hypoxia: (7) Hyperlipidemia: (8) Hypertension: Plan Acute on chronic HFrEF/pulmonary edema/bilateral lower extremity edema - Last echo 07/2023 showed preserved ejection fraction (EF 50-55%) and new finding of pulmonary hypertension - Continue on Bumex 3 mg PO in a.m. - Continue hydralazine for blood pressure control - Serial CBC with differential, renal function panel magnesium levels were not possible this AM as patient declined phlebotomy Severe GABRIELLE/obesity hypoventilation syndrome/nocturnal hypoxia - Continue BiPAP for treatment of this diagnosis and the acute CHF, titrate downward as symptoms improve - Goal pulse ox 90 to 92% Elevated white count - Elevated white count at 15.45 yesterday, infectious process unlikely given no infectious symptoms - CRP slightly elevated yesterday, respiratory BioFire negative - Patient declined blood cultures yesterday afternoon AFib - Patient has a history of paroxysmal atrial fibrillation, on anticoagulation. Previously failed beta vanessa given Mobitz Type I and low heart rate. - Continue apixaban Hyperlipidemia - Continue atorvastatin Hypertension - Continue home blood pressure medications: hydralazine T2DM - hold metformin - SSI while inpatient - AM A1c Code: DNR/DNI Diet: T2DM heart healthy DVT prophylaxis: on apixaban for afib, continue Dispo: Med with tele Admission and Anticipated Discharge Date Admission Date: November 18, 2023 Supervising Physician Co-Signing Physician Notes Attending Physician Supervision Note: I independently interviewed and examined the patient and verified the garcia history and physical, reviewed labs and image studies and agree with findings and care plan noted above. Breathing much improved today. urinated a lot since admission. Received 80mgs lasix IV yesterday o/e - comfortable in chair RRR, JVD neg, bilateral leg edema + CTA Acute on chronic HFmrEF - Diuresed well so far - negative fluid balance. exacerbation likely from non-adherence. continue to follow for any dysrhythmia on Tele and BP readings. -follow I and O -unable to have labs done today d/t patient refusal. -on bumex 3mgs daily but only takes it prn. -will maintain at 2mg bumex daily while hospitalized. Leukocytosis - likely reactive. declined blood cx draw. GABRIELLE- bipap Apixaban. Subjective Rashi is feeling better from a breathing standpoint today. Has gotten up to walk around some and is more ambulatory than he was at presentation. He is feeling only short of breath with lying flat but he also reports use of his BiPAP at that time. He denies any chest pain, nausea, vomiting. Review of Systems Review of Systems: see HPI. Physical Exam Physical Exam: General: Patient is lying in bed and in no acute distress. Alert and oriented x3 HEENT: PERRL, EOMI, mucous membranes and oropharynx dry. Neck: supple. No JVD. No bruits. Thyroid normal, trachea midline, no adenopathy. Heart: normal S1 and S2. No murmurs, rubs or gallops. Lungs: clear bilaterally, no respiratory distress, no accessory muscle use. Abdomen: normal bowel sounds and soft. Nontender. Nondistended. Morbidly obese Extremities: 2+ edema to bilateral lower extremities with weepiness. Chronic venous stasis discoloration noted. Dermatologic: no rash Neurologic: cranial nerves II through XII grossly intact. Results & Data Results & Data Vital Signs (Past 12 Hours) Vital Signs Temp Pulse Pulse Resp BP BP Pulse Ox 11/19/23 11:20 35.9 C L 58 L 18 131/64 100 11/19/23 09:32 71 21 93 11/19/23 08:15 11/19/23 07:18 36.7 C 69 18 162/78 H 92 11/19/23 07:00 45 L 11/19/23 03:26 36.9 C 65 18 116/67 97 O2 Del Method O2 Flow Rate 11/19/23 11:20 CPAP 11/19/23 09:32 2 11/19/23 08:15 Room Air 11/19/23 07:18 Room Air 11/19/23 07:00 11/19/23 03:26 CPAP 2 (7) Hyperlipidemia Hyperlipidemia type: unspecified Qualified Code(s): E78.5 - Hyperlipidemia, unspecified (8) Hypertension Hypertension type: essential hypertension Qualified Code(s): I10 - Essential (primary) hypertension
[2023-11-19 17:01] LABS: Calcium 9.3 mg/dl (8.6-10.3); Potassium 4.4 mmol/L (3.5-5.1)
[2023-11-19 17:07] LABS: Est GFR (African American) 67.7 ml/min; Est GFR (Non-African American) 58.5 ml/min
[2023-11-19 17:27] LABS: Basophils # (auto) 0.05 K/uL (0.00-0.20); Basophils % (auto) 0.3 %; Eosinophils % (auto) 3.2 %; Hematocrit (blood only) 30.7 % (42.0-52.0); Immature Granulocytes # (auto) 0.15 K/uL (0.01-0.20); Lymphocytes # (auto) 1.31 K/uL (1.20-3.40); Lymphocytes % (auto) 8.4 %; Mean Corpuscular Hemoglobin 28.6 pg (25.0-34.0); Mean Corpuscular Hgb Conc 32.6 g/dL (32.0-36.0); Mean Corpuscular Volume 87.7 fL (80.0-100.0); Monocytes % (auto) 8.4 %; Neutrophils # (auto) 12.22 K/uL (1.40-6.50); Neutrophils % (auto) 78.7 %; Platelet Count 370 K/uL (130-400); RDW Coefficient of Variation 18.4 % (11.5-14.5); RDW Standard Deviation 58.2 fL (36.4-46.3); White Blood Count 15.53 K/ul (4.8-10.8)
--- NOTE | 2023-11-19 20:05 | Electrocardiogram Report ---
Test Reason : Blood Pressure : / mmHG Vent. Rate : 050 BPM Atrial Rate : 050 BPM P-R Int : 330 ms QRS Dur : 142 ms QT Int : 502 ms P-R-T Axes : 023 066 036 degrees QTc Int : 457 ms Sinus bradycardia with sinus arrhythmia with 1st degree A-V block with occasional Premature ventricul ar complexes Right bundle branch block Abnormal ECG When compared with ECG of 18-NOV-2023 10:05, Premature ventricular complexes are now Present VA interval has increased Vent. rate has decreased BY 39 BPM Nonspecific T wave abnormality now evident in Lateral leads Confirmed by Donnie Christensen ([id number]) on 11/19/2023 8:05:13 PM Referred By: REFERRED SELF Confirmed By:Donnie Christensen
[2023-11-19] MEDS: ACETAMINOPHEN 325 MG TAB PO PRN (20:33)
[2023-11-19] MEDS: traMADol HCL 50 MG TABLET PO PRN (23:35)
[2023-11-20] MEDS: BUMETANIDE 1 MG TAB PO SCH (07:50)
[2023-11-20] MEDS: FUROSEMIDE 40 MG/4 ML VIAL IV ONE (08:50)
--- NOTE | 2023-11-20 09:16 | Hospitalist Progress Note ---
Date of Service November 20, 2023 Assessment & Plan (1) Acute exacerbation of CHF (congestive heart failure): (2) Acute hypercapnic respiratory failure: (3) (HFpEF) heart failure with preserved ejection fraction: (4) Atrial fibrillation: (5) T2DM (type 2 diabetes mellitus): (6) Nocturnal hypoxia: (7) Hyperlipidemia: (8) Hypertension: Plan Acute on chronic HFrEF/pulmonary edema/bilateral lower extremity edema - Last echo 07/2023 showed preserved ejection fraction (EF 50-55%) and new finding of pulmonary hypertension - Continue on Bumex 3 mg PO in a.m. - Continue hydralazine for blood pressure control - Serial CBC with differential, renal function panel magnesium levels were not possible this AM as patient declined phlebotomy Severe GABRIELLE/obesity hypoventilation syndrome/nocturnal hypoxia - Continue BiPAP for treatment of this diagnosis and the acute CHF, titrate downward as symptoms improve - Goal pulse ox 90 to 92% Elevated white count -Chronic - Elevated white count at 15.45 yesterday, infectious process unlikely given no infectious symptoms - CRP slightly elevated yesterday, respiratory BioFire negative - Patient declined blood cultures yesterday afternoon AFib - Patient has a history of paroxysmal atrial fibrillation, on anticoagulation. Previously failed beta vanessa given Mobitz Type I and low heart rate. - Continue apixaban Hyperlipidemia - Continue atorvastatin Hypertension - Continue home blood pressure medications: hydralazine T2DM - hold metformin - SSI while inpatient - AM A1c Code: DNR/DNI Diet: T2DM heart healthy DVT prophylaxis: on apixaban for afib, continue Dispo: Med with tele Admission and Anticipated Discharge Date Admission Date: November 18, 2023 Subjective Rashi is feeling better from a breathing standpoint today. Pt is sitting up his a chair and reporting he is no longer feeling short of breath with lying flat. Pt states he has fluid draining from his legs that has been ocurring prior to hospital admission. He denies any chest pain, nausea, vomiting. Physical Exam Physical Exam: General: Patient is lying in bed and in no acute distress. Alert and oriented x3 HEENT: PERRL, EOMI, mucous membranes and oropharynx dry. Neck: supple. No JVD. No bruits. Thyroid normal, trachea midline, no adenopathy. Heart: normal S1 and S2. No murmurs, rubs or gallops. Lungs: clear bilaterally, no respiratory distress, no accessory muscle use. Abdomen: normal bowel sounds and soft. Nontender. Nondistended. Morbidly obese Extremities: 2+ edema to bilateral lower extremities with weepiness from blistered skin. Chronic venous stasis discoloration noted. Dermatologic: no rash Neurologic: cranial nerves II through XII grossly intact. Results & Data Results & Data Vital Signs (Past 12 Hours) Vital Signs Temp Pulse Pulse Resp BP Pulse Ox O2 Del Method 11/20/23 08:06 64 11/20/23 07:43 36.4 C L 76 20 129/70 93 Room Air 11/20/23 07:22 Room Air 11/20/23 04:49 36.0 C L 48 L 18 157/78 H 97 CPAP 11/20/23 04:41 62 17 96 11/20/23 00:08 72 11/19/23 23:34 36.2 C L 75 18 168/75 H 100 CPAP 11/19/23 22:12 77 24 99 11/19/23 21:34 Room Air, CPAP O2 Flow Rate 11/20/23 08:06 11/20/23 07:43 11/20/23 07:22 11/20/23 04:49 2 11/20/23 04:41 11/20/23 00:08 11/19/23 23:34 2 11/19/23 22:12 2 11/19/23 21:34 Laboratory Results 11/20/23 11/19/23 11/19/23 Range/Units 08:03 20:21 17:07 WBC (4.8-10.8) K/ul RBC (4.70-6.10) M/uL Hgb (14.0-18.0) g/dl Hct (42.0-52.0) % MCV (80.0-100.0) fL MCH (25.0-34.0) pg MCHC (32.0-36.0) g/dL RDW Std Deviation (36.4-46.3) fL RDW Coeff of Darian (11.5-14.5) % Plt Count (130-400) K/uL MPV (9.4-12.4) fL Immature Gran % (Auto) % Neut % (Auto) % Lymph % (Auto) % [place] % (Auto) % Eos % (Auto) % Baso % (Auto) % Neut # (Auto) (1.40-6.50) K/uL Lymph # (Auto) (1.20-3.40) K/uL [place] # (Auto) (0.11-0.59) K/uL Eos # (Auto) (0.00-0.50) K/uL Baso # (Auto) (0.00-0.20) K/uL Immature Gran # (Auto) (0.01-0.20) K/uL Sodium (136-145) mmol/L Potassium (3.5-5.1) mmol/L Chloride (98-107) mmol/L Carbon Dioxide (21-32) mmol/L Anion Gap (3-11) BUN (6-23) mg/dl Creatinine (0.6-1.4) mg/dl Est Cr Clr Drug Dosing ml/min Est GFR ( Amer) ml/min Est GFR (Non-Af Amer) ml/min BUN/Creatinine Ratio (10-20) Glucose (70-99(Fasting)) mg/dl POC Glucose 126 H 138 H 117 H (70-99) mg/dl Calcium (8.6-10.3) mg/dl Magnesium (1.7-2.4) mg/dl Procalcitonin (0-0.5) ng/ml 11/19/23 11/19/23 Range/Units 16:16 12:11 WBC 15.53 H (4.8-10.8) K/ul RBC 3.50 L (4.70-6.10) M/uL Hgb 10.0 L (14.0-18.0) g/dl Hct 30.7 L (42.0-52.0) % MCV 87.7 (80.0-100.0) fL MCH 28.6 (25.0-34.0) pg MCHC 32.6 (32.0-36.0) g/dL RDW Std Deviation 58.2 H (36.4-46.3) fL RDW Coeff of Darian 18.4 H (11.5-14.5) % Plt Count 370 (130-400) K/uL MPV 11.0 (9.4-12.4) fL Immature Gran % (Auto) 1.0 % Neut % (Auto) 78.7 % Lymph % (Auto) 8.4 % [place] % (Auto) 8.4 % Eos % (Auto) 3.2 % Baso % (Auto) 0.3 % Neut # (Auto) 12.22 H (1.40-6.50) K/uL Lymph # (Auto) 1.31 (1.20-3.40) K/uL [place] # (Auto) 1.30 H (0.11-0.59) K/uL Eos # (Auto) 0.50 (0.00-0.50) K/uL Baso # (Auto) 0.05 (0.00-0.20) K/uL Immature Gran # (Auto) 0.15 (0.01-0.20) K/uL Sodium 136 (136-145) mmol/L Potassium 4.4 (3.5-5.1) mmol/L Chloride 100 (98-107) mmol/L Carbon Dioxide 29 (21-32) mmol/L Anion Gap 7 (3-11) BUN 22 (6-23) mg/dl Creatinine 1.22 (0.6-1.4) mg/dl Est Cr Clr Drug Dosing 65.0 ml/min Est GFR ( Amer) 67.7 ml/min Est GFR (Non-Af Amer) 58.5 ml/min BUN/Creatinine Ratio 18.0 (10-20) Glucose 118 H (70-99(Fasting)) mg/dl POC Glucose 134 H (70-99) mg/dl Calcium 9.3 (8.6-10.3) mg/dl Magnesium 2.0 (1.7-2.4) mg/dl Procalcitonin < 0.02 (0-0.5) ng/ml (7) Hyperlipidemia Hyperlipidemia type: unspecified Qualified Code(s): E78.5 - Hyperlipidemia, unspecified (8) Hypertension Hypertension type: essential hypertension Qualified Code(s): I10 - Essential (primary) hypertension
--- NOTE | 2023-11-20 11:40 | Electrocardiogram Report ---
Test Reason : Blood Pressure : / mmHG Vent. Rate : 083 BPM Atrial Rate : 078 BPM P-R Int : 000 ms QRS Dur : 136 ms QT Int : 444 ms P-R-T Axes : 000 082 014 degrees QTc Int : 521 ms Poor data quality, interpretation may be adversely affected Atrial fibrillation with premature ventricular or aberrantly conducted complexes Right bundle branch block Abnormal ECG When compared with ECG of 19-NOV-2023 06:02, Atrial fibrillation has replaced Sinus rhythm Vent. rate has increased BY 33 BPM Confirmed by Alexis Ruiz ([id number]) on 11/20/2023 11:39:44 AM Referred By: REFERRED SELF Confirmed By:Alexis Ruiz
--- NOTE | 2023-11-20 12:29 | Discharge Summary ---
Date of Service November 20, 2023 Admission HPI Per Admitting Provider Rashi is a 72yo M with past medical history of T2DM, Afib on anticoagulation, hypertension, chronic diastolic heart failure, BPH, sleep apnea, obesity hypoventilation syndrome, morbid obesity, venous insufficiency, rheumatoid arthritis, anxiety, depression, GERD, cataracts presenting for worsening shortness of breath. The shortness of breath worsened this past weekend and is worse with activity and lying flat. He also has noticed worsening lower extremity swelling, to the point where it is painful and his skin started draining some fluid. He reports that his diet has not changed recently. He does not report any chest pain, fever, chills, or cough. No nausea, vomiting, or diarrhea. Principal Diagnosis refer to attending physician attestation Discharge Exam Constitutional WD/WN, vitals as above Cardiovascular Rate/Rhythm: regular rate Heart Sounds: normal S1 and normal S2; no murmur Vessels: no JVD Extremities: + edema (Pitting, weeping) Gastrointestinal (Abdomen) normal bowel sounds, soft, nontender, no hepatosplenomegaly Neurologic PERRL, EOMI, accommodation nl, no face palsy, no dysarthria Psychiatric A+Ox3, euthymic affect Discharge Data Allergies Allergy/AdvReac Type Severity Reaction Status Date / Time No Known Drug Allergies Allergy . Verified 10/20/23 09:58 Consultations 11/18/23 12:58 ED Decision to Admit Stat 11/18/23 13:24 ED Decision to Admit Stat Hospital Course (1) Acute exacerbation of CHF (congestive heart failure): (2) Acute hypercapnic respiratory failure: (3) (HFpEF) heart failure with preserved ejection fraction: (4) Atrial fibrillation: (5) T2DM (type 2 diabetes mellitus): (6) Nocturnal hypoxia: (7) Hyperlipidemia: (8) Hypertension: Plan Acute on chronic HFrEF/pulmonary edema/bilateral lower extremity edema - Last echo 07/2023 showed preserved ejection fraction (EF 50-55%) and new finding of pulmonary hypertension - Received multiple doses of IV lasix with improvement in symptoms and negative fluid balance on discharge. - Continue on Bumex 3 mg PO on discharge. Reiterated compliance with medication. - Continue hydralazine for blood pressure control Severe GABRIELLE/obesity hypoventilation syndrome/nocturnal hypoxia - Continue BiPAP for treatment of this diagnosis and the acute CHF, titrate downward as symptoms improve - Goal pulse ox 90 to 92% Elevated white count - Chronic - Elevated white count at 15.45 yesterday, infectious process unlikely given no infectious symptoms - CRP slightly elevated yesterday, respiratory BioFire negative - Patient declined blood cultures yesterday afternoon AFib - Patient has a history of paroxysmal atrial fibrillation, on anticoagulation. Previously failed beta vanessa given Mobitz Type I and low heart rate. - Continue apixaban Hyperlipidemia - Continue atorvastatin Hypertension - Continue home blood pressure medications: hydralazine T2DM - metformin Total Time Total Time Spent Total Time Spent (In Minutes): refer to attending physician attestation Discharge Plan Discharge Items Patient Disposition: Home - Self-Care Reason For Visit: ACUTE CHF EXACERBATION Discharge Diagnosis: ACUTE CHF EXACERBATION Activity: Resume your previous activity Non-emergency contact: Primary Care Provider Call non-emergency contact if: you have any medication questions, your pain is concerning for you and your temperature is above 101.5 Follow-up/Referrals: Brittaney Dunn DO [Primary Care Provider] - 12/11/23 9:20 am Diet: Carb Consistent or DM2, Heart Healthy and Low Sodium (2gm) Addtl Attending Provider Instructions: You were admitted to the hospital for exacerbation of your congestive heart failure. You were treated with diuretics and got better. A discharge summary will be sent to your primary care physician to ensure continuity of care. Please bring this discharge summary with you to your next office appointment so that your provider can review it at that time. Follow-up appointments: * Make a follow-up appointment with your PCP within the next week. It is very important that you follow up with them shortly after discharge from the hospital. * Keep all your follow-up appointments as already scheduled. If you cannot make an appointment, notify your provider. Medications: Your medication list has been reviewed and reconciled upon discharge to ensure accuracy and continuity of care. An updated list of all your medications is included with your hospital discharge paperwork. Please review this list closely, and make note of any changes. * No changes to your medications were made during this hospital stay. * If you have any issues filling these prescriptions, please call [phone] and ask to leave a message for Dr. Vela. * Take your medications as instructed; do not skip a dose of your medicines. Make sure all of your doctors know every medicine you are taking (including nihy-xob-xerbctp medicines, vitamins, and supplements). Call your primary care provider before taking any new medicines (including over- the-counter medicines, vitamins, and supplements), because some of these may interact with your current medications, or may make your symptoms worse. Tell your primary care provider if you cannot afford your medications. CONTACT YOUR PRIMARY CARE PROVIDER if you experience any of the following: * Worsening of symptoms * Fever, chills, or fatigue * Difficulty following your treatment plan, or difficulty taking medications CALL 911 OR GO TO THE EMERGENCY DEPARTMENT if you experience any of the following: * Sudden, severe abdominal pain or nausea/vomiting * Severe chest pain, or chest pain that radiates (moves) to your jaw or arm * Sudden, severe shortness of breath or difficulty breathing Thank you for allowing us to participate in your care. Pending Studies at Discharge: No Stand-Alone Forms: My [facility] Socialthing, Smoking Cessation Medications and DC Order Prescriptions: Continued Eliquis 5 mg tablet 5 mg PO BID Qty: 180 3RF Rx Instructions: IT LOOKS LIKE A SCRIPT WAS GIVEN ON 11/03/2023 BUT THE PHARMACY HE GOES TO NEVER FILLED IT. ammonium lactate 12 % cream 1 applic topical DAILY PRN (Reason: dry skin) Qty: 385 0RF atorvastatin 40 mg tablet 40 mg PO DAILY Qty: 100 3RF bumetanide 1 mg tablet 1 mg PO QAM Qty: 90 1RF Rx Instructions: for fluid/swelling dutasteride 0.5 mg capsule 0.5 mg PO DAILY Qty: 90 3RF hydralazine 100 mg tablet 100 mg PO BID Qty: 180 1RF metformin 500 mg tablet extended release 24 hr 500 mg PO BIDM Qty: 60 1RF Rx Instructions: for diabetes (high sugar) omeprazole 20 mg capsule,delayed release(DR/EC) 20 mg PO DAILY Qty: 90 3RF Metamucil 3.4 gram/5.4 gram powder 1 tbsp PO DAILY Qty: 660 0RF Rx Instructions: mix into at least 8 oz of water or juice before administering ascorbic acid (vitamin C) 500 mg capsule 500 mg PO DAILY Qty: 30 5RF betamethasone valerate 0.1 % cream 1 applic topical BID PRN (Reason: skin irritation) Qty: 45 0RF mmmwzljzhena-We-qnfx-minerals Tablet 1 tab PO DAILY acetaminophen 325 mg Tablet 650 mg PO Q4H PRNQty: 1 0RF ipratropium-albuterol 0.5 mg-3 mg(2.5 mg base)/3 mL Solution For Nebulization 3 ml NEB QIDR PRNQty: 1 0RF diclofenac sodium [Voltaren Arthritis Pain] 1 % Gel 2 g EXT TID PRN (Reason: joint pain) Qty: 1 0RF magnesium oxide 400 mg (241.3 mg magnesium) Tablet 400 mg PO QAM Qty: 0 0RF bumetanide 2 mg tablet 2 mg PO QAM Discharge Orders: Discharge Order (Routine); Ordered 11/20/23 Ordered By: Lizabeth Vela Admission Data Admit Date/Time: 11/18/23 14:36 Attending Provider: Cleopatra Lozano Admit Provider: Jhonny Diaz Primary Care Provider: Brittaney Dunn Other Providers: Arnoldo Hemphill Other Interventions: Discharge Summary Assessment (RN) Last Done: 11/20/23 13:41 Supervising Physician Co-Signing Physician Notes Attending Physician Supervision Note: I independently interviewed and examined the patient and verified the garcia history and physical, reviewed labs and image studies and agree with findings and care plan noted above. Breathing has improved o/e - comfortable in chair RRR, JVD neg, bilateral leg edema + CTA Acute on chronic HFmrEF - Diuresed well with IV lasix dose with improvement in symptoms and negative fluid balance. exacerbation likely from non-adherence. HR controlled on Tele. -Renal function stable. -continue home dose of bumex 3mgs daily. reiterated compliance. Leukocytosis - chronic. no sign of infection noted. patient declined blood cx draw. GABRIELLE - continue bipap use.
== END 2023-11-20 14:06 | disposition home or self-care (01) | DRG 291 ==
LOC: ED 10:00 → 2N 14:36
DX: F41.9 Anxiety disorder, unspecified; Z68.42 Body mass index [BMI] 45.0-49.9, adult; F32.A Depression, unspecified; I48.91 Unspecified atrial fibrillation; E66.2 Morbid (severe) obesity with alveolar hypoventilation; J96.02 Acute respiratory failure with hypercapnia; E11.9 Type 2 diabetes mellitus without complications; E78.5 Hyperlipidemia, unspecified; N40.0 Benign prostatic hyperplasia without lower urinary tract symptoms; I11.0 Hypertensive heart disease with heart failure; I50.23 Acute on chronic systolic (congestive) heart failure

== ENCOUNTER 2024-03-05 09:58 | Inpatient (IN) ==
--- NOTE | 2024-03-05 10:53 | Emergency Department Note ---
Impression & Plan Acute and chronic respiratory failure, CHF (congestive heart failure), Edema of both legs ED Provider Note NAME: JULIEN LOGAN AGE: 73 SEX: M : 1950 ARRIVES VIA: Ambulance INFORMANT: Patient ED PROVIDER(S): Freddy Herrera MD CHIEF COMPLAINT: Shortness of breath PLAN: Disposition: Admit MEDICAL DECISION MAKING: The patient is a pleasant 73-year-old gentleman with a past medical history of chronic respiratory failure with hypoxia, CHF with preserved EF, pulmonary hypertension, obesity hypoventilation syndrome, severe GABRIELLE on nightly BiPAP who presents to the emergency department via EMS for worsening shortness of breath over the past week where he admits to having increased swelling in his lower extremities and increased weight gain. He reports he has been taking his Bumex as prescribed. He has any fevers, productive sputum, chest pain, nausea, vomiting or diarrhea. Per review of records the patient does appear to have approximately 10 EKG weight gain compared to October of this year. On evaluation the patient is acute on chronically ill-appearing, mildly dyspneic but no acute distress, afebrile with respiratory rate in the upper 20s with mild increased work of breathing and vital signs otherwise stable on his home 3 L nasal cannula. He appears hypervolemic with 3+ bilateral lower extremity pitting edema. He has diminished breath sounds of bilateral lower lung bullard with intermittent wheezes. EKG demonstrates atrial fibrillation without overt acute ischemia. Chest x-ray demonstrates congestive change. WBC 14.9 K with neutrophilia but no left shift, nonspecific. H/H similar to prior. Chemistry without metabolic acidosis. LFTs unremarkable. High- sensitivity troponin 3.0, within normal limits. Lipase is not elevated. He was treated with DuoNeb for component of bronchospasm and he was ordered for IV Bumex given. Hypervolemia likely the primary etiology to the patient's shortness of breath. Patient also was treated with BiPAP with subsequent improved work of breathing. Patient does agree plan for admission for further management. Case was discussed with GARRET Lee PAC, with GARRET Osman hospitalist who will evaluate the patient for admission. Further management per admitting team. Triage Nursing notes reviewed and agree them. Prior/external medical records reviewed Vital Signs: reviewed Differential diagnosis: Reactive airway disease, pneumonia, pneumothorax, COPD, CHF, infections, cardiac ischemia, pulmonary embolism, musculoskeletal, gastrointestinal, as well as other pathologies. ER treatment provided: See below. Diagnostics interpreted by me: ECG: Atrial fibrillation, 88 bpm, no ectopy, no overt ST elevation or depression, right bundle branch block, QTc 503, QRS 142. Cardiac Monitoring: An order for continuous cardiac monitoring was placed and demonstrated Laboratory studies: See below Imaging studies: See below Consultation(s): Case was discussed with GARRET Lee PAC, with GARRET Osman hospitalist who will evaluate the patient for admission. HPI: The patient is a pleasant 73-year-old gentleman with a past medical history of chronic respiratory failure with hypoxia, CHF with preserved EF, pulmonary hypertension, obesity hypoventilation syndrome, severe GABRIELLE on nightly BiPAP who presents to the emergency department via EMS for worsening shortness of breath over the past week where he admits to having increased swelling in his lower extremities and increased weight gain. He reports he has been taking his Bumex as prescribed. He has any fevers, productive sputum, chest pain, nausea, vomiting or diarrhea. Per review of records the patient does appear to have approximately 10 EKG weight gain compared to October of this year. ROS: See above HPI for pertinent positives & negatives. A total of 10 systems reviewed and were otherwise negative. VITALS:See Below PHYSICAL EXAMINATION: GENERAL: Awake, alert, mildly dyspneic-appearing, in no distress, BMI 50.6. HENT: Normocephalic, atraumatic. Oropharynx unremarkable. EYES: Normal conjunctiva. Sclera non-icteric. NECK: Supple. No nuchal rigidity. FROM. No JVD. RESPIRATORY: Diminished breath sounds of bilateral lower lung bullard with intermittent wheezes. Mild increased work of breathing. CARDIAC: Regular rate, irregular rhythm. Extremities warm and well perfused. Pulses equal. ABDOMEN: Soft, non-distended. No tenderness to palpation. No rebound or guarding. No masses. MUSCULOSKELETAL: Chest examination reveals no tenderness. The back is symmetrical on inspection without obvious abnormality. There is no CVA tenderness to palpation. No joint edema. LOWER EXTREMITIES: Calves are equal size bilaterally and non-tender. 3+ BLE pitting edema. No discoloration. NEURO: Normal sensorium. No sensory or motor deficits noted. SKIN: No rash or jaundice noted. Freddy Herrera MD Past Med/Surg History Problem List (Updated 03/05/24 @ 18:33 by Freddy Herrera MD) Noncompliance with medication regimen Depression CHF (congestive heart failure) (Acute) Acute and chronic respiratory failure (Acute) Wheezing Chronic respiratory failure with hypoxia Acute on chronic heart failure with preserved ejection fraction (HFpEF) Depression B12 deficiency Mobitz I Pulmonary HTN Ambulatory dysfunction Pulmonary edema (Acute) (HFpEF) heart failure with preserved ejection fraction Atrial fibrillation Edema of both legs (Acute) BPH w urinary obs/LUTS Elevated erythrocyte sedimentation rate (Acute) Elevated C-reactive protein (Acute) Circadian rhythm sleep disorder, advanced sleep phase type Obesity hypoventilation syndrome Severe obstructive sleep apnea Bradycardia Chronic diastolic heart failure Restrictive lung disease Leukocytosis History of alcohol abuse T2DM (type 2 diabetes mellitus) Nocturnal hypoxia Allergic rhinitis Venous insufficiency (chronic) (peripheral) Urinary incontinence Strabismic amblyopia, 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 difficile diarrhea Acute metabolic encephalopathy Acute pain of right knee Acute hypercapnic respiratory failure Acute pain of right hip Fall Right hip pain Acute hypoxic respiratory failure Pericardial effusion Rectal bleeding Surgical History History of appendectomy History of prostate biopsy Family History Mother Diabetes Hypertension Other Blindness FH: cataracts Family history of blindness Glaucoma History of cataract Denies family history of Ovarian cancer Prostate cancer Myocardial infarction Breast cancer Colorectal cancer Social History Smoking Status: Never smoker Second Hand Exposure: No; Do You Dip or Chew Tobacco: No; Hx Alcohol Use: No Hx Substance Use: No Preferred Language: Slovenian Communication Ability: Effective Visual Impairment: Limited Hearing Ability: Normal 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 Beliefs That Will Affect Care: None marital status: Current Living Situation: Spouse Current Living Situation Comment: lives downstairs, lives seperately upstairs current occupational status: retired Other Information That Helps Us Care for You: No Feels Safe at Home: Yes Childhood Exposure to Second-Hand Smoke: No Diet: regular Diet Comment: regular caffeine: No during the past year weight has: remained stable Dental Care, Regularly: No Physical Activity Frequency: Other Physical Activity Frequency Comment: limited by physical condition Seatbelt Use: always Sunscreen Use: No Assistive Devices: BiPap, Oxygen - Continuous, Scooter/Electric Scooter and Walker Allergies Allergies Allergy/AdvReac Type Severity Reaction Status Date / Time No Known Drug Allergies Allergy . Verified 12/11/23 08:50 Home Meds Home Medications Medication Instructions Recorded Confirmed [id number]-[id number]-qkxw-minerals 1 tab PO DAILY 02/24/23 03/05/24 Miscellaneous Medical Supply 03/05/24 03/05/24 betamethasone valerate 0.1 % 1 applic topical UD PRN skin 03/05/24 03/05/24 topical cream irritation bumetanide 1 mg tablet 1 mg PO QAM 03/05/24 03/05/24 ipratropium 0.5 mg-albuterol 3 mg 3 ml NEB UD PRN Other 03/05/24 03/05/24 (2.5 mg base)/3 mL nebulization soln miconazole nitrate 2 % topical 1 applic EXT UD 03/05/24 03/05/24 powder (Desenex) sertraline 50 mg tablet 50 mg PO UD 03/05/24 03/05/24 Previous Rx's Medication Instructions Recorded ascorbic acid (vitamin C) 500 mg 500 mg PO DAILY #30 caps 10/30/22 capsule psyllium husk 3.4 gram/5.4 gram 1 tbsp PO DAILY #660 grams 03/13/23 oral powder (Metamucil) acetaminophen 325 mg tablet 650 mg (2 x 325 mg) PO Q4H PRN #1 09/14/23 tab diclofenac sodium 1 % topical gel 2 g EXT TID PRN joint pain #1 tube 09/14/23 (Voltaren Arthritis Pain) magnesium oxide 400 mg (241.3 mg 400 mg PO QAM #0 tabs 09/14/23 magnesium) tablet ammonium lactate 12 % topical cream 1 applic topical DAILY PRN dry 11/19/23 skin #385 grams atorvastatin 40 mg tablet 40 mg PO DAILY #100 tabs 11/19/23 dutasteride 0.5 mg capsule 0.5 mg PO DAILY #90 caps 11/19/23 omeprazole 20 mg capsule,delayed 20 mg PO DAILY #90 caps 11/19/23 release famotidine 20 mg tablet 20 mg PO HS #90 tabs 12/11/23 apixaban 5 mg tablet (Eliquis) 5 mg PO BID #180 tabs 12/12/23 hydralazine 100 mg tablet 100 mg PO BID #180 tabs 01/14/24 metformin 500 mg tablet,extended 500 mg PO BIDM #60 tabs 02/16/24 release 24 hr Results & Data (ED) Vital Signs Vital Signs - 24 hr 03/05/24 10:23 03/05/24 10:23 03/05/24 10:23 Temperature 36.5 C Temperature Source Oral Pulse Rate 87 Pulse Rate [Apical] Pulse Rate from SpO2 Sensor Respiratory Rate 26 H Respiratory Effort / Characteristics Labored Blood Pressure 139/74 Blood Pressure Mean 95 Pulse Oximetry 96 97 96 Oxygen Delivery Method Nasal Cannula Nasal Cannula Nasal Cannula Oxygen Flow Rate 3 3 3 Fraction of Inspired Oxygen Sepsis Recent Fever Within 48 Hours No Sepsis New/Unexplained Change in Mental Status No Sepsis Action Taken by Nursing No Action Required 03/05/24 10:27 03/05/24 10:33 03/05/24 11:00 Temperature Temperature Source Pulse Rate 86 87 85 Pulse Rate [Apical] Pulse Rate from SpO2 Sensor 88 85 Respiratory Rate 30 H 32 H 30 H Respiratory Effort / Characteristics Blood Pressure 129/94 Blood Pressure Mean 105 Pulse Oximetry 96 100 Oxygen Delivery Method Oxygen Flow Rate Fraction of Inspired Oxygen Sepsis Recent Fever Within 48 Hours Sepsis New/Unexplained Change in Mental Status Sepsis Action Taken by Nursing 03/05/24 11:12 03/05/24 11:12 03/05/24 11:30 Temperature Temperature Source Pulse Rate 77 71 Pulse Rate [Apical] 80 Pulse Rate from SpO2 Sensor 71 Respiratory Rate 30 H 20 30 H Respiratory Effort / Characteristics Spontaneous Spontaneous Blood Pressure 173/70 H Blood Pressure Mean 104 Pulse Oximetry 96 96 100 Oxygen Delivery Method Nasal Cannula BiPAP Oxygen Flow Rate 3 Fraction of Inspired Oxygen 40 40 Sepsis Recent Fever Within 48 Hours Sepsis New/Unexplained Change in Mental Status Sepsis Action Taken by Nursing 03/05/24 12:06 03/05/24 12:31 03/05/24 12:57 Temperature Temperature Source Pulse Rate 64 72 72 Pulse Rate [Apical] Pulse Rate from SpO2 Sensor 65 73 Respiratory Rate 24 24 Respiratory Effort / Characteristics Blood Pressure 167/68 H Blood Pressure Mean 101 Pulse Oximetry 100 97 Oxygen Delivery Method BiPAP Oxygen Flow Rate Fraction of Inspired Oxygen 40 Sepsis Recent Fever Within 48 Hours Sepsis New/Unexplained Change in Mental Status Sepsis Action Taken by Nursing Laboratory Data Attestation: I reviewed the patient's lab results. 03/05/24 11:01 03/05/24 11:01 Lab Results 03/05/24 Range/Units 11:01 WBC 14.95 H (4.8-10.8) K/ul RBC 3.48 L (4.70-6.10) M/uL Hgb 9.5 L (14.0-18.0) g/dl Hct 31.4 L (42.0-52.0) % MCV 90.2 (80.0-100.0) fL MCH 27.3 (25.0-34.0) pg MCHC 30.3 L (32.0-36.0) g/dL RDW Std Deviation 63.3 H (36.4-46.3) fL RDW Coeff of Darian 19.2 H (11.5-14.5) % Plt Count 356 (130-400) K/uL MPV 9.9 (9.4-12.4) fL Immature Gran % (Auto) 0.9 % Neut % (Auto) 82.9 % Lymph % (Auto) 5.6 % Pitkin % (Auto) 7.8 % Eos % (Auto) 2.4 % Baso % (Auto) 0.4 % Neut # (Auto) 12.41 H (1.40-6.50) K/uL Lymph # (Auto) 0.83 L (1.20-3.40) K/uL Pitkin # (Auto) 1.16 H (0.11-0.59) K/uL Eos # (Auto) 0.36 (0.00-0.50) K/uL Baso # (Auto) 0.06 (0.00-0.20) K/uL Immature Gran # (Auto) 0.13 (0.01-0.20) K/uL PT 11.8 (9.0-12.0) Seconds INR 1.1 (0.9-1.1) Sodium 140 (136-145) mmol/L Potassium 3.8 (3.5-5.1) mmol/L Chloride 101 (98-107) mmol/L Carbon Dioxide 34 H (21-32) mmol/L Anion Gap 5 (3-11) BUN 17 (6-23) mg/dl Creatinine 0.95 (0.6-1.4) mg/dl Est Cr Clr Drug Dosing 85.8 ml/min eGFR 83.99 BUN/Creatinine Ratio 17.9 (10-20) Glucose 123 H (70-99(Fasting)) mg/dl Calcium 9.1 (8.6-10.3) mg/dl Total Bilirubin 0.6 (0.2-1.0) mg/dl AST 15 (13-39) U/L ALT 13 (7-52) U/L Alkaline Phosphatase 102 (34-104) U/L Troponin I High Sens 3.0 (0-20) pg/ml Total Protein 8.3 (6.0-8.3) gm/dl Albumin 3.6 (3.4-5.0) gm/dl Globulin 4.7 H (2.5-4.0) gm/dl Albumin/Globulin Ratio 0.8 L (0.9-2) Lipase 13 (11-82) U/L Administered Medications Bumetanide 3 mg/ Syringe 12 mls @ 4 mls/min IV BID@0900,1700 [facility] Stop: 04/04/24 16:59 Last Admin: 03/05/24 18:04 Dose: 4 mls/min Documented By: [facility] Insulin Aspart (Insulin Aspart Per Unit Charge) 0 units SC Q6 PAVAN Stop: 04/04/24 16:29 Last Admin: 03/05/24 18:11 Dose: Not Given Documented By: [facility] Miconazole Nitrate (Miconazole Nitrate Powder 85 Gm) 1 appln EXT TID [facility] Stop: 03/15/24 15:44 Last Admin: 03/05/24 18:03 Dose: 1 appln Documented By: [facility] Discontinued Medications Albuterol (Albut/Ipratrop 3mg/0.5mg Neb 3 Ml Vial) 3 ml NEB NOW STA; Protocol Stop: 03/05/24 10:53 Last Admin: 03/05/24 11:11 Dose: 3 ml Documented By: TERRA Apixaban (Apixaban 5 Mg Tablet) 5 mg PO ONE ONE Stop: 03/05/24 14:16 Last Admin: 03/05/24 16:02 Dose: 5 mg Documented By: YOKASTA Bumetanide 3 mg/ Syringe 12 mls @ 4 mls/min IV ONE ONE Stop: 03/05/24 12:10 Last Admin: 03/05/24 12:36 Dose: 4 mls/min Documented By: CINTHIA Insulin Aspart (Insulin Aspart Per Unit Charge) 0 units SC ACHS PAVAN Stop: 04/04/24 16:29 Last Admin: 03/05/24 17:54 Dose: Not Given Documented By: YOKASTA Imaging Data Radiologist's Impression: Chest X-Ray 03/05/24 10:22 XR chest 1V portable CLINICAL HISTORY: Chest pain, nonspecific COMPARISON STUDY: Chest CT August 27, 2023. Chest radiograph November 18, 2023. FINDINGS: Elevation of the right hemidiaphragm is unchanged. There is no pneumothorax or pleural effusion. Cardiomegaly is unchanged. There is pulmonary vascular congestion without overt pulmonary edema. No consolidation is identified to suggest pneumonia. IMPRESSION: Cardiomegaly with pulmonary vascular congestion. ACT 112: Negative or not required by law. Electronically signed by: Kenroy Kendrick M.D. 03/05/2024 11:16 AM Discharge Plan Visit Data Chief Complaint: Swelling/Edema to Extremity Stated Complaint: Swelling/Edema to Extremity ED Provider: Freddy Herrera Discharge Problem: Acute and chronic respiratory failure, CHF (congestive heart failure), Edema of both legs Patient Disposition: Admitted As Inpatient Discharge Instructions Interventions: ED Discharge Assessment Last Done: 03/05/24 15:39 Discharge Problem: Acute and chronic respiratory failure Qualifiers: Respiratory failure complication: hypoxia Qualified Code(s): J96.21 - Acute and chronic respiratory failure with hypoxia CHF (congestive heart failure) Qualifiers: Heart failure type: unspecified Heart failure chronicity: acute on chronic Q ualified Code(s): I50.9 - Heart failure, unspecified
[2024-03-05] MEDS: ALBUT/IPRATROP 3MG/0.5MG NEB 3 ML VIAL NEB STA (11:11)
[2024-03-05 11:12] LABS: Basophils # (auto) 0.06 K/uL (0.00-0.20); Basophils % (auto) 0.4 %; Eosinophils # (auto) 0.36 K/uL (0.00-0.50); Eosinophils % (auto) 2.4 %; Hematocrit (blood only) 31.4 % (42.0-52.0); Hemoglobin 9.5 g/dl (14.0-18.0); Immature Granulocytes # (auto) 0.13 K/uL (0.01-0.20); Immature Granulocytes % (auto) 0.9 %; Lymphocytes # (auto) 0.83 K/uL (1.20-3.40); Lymphocytes % (auto) 5.6 %; Mean Corpuscular Hemoglobin 27.3 pg (25.0-34.0); Mean Corpuscular Hgb Conc 30.3 g/dL (32.0-36.0); Mean Corpuscular Volume 90.2 fL (80.0-100.0); Mean Platelet Volume 9.9 fL (9.4-12.4); Monocytes # (auto) 1.16 K/uL (0.11-0.59); Monocytes % (auto) 7.8 %; Neutrophils # (auto) 12.41 K/uL (1.40-6.50); Neutrophils % (auto) 82.9 %; Platelet Count 356 K/uL (130-400); RDW Coefficient of Variation 19.2 % (11.5-14.5); RDW Standard Deviation 63.3 fL (36.4-46.3); Red Blood Count 3.48 M/uL (4.70-6.10); White Blood Count 14.95 K/ul (4.8-10.8)
--- NOTE | 2024-03-05 11:17 | XRay Report ---
XR chest 1V portable CLINICAL HISTORY: Chest pain, nonspecific COMPARISON STUDY: Chest CT August 27, 2023. Chest radiograph November 18, 2023. FINDINGS: Elevation of the right hemidiaphragm is unchanged. There is no pneumothorax or pleural effu nimesh. Cardiomegaly is unchanged. There is pulmonary vascular congestion without overt pulmonary edema . No consolidation is identified to suggest pneumonia. IMPRESSION: Cardiomegaly with pulmonary vascular congestion. ACT 112: Negative or not required by law. Electronically signed by: Kenroy Kendrick M.D. 03/05/2024 11:16 AM
[2024-03-05 11:37] LABS: INR 1.1 (0.9-1.1); Prothrombin Time 11.8 Seconds (9.0-12.0)
[2024-03-05 11:54] LABS: Albumin Level 3.6 gm/dl (3.4-5.0); Bilirubin,Total 0.6 mg/dl (0.2-1.0); Calcium 9.1 mg/dl (8.6-10.3); Potassium 3.8 mmol/L (3.5-5.1)
[2024-03-05 12:00] LABS: Albumin Globulin Ratio 0.8 (0.9-2); BUN Creatinine Ratio 17.9 (10-20); Creatinine Clr Calc Pharmacy 85.8 ml/min; Globulin 4.7 gm/dl (2.5-4.0); Total Protein 8.3 gm/dl (6.0-8.3)
--- NOTE | 2024-03-05 12:20 | History & Physical Report ---
Date of Service March 05, 2024 Assessment & Plan (1) Acute on chronic heart failure with preserved ejection fraction (HFpEF): Plan: Worsening LE edema bilaterally x 2 weeks, and acute onset of SOB/wheezing Placed on BiPAP in the ED CXR on arrival showed cardiomegaly with pulmonary vascular congestion Patient reported in triage that he has been taking his Bumex (1 mg x 3 daily) as instructed Per daughter (over the phone), patient has not been taking his Bumex for the past 5 days Last echocardiogram on 08/01/2023 revealed LVEF at 50-55% with moderate pulmonary hypertension Repeat echocardiogram ordered, pending BNP ordered, pending Will increase Bumex to 3 mg IV BID17 Daily weights Strict I&O monitoring Heart healthy, low-sodium diet (1200 mL fluid restriction) A.m. CBC, BMP, VBG (2) Chronic respiratory failure with hypoxia: Plan: Patient reportedly wears 3L NC at home VBG ordered, pending while on BiPAP Note: Per phlebotomy, patient reportedly refusing VBG blood draw in the ED Supplemental oxygen as needed Continuous pulse oximetry (3) Wheezing: Plan: Per chart review, no prior history of COPD or asthma Viral panel ordered, pending DuoNeb 3 mL Q6R as needed (4) Depression: Plan: Daughter reports that he often expresses passive SI, saying that he "wants to " secondary to his chronic pain Unable to discuss this with patient at time of mission Daughter reports he would probably not want to see psychiatry/behavioral health liaison at this time Would recommend broaching the subject for outpatient follow-up upon discharge Continue sertraline (5) Severe obstructive sleep apnea: Plan: CPAP at bedtime (6) Atrial fibrillation: Plan: Rate controlled on arrival Continue Eliquis (7) Noncompliance with medication regimen: Plan: Case management consult appreciated Plan Disposition: Admit to PCU telemetry Full code T2DM, AHA diet (1200 mL fluid restriction) VTE PPx: On Eliquis History of Present Illness Chief Complaint: Swelling/edema to extremity Primary Care Provider: DO Rashi Jimenes is a 73-year-old male with PMH of HFpEF, T2DM, restrictive lung disease, severe GABRIELLE, obesity hypoventilation syndrome, HTN, HLD, and atrial fibrillation (on apixaban). He presented via EMS on 11/8 for bilateral LE edema x 2 weeks, and new onset SOB/wheezing today. Patient reportedly wears supplemental oxygen at baseline (3L NC). At time admission, he is lethargic and does not respond to questioning or sternal rub. He will occasionally open his eyes, but does not answer questions such as "when is your birthday". When asked if he is currently having chest pain or trouble breathing, he shakes his head no. Patient reportedly did not take his regular morning medicine today. He ambulates with a walker at baseline. Patient is on BiPAP at time of admission; SpO2 96% on BiPAP; vitals otherwise stable. ED course: Albuterol 3 mL neb Bumex 3 mg IV Unable to obtain ROS at this time. Called patient's daughter (Maureen) and provided update regarding admission status as well as labs/imaging. Daughter reports that the patient's CPAP broke recently, however he brought a new one home recently and believes it was working. Daughter expresses frustration that whenever her father gets out of the hospital, he will do rehab and work on his health for 1 to 2 weeks and then "stop everything". Patient lives on the first floor of his house, and his lives upstairs, however daughter expresses that has had difficulty handling him recently. For instance, he does not eat much, has had some bowel incontinence, and has been noncompliant with his Lasix "for the past 5 days". Patient manages his own medicine at home, and per daughter he does not let anyone else in the family regulate his medicine. Given patient is not answering questions at this time, discussed CODE STATUS with daughter over the phone. She reports that there is no paperwork to the effect of the medical POA or proxy. She reports that her father has in the past that he "wants to " secondary to his pain. She reports that he has not said anything like this in the past month, but when asked if she would like us to reopen our behavioral health/psychiatry liaisons, she reports that he would not be up for it. Discussed that the patient was listed as a DNR/DNI visit during his hospitalization in October 2023. She was unaware of this, however she reports that she has never talked with her father about what he would want in a medical emergency, such as CPR/defibrillation/intubation. At this time, given patient is unable to respond to questioning, daughter would like him to be a full code. She reports that she wants us to "do everything you can" in an emergency situation. Allergies Allergy/AdvReac Type Severity Reaction Status Date / Time No Known Drug Allergies Allergy . Verified 12/11/23 08:50 Home Medications Medication Instructions Recorded Confirmed Type ascorbic acid (vitamin C) 500 mg 500 mg PO DAILY #30 caps 10/30/22 03/05/24 Rx capsule qaabfqnqaiyd-Za-ipfu-minerals 1 tab PO DAILY 02/24/23 03/05/24 History psyllium husk 3.4 gram/5.4 gram 1 tbsp PO DAILY #660 grams 03/13/23 03/05/24 Rx oral powder (Metamucil) acetaminophen 325 mg tablet 650 mg (2 x 325 mg) PO Q4H PRN #1 09/14/23 03/05/24 Rx tab diclofenac sodium 1 % topical gel 2 g EXT TID PRN joint pain #1 tube 09/14/23 03/05/24 Rx (Voltaren Arthritis Pain) magnesium oxide 400 mg (241.3 mg 400 mg PO QAM #0 tabs 09/14/23 03/05/24 Rx magnesium) tablet ammonium lactate 12 % topical cream 1 applic topical DAILY PRN dry 11/19/23 03/05/24 Rx skin #385 grams atorvastatin 40 mg tablet 40 mg PO DAILY #100 tabs 11/19/23 03/05/24 Rx dutasteride 0.5 mg capsule 0.5 mg PO DAILY #90 caps 11/19/23 03/05/24 Rx omeprazole 20 mg capsule,delayed 20 mg PO DAILY #90 caps 11/19/23 03/05/24 Rx release famotidine 20 mg tablet 20 mg PO HS #90 tabs 12/11/23 03/05/24 Rx apixaban 5 mg tablet (Eliquis) 5 mg PO BID #180 tabs 12/12/23 03/05/24 Rx hydralazine 100 mg tablet 100 mg PO BID #180 tabs 01/14/24 03/05/24 Rx metformin 500 mg tablet,extended 500 mg PO BIDM #60 tabs 02/16/24 03/05/24 Rx release 24 hr Miscellaneous Medical Supply 03/05/24 03/05/24 History betamethasone valerate 0.1 % 1 applic topical UD PRN skin 03/05/24 03/05/24 History topical cream irritation bumetanide 1 mg tablet 1 mg PO QAM 03/05/24 03/05/24 History ipratropium 0.5 mg-albuterol 3 mg 3 ml NEB UD PRN Other 03/05/24 03/05/24 History (2.5 mg base)/3 mL nebulization soln miconazole nitrate 2 % topical 1 applic EXT UD 03/05/24 03/05/24 History powder (Desenex) sertraline 50 mg tablet 50 mg PO UD 03/05/24 03/05/24 History Past Med/Surg History Problem List (Updated 03/05/24 @ 13:57 by Karlo Simms PA-C) Noncompliance with medication regimen Depression CHF (congestive heart failure) (Acute) Acute and chronic respiratory failure (Acute) Wheezing Chronic respiratory failure with hypoxia Acute on chronic heart failure with preserved ejection fraction (HFpEF) Depression B12 deficiency Mobitz I Pulmonary HTN Ambulatory dysfunction Pulmonary edema (Acute) (HFpEF) heart failure with preserved ejection fraction Atrial fibrillation Edema of both legs (Acute) BPH w urinary obs/LUTS Elevated erythrocyte sedimentation rate (Acute) Elevated C-reactive protein (Acute) Circadian rhythm sleep disorder, advanced sleep phase type Obesity hypoventilation syndrome Severe obstructive sleep apnea Bradycardia Chronic diastolic heart failure Restrictive lung disease Leukocytosis History of alcohol abuse T2DM (type 2 diabetes mellitus) Nocturnal hypoxia Allergic rhinitis Venous insufficiency (chronic) (peripheral) Urinary incontinence Strabismic amblyopia, 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 difficile diarrhea Acute metabolic encephalopathy Acute pain of right knee Acute hypercapnic respiratory failure Acute pain of right hip Fall Right hip pain Acute hypoxic respiratory failure Pericardial effusion Rectal bleeding Surgical History History of appendectomy History of prostate biopsy Family History Mother Diabetes Hypertension Other Blindness FH: cataracts Family history of blindness Glaucoma History of cataract Denies family history of Ovarian cancer Prostate cancer Myocardial infarction Breast cancer Colorectal cancer Social History Smoking Status: Former smoker Second Hand Exposure: No; Do You Dip or Chew Tobacco: No; Hx Alcohol Use: No Hx Substance Use: No Preferred Language: Iranian Communication Ability: Effective Visual Impairment: Limited Hearing Ability: Normal Field Care Coordinator Required: No Beliefs That Will Affect Care: None marital status: Current Living Situation: Spouse current occupational status: retired Feels Safe at Home: Yes Childhood Exposure to Second-Hand Smoke: No Diet: regular Diet Comment: regular caffeine: No during the past year weight has: remained stable Dental Care, Regularly: No Physical Activity Frequency: Other Physical Activity Frequency Comment: limited by physical condition Seatbelt Use: always Sunscreen Use: No Assistive Devices: BiPap, Oxygen - Continuous, Scooter/Electric Scooter and Walker Review of Systems Review of Systems: See HPI above Physical Exam Physical Exam: General: no acute distress; lethargic; does not awaken initially to sternal rub; will occasionally open eyes, but will not respond to questions; nontoxic appearing; SpO2 100% on BiPAP HEENT: normocephalic, atraumatic; no scleral icterus; PERRLA; unable to assess vision and hearing Neck: supple; no lymphadenopathy; trachea midline Skin: Tanned skin; warm, dry without signs of tenting; no cyanosis; no rashes, bruising, lesions, or erythema noted CV: chest wall NTP; irregularly irregular rhythm; S1/S2 normal; no murmurs/rubs/gallops; pulses intact and symmetric at radial, DP, and PT Lungs: no acute respiratory distress; symmetrical chest wall expansion; clear breath sounds across all lung bullard w/o adventitious sounds; no wheezing ABD: Soft, NTP; BS present; no rebound/guarding; moderate distention secondary to body habitus MSK: no tics or fasciculations; significant +3 pitting edema extending from the dorsal aspect of the feet bilaterally up towards the thighs; patient does wiggle toes very lightly when asked Neuro: Patient does not respond to questioning; he does not respond when asked what his birthday multiple times; unable to assess speech; unable to assess sensation Results & Data Results & Data Vital Signs (Past 12 Hours) Vital Signs Temp Pulse Pulse Resp BP Pulse Ox O2 Del Method 03/05/24 11:12 77 20 96 03/05/24 11:12 80 30 H 96 Nasal Cannula 03/05/24 10:23 96 Nasal Cannula 03/05/24 10:23 97 Nasal Cannula 03/05/24 10:23 36.5 C 87 26 H 139/74 96 Nasal Cannula O2 Flow Rate FiO2 03/05/24 11:12 40 03/05/24 11:12 3 03/05/24 10:23 3 03/05/24 10:23 3 03/05/24 10:23 3 Laboratory Results Abnormal lab results 03/05/24 Range/Units 11:01 WBC 14.95 H (4.8-10.8) K/ul RBC 3.48 L (4.70-6.10) M/uL Hgb 9.5 L (14.0-18.0) g/dl Hct 31.4 L (42.0-52.0) % MCHC 30.3 L (32.0-36.0) g/dL RDW Std Deviation 63.3 H (36.4-46.3) fL RDW Coeff of Darian 19.2 H (11.5-14.5) % Neut # (Auto) 12.41 H (1.40-6.50) K/uL Lymph # (Auto) 0.83 L (1.20-3.40) K/uL [place] # (Auto) 1.16 H (0.11-0.59) K/uL Carbon Dioxide 34 H (21-32) mmol/L Glucose 123 H (70-99(Fasting)) mg/dl Globulin 4.7 H (2.5-4.0) gm/dl Albumin/Globulin Ratio 0.8 L (0.9-2) Diagnostic Findings Chest X-Ray 03/05/24 10:22 XR chest 1V portable CLINICAL HISTORY: Chest pain, nonspecific COMPARISON STUDY: Chest CT August 27, 2023. Chest radiograph November 18, 2023. FINDINGS: Elevation of the right hemidiaphragm is unchanged. There is no pneumothorax or pleural effusion. Cardiomegaly is unchanged. There is pulmonary vascular congestion without overt pulmonary edema. No consolidation is identified to suggest pneumonia. IMPRESSION: Cardiomegaly with pulmonary vascular congestion. ACT 112: Negative or not required by law. Electronically signed by: Kenroy Kendrick M.D. 03/05/2024 11:16 AM ECG Additional Comments: ECG revealed atrial fibrillation at 88 bpm; QTc 503 (caution use of QT prolonging agents) Code Status & VTE Plan Code Status Full code (patient does not respond to questioning at this time; confirm CODE STATUS with daughter over the phone) VTE Prophylaxis Plan VTE Prophylaxis will be ordered: Yes Supervising Physician Co-Signing Physician Notes Rashi is a 73-year-old male with a history of heart failure with preserved ejection fraction, A-fib AoC resp failure, bailine 3-4L O2. Hx of bumex noncompliance. Worsening bilateral LE pitting edema, +orhopnea, +dyspnea. CXR with pulmonary vascular congestion. Placed on BiPAP in the ER. VBG ordered. Patient has a chronic mild leukocytosis without left shift. No consolidation seen on chest x-ray. Suspect acute hypoxic respiratory failure due to acute on chronic CHF. Continue IV Bumex, 2 mg twice daily 17. Strict ins and outs. Heart healthy diet. Follow fever curve. No indication for antibiotics at time of initial assessment. Suspicion for PE, patient is also anticoagulated for history of A- fib and reports he is compliant with this. PG Care Time/CCT Total # of Minutes Spent Total Time Spent with Patient: Total time spent is greater than 50% in coordination of care (as documented) at patient's floor/unit and/or counseling patient: [place] [address] INT INP/OBS CARE 3/75MIN Patient Type Established History Comprehensive Exam Comprehensive Medical Decision Making High Complexity Diagnoses Acute on chronic heart failure with preserved ejection fraction (HFpEF) I50.33 Chronic respiratory failure with hypoxia J96.11 Wheezing R06.2 Depression F32.A Severe obstructive sleep apnea G47.33 Atrial fibrillation I48.91 Noncompliance with medication regimen Z91.148
[2024-03-05] MEDS: BUMETANIDE 3 MG in SYRINGE 0 ML IV ONE (12:36)
--- NOTE | 2024-03-05 13:54 | Electrocardiogram Report ---
Test Reason : Blood Pressure : */* mmHG Vent. Rate : 88 BPM Atrial Rate : * BPM P-R Int : * ms QRS Dur : 142 ms QT Int : 416 ms P-R-T Axes : * 92 17 degrees QTcB Int : 503 ms Atrial fibrillation Right bundle branch block Abnormal ECG When compared with ECG of 20-Nov-2023 06:03, No significant change was found Confirmed by Lucius Huffman ([id number]) on 03/05/2024 1:53:33 PM Referred By: REFERRED SELF Confirmed By: Lucius Huffman
[2024-03-05 15:10] LABS: Adenovirus PCR Not Detected (NotDetected); Bordetella parapertussis PCR Not Detected (NotDetected); Bordetella pertussis PCR Not Detected (NotDetected); Chlamydia pneumoniae PCR Not Detected (NotDetected); Coronavirus 229E PCR Not Detected (NotDetected); Coronavirus CoV-2 (COVID19)PCR Not Detected (NotDetected); Coronavirus HKU1 PCR Not Detected (NotDetected); Coronavirus NL63 PCR Not Detected (NotDetected); Coronavirus OC43PCR Not Detected (NotDetected); Human Metapneumovirus PCR Not Detected (NotDetected); Influenza A PCR Not Detected (NotDetected); Influenza B PCR Not Detected (NotDetected); Mycoplasma pneumoniae PCR Not Detected (NotDetected); Parainfluenza Virus 1 PCR Not Detected (NotDetected); Parainfluenza Virus 2 PCR Not Detected (NotDetected); Parainfluenza Virus 3 PCR Not Detected (NotDetected); Parainfluenza Virus 4 PCR Not Detected (NotDetected); Respiratory Syncytial VirusPCR Not Detected (NotDetected); Rhinovirus/Enterovirus PCR Not Detected (NotDetected)
[2024-03-05] MEDS ORDERED: DEXTROSE 50% 50 ML SYRINGE IV PRN (15:45)
[2024-03-05] MEDS ORDERED: CARBOHYDRATES FOR HYPOGLYCEMIA PO PRN (15:45)
[2024-03-05] MEDS ORDERED: GLUCOSE 10 TAB/TUBE PO PRN (15:45)
[2024-03-05] MEDS ORDERED: GLUCOSE 40% GEL 15 GM TUBE PO PRN (15:45)
[2024-03-05] MEDS ORDERED: ALBUT/IPRATROP 3MG/0.5MG NEB 3 ML VIAL NEB PRN (15:45)
[2024-03-05] MEDS ORDERED: GLUCAGON FOR INJ 1 MG VIAL SQ PRN (15:45)
[2024-03-05] MEDS ORDERED: PROCHLORPERAZINE 5 MG in SYRINGE 4 ML IV PRN (15:45)
[2024-03-05] MEDS: APIXABAN 5 MG TABLET PO ONE (16:02)
[2024-03-05] MEDS ORDERED: Nursing to Pharmacy Communication SCH (17:45)
[2024-03-05] MEDS: INSULIN ASPART PER UNIT CHARGE SC SCH ×2 (17:54→18:11)
[2024-03-05] MEDS: MICONAZOLE NITRATE POWDER 85 GM EXT SCH (18:03)
[2024-03-05] MEDS: BUMETANIDE 3 MG in SYRINGE 0 ML IV SCH (18:04)
[2024-03-05] MEDS: LANTUS PER UNIT CHARGE SQ SCH (21:37)
[2024-03-05] MEDS: FAMOTIDINE 20 MG TAB PO SCH (21:40)
[2024-03-05] MEDS: APIXABAN 5 MG TABLET PO SCH (21:40)
[2024-03-05] MEDS: hydrALAZINE TAB 50 MG TAB PO SCH (21:40)
[2024-03-06 06:17] LABS: Base Excess VBG 12.8 mEq/L; HCO3 VBG 42 mmol/L; Oxygen Saturation VBG < 60.0 %; PCO2 VBG 76 mmHg (38-50); PO2 VBG 26 mmHg; pH VBG 7.35 (7.36-7.41)
[2024-03-06 07:26] LABS: Estimated Average Glucose 140 mg/dl; Hemoglobin A1C 6.5 % (4.5-5.6)
--- NOTE | 2024-03-06 09:03 | Hospitalist Progress Note ---
Date of Service March 06, 2024 Assessment & Plan (1) Noncompliance with medication regimen: (2) Depression: (3) Acute on chronic heart failure with preserved ejection fraction (HFpEF): (4) Chronic respiratory failure with hypoxia: (5) Acute and chronic respiratory failure: (6) Pulmonary HTN: (7) Obesity hypoventilation syndrome: (8) Severe obstructive sleep apnea: (9) Restrictive lung disease: (10) T2DM (type 2 diabetes mellitus): (11) History of alcohol abuse: (12) Venous insufficiency (chronic) (peripheral): Plan 1) Acute on chronic heart failure with preserved ejection fraction (HFpEF): Worsening LE edema bilaterally x 2 weeks, and acute onset of SOB/wheezing Placed on BiPAP in the ED CXR on arrival showed cardiomegaly with pulmonary vascular congestion Patient reported in triage that he has been taking his Bumex (1 mg x 3 daily) as instructed Per daughter (over the phone), patient has not been taking his Bumex for the past 5 days Last echocardiogram on 08/01/2023 revealed LVEF at 50-55% with moderate pulmonary hypertension Repeat echocardiogram ordered, pending BNP, 525 <-- 236 (October 2023) Will increase Bumex to 3 mg IV BID (9.00, 17.00) Daily weights, Strict I&O monitoring Heart healthy, low-sodium diet (1200 mL fluid restriction) CBC, BMP, VBG (2) Chronic respiratory failure with hypoxia/obesity hypoventilation syndrome Patient reportedly wears 3L NC at home, on 4 L O2 NC during day during hospital stay VBG: pH 7.35/pCO2 76/pO2 26/HCO3 42 Supplemental oxygen as needed Continuous pulse oximetry (3) Wheezing Per chart review, no prior history of COPD or asthma: consider seeing a car dumper operator as an outpatient Viral respiratory panel ordered, montiel-negative DuoNeb 3 mL Q6R as needed (4) Depression: Daughter reports that he often expresses passive SI, saying that he "wants to " secondary to his chronic pain Unable to discuss this with patient at time of mission Daughter reported he would probably not want to see psychiatry/behavioral health liaison at this time Will bring up the topic before outpatient follow-up upon discharge Continue sertraline (5) Severe obstructive sleep apnea: CPAP/Bipap at bedtime CPAP/Bipap continuous as needed, (6) Atrial fibrillation: Rate controlled on arrival Continue Eliquis (7) Noncompliance with medication regimen: Case management consult appreciated - Pt stated today that [facility] has not been delivering his meds on time Plan Disposition: Admit to PCU telemetry Full code T2DM, AHA diet (1200 mL fluid restriction) VTE PPx: On Eliquis Admission and Anticipated Discharge Date Admission Date: March 05, 2024 Supervising Physician Co-Signing Physician Notes I personally examined the patient and verified all garcia points of history and exam, discussed case, and agree with decision making with Dr Galaviz feeling better today vitals noted nad heent nc at mmm breathing unlabored no accessory muscles good effort skin no rashes no pallor or icterus acute on chronic combined hypoxic and hypercapnic respiratory failure from OHS and HFpEF - diurese, bipap - work on ways to help encourage adherence at home, he also notes he needs working bipap - will need to work on this starting friday continue current care for now otherwise Subjective Patient is a 73 yo M w/ a PMHx of medication noncompliance, depression, HFpEF, pulmonary HTN, b/l lower leg edema/venous insufficiency, obesity hypoventilation syndrome, severe GABRIELLE, restrictive lung disease, T2DM, Hx of alcohol abuse, right BBB, pes planus, HLD, HTN, GERD w/out esophagitis who presented to [facility] ED via ambulance for worsening LE edema, dyspnea/wheezing, and extreme lethargy (not responding to questioning or sternal rub). This morning he is more alert, conversant (more so in Liberian than Portuguese), reiterates that he wants full code status, and is very insistent that he is hungry. His SpO2 is 97% on 4 L O2 by nasal cannula and although VBG indicated hypercapnia, patient seems alert this morning. Review of Systems Constitutional: no fever, no chills, no body aches, no fatigue and no weakness Respiratory: + cough (dry cough of 2 weeks), + dyspne a, + dyspnea on exertion and + wheezing; no hemoptysis and no pain with cough Cardiovascular: + orthopnea; no chest pain and no palpit ations Gastrointestinal: + heartburn; no nausea, no vomiting, no constipation and no diarrhea/loose stools Neurologic: + numbness; no loss of sensation and no headache(s) Physical Exam 2 Constitutional: WD/WN, vitals as above well developed, + morbidly obese, cooperative and comfortable Cardiovascular: RRR, no murmur, no edema Extremities: + calf tenderness and + pedal edema Gastrointestinal (Abdomen): normal bowel sounds, soft, nontender, no hepatosplenomegaly Skin: + induration (lower legs bilaterally) an d + skin tightening Psychiatric: A+Ox3, euthymic affect Results & Data Results & Data Vital Signs (Past 12 Hours) Vital Signs Temp Pulse Pulse Resp BP Pulse Ox O2 Del Method 03/06/24 07:37 36.5 C 82 19 182/70 H 94 Nasal Cannula 03/06/24 03:35 36.9 C 76 20 165/76 H 95 BiPAP 03/06/24 00:08 68 20 100 03/05/24 23:00 75 03/05/24 23:00 36.3 C L 75 20 159/72 H 96 Nasal Cannula O2 Flow Rate FiO2 03/06/24 07:37 4 03/06/24 03:35 40 03/06/24 00:08 40 03/05/24 23:00 03/05/24 23:00 3 (5) Acute and chronic respiratory failure Respiratory failure complication: hypoxia Qualified Code(s): J96.21 - Acute and chronic respiratory failure with hypoxia
[2024-03-06] MEDS: MAGNESIUM OXIDE 400 MG TAB PO SCH (11:22)
[2024-03-06] MEDS: PANTOprazole 40 MG TAB PO SCH (11:23)
[2024-03-06] MEDS: SERTRALINE HCL 50 MG TABLET PO SCH (11:23)
[2024-03-06] MEDS: ATORVASTATIN 40 MG TAB PO SCH (11:23)
--- NOTE | 2024-03-06 17:55 | Billing Data ---
Date of Service March 06, 2024 Coding Level of Care Code 99716 SUB INP/OBS CARE MIN
[2024-03-06] MEDS: INFLUENZA VACC TS2024-25(65y+)/PF (IIV3) 0.5mL Syr IM ONE (18:15)
[2024-03-06] MEDS: PNEUMOCOCCAL VACCINE (PCV20) 20-VAL CONJ-DIP CRM/PF 0.5 ML SYR IM ONE (18:16)
[2024-03-06] MEDS ORDERED: Nursing to Pharmacy Communication SCH (18:45)
[2024-03-06] MEDS: INSULIN ASPART PER UNIT CHARGE SC SCH (21:17)
--- NOTE | 2024-03-07 07:09 | Hospitalist Progress Note ---
Date of Service March 07, 2024 Assessment & Plan (1) Noncompliance with medication regimen: (2) Depression: (3) Acute on chronic heart failure with preserved ejection fraction (HFpEF): (4) Chronic respiratory failure with hypoxia: (5) Acute and chronic respiratory failure: (6) Pulmonary HTN: (7) Obesity hypoventilation syndrome: (8) Severe obstructive sleep apnea: (9) Restrictive lung disease: (10) T2DM (type 2 diabetes mellitus): (11) History of alcohol abuse: (12) Venous insufficiency (chronic) (peripheral): Plan 1) Acute on chronic heart failure with preserved ejection fraction (HFpEF): Worsening LE edema bilaterally x 2 weeks, and acute onset of SOB/wheezing Placed on BiPAP in the ED - CXR on arrival showed cardiomegaly with pulmonary vascular congestion - Patient reported in triage that he has been taking his Bumex (1 mg x 3 daily) as instructed - Per daughter (over the phone), patient has not been taking his Bumex for the past 5 days - Last echocardiogram on 08/01/2023 revealed LVEF at 50-55% with moderate pulmonary hypertension Repeat echocardiogram: 1. Normal LV size. Mild concentric LVH. 2. LVEF 45-50%. Mild global LV dysfunction. 3. Normal RV size and function. 4. Mild to moderate mitral regurgitation. 5. Moderate to severe Pulm HTN. Est PASP 55-60 mm Hg. Est RA 8 mm Hg. 6. Trace pericardial effusion. 7. No sig changes compared to prior study on 08/01/2023. - BNP, 525 <-- 236 (October 2023) - Increased Bumex to 3 mg IV BID (9.00, 17.00) - Daily weights, Strict I&O monitoring - Heart healthy, low-sodium diet (1200 mL fluid restriction) CBC, BMP, daily (2) Chronic respiratory failure with hypoxia/obesity hypoventilation syndrome Patient reportedly wears 3L NC at home, on 4 L O2 NC during day during hospital stay VBG: pH 7.35/pCO2 76/pO2 26/HCO3 42 Supplemental oxygen as needed, Q4hr pulse oximetry - Overnight pulse oximetry ordered (while on room air) - AM ABG (for 03/07) ordered to qualify pt for CPAP/Bipap device at home (current one not working) (3) Wheezing Per chart review, no prior history of COPD or asthma: consider seeing a composite bond worker as an outpatient Viral respiratory panel ordered, montiel-negative DuoNeb 3 mL Q6R as needed; consider scheduling (4) Depression: Daughter reports that he often expresses passive SI, saying that he "wants to " secondary to his chronic pain Unable to discuss this with patient at time of mission Daughter reported he would probably not want to see psychiatry/behavioral health liaison at this time Will bring up the topic before outpatient follow-up upon discharge Continue sertraline (5) Severe obstructive sleep apnea: CPAP/Bipap at bedtime CPAP/Bipap continuous as needed, during the day (6) Atrial fibrillation: Rate controlled on arrival Continue Eliquis (7) Noncompliance with medication regimen: - Case management consult appreciated - Pt stated today that [facility] has not been delivering his meds on time - May be a case that patient forgets to tell his PCP to renew Rx's, so has not been getting some of his necessary meds Plan Disposition: Admit to PCU telemetry Code status: Full code T2DM, AHA diet (1200 mL fluid restriction) VTE PPx: On Eliquis Admission and Anticipated Discharge Date Admission Date: March 05, 2024 Supervising Physician Co-Signing Physician Notes I personally examined the patient and verified all garcia points of history and exam, discussed case, and agree with decision making with Dr Galaviz discussed taking meds at home and getting bipap set up again. vitals noted nad heent nc at mmm breathing unlabored no accessory muscles good effort skin no rashes no pallor or icterus acute on chronic combined hypoxic and hypercapnic respiratory failure from OHS and HFpEF - diurese, bipap - work on ways to help encourage adherence at home, he also notes he needs working bipap - will need to work on this starting friday (and given that it's not clear if prior testing will cover now - and given how clearly OHS his situation appears to be, will check overnight pulse ox and AM ABG to act as qualifying studies even if "starting from scratch" continue current care for now otherwise, anticipate he'll be able to go home once more stable - but will need to ensure he follows through with meds/bipap/etc Subjective Patient is a 73 yo M w/ a PMHx of medication noncompliance, depression, HFpEF, pulmonary HTN, b/l lower leg edema/venous insufficiency, obesity hypoventilation syndrome, severe GABRIELLE, restrictive lung disease, T2DM, Hx of alcohol abuse, right BBB, pes planus, HLD, HTN, GERD w/out esophagitis who presented to [facility] ED via ambulance for worsening LE edema, dyspnea/wheezing, and extreme lethargy (not responding to questioning or sternal rub). This morning he continues to be alert, conversant, but admittedly much better than when admitted. His SpO2 is 98% on 4 L O2 by nasal cannula. Admission VBG indicated hypercapnia, but patient continues to be alert this morning. Review of Systems Constitutional: no fever, no chills, no body aches, no fatigue and no weakness Respiratory: + cough (dry cough of 2 weeks), + dyspne a on exertion and + wheezing; no hemoptysis and no pain with cough Cardiovascular: + orthopnea; no chest pain and no palpit ations Gastrointestinal: + heartburn; no nausea, no vomiting, no constipation and no diarrhea/loose stools Neurologic: + numbness; no loss of sensation and no headache(s) Physical Exam Constitutional: WD/WN, vitals as above well developed, + morbidly obese, cooperative and comfortable Respiratory: Auscultation: + crackles (crackles noted b/l in posterior lungs) and + wheezes (wheezes noted of anterior lungs) Cardiovascular: RRR, no murmur, no edema Extremities: + calf tenderness and + pedal edema Gastrointestinal (Abdomen): normal bowel sounds, soft, nontender, no hepatosplenomegaly Skin: + induration (lower legs bilaterally) an d + skin tightening Psychiatric: A+Ox3, euthymic affect Results & Data Results & Data Vital Signs (Past 12 Hours) Vital Signs Temp Pulse Pulse Resp BP Pulse Ox O2 Del Method 03/07/24 04:36 36.6 C 68 18 161/76 H 90 BiPAP 03/07/24 03:16 82 19 99 03/07/24 00:28 37.0 C 76 18 157/65 H 94 BiPAP 03/06/24 23:49 68 03/06/24 22:25 68 21 98 03/06/24 21:12 70 22 99 03/06/24 20:25 36.9 C 78 18 160/67 H 93 Nasal Cannula 03/06/24 20:00 Nasal Cannula O2 Flow Rate FiO2 03/07/24 04:36 03/07/24 03:16 40 03/07/24 00:28 03/06/24 23:49 03/06/24 22:25 40 03/06/24 21:12 40 03/06/24 20:25 3.5 03/06/24 20:00 4 (5) Acute and chronic respiratory failure Respiratory failure complication: hypoxia Qualified Code(s): J96.21 - Acute and chronic respiratory failure with hypoxia
[2024-03-07 08:06] LABS: Hematocrit (blood only) 27.4 % (42.0-52.0); Hemoglobin 8.7 g/dl (14.0-18.0); Mean Corpuscular Hemoglobin 27.6 pg (25.0-34.0); Mean Corpuscular Hgb Conc 31.8 g/dL (32.0-36.0); Mean Platelet Volume 10.2 fL (9.4-12.4); Nucleated RBC # (auto) 0.02 K/uL (0.00-0.12); Nucleated RBC % (auto) 0.1 %; Platelet Count 361 K/uL (130-400); RDW Coefficient of Variation 19.1 % (11.5-14.5); RDW Standard Deviation 60.9 fL (36.4-46.3); Red Blood Count 3.15 M/uL (4.70-6.10); White Blood Count 13.54 K/ul (4.8-10.8)
[2024-03-07 08:48] LABS: BUN Creatinine Ratio 23.5 (10-20); Calcium 8.5 mg/dl (8.6-10.3); Creatinine Clr Calc Pharmacy 96.7 ml/min; Potassium 3.5 mmol/L (3.5-5.1)
--- NOTE | 2024-03-07 10:04 | XCELERA ---
[id number]
--- NOTE | 2024-03-07 16:43 | Billing Data ---
Date of Service March 07, 2024 Coding Level of Care Code 38460 SUB INP/OBS CARE MIN
[2024-03-07 19:49] LABS: Base Excess VBG 22.4 mEq/L; HCO3 VBG 51 mmol/L; Oxygen Saturation VBG 83.5 %; PCO2 VBG 82 mmHg (38-50); PO2 VBG 53 mmHg
[2024-03-08 06:35] LABS: Base Excess VBG 20.9 mEq/L; HCO3 VBG 50 mmol/L; Oxygen Saturation VBG 87.3 %; PCO2 VBG 75 mmHg (38-50); PO2 VBG 58 mmHg; pH VBG 7.43 (7.36-7.41)
--- NOTE | 2024-03-08 07:50 | Hospitalist Progress Note ---
Date of Service March 08, 2024 Assessment & Plan (1) Noncompliance with medication regimen: (2) Depression: (3) Acute on chronic heart failure with preserved ejection fraction (HFpEF): (4) Chronic respiratory failure with hypoxia: (5) Acute and chronic respiratory failure: (6) Pulmonary HTN: (7) Obesity hypoventilation syndrome: (8) Severe obstructive sleep apnea: (9) Restrictive lung disease: (10) T2DM (type 2 diabetes mellitus): (11) History of alcohol abuse: (12) Venous insufficiency (chronic) (peripheral): Plan #Acute on chronic heart failure with preserved ejection fraction (HFpEF) Worsening LE edema bilaterally x 2 weeks, and acute onset of SOB/wheezing on admission - CXR on arrival showed cardiomegaly with pulmonary vascular congestion - Patient reported in triage that he has been taking his Bumex (1 mg x 3 daily) as instructed - Per daughter (over the phone), patient has not been taking his Bumex for the past 5 days leading up to admission - echo 07/31/2023; EF 50-55%, mod pulm HTN, repeat this admission 45-50% with mod to severe pulm HTN, no significant change from prior - continue BID IV bumex #Chronic respiratory failure with hypoxia and hypercapnia/obesity hypoventilation syndrome Patient reportedly wears 3L NC at home, had increased needs here that have now resolved - Overnight pulse oximetry ordered (while on room air) for new CPAP/bipap (current one not working) (this was to be done last night but due to hypercapnia was deferred) #Deconditioning - PT/OT evals; PT recommending rehab #Wheezing, resolved Per chart review, no prior history of COPD or asthma: consider seeing a unit aid as an outpatient -Viral respiratory panel ordered, montiel-negative -DuoNeb 3 mL Q6R as needed; consider scheduling #Depression: - Daughter reports that he often expresses passive SI, saying that he "wants to " secondary to his chronic pain - Unable to discuss this with patient at time of mission - Daughter reported he would probably not want to see psychiatry/behavioral health liaison at this time - Will bring up the topic before outpatient follow-up upon discharge - Continue sertraline #Severe obstructive sleep apnea: CPAP/Bipap at bedtime CPAP/Bipap continuous as needed, during the day #Atrial fibrillation: Rate controlled on arrival and throughout stay so far Continue [facility] #Noncompliance with medication regimen: - Case management consult appreciated - Pt stated today that [facility] has not been delivering his meds on time VTE PPx: On Eliquis Admission and Anticipated Discharge Date Admission Date: March 05, 2024 Supervising Physician Co-Signing Physician Notes Attending Physician Supervision Note: I independently interviewed and examined the patient and verified the garcia history and physical, reviewed labs and image studies and agree with findings and care plan noted above. no new concerns. vitals noted nad heent nc at mmm breathing unlabored no accessory muscles good effort skin no rashes no pallor or icterus acute on chronic combined hypoxic and hypercapnic respiratory failure from OHS and HFpEF - diurese, bipap - continue diuresis with bumex IV -CO2 75 on ABG hence oximetry was cancelled. to reassess in am. Non-adherence to meds and cpap - high risk of readmission. continue to explore ways to assure compliance at home. continue current care for now otherwise, anticipate d/c home once more stable Subjective Today, pt states he is feeling okay. He states his breathing is much better than yesterday. He states he takes 3L of NC O2 daily at home. He states he lives home by himself but has people to help him. With breathing improved, he has no questions or complaints today. He states he does not track his weights at home because he does not have a scale and cannot afford one. Review of Systems Review of Systems: Per HPI. Physical Exam Physical Exam: General:Alert and oriented, no acute distress, HEENT: Normocephalic, moist oral mucosa, Cardio: Regular rate and rhythm, + murmur, Resp:Lungs clear to auscultation b/l but poor air flow noted diffusely Skin: Warm, pink, dry, Results & Data Results & Data Vital Signs (Past 12 Hours) Vital Signs Temp Pulse Pulse Resp BP Pulse Ox Pulse Ox 03/08/24 06:00 97 03/08/24 03:50 65 14 98 03/08/24 03:45 36.4 C L 71 19 165/67 H 99 03/08/24 00:12 36.5 C 79 18 166/80 H 98 03/07/24 23:37 68 03/07/24 22:52 68 22 97 03/07/24 20:07 36.6 C 75 19 172/68 H 98 03/07/24 20:00 O2 Del Method O2 Del Method O2 Flow Rate FiO2 03/08/24 06:00 Nasal Cannula 4 03/08/24 03:50 40 03/08/24 03:45 CPAP 03/08/24 00:12 CPAP 03/07/24 23:37 03/07/24 22:52 40 03/07/24 20:07 BiPAP 03/07/24 20:00 CPAP Resident Activity Tracking Resident Involvement: Resident Care Provided Care Provided: Adult Hospital Medicine (5) Acute and chronic respiratory failure Respiratory failure complication: hypoxia Qualified Code(s): J96.21 - Acute and chronic respiratory failure with hypoxia
[2024-03-08 09:13] LABS: Alanine Aminotransferase 13 U/L (7-52); Albumin Globulin Ratio 0.8 (0.9-2); Albumin Level 3.1 gm/dl (3.4-5.0); Alkaline Phosphatase 83 U/L (34-104); Aspartate Aminotransferase 14 U/L (13-39); BUN Creatinine Ratio 23.9 (10-20); Bilirubin,Total 0.5 mg/dl (0.2-1.0); Blood Urea Nitrogen 21 mg/dl (6-23); Calcium 8.6 mg/dl (8.6-10.3); Carbon Dioxide > 45 mmol/L (21-32); Chloride 91 mmol/L (98-107); Creatinine Clr Calc Pharmacy 88.5 ml/min; Globulin 4.1 gm/dl (2.5-4.0); Glucose 100 mg/dl (70-99(Fasting)); Potassium 3.6 mmol/L (3.5-5.1); Sodium 142 mmol/L (136-145); Total Protein 7.2 gm/dl (6.0-8.3)
[2024-03-08] MEDS: ACETAMINOPHEN 325 MG TAB PO PRN (22:23)
[2024-03-09 06:30] LABS: Base Excess VBG 22.1 mEq/L; HCO3 VBG 51 mmol/L; Oxygen Saturation VBG 74.2 %; PCO2 VBG 71 mmHg (38-50); PO2 VBG 44 mmHg; pH VBG 7.46 (7.36-7.41)
[2024-03-09 06:35] LABS: Basophils # (auto) 0.03 K/uL (0.00-0.20); Basophils % (auto) 0.2 %; Eosinophils # (auto) 0.53 K/uL (0.00-0.50); Hematocrit (blood only) 28.6 % (42.0-52.0); Hemoglobin 9.3 g/dl (14.0-18.0); Immature Granulocytes % (auto) 0.8 %; Lymphocytes # (auto) 0.95 K/uL (1.20-3.40); Lymphocytes % (auto) 7.2 %; Mean Corpuscular Hemoglobin 28.3 pg (25.0-34.0); Mean Corpuscular Hgb Conc 32.5 g/dL (32.0-36.0); Mean Corpuscular Volume 86.9 fL (80.0-100.0); Mean Platelet Volume 10.1 fL (9.4-12.4); Monocytes # (auto) 1.08 K/uL (0.11-0.59); Monocytes % (auto) 8.2 %; Neutrophils # (auto) 10.49 K/uL (1.40-6.50); Neutrophils % (auto) 79.6 %; Platelet Count 328 K/uL (130-400); RDW Coefficient of Variation 18.7 % (11.5-14.5); RDW Standard Deviation 59.5 fL (36.4-46.3); Red Blood Count 3.29 M/uL (4.70-6.10); White Blood Count 13.18 K/ul (4.8-10.8)
[2024-03-09 10:27] LABS: Blood Urea Nitrogen 24 mg/dl (6-23); Calcium 8.2 mg/dl (8.6-10.3); Carbon Dioxide > 45 mmol/L (21-32); Chloride 90 mmol/L (98-107); Creatinine Clr Calc Pharmacy 81.1 ml/min; Glucose 116 mg/dl (70-99(Fasting)); Potassium 3.6 mmol/L (3.5-5.1); Sodium 141 mmol/L (136-145)
[2024-03-09] MEDS: POLYETHYLENE (MIRALAX) 17 GM PACK PO SCH (10:33)
--- NOTE | 2024-03-09 11:32 | Hospitalist Progress Note ---
Date of Service March 09, 2024 Assessment & Plan (1) Noncompliance with medication regimen: (2) Depression: (3) Acute on chronic heart failure with preserved ejection fraction (HFpEF): (4) Chronic respiratory failure with hypoxia: (5) Acute and chronic respiratory failure: (6) Pulmonary HTN: (7) Obesity hypoventilation syndrome: (8) Severe obstructive sleep apnea: (9) Restrictive lung disease: (10) T2DM (type 2 diabetes mellitus): (11) History of alcohol abuse: (12) Venous insufficiency (chronic) (peripheral): Plan #Acute on chronic heart failure with preserved ejection fraction (HFpEF) Worsening LE edema bilaterally x 2 weeks, and acute onset of SOB/wheezing on admission - CXR on arrival showed cardiomegaly with pulmonary vascular congestion - Patient reported in triage that he has been taking his Bumex (1 mg x 3 daily) as instructed - Per daughter (over the phone), patient has not been taking his Bumex for the past 5 days leading up to admission - echo 07/31/2023; EF 50-55%, mod pulm HTN, repeat this admission 45-50% with mod to severe pulm HTN, no significant change from prior - continue BID IV bumex, will decrease/hold when creatinine bumps #Chronic respiratory failure with hypoxia and hypercapnia/obesity hypoven tilation syndrome Patient reportedly wears 3L NC at home, had increased needs here that have now resolved - Overnight pulse oximetry ordered (while on room air) for new CPAP/bipap (current one not working) (this was to be done last night but due to hypercapnia was deferred) #Deconditioning - PT/OT evals; PT recommending rehab but pt wants home with HH #Wheezing, resolved Per chart review, no prior history of COPD or asthma: consider seeing a rn transitional care as an outpatient -Viral respiratory panel ordered, montiel-negative -DuoNeb 3 mL Q6R as needed; consider scheduling #Depression: - Daughter reports that he often expresses passive SI, saying that he "wants to " secondary to his chronic pain - Unable to discuss this with patient at time of mission - Daughter reported he would probably not want to see psychiatry/behavioral health liaison at this time - Will bring up the topic before outpatient follow-up upon discharge - Continue sertraline #Severe obstructive sleep apnea: CPAP/Bipap at bedtime CPAP/Bipap continuous as needed, during the day #Atrial fibrillation: - Rate controlled on arrival and throughout stay so far - Continue [facility] #Noncompliance with medication regimen: - Case management consult appreciated - Pt stated during this admission that [facility] has not been delivering his meds on time - case working on getting pt new home CPAP as this will be garcia to getting him home and preventing readmission for hypercapnic resp failure VTE PPx: On Eliquis Admission and Anticipated Discharge Date Admission Date: March 05, 2024 Supervising Physician Co-Signing Physician Notes Attending Physician Supervision Note: I independently interviewed and examined the patient and verified the garcia history and physical, reviewed labs and image studies and agree with findings and care plan noted above. no new concerns. vitals noted nad heent nc at mmm breathing unlabored no accessory muscles good effort skin no rashes no pallor or icterus acute on chronic combined hypoxic and hypercapnic respiratory failure from OHS and HFpEF - -diurese, bipap - continue diuresis with bumex IV. Neg 11L. Renal fx stable -Maintain pires while on IV bumex. Cognitive deficit - has support at home with daughter and but does not allow them to help. Non-adherence to meds and cpap - Cognitive deficit must be contributing as well. high risk of readmission. continue to explore ways to assure compliance at home. Bipap arranged at home. For rehab stay on discharge. Subjective Today, pt states he is feeling okay this morning. Breathing is not better or worse than yesterday but he feels it is about baseline for him. Pt still does not want to go to rehab and would rather home with home health services. No chest pain or SOB today. No nausea or vomiting but no BM in 2 days so he does feel he is getting a little bit backed up. Otherwise, no questions or concerns. Review of Systems Review of Systems: Per HPI. Physical Exam Physical Exam: General:Alert and oriented, no acute distress, HEENT: Normocephalic, moist oral mucosa, Cardio: Regular rate and rhythm, + murmur, Resp:Lungs clear to auscultation b/l but poor air flow noted diffusely GI: Soft, active bowel sounds Skin: Warm, pink, dry, Results & Data Results & Data Vital Signs (Past 12 Hours) Vital Signs Temp Pulse Pulse Pulse Resp BP Pulse Ox 03/09/24 11:19 36.6 C 72 16 143/62 H 98 03/09/24 09:46 03/09/24 07:25 36.6 C 69 18 169/52 H 99 03/09/24 07:21 76 03/09/24 03:45 68 21 99 03/09/24 02:46 36.8 C 72 18 156/71 H 96 03/08/24 23:59 64 O2 Del Method O2 Flow Rate FiO2 03/09/24 11:19 Nasal Cannula 3 03/09/24 09:46 Nasal Cannula 3 03/09/24 07:25 Nasal Cannula 3 03/09/24 07:21 03/09/24 03:45 40 03/09/24 02:46 BiPAP 03/08/24 23:59 Resident Activity Tracking Resident Involvement: Resident Care Provided Care Provided: Adult Hospital Medicine (5) Acute and chronic respiratory failure Respiratory failure complication: hypoxia Qualified Code(s): J96.21 - Acute and chronic respiratory failure with hypoxia
[2024-03-10 10:04] LABS: BUN Creatinine Ratio 23.6 (10-20); Blood Urea Nitrogen 25 mg/dl (6-23); Calcium 8.7 mg/dl (8.6-10.3); Carbon Dioxide > 45 mmol/L (21-32); Chloride 90 mmol/L (98-107); Creatinine Clr Calc Pharmacy 73.3 ml/min; Glucose 92 mg/dl (70-99(Fasting)); Potassium 3.8 mmol/L (3.5-5.1); Sodium 141 mmol/L (136-145)
--- NOTE | 2024-03-10 10:23 | XRay Report ---
XR chest 1V portable CLINICAL HISTORY: Crackles on exam COMPARISON STUDY: Chest CT August 27, 2023. Chest radiograph March 05, 2024. FINDINGS: There is no pneumothorax or pleural effusion. Mild elevation of the right hemidiaphragm is unchanged. Pulmonary vascular congestion has improved. Cardiomegaly is unchanged. Apparent bibasilar opacities are likely artifactual. There is no definite consolidation to suggest pneumonia. IMPRESSION: 1. No acute cardiopulmonary findings. 2. Cardiomegaly. No evidence for pulmonary edema. 3. Apparent bibasilar opacities which are likely artifactual. No definite consolidation. ACT 112: Negative or not required by law. Electronically signed by: Kenroy Kendrick M.D. 03/10/2024 10:21 AM
--- NOTE | 2024-03-10 12:25 | Hospitalist Progress Note ---
Date of Service March 10, 2024 Assessment & Plan (1) Noncompliance with medication regimen: (2) Depression: (3) Acute on chronic heart failure with preserved ejection fraction (HFpEF): (4) Chronic respiratory failure with hypoxia: (5) Acute and chronic respiratory failure: (6) Pulmonary HTN: (7) Obesity hypoventilation syndrome: (8) Severe obstructive sleep apnea: (9) Restrictive lung disease: (10) T2DM (type 2 diabetes mellitus): (11) History of alcohol abuse: (12) Venous insufficiency (chronic) (peripheral): Plan #Acute on chronic heart failure with preserved ejection fraction (HFpEF) Worsening LE edema bilaterally x 2 weeks, and acute onset of SOB/wheezing on admission - CXR on arrival showed cardiomegaly with pulmonary vascular congestion - Patient reported in triage that he has been taking his Bumex (1 mg x 3 daily) as instructed - Per daughter (over the phone), patient has not been taking his Bumex for the past 5 days leading up to admission - echo 07/31/2023; EF 50-55%, mod pulm HTN, repeat this admission 45-50% with mod to severe pulm HTN, no significant change from prior - unclear baseline dry weight, continue BID IV bumex today, will decrease/hold when creatinine bumps or may transition to po tomorrow #Chronic respiratory failure with hypoxia and hypercapnia/obesity hypoventilation syndrome Patient reportedly wears 3L NC at home, had increased needs here that have now resolved - Overnight pulse oximetry ordered (while on room air) for new CPAP/bipap (current one not working) (this was to be done last night but due to hypercapnia was deferred) #Deconditioning - PT/OT evals; PT recommending rehab but pt wants home with HH #Wheezing, resolved Per chart review, no prior history of COPD or asthma: consider seeing a survey rodman as an outpatient -Viral respiratory panel ordered, montiel-negative -DuoNeb 3 mL Q6R as needed; consider scheduling #Depression: - Daughter reports that he often expresses passive SI, saying that he "wants to " secondary to his chronic pain - Unable to discuss this with patient at time of mission - Daughter reported he would probably not want to see psychiatry/behavioral hea lt liaison at this time - Will bring up the topic before outpatient follow-up upon discharge - Continue sertraline #Severe obstructive sleep apnea: CPAP/Bipap at bedtime CPAP/Bipap continuous as needed, during the day #Atrial fibrillation: - Rate controlled on arrival and throughout stay so far - Continue Eliquis #Noncompliance with medication regimen: - Case management consult appreciated - Pt stated during this admission that [facility] has not been delivering his meds on time - pt has bipap set up at home VTE PPx: On Eliquis Admission and Anticipated Discharge Date Admission Date: March 05, 2024 Supervising Physician Co-Signing Physician Notes Attending Physician Supervision Note: I independently interviewed and examined the patient and verified the garcia history and physical, reviewed labs and image studies and agree with findings and care plan noted above. more willing to participate with physical therapy this morning after having conversation with and daughter. vitals noted nad heent nc at mmm breathing unlabored no accessory muscles good effort skin no rashes no pallor or icterus acute on chronic combined hypoxic and hypercapnic respiratory failure from OHS and HFpEF - -diurese, bipap - continue bumex IV. Neg 14L. Renal fx stable -Maintain pires while on IV bumex. Non-adherence to meds and cpap - Cognitive deficit must be contributing as well - to consider neuropsych eval as outpatient. high risk of readmission. Bipap already arranged at home. For rehab stay on discharge. Subjective Today, pt states he is feeling okay. He states he wants to walk around but nursing staff keep telling him he is not allowed to do so. Talked with pt about just letting them know so he has supervision walking around and that he should try to get up and walk around a bit today since he does not want to go to rehab and wants to go home where he lives by himself. Pt agreeable to this. Offered pt scale for outpatient monitoring of weight to help with CHF management and he would like this if we have one for him. Otherwise, he states that today he just feels like he has some postnasal drip but his cough is dry. No further questions or concerns. Review of Systems Review of Systems: Per HPI. Physical Exam Physical Exam: General:Alert and oriented, no acute distress, HEENT: Normocephalic, moist oral mucosa, Cardio: Regular rate and rhythm, + murmur, Resp:Lungs clear to auscultation b/l but poor air flow noted diffusely GI: Soft, active bowel sounds Skin: Warm, pink, dry, Results & Data Results & Data Vital Signs (Past 12 Hours) Vital Signs Temp Pulse Pulse Pulse Resp BP Pulse Ox 03/10/24 12:05 36.3 C L 80 18 153/86 H 94 03/10/24 09:49 03/10/24 07:26 36.6 C 70 20 177/63 H 99 03/10/24 07:25 70 03/10/24 04:06 82 13 94 03/10/24 02:46 36.5 C 79 18 147/68 H 94 03/10/24 01:08 72 18 98 O2 Del Method O2 Flow Rate FiO2 03/10/24 12:05 Nasal Cannula 2 03/10/24 09:49 Nasal Cannula 2 03/10/24 07:26 Nasal Cannula 3 03/10/24 07:25 03/10/24 04:06 40 03/10/24 02:46 Nasal Cannula 03/10/24 01:08 40 Resident Activity Tracking Resident Involvement: Resident Care Provided Care Provided: Adult Hospital Medicine (5) Acute and chronic respiratory failure Respiratory failure complication: hypoxia Qualified Code(s): J96.21 - Acute and chronic respiratory failure with hypoxia
[2024-03-11 06:34] LABS: BUN Creatinine Ratio 24.3 (10-20); Calcium 9.2 mg/dl (8.6-10.3); Creatinine Clr Calc Pharmacy 67.8 ml/min; Potassium 4.1 mmol/L (3.5-5.1)
--- NOTE | 2024-03-11 09:32 | Hospitalist Progress Note ---
Date of Service March 11, 2024 Assessment & Plan (1) Noncompliance with medication regimen: (2) Depression: (3) Acute on chronic heart failure with preserved ejection fraction (HFpEF): (4) Chronic respiratory failure with hypoxia: (5) Acute and chronic respiratory failure: (6) Pulmonary HTN: (7) Obesity hypoventilation syndrome: (8) Severe obstructive sleep apnea: (9) Restrictive lung disease: (10) T2DM (type 2 diabetes mellitus): (11) History of alcohol abuse: (12) Venous insufficiency (chronic) (peripheral): Plan Pt is a 73 yo male who presents to the hospital on 03/05 for acute on chronic heart failure. #Acute on chronic heart failure with preserved ejection fraction (HFpEF) Worsening LE edema bilaterally x 2 weeks, and acute onset of SOB/wheezing on admission - CXR on arrival showed cardiomegaly with pulmonary vascular congestion - Patient reported in triage that he has been taking his Bumex (1 mg x 3 daily) as instructed - Per daughter (over the phone), patient has not been taking his Bumex for the past 5 days leading up to admission - echo 07/31/2023; EF 50-55%, mod pulm HTN, repeat this admission 45-50% with mod to severe pulm HTN, no significant change from prior - unclear baseline dry weight, will transition IV bumex to home po dose today after am IV dose #Chronic respiratory failure with hypoxia and hypercapnia/obesity hypoventilation syndrome Patient reportedly wears 3L NC at home, had increased needs here that have now resolved - Overnight pulse oximetry ordered (while on room air) for new CPAP/bipap (current one not working) (this was to be done last night but due to hypercapnia was deferred) #Deconditioning - PT/OT evals; PT recommending rehab, pt initially wanting home PT/OT but now would like rehab #Wheezing, resolved Per chart review, no prior history of COPD or asthma: consider seeing a acquisition manager as an outpatient -Viral respiratory panel ordered, montiel-negative -DuoNeb 3 mL Q6R as needed; consider scheduling #Depression: - Daughter reports that he often expresses passive SI, saying that he "wants to " secondary to his chronic pain - Unable to discuss this with patient at time of mission - Daughter reported he would probably not want to see psychiatry/behavioral health liaison at this time - Will bring up the topic before outpatient follow-up upon discharge - Continue sertraline #Severe obstructive sleep apnea: - CPAP/Bipap at bedtime - CPAP/Bipap continuous as needed, during the day #Atrial fibrillation: - Rate controlled on arrival and throughout stay so far - Continue Eliquis #Noncompliance with medication regimen: - Case management consult appreciated - Pt stated during this admission that [facility] has not been delivering his meds on time - pt has bipap set up at home VTE PPx: On Eliquis Admission and Anticipated Discharge Date Admission Date: March 05, 2024 Supervising Physician Co-Signing Physician Notes Attending Physician Supervision Note: I independently interviewed and examined the patient and verified the garcia history and physical, reviewed labs and image studies and agree with findings and care plan noted above. Seemed pleasant this am. more motivated. vitals noted nad heent nc at mmm breathing unlabored no accessory muscles good effort skin no rashes no pallor or icterus acute on chronic combined hypoxic and hypercapnic respiratory failure from OHS and HFpEF - -diurese - now 17L neg. will switch to oral bumex. Renal fx stable -continue bipap - Bipap already arranged at home. Non-adherence to meds and bipap - Cognitive deficit must be contributing as well - to consider neuropsych eval as outpatient. high risk of readmission. - and daughter as support at home. For rehab stay on discharge. d/c pires Subjective Today, pt states he is feeling pretty good today. He states that his breathing feels good and overall he feels well. He does state he struggled with PT yesterday, felt like his legs were quite weak and his R knee was feeling very achy which made it hard for him. Asked him again about rehab given poor performance with PT yesterday and he states he thinks at this point he probably does need to go to rehab for a bit to get stronger before going home. Otherwise, no concerns today. Review of Systems Review of Systems: Per HPI. Physical Exam Physical Exam: General:Alert and oriented, no acute distress, more attentive appearing today compared to yesterday HEENT: Normocephalic, moist oral mucosa, Cardio: Regular rate and rhythm, + murmur, Resp:Lungs clear to auscultation b/l but poor air flow noted diffusely GI: Soft, active bowel sounds Skin: Warm, pink, dry, Results & Data Results & Data Vital Signs (Past 12 Hours) Vital Signs Temp Pulse Pulse Resp BP Pulse Ox O2 Del Method 03/11/24 07:55 Nasal Cannula 03/11/24 07:19 36.4 C L 74 20 157/74 H 99 Nasal Cannula 03/11/24 07:19 69 03/11/24 03:55 66 17 97 03/11/24 03:38 36.8 C 68 18 122/72 94 BiPAP 03/10/24 23:48 36.8 C 65 21 150/40 H 98 Room Air 03/10/24 22:14 68 03/10/24 21:32 Nasal Cannula, BiPAP O2 Flow Rate FiO2 03/11/24 07:55 3 03/11/24 07:19 03/11/24 07:19 03/11/24 03:55 40 03/11/24 03:38 03/10/24 23:48 03/10/24 22:14 03/10/24 21:32 Resident Activity Tracking Resident Involvement: Resident Care Provided Care Provided: Adult Hospital Medicine (5) Acute and chronic respiratory failure Respiratory failure complication: hypoxia Qualified Code(s): J96.21 - Acute and chronic respiratory failure with hypoxia
[2024-03-11 22:35] VITALS: TEMP 97.7
[2024-03-11 23:03] LABS: Hematocrit (blood only) 32.8 % (42.0-52.0); Hemoglobin 10.3 g/dl (14.0-18.0); Mean Corpuscular Hemoglobin 27.2 pg (25.0-34.0); Mean Corpuscular Hgb Conc 31.4 g/dL (32.0-36.0); Mean Corpuscular Volume 86.5 fL (80.0-100.0); Mean Platelet Volume 10.4 fL (9.4-12.4); Platelet Count 380 K/uL (130-400); RDW Coefficient of Variation 18.8 % (11.5-14.5); RDW Standard Deviation 58.9 fL (36.4-46.3); Red Blood Count 3.79 M/uL (4.70-6.10); White Blood Count 13.35 K/ul (4.8-10.8)
[2024-03-11 23:24] LABS: Appearance Urine Turbid (Clear); Bacteria Urine Automated 4+ (None Seen); Bilirubin Urine 1+ (Negative); Blood Urine 3+ (Negative); Color Urine Red; Epithelial Cell Urine Auto 0-2 /hpf (0-2); Glucose Urine UA Negative (Negative); Ketones Urine Negative (Negative); Leukocyte Esterase Urine 3+ (Negative); Nitrite Urine Negative (Negative); Protein Urine 2+ (Negative); RBC Urine Automated >20 /hpf (0-2); Specific Gravity Urine 1.018 (1.000-1.030); Urobilinogen Urine Negative (Negative); WBC Urine Automated >50 /hpf (0-5); pH Urine 5.5 (4.5-7.5)
[2024-03-11 23:36] LABS: Cast Urine Automated 0-2 /lpf (0-2)
[2024-03-12] MEDS: cefTRIAXone SODIUM 2,000 MG/50 ML BAG IV SCH (04:35)
[2024-03-12 07:38] VITALS: PULSE 79; RESP 19; O2SAT 96
[2024-03-12 08:16] LABS: BUN Creatinine Ratio 28.3 (10-20); Calcium 8.8 mg/dl (8.6-10.3); Creatinine Clr Calc Pharmacy 70.3 ml/min; Potassium 3.8 mmol/L (3.5-5.1)
[2024-03-12] MEDS: BUMETANIDE 1 MG TAB PO SCH (08:30)
[2024-03-12] MEDS ORDERED: BUMETANIDE 1 MG TAB PO SCH (09:00)
--- NOTE | 2024-03-12 09:14 | Discharge Summary ---
Date of Service March 12, 2024 Admission HPI Per Admitting Provider Rashi is a 73-year-old male with PMH of HFpEF, T2DM, restrictive lung disease, severe GABRIELLE, obesity hypoventilation syndrome, HTN, HLD, and atrial fibrillation (on apixaban). He presented via EMS on 03/05 for bilateral LE edema x 2 weeks, and new onset SOB/wheezing today. Patient reportedly wears supplemental oxygen at baseline (3L NC). At time admission, he is lethargic and does not respond to questioning or sternal rub. He will occasionally open his eyes, but does not answer questions such as "when is your birthday". When asked if he is currently having chest pain or trouble breathing, he shakes his head no. Patient reportedly did not take his regular morning medicine today. He ambulates with a walker at baseline. Patient is on BiPAP at time of admission; SpO2 96% on BiPAP; vitals otherwise stable. ED course: Albuterol 3 mL neb Bumex 3 mg IV Unable to obtain ROS at this time. Called patient's daughter (Maureen) and provided update regarding admission status as well as labs/imaging. Daughter reports that the patient's CPAP broke recently, however he brought a new one home recently and believes it was working. Daughter expresses frustration that whenever her father gets out of the hospital, he will do rehab and work on his health for 1 to 2 weeks and then "stop everything". Patient lives on the first floor of his house, and his lives upstairs, however daughter expresses that has had difficulty handling him recently. For instance, he does not eat much, has had some bowel incontinence, and has been noncompliant with his Lasix "for the past 5 days". Patient manages his own medicine at home, and per daughter he does not let anyone else in the family regulate his medicine. Given patient is not answering questions at this time, discussed CODE STATUS with daughter over the phone. She reports that there is no paperwork to the effect of the medical POA or proxy. She reports that her father has in the past that he "wants to " secondary to his pain. She reports that he has not said anything like this in the past month, but when asked if she would like us to reopen our behavioral health/psychiatry liaisons, she reports that he would not be up for it. Discussed that the patient was listed as a DNR/DNI visit during his hospitalization in October 2023. She was unaware of this, however she reports that she has never talked with her father about what he would want in a medical emergency, such as CPR/defibrillation/intubation. At this time, given patient is unable to respond to questioning, daughter would like him to be a full code. She reports that she wants us to "do everything you can" in an emergency situation. Admission Exam Per Admitting Provider General: no acute distress; lethargic; does not awaken initially to sternal rub; will occasionally open eyes, but will not respond to questions; nontoxic appearing; SpO2 100% on BiPAP HEENT: normocephalic, atraumatic; no scleral icterus; PERRLA; unable to assess vision and hearing Neck: supple; no lymphadenopathy; trachea midline Skin: Tanned skin; warm, dry without signs of tenting; no cyanosis; no rashes, bruising, lesions, or erythema noted CV: chest wall NTP; irregularly irregular rhythm; S1/S2 normal; no murmurs/rubs/gallops; pulses intact and symmetric at radial, DP, and PT Lungs: no acute respiratory distress; symmetrical chest wall expansion; clear breath sounds across all lung bullard w/o adventitious sounds; no wheezing ABD: Soft, NTP; BS present; no rebound/guarding; moderate distention secondary to body habitus MSK: no tics or fasciculations; significant +3 pitting edema extending from the dorsal aspect of the feet bilaterally up towards the thighs; patient does wiggle toes very lightly when asked Neuro: Patient does not respond to questioning; he does not respond when asked what his birthday multiple times; unable to assess speech; unable to assess sensation Principal Diagnosis Acute on chronic CHF Discharge Exam General:Alert and oriented, no acute distress, more attentive appearing today compared to yesterday HEENT: Normocephalic, moist oral mucosa, Cardio: Regular rate and rhythm, + murmur, Resp:Lungs clear to auscultation b/l but poor air flow noted diffusely improved today from yesterday GI: Soft, active bowel sounds Skin: Warm, pink, dry, Discharge Data Allergies Allergy/AdvReac Type Severity Reaction Status Date / Time No Known Drug Allergies Allergy . Verified 12/11/23 08:50 Consultations 03/05/24 12:37 ED Decision to Admit Stat Hospital Course (1) Noncompliance with medication regimen: (2) Depression: (3) Acute on chronic heart failure with preserved ejection fraction (HFpEF): (4) Chronic respiratory failure with hypoxia: (5) Acute and chronic respiratory failure: (6) Pulmonary HTN: (7) Obesity hypoventilation syndrome: (8) Severe obstructive sleep apnea: (9) Restrictive lung disease: (10) T2DM (type 2 diabetes mellitus): (11) History of alcohol abuse: (12) Venous insufficiency (chronic) (peripheral): Plan Pt is a 73 yo male who presents to the hospital on 03/05 for acute on chronic heart failure. #Acute on chronic heart failure with preserved ejection fraction (HFpEF) Worsening LE edema bilaterally x 2 weeks, and acute onset of SOB/wheezing on ad mission - CXR on arrival showed cardiomegaly with pulmonary vascular congestion - Patient reported in triage that he has been taking his Bumex (1 mg x 3 daily) as instructed, but per daughter (over the phone), patient has not been taking his Bumex for the past 5 days leading up to admission - echo 07/31/2023; EF 50-55%, mod pulm HTN, repeat this admission 45-50% with mod to severe pulm HTN, no significant change from prior - diuresed with IV bumex until yesterday, then transitioned to oral bumex at 2mg qam on discharge #Chronic respiratory failure with hypoxia and hypercapnia/obesity hypoventilation syndrome, improved Patient reportedly wears 3L NC at home, had increased needs here that have now resolved so he is back to baseline at this point - CO2 levels on BMP have come down more each day with good CPAP compliance here #Hematuria, resolved - had episode overnight of hematuria in the setting of pires catheter - nurses report this morning that he is urinating now with low post void residual volumes, no more blood so likely just minor urethral damage from pires being tugged on when pt asleep overnight - pt has baseline incontinence, wears depends at home - UA suggestive of infection but pt afebrile, vitals stable, asymptomatic so will defer further antibiotics at this point but did receive one dose ceftriaxone overnight #Deconditioning - PT/OT evals; PT recommending rehab, pt initially wanting home PT/OT but now would like rehab, so will discharge to rehab 03/12 #Wheezing, resolved Per chart review, no prior history of COPD or asthma: consider seeing a gum sprayer as an outpatient -Viral respiratory panel ordered, montiel-negative -no prn inhalers used since 03/05 #Severe obstructive sleep apnea: - CPAP/Bipap at bedtime - CPAP/Bipap continuous as needed, compliance with this may have been spotty prior to admission but emphasized necessity of this to prevent readmission Total Time Total Time Spent Total Time Spent (In Minutes): As per attending attestation. Discharge Plan Discharge Items Patient Disposition: Transfer Inpatient Rehab Fac Reason For Visit: ACUTE CHRONIC CHF Discharge Diagnosis: Acute CHF exacerbation Activity: As commented below Activity Comment: As tolerated. Non-emergency contact: Primary Care Provider Call non-emergency contact if: you have any medication questions, your symptoms worsen and your temperature is above 101 Follow-up/Referrals: Brittaney Dunn DO [Primary Care Provider] - Diet: Regular and Heart Healthy Addtl Attending Provider Instructions: Pt is a 73 yo male who presents to the hospital on 03/05 for acute on chronic heart failure. #Acute on chronic heart failure with preserved ejection fraction (HFpEF) Worsening LE edema bilaterally x 2 weeks, and acute onset of SOB/wheezing on admission - CXR on arrival showed cardiomegaly with pulmonary vascular congestion - Patient reported in triage that he has been taking his Bumex (1 mg x 3 daily) as instructed, but per daughter (over the phone), patient has not been taking his Bumex for the past 5 days leading up to admission - echo 07/31/2023; EF 50-55%, mod pulm HTN, repeat this admission 45-50% with mod to severe pulm HTN, no significant change from prior - diuresed with IV bumex until yesterday, then transitioned to oral bumex at 2mg qam on discharge #Chronic respiratory failure with hypoxia and hypercapnia/obesity hypoventilation syndrome, improved Patient reportedly wears 3L NC at home, had increased needs here that have now resolved so he is back to baseline at this point - CO2 levels on BMP have come down more each day with good CPAP compliance here #Hematuria, resolved - had episode overnight of hematuria in the setting of pires catheter - nurses report this morning that he is urinating now with low post void residual volumes, no more blood so likely just minor urethral damage from pires being tugged on when pt asleep overnight - pt has baseline incontinence, wears depends at home - UA suggestive of infection but pt afebrile, vitals stable, asymptomatic so will defer further antibiotics at this point but did receive one dose ceftriaxone overnight #Deconditioning - PT/OT evals; PT recommending rehab, pt initially wanting home PT/OT but now would like rehab, so will discharge to rehab 03/12 #Wheezing, resolved Per chart review, no prior history of COPD or asthma: consider seeing a pul blind slat stapling machine operator as an outpatient -Viral respiratory panel ordered, montiel-negative -no prn inhalers used since 03/05 #Severe obstructive sleep apnea: - CPAP/Bipap at bedtime - CPAP/Bipap continuous as needed, compliance with this may have been spotty prior to admission but emphasized necessity of this to prevent readmission Pending Studies at Discharge: No Stand-Alone Forms: My [facility] Skilled Items Patient informed of condition?: Yes DNR: No Discharge Level of Care: Acute rehab Communicable Disease: No Discharge Prognosis: Stable Lines: None Urinary Catheter: No Medications and DC Order Prescriptions: New bumetanide 2 mg tablet 2 mg PO DAILY Qty: 30 0RF Continued ammonium lactate 12 % cream 1 applic topical DAILY PRN (Reason: dry skin) Qty: 385 0RF Rx Instructions: out of refills per pharmacy last filled 11/19/23 atorvastatin 40 mg tablet 40 mg PO DAILY Qty: 100 3RF dutasteride 0.5 mg capsule 0.5 mg PO DAILY Qty: 90 3RF omeprazole 20 mg capsule,delayed release(DR/EC) 20 mg PO DAILY Qty: 90 3RF Fluzone High-Dose Triv 24-25 180 mcg/0.5 mL syringe 0.5 ml IM ONCE Qty: 0.5 0RF Rx Instructions: unable to verify hydralazine 100 mg tablet 100 mg PO BID Qty: 180 1RF metformin 500 mg tablet extended release 24 hr 500 mg PO BIDM Qty: 60 1RF Rx Instructions: for diabetes (high sugar) (DME) Miscellaneous Medical Supply See Rx Instructions Qty: 1 0RF Rx Instructions: "Loaner Wheelchair" until patients is repaired Metamucil 3.4 gram/5.4 gram powder 1 tbsp PO DAILY Qty: 660 0RF Rx Instructions: otc unable to verify mix into at least 8 oz of water or juice before administering ascorbic acid (vitamin C) 500 mg capsule 500 mg PO DAILY Qty: 30 5RF Rx Instructions: otc unable to verify famotidine 20 mg tablet 20 mg PO HS Qty: 90 1RF Eliquis 5 mg tablet 5 mg PO BID Qty: 180 3RF Rx Instructions: last filled december 11 90 day supply endgsvntbdvo-Fu-dhri-minerals Tablet 1 tab PO DAILY Rx Instructions: otc unable to verify ipratropium-albuterol 0.5 mg-3 mg(2.5 mg base)/3 mL solution for nebulization 3 ml NEB UD PRN (Reason: Other) Rx Instructions: 3 ml NEB QIDR PRN. unable to verify w/pharmacies sertraline 50 mg tablet 50 mg PO UD Rx Instructions: 50 mg po daily. Last filled 01/14 30 day supply miconazole nitrate [Desenex] 2 % powder 1 applic EXT UD Rx Instructions: 1 virginie ext TID. unable to verify apply liberally to groin, under skin folds, scrotal region, etc; use for 7-10 days then stop. betamethasone valerate 0.1 % cream 1 applic topical UD PRN (Reason: skin irritation) Rx Instructions: 1 virginie top BID prn. unable to verify acetaminophen 325 mg Tablet 650 mg PO Q4H PRNQty: 1 0RF Rx Instructions: otc unable to verify diclofenac sodium [Voltaren Arthritis Pain] 1 % Gel 2 g EXT TID PRN (Reason: joint pain) Qty: 1 0RF Rx Instructions: unable to verify magnesium oxide 400 mg (241.3 mg magnesium) Tablet 400 mg PO QAM Qty: 0 0RF Rx Instructions: otc unable to verify Discontinued bumetanide 1 mg tablet 1 mg PO QAM Rx Instructions: for fluid/swelling Discharge Orders: Discharge Order (Routine); Ordered 03/12/24 Ordered By: Jael Gregory/Other Patient Handouts: Managing Type 2 Diabetes, Heart Failure Make Changes Diet, Diabetes: Meal Planning Admission Data Admit Date/Time: 03/05/24 13:07 Attending Provider: Cleopatra Lozano Admit Provider: Jacinto Osman Primary Care Provider: Brittaney Dunn Other Providers: [facility]; Jacinto Osman; Jose Chambers; Lucinda Zamora Other Interventions: Discharge Summary Assessment (RN) Last Done: 03/12/24 10:05 Supervising Physician Co-Signing Physician Notes Attending Physician Supervision Note: I independently interviewed and examined the patient and verified the garcia history and physical, reviewed labs and image studies and agree with findings and care plan noted above. Blood with urination this am - improved and urinating clear urine after the episode. Motivated for rehab. vitals noted nad heent nc at mmm breathing unlabored no accessory muscles good effort skin no rashes no pallor or icterus acute on chronic combined hypoxic and hypercapnic respiratory failure from OHS and HFpEF - -diuresed - negative 18L on discharge. switched to oral bumex. Renal fx stayed stable -To continue bipap. Also, Bipap has already been arranged at home. Non-adherence to meds and bipap - Cognitive deficit must be contributing as well - to consider neuropsych eval as outpatient. high risk of readmission. - and daughter as support at home. Hematuria on day of discharge - likely from pires trauma which was removed in the middle of last night. resolved. monitor at the facility. Discharged to rehab. Resident Activity Tracking Resident Involvement: Resident Care Provided Care Provided: Adult Hospital Medicine
[2024-03-12 10:06] VITALS: BP 153/63
--- NOTE | 2024-03-14 14:26 | Communication Note ---
Date of Service: March 14, 2024 Contacted Renetta Dodson x3 today to relay positive urine culture results with staph aureus but 2x sent directly to voicemail and 1x connected to fine grade operator but then sent to voicemail immediately after. Will attempt to call clinical team again tomorrow. Culture still pending susceptibility.
== END 2024-03-12 11:16 | DRG 291 ==
LOC: ED 09:58 → 4W 13:07 → SUATTDRO 13:07 → 4W 15:39

== ENCOUNTER 2024-07-09 18:15 | Inpatient (IN) ==
--- NOTE | 2024-07-09 18:32 | Emergency Department Note ---
Impression & Plan SOB (shortness of breath), Anemia, CHF (congestive heart failure), Hypoxia, Leukocytosis ED Provider Note NAME: JULIEN LOGAN AGE: 73 SEX: M : 1950 ARRIVES VIA: Ambulance INFORMANT: [Patient][ems] ED PROVIDER(S): [Jhonny Sibley MD] CHIEF COMPLAINT: Short of breath HISTORY OF PRESENT ILLNESS: The patient is a 73-year-old male with chronic heart failure. He is on daily diuretics. The patient admits that he oftentimes misses his dose of diuretic. Patient has been having increasing shortness of breath for about a week. He notices the breathing issue mostly with any type of exertion. As per EMS, the patient's O2 saturation was in the 70s without O2 supplementation. He does not typically wear oxygen. With 4 L of oxygen, his O2 saturation improved, he felt improved. There has been no cough, no fever, no chest pain. PMHx/PSHx/Social Hx: See Below PHYSICAL EXAM: GENERAL: Patient is in no acute distress. HEENT: No acute trauma, normocephalic atraumatic, mucous membranes moist, no nasal congestion. NECK: No stridor, no adenopathy, no meningismus, trachea is midline. LUNGS: Diminished breath sounds bilaterally with increased respiratory rate. Some scattered crackles heard when listening anterior. No wheezing. HEART: No obvious murmur, regular rhythm, regular rate. ABDOMEN: Soft, nontender, no peritonitis. EXTREMITIES: No cyanosis, full range of motion of all the joints without pain or difficulty. Moderate bilateral pedal edema. NEUROLOGIC: Oriented x 3, no acute motor or sensory deficits, no focal weakness. SKIN: No jaundice, no diaphoresis. DIFFERENTIAL DIAGNOSIS: CHF, viral illness, pneumonia, anemia, electrolyte balance, OH, among others. EMERGENCY DEPARTMENT PROCEDURES: MEDICAL DECISION MAKING: There is a moderate leukocytosis, this could be consistent with infection or the stress of his dyspnea. He was anemic. He carries a history of anemia and today's value may be lower than his typical baseline as a result of dilution. There was a slightly elevated platelet count. INR mildly high at 1.2. VBG showed just had some mild CO2 retention and respiratory acidosis with a pH of 7.3 and a CO2 of 68. There was no renal failure. No concerning liver enzyme elevation. ECG did not show any acute ischemia. Cardiac enzyme testing x 1 was not consistent with acute cardiac injury. BNP was elevated consistent with CHF and fluid overload. Respiratory bio fire was negative. Chest x-ray does show CHF. On exam, the patient was tachypneic and hypoxic, he required O2 supplementation. He did have bilateral pedal edema. The patient received nitroglycerin paste, 2 inches. He was given IV Bumex, 2 mg. He was ordered for a Hay catheter as he had a hard time getting to the bathroom when he began to diurese, he was too short of breath and weak. Patient presents with hypoxia and shortness of breath. He is in heart failure which is likely a result of his missed medication dosing. Hospitalization is indicated. I did speak with case management, the on-call hospitalist has been consulted. Prior/Outside records/notes reviewed: Today's EMS notes describing his presentation and transport to this hospital. ECG per my interpretation: Indication was shortness of breath. The ECG shows what appears to be a sinus rhythm with a long first-degree AV block versus atrial fibrillation with a fairly regular rhythm, there is a right bundle branch block. The rate was 90. There is no acute ST elevation, no PVCs. The QTc was 4513. Continuous Cardiac Monitoring per my interpretation: An order was placed for continuous cardiac monitoring. The monitor shows a rate of 88 with presumed atrial fibrillation. Imaging/x-ray results per my interpretation: Chest x-ray shows cardiomegaly and CHF with a potential left base effusion. Chronic Medical/Social conditions affecting care: Obesity and medication noncompliance Care/Management discussed with: Case management, the on-call hospitalist. Level of care consideration(s): After review of the information above and other included data: --I believe the patient requires escalation of care to admission Critical Care Note: I have personally spent 54 minutes of critical care time in the direct management of this patient. This includes bedside care, interpretation of diagnostic studies, and testing, discussion with consultants, patient, and family members, and other required patient management activities. This 54 minutes is in excess of all separately billable procedures. 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, advanced sleep phase type Obesity hypoventilation syndrome Severe obstructive sleep apnea Chronic diastolic heart failure Restrictive lung disease History of alcohol abuse T2DM (type 2 diabetes mellitus) Nocturnal hypoxia Allergic rhinitis Venous insufficiency (chronic) (peripheral) Urinary incontinence Strabismic amblyopia, 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 Anemia Right bundle branch block (RBBB) (Acute) Rheumatoid arthritis Pes planus Internal hemorrhoids Hypertension Hyperlipidemia GERD without esophagitis First degree AV block Depression with anxiety Combined forms of age-related cataract of both eyes Central pterygium of left eye Anatomical narrow angle, bilateral Medical History Wheezing Acute on chronic heart failure with preserved ejection fraction (HFpEF) Pulmonary edema (HFpEF) heart failure with preserved ejection fraction Edema of both legs Elevated C-reactive protein Elevated erythrocyte sedimentation rate Bradycardia Leukocytosis Acute and chronic respiratory failure Fatigue C. difficile diarrhea Acute metabolic encephalopathy Acute pain of right knee Acute hypercapnic respiratory failure Acute pain of right hip Fall Right hip pain Acute hypoxic respiratory failure Pericardial effusion Rectal bleeding Surgical History History of appendectomy History of prostate biopsy Family History Mother Diabetes Hypertension Other Blindness FH: cataracts Family history of blindness Glaucoma History of cataract Denies family history of Ovarian cancer Prostate cancer Myocardial infarction Breast cancer Colorectal cancer Social History Smoking Status: Never smoker Second Hand Exposure: No; Do You Dip or Chew Tobacco: No; Hx Alcohol Use: No Hx Substance Use: No Preferred Language: Cymraes Communication Ability: Effective Visual Impairment: Limited Hearing Ability: Normal Hospice Music Therapy Required: Yes Beliefs That Will Affect Care: None marital status: Current Living Situation: Alone Current Living Situation Comment: lives downstairs, lives seperately upstairs current occupational status: retired Feels Safe at Home: Yes Childhood Exposure to Second-Hand Smoke: No Diet: regular Diet Comment: regular caffeine: No during the past year weight has: remained stable Dental Care, Regularly: No Physical Activity Frequency: Other Physical Activity Frequency Comment: limited by physical condition Seatbelt Use: always Sunscreen Use: No Assistive Devices: Oxygen - Continuous and Scooter/Electric Scooter Allergies Allergies Allergy/AdvReac Type Severity Reaction Status Date / Time No Known Drug Allergies Allergy . Verified 12/11/23 08:50 Home Meds Home Medications Medication Instructions Recorded Confirmed [id number]-minerals 1 tab PO DAILY 02/24/23 06/15/24 ipratropium 0.5 mg-albuterol 3 mg 3 ml NEB UD PRN Other 03/05/24 06/15/24 (2.5 mg base)/3 mL nebulization soln Previous Rx's Medication Instructions Recorded ascorbic acid (vitamin C) 500 mg 500 mg PO DAILY #30 caps 10/30/22 capsule psyllium husk 3.4 gram/5.4 gram 1 tbsp PO DAILY #660 grams 03/13/23 oral powder (Metamucil) acetaminophen 325 mg tablet 650 mg (2 x 325 mg) PO Q4H PRN #1 09/14/23 tab diclofenac sodium 1 % topical gel 2 g EXT TID PRN joint pain #1 tube 09/14/23 (Voltaren Arthritis Pain) ammonium lactate 12 % topical cream 1 applic topical DAILY PRN dry 11/19/23 skin #385 grams atorvastatin 40 mg tablet 40 mg PO DAILY #100 tabs 11/19/23 dutasteride 0.5 mg capsule 0.5 mg PO DAILY #90 caps 11/19/23 omeprazole 20 mg capsule,delayed 20 mg PO DAILY #90 caps 11/19/23 release Miscellaneous Medical Supply #1 unit 03/08/24 metformin 500 mg tablet,extended 500 mg PO BIDM #60 tabs 04/26/24 release 24 hr bumetanide 2 mg tablet 2 mg PO DAILY #30 tabs 05/19/24 blood sugar diagnostic (OneTouch #100 ea 05/27/24 Ultra Test strips) blood-glucose meter #1 ea 05/27/24 lancets 28 gauge #100 ea 05/27/24 apixaban 5 mg tablet (Eliquis) 5 mg PO BID #180 tabs 06/08/24 magnesium oxide 400 mg (241.3 mg 400 mg PO QAM #90 tabs 06/08/24 magnesium) tablet famotidine 20 mg tablet 20 mg PO HS #90 tabs 06/10/24 hydralazine 100 mg tablet 100 mg PO BID #180 tabs 06/10/24 sertraline 50 mg tablet 50 mg PO UD #90 tabs 06/10/24 betamethasone valerate 0.1 % 1 applic topical UD PRN skin 06/15/24 topical cream irritation #45 grams miconazole nitrate 2 % topical 1 applic EXT UD #85 grams 06/15/24 powder (Desenex) miscellaneous medical supply See Rx Instructions .Route 06/29/24 .COMPLEX #100 ea Results & Data (ED) Vital Signs Vital Signs - 24 hr 07/09/24 18:04 07/09/24 18:06 07/09/24 18:21 Temperature 36.7 C Temperature Source Oral Pulse Rate 88 86 Pulse Rate [Apical] Pulse Rate from SpO2 Sensor Respiratory Rate 26 H Respiratory Effort / Characteristics Short of Breath Respiratory Depth Normal Blood Pressure 207/114 H Blood Pressure [Left Arm] Blood Pressure Mean 145 Blood Pressure Mean [Left Arm] Blood Pressure Position Sitting Blood Pressure Position [Left Arm] Pulse Oximetry 76 L 76 L 92 Oxygen Delivery Method Room Air Room Air Nasal Cannula Nasal Cannula Oxygen Flow Rate 0 4 Sepsis Recent Fever Within 48 Hours No Sepsis New/Unexplained Change in Mental Status N/A Sepsis Action Taken by Nursing No Action Required Oxygen Flow Rate - Titration 4 Pulse Oximetry Post Tiitration 96 07/09/24 18:23 07/09/24 18:54 07/09/24 19:06 Temperature Temperature Source Pulse Rate 87 Pulse Rate [Apical] 74 60 Pulse Rate from SpO2 Sensor Respiratory Rate 29 H 26 H Respiratory Effort / Characteristics Labored Spontaneous Respiratory Depth Deep Blood Pressure Blood Pressure [Left Arm] 188/96 H 185/83 H Blood Pressure Mean Blood Pressure Mean [Left Arm] 126 117 Blood Pressure Position Blood Pressure Position [Left Arm] Sitting Pulse Oximetry 97 96 Oxygen Delivery Method Nasal Cannula Nasal Cannula Oxygen Flow Rate 4 4 Sepsis Recent Fever Within 48 Hours Sepsis New/Unexplained Change in Mental Status Sepsis Action Taken by Nursing Oxygen Flow Rate - Titration Pulse Oximetry Post Tiitration 07/09/24 19:33 Temperature Temperature Source Pulse Rate 100 H Pulse Rate [Apical] Pulse Rate from SpO2 Sensor 101 H Respiratory Rate 23 Respiratory Effort / Characteristics Respiratory Depth Blood Pressure 187/93 H Blood Pressure [Left Arm] Blood Pressure Mean 124 Blood Pressure Mean [Left Arm] Blood Pressure Position Blood Pressure Position [Left Arm] Pulse Oximetry 95 Oxygen Delivery Method Nasal Cannula Oxygen Flow Rate 4 Sepsis Recent Fever Within 48 Hours Sepsis New/Unexplained Change in Mental Status Sepsis Action Taken by Nursing Oxygen Flow Rate - Titration Pulse Oximetry Post Tiitration Home Medications Current Medication List: was personally reviewed by me Laboratory Data Attestation: I reviewed the patient's lab results. 07/09/24 18:36 07/09/24 18:36 Lab Results 07/09/24 07/09/24 Range/Units 18:28 18:36 WBC 15.00 H (4.8-10.8) K/ul RBC 3.17 L (4.70-6.10) M/uL Hgb 8.8 L (14.0-18.0) g/dl Hct 29.7 L (42.0-52.0) % MCV 93.7 (80.0-100.0) fL MCH 27.8 (25.0-34.0) pg MCHC 29.6 L (32.0-36.0) g/dL RDW Std Deviation 64.4 H (36.4-46.3) fL RDW Coeff of Darian 18.7 H (11.5-14.5) % Plt Count 408 H (130-400) K/uL MPV 10.0 (9.4-12.4) fL Immature Gran % (Auto) 1.1 % Neut % (Auto) 85.6 % Lymph % (Auto) 4.8 % Harding % (Auto) 6.7 % Eos % (Auto) 1.4 % Baso % (Auto) 0.4 % Neut # (Auto) 12.85 H (1.40-6.50) K/uL Lymph # (Auto) 0.72 L (1.20-3.40) K/uL Harding # (Auto) 1.00 H (0.11-0.59) K/uL Eos # (Auto) 0.21 (0.00-0.50) K/uL Baso # (Auto) 0.06 (0.00-0.20) K/uL Immature Gran # (Auto) 0.16 (0.01-0.20) K/uL Absolute Nucleated RBC 0.08 (0.00-0.12) K/uL Nucleated RBC % (auto) 0.5 % PT 12.4 H (9.0-12.0) Seconds INR 1.2 H (0.9-1.1) APTT 28 (21-31) Seconds PTT Ratio 1.0 VBG pH 7.33 L (7.36-7.41) VBG pCO2 68 H (38-50) mmHg VBG pO2 31 mmHg VBG HCO3 36 mmol/L VBG O2 Saturation < 60.0 % VBG Base Excess 7.4 mEq/L Sodium 143 (136-145) mmol/L Potassium 4.4 (3.5-5.1) mmol/L Chloride 103 (98-107) mmol/L Carbon Dioxide 36 H (21-32) mmol/L Anion Gap 4 (3-11) BUN 20 (6-23) mg/dl Creatinine 1.05 (0.6-1.4) mg/dl Est Cr Clr Drug Dosing 77.7 ml/min eGFR 74.49 BUN/Creatinine Ratio 19.0 (10-20) Glucose 123 H (70-99(Fasting)) mg/dl Calcium 8.9 (8.6-10.3) mg/dl Magnesium 2.0 (1.7-2.4) mg/dl Total Bilirubin 0.6 (0.2-1.0) mg/dl AST 23 (13-39) U/L ALT 15 (7-52) U/L Alkaline Phosphatase 113 H (34-104) U/L Troponin I High Sens 4.0 (0-20) pg/ml B-Natriuretic Peptide 875 H (0-100) pg/ml Total Protein 8.5 H (6.0-8.3) gm/dl Albumin 3.7 (3.4-5.0) gm/dl Globulin 4.8 H (2.5-4.0) gm/dl Albumin/Globulin Ratio 0.8 L (0.9-2) Adenovirus (PCR) Not Detected (NotDetected) B. pertussis DNA (PCR) Not Detected (NotDetected) B.parapertussis DNA PCR Not Detected (NotDetected) C. pneumoniae DNA (PCR) Not Detected (NotDetected) Coronavirus OC43 (PCR) Not Detected (NotDetected) Coronavirus HKU1 (PCR) Not Detected (NotDetected) Coronavirus 229E (PCR) Not Detected (NotDetected) SARS-CoV-2 (PCR) Not Detected (NotDetected) Coronavirus NL63 (PCR) Not Detected (NotDetected) Human Metapneumovir PCR Not Detected (NotDetected) Influenza Type A (PCR) Not Detected (NotDetected) Influenza Type B (PCR) Not Detected (NotDetected) M. pneumoniae (PCR) Not Detected (NotDetected) Parainfluenza 1 (PCR) Not Detected (NotDetected) Parainfluenza 2 (PCR) Not Detected (NotDetected) Parainfluenza 3 (PCR) Not Detected (NotDetected) Parainfluenza 4 (PCR) Not Detected (NotDetected) RSV (PCR) Not Detected (NotDetected) Entero/Rhino (PCR) Not Detected (NotDetected) Administered Medications Albuterol (Albut/Ipratrop 3mg/0.5mg Neb 3 Ml Vial) 3 ml NEB QIDR PRN; Protocol PRN Reason: Other Stop: 08/08/24 20:33 Last Admin: 07/09/24 23:23 Dose: 3 ml Documented By: ANTHONY Apixaban (Apixaban 5 Mg Tablet) 5 mg PO BID [facility] Stop: 08/08/24 20:59 Last Admin: 07/09/24 22:57 Dose: 5 mg Documented By: LUANN Famotidine (Famotidine 20 Mg Tab) 20 mg PO HS [facility] Stop: 08/08/24 20:59 Last Admin: 07/09/24 23:04 Dose: 20 mg Documented By: LUANN Hydralazine HCl (Hydralazine Tab 50 Mg Tab) 100 mg PO BID [facility] Stop: 08/08/24 20:59 Last Admin: 07/09/24 22:57 Dose: 100 mg Documented By: LUANN Insulin Aspart (Insulin Aspart Per Unit Charge) 0 units SC ACHS [facility] Stop: 08/08/24 20:59 Last Admin: 07/09/24 21:05 Dose: Not Given Documented By: JAIME Co-signed By: MED Discontinued Medications Bumetanide 2 mg/ Syringe 8 mls @ 4 mls/min IV ONE ONE Stop: 07/09/24 18:27 Last Admin: 07/09/24 18:55 Dose: 4 mls/min Documented By: YOHANA Lidocaine HCl (Lidocaine 2% Jelly 5 Ml Tube) Confirm Administered Dose 5 ml EXT .STK-MED ONE Stop: 07/09/24 20:33 Last Admin: 07/09/24 20:56 Dose: Not Given Documented By: JAIME Lidocaine HCl (Lidocaine 2% Jelly 5 Ml Tube) 2 ml EXT NOW ONE Stop: 07/09/24 20:55 Last Admin: 07/09/24 20:55 Dose: 2 ml Documented By: JAIME Nitroglycerin (Nitroglycerin 2% Ointment 30gm Tube) 2 inch EXT NOW STA Stop: 07/09/24 19:04 Last Admin: 07/09/24 19:14 Dose: 2 inch Documented By: JAIME Imaging Data Radiologist's Impression: Chest X-Ray 07/09/24 18:21 EXAM: Portable AP chest radiograph TECHNIQUE: AP portable radiograph of the chest was obtained. INDICATION: Shortness of breath Comparison: Chest radiograph March 10, 2024. FINDINGS: LINES and TUBES: None CARDIOVASCULAR: Cardiac silhouette is stably enlarged in size. Atherosclerosis of the thoracic aorta. LUNGS/PLEURA: Worsened pulmonary vascular congestion, now moderate. Left greater than right basilar densities may represent any combination of pleural fluids, atelectasis and airspace disease. No discernible pneumothorax. OSSEOUS/OTHER: No displaced acute osseous process identified. IMPRESSION: Interval worsening of congestive changes of the cardiovascular system. Bibasilar densities may represent any combination of pleural fluids, atelectasis and airspace disease. Electronically signed by Juvenal Rebolledo 07-09-2024 7:06 PM Discharge Plan Visit Data Chief Complaint: Shortness of Breath/Dyspnea Stated Complaint: SOB ED Provider: Jhonny Sibley Discharge Problem: SOB (shortness of breath), Anemia, CHF (congestive heart failure), Hypoxia, Leukocytosis Patient Disposition: Admitted As Inpatient Condition: Serious Discharge Instructions Interventions: ED Discharge Assessment Last Done: 07/09/24 21:53 Discharge Problem: Anemia Qualifiers: Anemia type: unspecified type Qualified Code(s): D64.9 - Anemia, unspecified CHF (congestive heart failure) Qualifiers: Heart failure type: unspecified Heart failure chronicity: acute on chronic Q ualified Code(s): I50.9 - Heart failure, unspecified Leukocytosis Qualifiers: Leukocytosis type: unspecified Qualified Code(s): D72.829 - Elevated white blood cell count, unspecified
[2024-07-09 18:55] LABS: Base Excess VBG 7.4 mEq/L; HCO3 VBG 36 mmol/L; Oxygen Saturation VBG < 60.0 %; PCO2 VBG 68 mmHg (38-50); PO2 VBG 31 mmHg; pH VBG 7.33 (7.36-7.41)
[2024-07-09] MEDS: BUMETANIDE 2 MG in SYRINGE 0 ML IV ONE (18:55)
--- NOTE | 2024-07-09 19:06 | XRay Report ---
EXAM: Portable AP chest radiograph TECHNIQUE: AP portable radiograph of the chest was obtained. INDICATION: Shortness of breath Comparison: Chest radiograph March 10, 2024. FINDINGS: LINES and TUBES: None CARDIOVASCULAR: Cardiac silhouette is stably enlarged in size. Atherosclerosis of the thoracic aorta. LUNGS/PLEURA: Worsened pulmonary vascular congestion, now moderate. Left greater than right basilar densities may represent any combination of pleural fluids, atelectasis and airspace disease. No discernible pneumothorax. OSSEOUS/OTHER: No displaced acute osseous process identified. IMPRESSION: Interval worsening of congestive changes of the cardiovascular system. Bibasilar densities may represent any combination of pleural fluids, atelectasis and airspace disease. Electronically signed by Juvenal Rebolledo 07-09-2024 7:06 PM
[2024-07-09 19:08] LABS: Basophils # (auto) 0.06 K/uL (0.00-0.20); Basophils % (auto) 0.4 %; Eosinophils # (auto) 0.21 K/uL (0.00-0.50); Eosinophils % (auto) 1.4 %; Hematocrit (blood only) 29.7 % (42.0-52.0); Hemoglobin 8.8 g/dl (14.0-18.0); Immature Granulocytes # (auto) 0.16 K/uL (0.01-0.20); Immature Granulocytes % (auto) 1.1 %; Lymphocytes # (auto) 0.72 K/uL (1.20-3.40); Lymphocytes % (auto) 4.8 %; Mean Corpuscular Hemoglobin 27.8 pg (25.0-34.0); Mean Corpuscular Hgb Conc 29.6 g/dL (32.0-36.0); Mean Corpuscular Volume 93.7 fL (80.0-100.0); Monocytes % (auto) 6.7 %; Neutrophils # (auto) 12.85 K/uL (1.40-6.50); Neutrophils % (auto) 85.6 %; Nucleated RBC # (auto) 0.08 K/uL (0.00-0.12); Nucleated RBC % (auto) 0.5 %; Platelet Count 408 K/uL (130-400); RDW Coefficient of Variation 18.7 % (11.5-14.5); RDW Standard Deviation 64.4 fL (36.4-46.3); Red Blood Count 3.17 M/uL (4.70-6.10)
[2024-07-09] MEDS: NITROGLYCERIN 2% OINTMENT 30GM TUBE EXT STA (19:14)
[2024-07-09 19:20] LABS: Albumin Globulin Ratio 0.8 (0.9-2); Albumin Level 3.7 gm/dl (3.4-5.0); Bilirubin,Total 0.6 mg/dl (0.2-1.0); Calcium 8.9 mg/dl (8.6-10.3); Creatinine Clr Calc Pharmacy 77.7 ml/min; Globulin 4.8 gm/dl (2.5-4.0); Potassium 4.4 mmol/L (3.5-5.1); Total Protein 8.5 gm/dl (6.0-8.3)
[2024-07-09 19:39] LABS: INR 1.2 (0.9-1.1); Partial Thromboplastin Time 28 Seconds (21-31); Prothrombin Time 12.4 Seconds (9.0-12.0)
[2024-07-09 19:44] LABS: Adenovirus PCR Not Detected (NotDetected); Bordetella parapertussis PCR Not Detected (NotDetected); Bordetella pertussis PCR Not Detected (NotDetected); Chlamydia pneumoniae PCR Not Detected (NotDetected); Coronavirus 229E PCR Not Detected (NotDetected); Coronavirus CoV-2 (COVID19)PCR Not Detected (NotDetected); Coronavirus HKU1 PCR Not Detected (NotDetected); Coronavirus NL63 PCR Not Detected (NotDetected); Coronavirus OC43PCR Not Detected (NotDetected); Human Metapneumovirus PCR Not Detected (NotDetected); Influenza A PCR Not Detected (NotDetected); Influenza B PCR Not Detected (NotDetected); Mycoplasma pneumoniae PCR Not Detected (NotDetected); Parainfluenza Virus 1 PCR Not Detected (NotDetected); Parainfluenza Virus 2 PCR Not Detected (NotDetected); Parainfluenza Virus 3 PCR Not Detected (NotDetected); Parainfluenza Virus 4 PCR Not Detected (NotDetected); Respiratory Syncytial VirusPCR Not Detected (NotDetected); Rhinovirus/Enterovirus PCR Not Detected (NotDetected)
--- NOTE | 2024-07-09 20:02 | History & Physical Report ---
Date of Service July 09, 2024 Assessment & Plan (1) Chronic combined systolic and diastolic heart failure: (2) Chronic respiratory failure with hypoxia: (3) Atrial fibrillation: (4) Obesity hypoventilation syndrome: (5) Severe obstructive sleep apnea: Plan The patient is a 73-year-old male with past medical history including chronic combined systolic and diastolic heart failure, noncompliance with medication regimen, chronic respiratory failure with hypoxia, B12 deficiency, Mobitz 1, pulmonary hypertension, atrial fibrillation on Eliquis, BPH with LUTS, obesity hypoventilation syndrome, severe GABRIELLE, diabetes mellitus type 2, right bundle branch block, RA, hypertension, hyperlipidemia, and depression with anxiety.The patient presents to the emergency department via EMS with shortness of breath that began about 1 week ago,, which worsened considerably over the past 24 ho urs. The patient has a known history of CHF, and has been taking his medications as directed. He denies any recent change in diet or exercise pattern. He notes that he has had worsening shortness of breath over the past week, and became so short of breath today they had to call EMS was brought into the ED for assessment. He was found to have a pulse ox of 76% on room air, improved with 3 L to the low 90s. From the ED he received bumetanide 2 mg IV, and Nitropaste 2 inches to anterior chest wall. He was then referred for evaluation to [facility] service for admission for treatment of CHF. #CHF exacerbation/atrial fibrillation/Mobitz 1- The patient will be admitted to telemetry for serial cardiac enzymes, serial EKG's, cardiac rhythm monitoring and a 2-D echocardiogram with Dopplers. Most recent echocardiogram on 03/07/2024 with ejection fraction 45-50%, mild to moderate mitral regurgitation, moderate to severe pulmonary hypertension From the ED received the following: Bumetanide 2 mg IV and Nitropaste 2 inches Bumetanide 2 mg IV twice daily Nitropaste 1 inch to anterior chest wall every 6 hours Continue apixaban 5 mg p.o. twice daily, hydralazine 100 mg p.o. twice daily Initial troponin 4.0, follow serially BNP 875 BioFire testing negative Diabetes mellitus-hold metformin Placed on Accu-Cheks with NovoLog SSI Chronic medical conditions: Hyperlipidemia-continue atorvastatin 40 mg daily BPH with LUTS-continue dutasteride GERD-continue omeprazole/pantoprazole and famotidine Depression-continue sertraline Rheumatoid arthritis-hold NSAIDs History of Present Illness Chief Complaint: The patient presents to the emergency department via EMS with shortness of breath that began about 1 week ago,, which worsened considerably over the past 24 hours. The patient has a known history of CHF, and has been taking his medications as directed. He denies any recent change in diet or exercise pattern. He notes that he has had worsening shortness of breath over the past week, and became so short of breath today they had to call EMS was brought into the ED for assessment. He was found to have a pulse ox of 76% on room air, improved with 3 L to the low 90s. From the ED he received bumetanide 2 mg IV, and Nitropaste 2 inches to anterior chest wall. He was then referred for eval uation to [facility] service for admission for treatment of CHF. Primary Care Provider: Brittaney Dunn DO The patient is a 73-year-old male with past medical history including chronic combined systolic and diastolic heart failure, noncompliance with medication regimen, chronic respiratory failure with hypoxia, B12 deficiency, Mobitz 1, pulmonary hypertension, atrial fibrillation on Eliquis, BPH with LUTS, obesity hypoventilation syndrome, severe GABRIELLE, diabetes mellitus type 2, right bundle branch block, RA, hypertension, hyperlipidemia, and depression with anxiety.The patient presents to the emergency department via EMS with shortness of breath that began about 1 week ago,, which worsened considerably over the past 24 hours. The patient has a known history of CHF, and has been taking his medications as directed. He denies any recent change in diet or exercise pattern. He notes that he has had worsening shortness of breath over the past week, and became so short of breath today they had to call EMS was brought into the ED for assessment. He was found to have a pulse ox of 76% on room air, improved with 3 L to the low 90s. From the ED he received bumetanide 2 mg IV, and Nitropaste 2 inches to anterior chest wall. He was then referred for evaluation to [facility] service for admission for treatment of CHF. Allergies Allergy/AdvReac Type Severity Reaction Status Date / Time No Known Drug Allergies Allergy . Verified 12/11/23 08:50 Home Medications Medication Instructions Recorded Confirmed Type ascorbic acid (vitamin C) 500 mg 500 mg PO DAILY #30 caps 10/30/22 06/15/24 Rx capsule vzubopkooaws-Hk-lusg-minerals 1 tab PO DAILY 02/24/23 06/15/24 History psyllium husk 3.4 gram/5.4 gram 1 tbsp PO DAILY #660 grams 03/13/23 06/15/24 Rx oral powder (Metamucil) acetaminophen 325 mg tablet 650 mg (2 x 325 mg) PO Q4H PRN #1 09/14/23 06/15/24 Rx tab diclofenac sodium 1 % topical gel 2 g EXT TID PRN joint pain #1 tube 09/14/23 06/15/24 Rx (Voltaren Arthritis Pain) ammonium lactate 12 % topical cream 1 applic topical DAILY PRN dry 11/19/23 06/15/24 Rx skin #385 grams atorvastatin 40 mg tablet 40 mg PO DAILY #100 tabs 11/19/23 06/15/24 Rx dutasteride 0.5 mg capsule 0.5 mg PO DAILY #90 caps 11/19/23 06/15/24 Rx omeprazole 20 mg capsule,delayed 20 mg PO DAILY #90 caps 11/19/23 06/15/24 Rx release ipratropium 0.5 mg-albuterol 3 mg 3 ml NEB UD PRN Other 03/05/24 06/15/24 History (2.5 mg base)/3 mL nebulization soln Miscellaneous Medical Supply #1 unit 03/08/24 06/15/24 Rx metformin 500 mg tablet,extended 500 mg PO BIDM #60 tabs 04/26/24 06/15/24 Rx release 24 hr bumetanide 2 mg tablet 2 mg PO DAILY #30 tabs 05/19/24 06/15/24 Rx blood sugar diagnostic (OneTouch #100 ea 05/27/24 06/15/24 Rx Ultra Test strips) blood-glucose meter #1 ea 05/27/24 06/15/24 Rx lancets 28 gauge #100 ea 05/27/24 06/15/24 Rx apixaban 5 mg tablet (Eliquis) 5 mg PO BID #180 tabs 06/08/24 06/15/24 Rx magnesium oxide 400 mg (241.3 mg 400 mg PO QAM #90 tabs 06/08/24 06/15/24 Rx magnesium) tablet famotidine 20 mg tablet 20 mg PO HS #90 tabs 06/10/24 06/15/24 Rx hydralazine 100 mg tablet 100 mg PO BID #180 tabs 06/10/24 06/15/24 Rx sertraline 50 mg tablet 50 mg PO UD #90 tabs 06/10/24 06/15/24 Rx betamethasone valerate 0.1 % 1 applic topical UD PRN skin 06/15/24 06/15/24 Rx topical cream irritation #45 grams miconazole nitrate 2 % topical 1 applic EXT UD #85 grams 06/15/24 06/15/24 Rx powder (Desenex) miscellaneous medical supply See Rx Instructions .Route 06/29/24 Rx .COMPLEX #100 ea Past Med/Surg History Problem List (Updated 06/20/24 @ 09:38 by Brittaney Dunn DO) Chronic combined systolic and diastolic heart failure Noncompliance with medication regimen Chronic respiratory failure with hypoxia B12 deficiency Mobitz I Pulmonary HTN Ambulatory dysfunction Atrial fibrillation BPH w urinary obs/LUTS Circadian rhythm sleep disorder, advanced sleep phase type Obesity hypoventilation syndrome Severe obstructive sleep apnea Chronic diastolic heart failure Restrictive lung disease History of alcohol abuse T2DM (type 2 diabetes mellitus) Nocturnal hypoxia Allergic rhinitis Venous insufficiency (chronic) (peripheral) Urinary incontinence Strabismic amblyopia, 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 Anemia Right bundle branch block (RBBB) (Acute) Rheumatoid arthritis Pes planus Internal hemorrhoids Hypertension Hyperlipidemia GERD without esophagitis First degree AV block Depression with anxiety Combined forms of age-related cataract of both eyes Central pterygium of left eye Anatomical narrow angle, bilateral Medical History (Updated 06/20/24 @ 09:38 by Brittaney Dunn DO) Wheezing Acute on chronic heart failure with preserved ejection fraction (HFpEF) Pulmonary edema (HFpEF) heart failure with preserved ejection fraction Edema of both legs Elevated C-reactive protein Elevated erythrocyte sedimentation rate Bradycardia Leukocytosis Acute and chronic respiratory failure Fatigue C. difficile diarrhea Acute metabolic encephalopathy Acute pain of right knee Acute hypercapnic respiratory failure Acute pain of right hip Fall Right hip pain Acute hypoxic respiratory failure Pericardial effusion Rectal bleeding Surgical History History of appendectomy History of prostate biopsy Family History Mother Diabetes Hypertension Other Blindness FH: cataracts Family history of blindness Glaucoma History of cataract Denies family history of Ovarian cancer Prostate cancer Myocardial infarction Breast cancer Colorectal cancer Social History Smoking Status: Never smoker Second Hand Exposure: No; Do You Dip or Chew Tobacco: No; Hx Alcohol Use: No Hx Substance Use: No Preferred Language: Romanian Communication Ability: Effective Visual Impairment: Limited Hearing Ability: Normal Mangle Roll Operator Required: No Beliefs That Will Affect Care: None marital status: Current Living Situation: Spouse Current Living Situation Comment: lives downstairs, lives seperately upstairs current occupational status: retired Feels Safe at Home: Yes Childhood Exposure to Second-Hand Smoke: No Diet: regular Diet Comment: regular caffeine: No during the past year weight has: remained stable Dental Care, Regularly: No Physical Activity Frequency: Other Physical Activity Frequency Comment: limited by physical condition Seatbelt Use: always Sunscreen Use: No Assistive Devices: Oxygen - Continuous and Scooter/Electric Scooter Review of Systems Review of Systems: The patient denies chest pain, palpitations, sore throat, fevers, chills, sweats, nausea, vomiting, diarrhea , constipation, abdominal pain, pelvic pain, blood in urine or stool, dysuria, urinary frequency or urgency, lightheadedness, dizziness, headache, memory loss, loss of consciousness, rash, abnormal bruising or bleeding, imbalance, focal or generalized weakness, numbness or tingling in arms or legs, generalized arthralgias or myalgias, back or neck pain, or night sweats. The review of systems is otherwise negative other than for that already noted above, and at least 10 systems have been reviewed. Physical Exam Physical Exam: The patient is awake, alert and oriented 3, well developed and well nourished, normocephalic and atraumatic, lying in bed and in no acute distress. HEENT--PERRL, EOMI, mucous membranes and oropharynx normal Neck--supple. No JVD. No bruits. Thyroid normal, trachea midline, no adenopathy. Heart--normal S1 and S2. No murmurs, rubs or gallops. Lungs-- crackles at the bases bilaterally. No respiratory distress, no accessory muscle use. Abdomen--normal bowel sounds and soft. Nontender. Nondistended. Morbidly obese Extremities--no cyanosis or clubbing. 2+ bilateral pretibial and pedal pitting edema. Dermatologic--normal skin turgor, normal color, no abnormal lymph nodes, no rash. Neurologic--cranial nerves II through XII grossly intact. Rheumatologic--normal range of motion. Psychiatric--normal affect. Results & Data Results & Data Vital Signs (Past 12 Hours) Vital Signs Temp Pulse Pulse Resp BP BP Pulse Ox 07/09/24 19:06 60 26 H 185/83 H 96 07/09/24 18:54 74 29 H 188/96 H 97 07/09/24 18:23 87 07/09/24 18:21 86 92 07/09/24 18:06 76 L 07/09/24 18:04 36.7 C 88 26 H 207/114 H 76 L O2 Del Method O2 Flow Rate 07/09/24 19:06 Nasal Cannula 4 07/09/24 18:54 Nasal Cannula 4 07/09/24 18:23 07/09/24 18:21 Nasal Cannula 4 07/09/24 18:06 Room Air, Nasal Cannula 0 07/09/24 18:04 Room Air Laboratory Results Laboratory Results WBC 15.00 K/ul (4.8-10.8) H 07/09/24 18:36 RBC 3.17 M/uL (4.70-6.10) L 07/09/24 18:36 Hgb 8.8 g/dl (14.0-18.0) L 07/09/24 18:36 Hct 29.7 % (42.0-52.0) L 07/09/24 18:36 MCV 93.7 fL (80.0-100.0) 07/09/24 18:36 MCH 27.8 pg (25.0-34.0) 07/09/24 18:36 MCHC 29.6 g/dL (32.0-36.0) L 07/09/24 18:36 RDW Std Deviation 64.4 fL (36.4-46.3) H 07/09/24 18:36 RDW Coeff of Darian 18.7 % (11.5-14.5) H 07/09/24 18:36 Plt Count 408 K/uL (130-400) H 07/09/24 18:36 MPV 10.0 fL (9.4-12.4) 07/09/24 18:36 Immature Gran % (Auto) 1.1 % 07/09/24 18:36 Neut % (Auto) 85.6 % 07/09/24 18:36 Lymph % (Auto) 4.8 % 07/09/24 18:36 Harnett % (Auto) 6.7 % 07/09/24 18:36 Eos % (Auto) 1.4 % 07/09/24 18:36 Baso % (Auto) 0.4 % 07/09/24 18:36 Neut # (Auto) 12.85 K/uL (1.40-6.50) H 07/09/24 18:36 Lymph # (Auto) 0.72 K/uL (1.20-3.40) L 07/09/24 18:36 Harnett # (Auto) 1.00 K/uL (0.11-0.59) H 07/09/24 18:36 Eos # (Auto) 0.21 K/uL (0.00-0.50) 07/09/24 18:36 Baso # (Auto) 0.06 K/uL (0.00-0.20) 07/09/24 18:36 Immature Gran # (Auto) 0.16 K/uL (0.01-0.20) 07/09/24 18:36 Absolute Nucleated RBC 0.08 K/uL (0.00-0.12) 07/09/24 18:36 Nucleated RBC % (auto) 0.5 % 07/09/24 18:36 PT 12.4 Seconds (9.0-12.0) H 07/09/24 18:36 INR 1.2 (0.9-1.1) H 07/09/24 18:36 APTT 28 Seconds (21-31) 07/09/24 18:36 PTT Ratio 1.0 07/09/24 18:36 VBG pH 7.33 (7.36-7.41) L 07/09/24 18:36 VBG pCO2 68 mmHg (38-50) H 07/09/24 18:36 VBG pO2 31 mmHg 07/09/24 18:36 VBG HCO3 36 mmol/L 07/09/24 18:36 VBG O2 Saturation < 60.0 % 07/09/24 18:36 VBG Base Excess 7.4 mEq/L 07/09/24 18:36 Sodium 143 mmol/L (136-145) 07/09/24 18:36 Potassium 4.4 mmol/L (3.5-5.1) 07/09/24 18:36 Chloride 103 mmol/L (98-107) 07/09/24 18:36 Carbon Dioxide 36 mmol/L (21-32) H 07/09/24 18:36 Anion Gap 4 (3-11) 07/09/24 18:36 BUN 20 mg/dl (6-23) 07/09/24 18:36 Creatinine 1.05 mg/dl (0.6-1.4) 07/09/24 18:36 Est Cr Clr Drug Dosing 77.7 ml/min 07/09/24 18:36 eGFR 74.49 07/09/24 18:36 BUN/Creatinine Ratio 19.0 (10-20) 07/09/24 18:36 Glucose 123 mg/dl (70-99(Fasting)) H 07/09/24 18:36 Calcium 8.9 mg/dl (8.6-10.3) 07/09/24 18:36 Magnesium 2.0 mg/dl (1.7-2.4) 07/09/24 18:36 Total Bilirubin 0.6 mg/dl (0.2-1.0) 07/09/24 18:36 AST 23 U/L (13-39) 07/09/24 18:36 ALT 15 U/L (7-52) 07/09/24 18:36 Alkaline Phosphatase 113 U/L (34-104) H 07/09/24 18:36 Troponin I High Sens 4.0 pg/ml (0-20) 07/09/24 18:36 B-Natriuretic Peptide 875 pg/ml (0-100) H 07/09/24 18:36 Total Protein 8.5 gm/dl (6.0-8.3) H 07/09/24 18:36 Albumin 3.7 gm/dl (3.4-5.0) 07/09/24 18:36 Globulin 4.8 gm/dl (2.5-4.0) H 07/09/24 18:36 Albumin/Globulin Ratio 0.8 (0.9-2) L 07/09/24 18:36 Adenovirus (PCR) Not Detected (NotDetected) 07/09/24 18:28 B. pertussis DNA (PCR) Not Detected (NotDetected) 07/09/24 18:28 B.parapertussis DNA PCR Not Detected (NotDetected) 07/09/24 18:28 C. pneumoniae DNA (PCR) Not Detected (NotDetected) 07/09/24 18:28 Coronavirus OC43 (PCR) Not Detected (NotDetected) 07/09/24 18:28 Coronavirus HKU1 (PCR) Not Detected (NotDetected) 07/09/24 18:28 Coronavirus 229E (PCR) Not Detected (NotDetected) 07/09/24 18:28 SARS-CoV-2 (PCR) Not Detected (NotDetected) 07/09/24 18:28 Coronavirus NL63 (PCR) Not Detected (NotDetected) 07/09/24 18:28 Human Metapneumovir PCR Not Detected (NotDetected) 07/09/24 18:28 Influenza Type A (PCR) Not Detected (NotDetected) 07/09/24 18:28 Influenza Type B (PCR) Not Detected (NotDetected) 07/09/24 18:28 M. pneumoniae (PCR) Not Detected (NotDetected) 07/09/24 18:28 Parainfluenza 1 (PCR) Not Detected (NotDetected) 07/09/24 18:28 Parainfluenza 2 (PCR) Not Detected (NotDetected) 07/09/24 18:28 Parainfluenza 3 (PCR) Not Detected (NotDetected) 07/09/24 18:28 Parainfluenza 4 (PCR) Not Detected (NotDetected) 07/09/24 18:28 RSV (PCR) Not Detected (NotDetected) 07/09/24 18:28 Entero/Rhino (PCR) Not Detected (NotDetected) 07/09/24 18:28 Impressions Chest X-Ray 07/09/24 18:21 EXAM: Portable AP chest radiograph TECHNIQUE: AP portable radiograph of the chest was obtained. INDICATION: Shortness of breath Comparison: Chest radiograph March 10, 2024. FINDINGS: LINES and TUBES: None CARDIOVASCULAR: Cardiac silhouette is stably enlarged in size. Atherosclerosis of the thoracic aorta. LUNGS/PLEURA: Worsened pulmonary vascular congestion, now moderate. Left greater than right basilar densities may represent any combination of pleural fluids, atelectasis and airspace disease. No discernible pneumothorax. OSSEOUS/OTHER: No displaced acute osseous process identified. IMPRESSION: Interval worsening of congestive changes of the cardiovascular system. Bibasilar densities may represent any combination of pleural fluids, atelectasis and airspace disease. Electronically signed by Juvenal Rebolledo 07-09-2024 7:06 PM Code Status & VTE Plan Code Status Full code VTE Prophylaxis Plan VTE Prophylaxis will be ordered: Yes PG Care Time/CCT Total # of Minutes Spent Total Time Spent with Patient: Total time spent is greater than 50% in coordination of care (as documented) at patient's floor/unit and/or counseling patient: Coding Level of Care Code 66646 INT INP/OBS CARE 3/75MIN Diagnoses Chronic combined systolic and diastolic heart failure I50.42 Chronic respiratory failure with hypoxia J96.11 Atrial fibrillation I48.91 Obesity hypoventilation syndrome E66.2 Severe obstructive sleep apnea G47.33
[2024-07-09] MEDS ORDERED: GLUCOSE 40% GEL 15 GM TUBE PO PRN (20:36)
[2024-07-09] MEDS ORDERED: DEXTROSE 50% 50 ML SYRINGE IV PRN (20:36)
[2024-07-09] MEDS ORDERED: CARBOHYDRATES FOR HYPOGLYCEMIA PO PRN (20:36)
[2024-07-09] MEDS ORDERED: GLUCAGON FOR INJ 1 MG VIAL SQ PRN (20:36)
[2024-07-09] MEDS ORDERED: GLUCOSE 10 TAB/TUBE PO PRN (20:36)
[2024-07-09] MEDS ORDERED: INFLUENZA VACC TS2024-25(65y+)/PF (IIV3) 0.5mL Syr IM SCH (20:45)
[2024-07-09] MEDS: LIDOCAINE 2% JELLY 5 ML TUBE EXT ONE ×2 (20:55→20:56)
[2024-07-09] MEDS ORDERED: AMMONIUM LACTATE 12% LOTION 225 GM BTL EXT PRN (21:02)
[2024-07-09] MEDS: INSULIN ASPART PER UNIT CHARGE SC SCH (21:05)
[2024-07-09] MEDS: hydrALAZINE TAB 50 MG TAB PO SCH (22:57)
[2024-07-09] MEDS: APIXABAN 5 MG TABLET PO SCH (22:57)
[2024-07-09] MEDS: FAMOTIDINE 20 MG TAB PO SCH (23:04)
[2024-07-09] MEDS: ALBUT/IPRATROP 3MG/0.5MG NEB 3 ML VIAL NEB PRN (23:23)
[2024-07-10] MEDS: NITROGLYCERIN 2% OINTMENT 30GM TUBE EXT SCH (01:23)
[2024-07-10 06:51] LABS: Basophils # (auto) 0.06 K/uL (0.00-0.20); Basophils % (auto) 0.4 %; Eosinophils # (auto) 0.18 K/uL (0.00-0.50); Eosinophils % (auto) 1.2 %; Hematocrit (blood only) 29.8 % (42.0-52.0); Hemoglobin 8.9 g/dl (14.0-18.0); Immature Granulocytes # (auto) 0.17 K/uL (0.01-0.20); Immature Granulocytes % (auto) 1.1 %; Lymphocytes # (auto) 0.84 K/uL (1.20-3.40); Lymphocytes % (auto) 5.6 %; Mean Corpuscular Hemoglobin 28.5 pg (25.0-34.0); Mean Corpuscular Hgb Conc 29.9 g/dL (32.0-36.0); Mean Corpuscular Volume 95.5 fL (80.0-100.0); Monocytes # (auto) 1.42 K/uL (0.11-0.59); Monocytes % (auto) 9.5 %; Neutrophils # (auto) 12.24 K/uL (1.40-6.50); Neutrophils % (auto) 82.2 %; Nucleated RBC # (auto) 0.08 K/uL (0.00-0.12); Nucleated RBC % (auto) 0.5 %; Platelet Count 398 K/uL (130-400); RDW Coefficient of Variation 18.9 % (11.5-14.5); RDW Standard Deviation 66.3 fL (36.4-46.3); Red Blood Count 3.12 M/uL (4.70-6.10); White Blood Count 14.91 K/ul (4.8-10.8)
[2024-07-10 07:09] LABS: Albumin Globulin Ratio 0.8 (0.9-2); Albumin Level 3.7 gm/dl (3.4-5.0); BUN Creatinine Ratio 19.4 (10-20); Bilirubin,Total 0.5 mg/dl (0.2-1.0); Calcium 8.8 mg/dl (8.6-10.3); Chol HDL Ratio 3.2 (0-5); Creatinine Clr Calc Pharmacy 74.9 ml/min; Globulin 4.8 gm/dl (2.5-4.0); Potassium 4.3 mmol/L (3.5-5.1); Total Protein 8.5 gm/dl (6.0-8.3)
[2024-07-10 07:15] LABS: Troponin I High Sensitivity 3.9 pg/ml (0-20)
[2024-07-10 07:20] LABS: INR 1.2 (0.9-1.1); Partial Thromboplastin Ratio 1.2; Partial Thromboplastin Time 31 Seconds (21-31); Prothrombin Time 12.5 Seconds (9.0-12.0)
[2024-07-10 07:59] LABS: Estimated Average Glucose 131 mg/dl; Hemoglobin A1C 6.2 % (4.5-5.6)
[2024-07-10] MEDS: BUMETANIDE 2 MG in SYRINGE 0 ML IV SCH (09:03)
[2024-07-10 09:14] LABS: iSTAT Arterial Blood Gas HCO3 34 meg/L (19-24); iSTAT Arterial Blood Gas pCO2 79 mmHg (35-46); iSTAT Arterial Blood Gas pH 7.25 (7.35-7.45); iSTAT Arterial Blood Gas pO2 78 mmHg (80-95); iSTAT Carbon Dioxide 37 mmol/L (24-31); iSTAT Hematocrit 28 % (42-52); iSTAT Hemoglobin 9.5 g/dl (14.0-18.0); iSTAT Potassium 4.3 mmol/L (3.3-5.0); iSTAT Sodium 145 mmol/L (135-144)
--- NOTE | 2024-07-10 09:56 | Hospitalist Progress Note ---
Date of Service July 10, 2024 Assessment & Plan (1) Chronic combined systolic and diastolic heart failure: (2) Chronic respiratory failure with hypoxia: (3) Atrial fibrillation: (4) Obesity hypoventilation syndrome: (5) Severe obstructive sleep apnea: Plan The patient is a 73-year-old male with past medical history including chronic combined systolic and diastolic heart failure, noncompliance with medication regimen, chronic respiratory failure with hypoxia, B12 deficiency, Mobitz 1, pulmonary hypertension, atrial fibrillation on Eliquis, BPH with LUTS, obesity hypoventilation syndrome, severe GABRIELLE, diabetes mellitus type 2, right bundle branch block, RA, hypertension, hyperlipidemia, and depression with anxiety.The patient presents to the emergency department via EMS with shortness of breath that began about 1 week ago,, which worsened considerably over the past 24 ho urs. The patient has a known history of CHF, and has been taking his medications as directed. He denies any recent change in diet or exercise pattern. He notes that he has had worsening shortness of breath over the past week, and became so short of breath today they had to call EMS was brought into the ED for assessment. He was found to have a pulse ox of 76% on room air, improved with 3 L to the low 90s. From the ED he received bumetanide 2 mg IV, and Nitropaste 2 inches to anterior chest wall. He was then referred for evaluation to [facility] service for admission for treatment of CHF. #Severe hypercapnic Resp failure Patient seen this morning, was lethargic and poorly responsive ABG showed Pco2 79 started on BIPAP 15/5 Continue diuresis and Duonebs #CHF exacerbation/atrial fibrillation/Mobitz 1- The patient will be admitted to telemetry for serial cardiac enzymes, serial EKG's, cardiac rhythm monitoring and a 2-D echocardiogram with Dopplers. Most recent echocardiogram on 03/07/2024 with ejection fraction 45-50%, mild to moderate mitral regurgitation, moderate to severe pulmonary hypertension From the ED received the following: Bumetanide 2 mg IV and Nitropaste 2 inches Bumetanide 2 mg IV twice daily Nitropaste 1 inch to anterior chest wall every 6 hours Continue apixaban 5 mg p.o. twice daily, hydralazine 100 mg p.o. twice daily Initial troponin 4.0, follow serially BNP 875 BioFire testing negative Diabetes mellitus-hold metformin Placed on Accu-Cheks with NovoLog SSI Chronic medical conditions: Hyperlipidemia-continue atorvastatin 40 mg daily BPH with LUTS-continue dutasteride GERD-continue omeprazole/pantoprazole and famotidine Depression-continue sertraline Rheumatoid arthritis-hold NSAIDs Admission and Anticipated Discharge Date Admission Date: July 09, 2024 Subjective patient seen and examined, he was lethargic and poorly responsive Review of Systems Review of Systems: unable to obtain Physical Exam Physical Exam: The patient is awake, alert and oriented 3, well developed and well nourished, normocephalic and atraumatic, lying in bed and in no acute distress. HEENT--PERRL, EOMI, mucous membranes and oropharynx mildly dry Neck--supple. No JVD. No bruits. Thyroid normal, trachea midline, no adenopathy. Heart--normal S1 and S2. No murmurs, rubs or gallops. Lungs--Reduced air entry on ausculataion. Abdomen--normal bowel sounds and soft. Extremities--no cyanosis or clubbing. No edema. Dermatologic--normal skin turgor, normal color, no abnormal lymph nodes, no rash. Neurologic--cranial nerves II through XII grossly intact. Rheumatologic--normal range of motion. Psychiatric--normal affect. Results & Data Results & Data Vital Signs (Past 12 Hours) Vital Signs Temp Pulse Pulse Pulse Resp BP BP 07/10/24 09:23 88 20 07/10/24 07:42 68 26 H 198/76 H 07/10/24 02:58 76 07/10/24 02:48 98.1 F 55 L 28 H 166/86 H 07/10/24 01:24 160/86 H 07/09/24 23:24 83 22 07/09/24 22:30 07/09/24 22:30 97.3 F L 78 24 166/96 H 07/09/24 21:53 97.7 F 85 26 H 174/88 H Pulse Ox O2 Del Method O2 Flow Rate FiO2 07/10/24 09:23 98 50 07/10/24 07:42 98 Nasal Cannula 4.0 07/10/24 02:58 07/10/24 02:48 98 Nasal Cannula 4 07/10/24 01:24 07/09/24 23:24 94 Nasal Cannula 4 07/09/24 22:30 Nasal Cannula 4 07/09/24 22:30 96 Nasal Cannula 4 07/09/24 21:53 100 Nasal Cannula 4 PG Care Time/CCT Total # of Minutes Spent Total Time Spent with Patient: Total time spent is greater than 50% in coordination of care (as documented) at patient's floor/unit and/or counseling patient: Coding Level of Care Code 88453 SUB INP/OBS CARE 2/35MIN Diagnoses Chronic combined systolic and diastolic heart failure I50.42 Chronic respiratory failure with hypoxia J96.11 Atrial fibrillation I48.91 Obesity hypoventilation syndrome E66.2 Severe obstructive sleep apnea G47.33 Time Spent (min) 35
[2024-07-10] MEDS: FINASTERIDE 5 MG TAB PO SCH (12:46)
[2024-07-10] MEDS: ATORVASTATIN 40 MG TAB PO SCH (12:46)
[2024-07-10] MEDS: SERTRALINE HCL 50 MG TABLET PO SCH (12:47)
[2024-07-10] MEDS: MAGNESIUM OXIDE 400 MG TAB PO SCH (12:47)
[2024-07-10] MEDS: PANTOprazole 40 MG TAB PO SCH (12:47)
--- NOTE | 2024-07-10 13:10 | Electrocardiogram Report ---
Test Reason : Blood Pressure : */* mmHG Vent. Rate : 90 BPM Atrial Rate : 90 BPM P-R Int : 400 ms QRS Dur : 140 ms QT Int : 420 ms P-R-T Axes : 37 86 33 degrees QTcB Int : 513 ms Sinus rhythm with sinus arrhythmia with 1st degree A-V block Right bundle branch block Abnormal ECG When compared with ECG of 05-Mar-2024 10:08, Sinus rhythm has replaced Atrial fibrillation Confirmed by Lucius Huffman ([id number]) on 07/10/2024 1:10:12 PM Referred By: REFERRED SELF Confirmed By: Lucius Huffman
--- NOTE | 2024-07-10 13:17 | Electrocardiogram Report ---
Test Reason : Blood Pressure : */* mmHG Vent. Rate : 61 BPM Atrial Rate : 61 BPM P-R Int : 332 ms QRS Dur : 144 ms QT Int : 446 ms P-R-T Axes : 58 102 55 degrees QTcB Int : 448 ms Sinus rhythm with 1st degree A-V block with Premature atrial complexes with Aberrant conduction Right bundle branch block Abnormal ECG When compared with ECG of 09-Jul-2024 18:21, (unconfirmed) Aberrant conduction is now Present QT has shortened Confirmed by Lucius Huffman ([id number]) on 07/10/2024 1:16:40 PM Referred By: REFERRED SELF Confirmed By: Lucius Huffman
[2024-07-10] MEDS: hydrALAZINE HCL 20 MG/ML VIAL IV PRN (15:59)
[2024-07-10] MEDS: ACETAMINOPHEN 325 MG TAB PO PRN (16:52)
[2024-07-11 08:07] LABS: Basophils # (auto) 0.04 K/uL (0.00-0.20); Basophils % (auto) 0.3 %; Eosinophils # (auto) 0.38 K/uL (0.00-0.50); Eosinophils % (auto) 2.8 %; Hemoglobin 8.7 g/dl (14.0-18.0); Immature Granulocytes # (auto) 0.15 K/uL (0.01-0.20); Immature Granulocytes % (auto) 1.1 %; Lymphocytes # (auto) 0.88 K/uL (1.20-3.40); Lymphocytes % (auto) 6.5 %; Mean Corpuscular Hemoglobin 28.4 pg (25.0-34.0); Mean Corpuscular Volume 94.8 fL (80.0-100.0); Mean Platelet Volume 10.2 fL (9.4-12.4); Monocytes # (auto) 1.01 K/uL (0.11-0.59); Monocytes % (auto) 7.5 %; Neutrophils # (auto) 10.99 K/uL (1.40-6.50); Neutrophils % (auto) 81.8 %; Nucleated RBC # (auto) 0.03 K/uL (0.00-0.12); Nucleated RBC % (auto) 0.2 %; Platelet Count 353 K/uL (130-400); RDW Coefficient of Variation 18.8 % (11.5-14.5); RDW Standard Deviation 65.3 fL (36.4-46.3); Red Blood Count 3.06 M/uL (4.70-6.10); White Blood Count 13.45 K/ul (4.8-10.8)
[2024-07-11 08:26] LABS: Albumin Globulin Ratio 0.8 (0.9-2); Albumin Level 3.5 gm/dl (3.4-5.0); BUN Creatinine Ratio 19.6 (10-20); Bilirubin,Total 0.5 mg/dl (0.2-1.0); Calcium 8.7 mg/dl (8.6-10.3); Creatinine Clr Calc Pharmacy 79.4 ml/min; Globulin 4.6 gm/dl (2.5-4.0); Magnesium 1.8 mg/dl (1.7-2.4); Potassium 4.1 mmol/L (3.5-5.1); Total Protein 8.1 gm/dl (6.0-8.3)
[2024-07-11 08:31] LABS: INR 1.2 (0.9-1.1); Partial Thromboplastin Ratio 1.1; Partial Thromboplastin Time 30 Seconds (21-31); Prothrombin Time 12.9 Seconds (9.0-12.0)
--- NOTE | 2024-07-11 11:12 | Hospitalist Progress Note ---
Date of Service July 11, 2024 Assessment & Plan (1) Chronic combined systolic and diastolic heart failure: (2) Chronic respiratory failure with hypoxia: (3) Atrial fibrillation: (4) Obesity hypoventilation syndrome: (5) Severe obstructive sleep apnea: Plan The patient is a 73-year-old male with past medical history including chronic combined systolic and diastolic heart failure, noncompliance with medication regimen, chronic respiratory failure with hypoxia, B12 deficiency, Mobitz 1, pulmonary hypertension, atrial fibrillation on Eliquis, BPH with LUTS, obesity hypoventilation syndrome, severe GABRIELLE, diabetes mellitus type 2, right bundle branch block, RA, hypertension, hyperlipidemia, and depression with anxiety.The patient presents to the emergency department via EMS with shortness of breath that began about 1 week ago,, which worsened considerably over the past 24 ho urs. The patient has a known history of CHF, and has been taking his medications as directed. He denies any recent change in diet or exercise pattern. He notes that he has had worsening shortness of breath over the past week, and became so short of breath today they had to call EMS was brought into the ED for assessment. He was found to have a pulse ox of 76% on room air, improved with 3 L to the low 90s. From the ED he received bumetanide 2 mg IV, and Nitropaste 2 inches to anterior chest wall. [facility]. #Severe hypercapnic Resp failure Patient now more awake after BIPAP ABG 07/10 showed Pco2 79 started on BIPAP 09/09 patient has refused repeat ABG this morning 07/11 According to his , patient is very non complaint, also non complaint with BIPAP at home Continue diuresis and Duonebs and BIPAP #CHF exacerbation/atrial fibrillation/Mobitz 1- Most recent echocardiogram on 03/07/2024 with ejection fraction 45-50%, mild to moderate mitral regurgitation, moderate to severe pulmonary hypertension Bumetanide 2 mg IV twice daily Nitropaste 1 inch to anterior chest wall every 6 hours Continue apixaban 5 mg p.o. twice daily, hydralazine 100 mg p.o. twice daily BNP 875 Diabetes mellitus-hold metformin Placed on Accu-Cheks with NovoLog SSI Chronic medical conditions: Hyperlipidemia-continue atorvastatin 40 mg daily BPH with LUTS-continue dutasteride GERD-continue omeprazole/pantoprazole and famotidine Depression-continue sertraline Rheumatoid arthritis-hold NSAIDs Admission and Anticipated Discharge Date Admission Date: July 09, 2024 Subjective patient seen and examined, he is now more awake and alert, refused ABG this morning Review of Systems Review of Systems: All systems reviewed are negative, apart from the ones contained in the history. Physical Exam Physical Exam: The patient is awake, alert and oriented 3, well developed and well nourished, normocephalic and atraumatic, lying in bed and in no acute distress. HEENT--PERRL, EOMI, mucous membranes and oropharynx mildly dry Neck--supple. No JVD. No bruits. Thyroid normal, trachea midline, no adenopathy. Heart--normal S1 and S2. No murmurs, rubs or gallops. Lungs--Reduced air entry on auscultation. some wheeze Abdomen--normal bowel sounds and soft. Extremities--leg edema, lymphedema, mild cellulitis Dermatologic--normal skin turgor, normal color, no abnormal lymph nodes, no rash. Neurologic--cranial nerves II through XII grossly intact. Rheumatologic--normal range of motion. Psychiatric--normal affect. Results & Data Results & Data Vital Signs (Past 12 Hours) Vital Signs Temp Pulse Pulse Resp BP Pulse Ox O2 Del Method 07/11/24 07:45 98.4 F 86 24 171/72 H 93 Nasal Cannula 07/11/24 03:01 72 22 99 07/11/24 02:24 97.9 F 76 16 146/67 H 90 Nasal Cannula, CPAP 07/10/24 23:32 70 O2 Flow Rate FiO2 07/11/24 07:45 2 07/11/24 03:01 50 07/11/24 02:24 2 07/10/24 23:32 PG Care Time/CCT Total # of Minutes Spent Total Time Spent with Patient: Total time spent is greater than 50% in coordination of care (as documented) at patient's floor/unit and/or counseling patient: Coding Level of Care Code 47064 SUB INP/OBS CARE 2/35MIN Diagnoses Chronic combined systolic and diastolic heart failure I50.42 Chronic respiratory failure with hypoxia J96.11 Atrial fibrillation I48.91 Obesity hypoventilation syndrome E66.2 Severe obstructive sleep apnea G47.33 Time Spent (min) 35
--- NOTE | 2024-07-11 12:14 | Electrocardiogram Report ---
Test Reason : Blood Pressure : */* mmHG Vent. Rate : 65 BPM Atrial Rate : 65 BPM P-R Int : 334 ms QRS Dur : 142 ms QT Int : 456 ms P-R-T Axes : 56 112 64 degrees QTcB Int : 474 ms Sinus rhythm with 1st degree A-V block with Premature atrial complexes Right bundle branch block Left posterior fascicular block Bifascicular block Abnormal ECG When compared with ECG of 10-Jul-2024 06:45, No significant change was found Confirmed by Lucius Huffman ([id number]) on 07/11/2024 12:14:05 PM Referred By: REFERRED SELF Confirmed By: Lucius Huffman
[2024-07-12] MEDS: ZOLPIDEM TARTRATE 5 MG TAB PO PRN (00:32)
--- NOTE | 2024-07-12 08:07 | Pulmonary Consultation ---
Date of Consultation July 12, 2024 Assessment & Plan (1) CHF (congestive heart failure): Heart failure chronicity: acute on chronic Heart failure type: u nspecified Qualified Code(s): I50.9 - Heart failure, unspecified (2) Chronic combined systolic and diastolic heart failure: (3) Acute on chronic respiratory failure with hypoxia and hypercapnia: (4) Severe obstructive sleep apnea: (5) Obesity hypoventilation syndrome: (6) Chronic respiratory failure with hypoxia: Plan 2D echo 03/07/2024: EF 45 to 50%, mild concentric LVH, moderate to severe pulmonary hypertension with PASP 55-60 mmHg ABG 7.25/79/78 --Acute on chronic hypoxic hypercapnic respiratory failure Hypoxia is likely secondary to CHF exacerbation Hypercapnia is from GABRIELLE/OHS and noncompliance Respiratory BioFire negative for everything on 07/09/2024 --Pulmonary hypertension Likely type II secondary to CHF --A-fib On Eliquis Plan: Continue with diuretics to keep the patient negative balance Will get case management involved as the patient's CPAP/BiPAP is not working at home. It has to be resolved before he goes home or else he will end up in the hospital again Try to keep O2 saturation between 90-92% given the pulmonary hypertension Please note the above document was generated using voice recognition software. It may contain grammatical, syntax or spelling errors.Any formal questions or concerns about the content, text or information contained within the body of this dictation should be directly addressed to the provider for clarification. History of Present Illness Attending Physician: Mariano Lombardo MD History of Present Illness 73-year-old male was admitted to the hospital for shortness of breath Past medical history: CHF, GABRIELLE, BPH, A-fib on Eliquis, lipidemia, depression Pulmonary consulted for the same At the time of examination patient was not in any respiratory distress He was saturating 97% on 3 L nasal cannula, I went down to 2 L He does have CPAP at home but he has not been using it because it is not working He says he is compliant with his inhalers. His breathing as per the patient has improved after coming to the hospital Occasional cough with clear phlegm. Denies any hemoptysis No dysuria, no diarrhea prior to coming to the hospital No nausea vomiting Social history: Lifetime non-smoker Originally from [place] Allergies Allergy/AdvReac Type Severity Reaction Status Date / Time No Known Drug Allergies Allergy . Verified 12/11/23 08:50 Home Medications Medication Instructions Recorded Confirmed Type ascorbic acid (vitamin C) 500 mg 500 mg PO DAILY #30 caps 10/30/22 06/15/24 Rx capsule pchliesqnruk-Tj-baqd-minerals 1 tab PO DAILY 02/24/23 06/15/24 History psyllium husk 3.4 gram/5.4 gram 1 tbsp PO DAILY #660 grams 03/13/23 06/15/24 Rx oral powder (Metamucil) acetaminophen 325 mg tablet 650 mg (2 x 325 mg) PO Q4H PRN #1 09/14/23 06/15/24 Rx tab diclofenac sodium 1 % topical gel 2 g EXT TID PRN joint pain #1 tube 09/14/23 06/15/24 Rx (Voltaren Arthritis Pain) ammonium lactate 12 % topical cream 1 applic topical DAILY PRN dry 11/19/23 06/15/24 Rx skin #385 grams atorvastatin 40 mg tablet 40 mg PO DAILY #100 tabs 11/19/23 06/15/24 Rx dutasteride 0.5 mg capsule 0.5 mg PO DAILY #90 caps 11/19/23 06/15/24 Rx omeprazole 20 mg capsule,delayed 20 mg PO DAILY #90 caps 11/19/23 06/15/24 Rx release ipratropium 0.5 mg-albuterol 3 mg 3 ml NEB UD PRN Other 03/05/24 06/15/24 History (2.5 mg base)/3 mL nebulization soln Miscellaneous Medical Supply #1 unit 03/08/24 06/15/24 Rx metformin 500 mg tablet,extended 500 mg PO BIDM #60 tabs 04/26/24 06/15/24 Rx release 24 hr bumetanide 2 mg tablet 2 mg PO DAILY #30 tabs 05/19/24 06/15/24 Rx blood sugar diagnostic (OneTouch #100 ea 05/27/24 06/15/24 Rx Ultra Test strips) blood-glucose meter #1 ea 05/27/24 06/15/24 Rx lancets 28 gauge #100 ea 05/27/24 06/15/24 Rx apixaban 5 mg tablet (Eliquis) 5 mg PO BID #180 tabs 06/08/24 06/15/24 Rx magnesium oxide 400 mg (241.3 mg 400 mg PO QAM #90 tabs 06/08/24 06/15/24 Rx magnesium) tablet famotidine 20 mg tablet 20 mg PO HS #90 tabs 06/10/24 06/15/24 Rx hydralazine 100 mg tablet 100 mg PO BID #180 tabs 06/10/24 06/15/24 Rx sertraline 50 mg tablet 50 mg PO UD #90 tabs 06/10/24 06/15/24 Rx betamethasone valerate 0.1 % 1 applic topical UD PRN skin 06/15/24 06/15/24 Rx topical cream irritation #45 grams miconazole nitrate 2 % topical 1 applic EXT UD #85 grams 06/15/24 06/15/24 Rx powder (Desenex) miscellaneous medical supply See Rx Instructions .Route 06/29/24 Rx .COMPLEX #100 ea Patient History Medical History Wheezing Acute on chronic heart failure with preserved ejection fraction (HFpEF) Pulmonary edema (HFpEF) heart failure with preserved ejection fraction Edema of both legs Elevated C-reactive protein Elevated erythrocyte sedimentation rate Bradycardia Leukocytosis Acute and chronic respiratory failure Fatigue C. difficile diarrhea Acute metabolic encephalopathy Acute pain of right knee Acute hypercapnic respiratory failure Acute pain of right hip Fall Right hip pain Acute hypoxic respiratory failure Pericardial effusion Rectal bleeding Surgical History History of appendectomy History of prostate biopsy Family History Mother Diabetes Hypertension Other Blindness FH: cataracts Family history of blindness Glaucoma History of cataract Denies family history of Ovarian cancer Prostate cancer Myocardial infarction Breast cancer Colorectal cancer Social History Smoking Status: Never smoker Second Hand Exposure: No; Do You Dip or Chew Tobacco: No; Hx Alcohol Use: No Hx Substance Use: No Preferred Language: Tajik Communication Ability: Effective Communication Tools: IPad Visual Impairment: Limited Hearing Ability: Normal Spring Upholsterer Required: Yes Beliefs That Will Affect Care: None marital status: Current Living Situation: Alone Current Living Situation Comment: lives downstairs, lives seperately upstairs current occupational status: retired Feels Safe at Home: Yes Childhood Exposure to Second-Hand Smoke: No Diet: regular Diet Comment: regular caffeine: No during the past year weight has: remained stable Dental Care, Regularly: No Physical Activity Frequency: Other Physical Activity Frequency Comment: limited by physical condition Seatbelt Use: always Sunscreen Use: No Assistive Devices: Oxygen - Continuous and Scooter/Electric Scooter Review of Systems 2 Review of Systems: All systems reviewed & are unremarkable except as noted in HPI & below Physical Exam 2 Physical Exam: Constitutional: No acute distress HEENT: EOMI, PERRLA Respiratory system: Decreased air entry bilaterally, no wheeze, no rhonchi, positive crackles bilaterally CVS: S1-S2 positive, no murmurs or gallops Abdomen: Soft, nontender, nondistended, positive bowel sounds x4 Extremities: +2 pulses bilaterally radialis/ dorsalis pedis, no cyanosis, +2 pitting edema bilateral lower extremity Neuro: Awake alert oriented x3 Psych: Normal mood and affect G/U: Positive Hay Skin: no rashes, warm and dry Lymphatic: no cervical or axillary lymphadenopathy Results & Data Results & Data Vital Signs (Past 12 Hours) Vital Signs Temp Pulse Pulse Resp BP Pulse Ox O2 Del Method 07/12/24 04:20 68 18 163/70 H 98 BiPAP 07/12/24 02:09 73 22 95 07/11/24 23:33 75 07/11/24 23:25 Nasal Cannula 07/11/24 22:59 36.7 C 77 19 163/68 H 96 Nasal Cannula O2 Flow Rate FiO2 07/12/24 04:20 07/12/24 02:09 50 07/11/24 23:33 07/11/24 23:25 2 07/11/24 22:59 3 Laboratory Results 07/11/24 07:52 07/11/24 07:52 PG Care Time/CCT Total # of Minutes Spent Total Time Spent with Patient: Total time spent is greater than 50% in coordination of care (as documented) at patient's floor/unit and/or counseling patient: Coding Level of Care Code 15664 INT INP/OBS CARE 3/75MIN Diagnoses CHF (congestive heart failure) I50.9 Heart failure chronicity: acute on chronic Heart failure type: unspecified Chronic combined systolic and diastolic heart failure I50.42 Acute on chronic respiratory failure with hypoxia and hypercapnia J96.21; J96.22 Severe obstructive sleep apnea G47.33 Obesity hypoventilation syndrome E66.2 Chronic respiratory failure with hypoxia J96.11
[2024-07-12] MEDS ORDERED: NYSTATIN POWDER 15GM BTL EXT PRN (09:59)
--- NOTE | 2024-07-12 11:05 | Hospitalist Progress Note ---
Date of Service July 12, 2024 Assessment & Plan (1) Chronic combined systolic and diastolic heart failure: (2) Chronic respiratory failure with hypoxia: (3) Atrial fibrillation: (4) Obesity hypoventilation syndrome: (5) Severe obstructive sleep apnea: Plan The patient is a 73-year-old male with past medical history including chronic combined systolic and diastolic heart failure, noncompliance with medication regimen, chronic respiratory failure with hypoxia, B12 deficiency, Mobitz 1, pulmonary hypertension, atrial fibrillation on Eliquis, BPH with LUTS, obesity hypoventilation syndrome, severe GABRIELLE, diabetes mellitus type 2, right bundle branch block, RA, hypertension, hyperlipidemia, and depression with anxiety.The patient presents to the emergency department via EMS with shortness of breath that began about 1 week ago,, which worsened considerably over the past 24 ho urs. The patient has a known history of CHF, and has been taking his medications as directed. He denies any recent change in diet or exercise pattern. He notes that he has had worsening shortness of breath over the past week, and became so short of breath today they had to call EMS was brought into the ED for assessment. He was found to have a pulse ox of 76% on room air, improved with 3 L to the low 90s. From the ED he received bumetanide 2 mg IV, and Nitropaste 2 inches to anterior chest wall. [facility]. #Severe hypercapnic Resp failure Patient now more awake after BIPAP ABG 07/10 showed Pco2 79 started on BIPAP 09/09 patient refused repeat ABG 07/11 According to his , patient is very non complaint, also non complaint with BIPAP at home Continue diuresis and Duonebs and BIPAP According to patient, his CPAP machine at home is faulty He will need a script for CPAP at discharge #CHF exacerbation/atrial fibrillation/Mobitz 1- Most recent echocardiogram on 03/07/2024 with ejection fraction 45-50%, mild to moderate mitral regurgitation, moderate to severe pulmonary hypertension Bumetanide 2 mg IV twice daily Nitropaste 1 inch to anterior chest wall every 6 hours Continue apixaban 5 mg p.o. twice daily, hydralazine 100 mg p.o. twice daily BNP 875 Diabetes mellitus-hold metformin Placed on Accu-Cheks with NovoLog SSI GABRIELLE Not compliant with CPAP at home Chronic medical conditions: Hyperlipidemia-continue atorvastatin 40 mg daily BPH with LUTS-continue dutasteride GERD-continue omeprazole/pantoprazole and famotidine Depression-continue sertraline Rheumatoid arthritis-hold NSAIDs Disposition: Awaiting eval by PT, may need SNF Admission and Anticipated Discharge Date Admission Date: July 09, 2024 Subjective patient seen and examined, he is better this morning, breathing is much improved Review of Systems Review of Systems: All systems reviewed are negative, apart from the ones contained in the history. Physical Exam Physical Exam: The patient is awake, alert and oriented 3, well developed and well nourished, normocephalic and atraumatic, lying in bed and in no acute distress. HEENT--PERRL, EOMI, mucous membranes and oropharynx mildly dry Neck--supple. No JVD. No bruits. Thyroid normal, trachea midline, no adenopathy. Heart--normal S1 and S2. No murmurs, rubs or gallops. Lungs--Reduced air entry on auscultation. some wheeze Abdomen--normal bowel sounds and soft. Extremities--leg edema, lymphedema, mild cellulitis Dermatologic--normal skin turgor, normal color, no abnormal lymph nodes, no rash. Neurologic--cranial nerves II through XII grossly intact. Rheumatologic--normal range of motion. Psychiatric--normal affect. Results & Data Results & Data Vital Signs (Past 12 Hours) Vital Signs Temp Pulse Pulse Resp BP Pulse Ox O2 Del Method 07/12/24 08:00 94 H 07/12/24 08:00 Nasal Cannula 07/12/24 08:00 97.5 F L 84 12 155/66 H 94 Room Air 07/12/24 04:20 68 18 163/70 H 98 BiPAP 07/12/24 02:09 73 22 95 07/11/24 23:33 75 07/11/24 23:25 Nasal Cannula O2 Flow Rate FiO2 07/12/24 08:00 07/12/24 08:00 2 07/12/24 08:00 07/12/24 04:20 07/12/24 02:09 50 07/11/24 23:33 07/11/24 23:25 2 PG Care Time/CCT Total # of Minutes Spent Total Time Spent with Patient: Total time spent is greater than 50% in coordination of care (as documented) at patient's floor/unit and/or counseling patient: Coding Level of Care Code 62848 SUB INP/OBS CARE 2/35MIN Diagnoses Chronic combined systolic and diastolic heart failure I50.42 Chronic respiratory failure with hypoxia J96.11 Atrial fibrillation I48.91 Obesity hypoventilation syndrome E66.2 Severe obstructive sleep apnea G47.33 Time Spent (min) 35
[2024-07-12 12:50] LABS: Basophils # (auto) 0.04 K/uL (0.00-0.20); Basophils % (auto) 0.3 %; Eosinophils # (auto) 0.36 K/uL (0.00-0.50); Eosinophils % (auto) 2.5 %; Hematocrit (blood only) 29.5 % (42.0-52.0); Hemoglobin 9.1 g/dl (14.0-18.0); Immature Granulocytes # (auto) 0.15 K/uL (0.01-0.20); Lymphocytes # (auto) 0.79 K/uL (1.20-3.40); Lymphocytes % (auto) 5.5 %; Mean Corpuscular Hemoglobin 28.4 pg (25.0-34.0); Mean Corpuscular Hgb Conc 30.8 g/dL (32.0-36.0); Mean Corpuscular Volume 92.2 fL (80.0-100.0); Mean Platelet Volume 9.9 fL (9.4-12.4); Monocytes # (auto) 1.01 K/uL (0.11-0.59); Monocytes % (auto) 7.1 %; Neutrophils # (auto) 11.94 K/uL (1.40-6.50); Neutrophils % (auto) 83.6 %; Nucleated RBC # (auto) 0.05 K/uL (0.00-0.12); Nucleated RBC % (auto) 0.3 %; Platelet Count 365 K/uL (130-400); RDW Coefficient of Variation 18.4 % (11.5-14.5); White Blood Count 14.29 K/ul (4.8-10.8)
[2024-07-12 12:58] LABS: INR 1.3 (0.9-1.1); Partial Thromboplastin Ratio 1.1; Partial Thromboplastin Time 30 Seconds (21-31); Prothrombin Time 13.5 Seconds (9.0-12.0)
[2024-07-12 13:06] LABS: Albumin Globulin Ratio 0.8 (0.9-2); Albumin Level 3.3 gm/dl (3.4-5.0); Bilirubin,Total 0.5 mg/dl (0.2-1.0); Calcium 8.6 mg/dl (8.6-10.3); Globulin 4.4 gm/dl (2.5-4.0); Magnesium 1.5 mg/dl (1.7-2.4); Potassium 3.9 mmol/L (3.5-5.1); Total Protein 7.7 gm/dl (6.0-8.3)
[2024-07-13 07:43] LABS: Hematocrit (blood only) 26.4 % (42.0-52.0); Hemoglobin 8.3 g/dl (14.0-18.0); Mean Corpuscular Hemoglobin 28.5 pg (25.0-34.0); Mean Corpuscular Hgb Conc 31.4 g/dL (32.0-36.0); Mean Corpuscular Volume 90.7 fL (80.0-100.0); Mean Platelet Volume 9.7 fL (9.4-12.4); Nucleated RBC # (auto) 0.03 K/uL (0.00-0.12); Nucleated RBC % (auto) 0.2 %; Platelet Count 331 K/uL (130-400); RDW Coefficient of Variation 18.4 % (11.5-14.5); RDW Standard Deviation 61.3 fL (36.4-46.3); Red Blood Count 2.91 M/uL (4.70-6.10); White Blood Count 12.17 K/ul (4.8-10.8)
[2024-07-13 07:58] LABS: BUN Creatinine Ratio 19.2 (10-20); Calcium 8.3 mg/dl (8.6-10.3); Creatinine Clr Calc Pharmacy 79.4 ml/min; Potassium 3.7 mmol/L (3.5-5.1)
[2024-07-13] MEDS: POTASSIUM CHLORIDE CRTAB 20 MEQ TABCR PO STA ×2 (08:25→17:23)
[2024-07-13] MEDS: MAGNESIUM SULFATE / D5W 1 GM/100 ML BAG IV SCH ×2 (08:25→17:22)
[2024-07-13 08:28] LABS: Magnesium 1.6 mg/dl (1.7-2.4)
--- NOTE | 2024-07-13 08:35 | Pulmonology Progress Note ---
Date of Service July 13, 2024 Assessment & Plan (1) CHF (congestive heart failure): Heart failure chronicity: acute on chronic Heart failure type: u nspecified Qualified Code(s): I50.9 - Heart failure, unspecified (2) Chronic combined systolic and diastolic heart failure: (3) Acute on chronic respiratory failure with hypoxia and hypercapnia: (4) Severe obstructive sleep apnea: (5) Obesity hypoventilation syndrome: (6) Chronic respiratory failure with hypoxia: Plan 2D echo 03/07/2024: EF 45 to 50%, mild concentric LVH, moderate to severe pulmonary hypertension with PASP 55-60 mmHg ABG 7.25/79/78 --Acute on chronic hypoxic hypercapnic respiratory failure Hypoxia is likely secondary to CHF exacerbation Hypercapnia is from GABRIELLE/OHS and noncompliance Respiratory BioFire negative for everything on 07/09/2024 --Pulmonary hypertension Likely type II secondary to CHF --A-fib On Eliquis Plan: In/out: -3.5 L, urine output 4650 Continue with diuretics to keep the patient negative balance Continue with BiPAP nightly and as needed shortness of breath Try to keep O2 saturation between 90-92% given the pulmonary hypertension. Do not over oxygenate the patient Case management have been involved and we will try to get him a new BiPAP machine before he goes home as his old BiPAP machine is not working Please note the above document was generated using voice recognition software. It may contain grammatical, syntax or spelling errors.Any formal questions or concerns about the content, text or information contained within the body of this dictation should be directly addressed to the provider for clarification. Admission and Anticipated Discharge Date Admission Date: July 09, 2024 Subjective Patient seen and examined at bedside. No acute distress He was little bit drowsy when I saw him Saturation was 97% on 4 L, I went down to 2 L He did use the BiPAP machine overnight but not all night Fair appetite Has been diuresing well Review of Systems 2 Review of Systems: All systems reviewed & are unremarkable except as noted in Subjective Physical Exam 2 Physical Exam: Constitutional: No acute distress HEENT: EOMI, PERRLA Respiratory system: Decreased air entry bilaterally, no wheeze, no rhonchi, positive crackles bilaterally CVS: S1-S2 positive, no murmurs or gallops Abdomen: Soft, nontender, nondistended, positive bowel sounds x4 Extremities: +2 pulses bilaterally radialis/ dorsalis pedis, no cyanosis, +2 pitting edema bilateral lower extremity, chronic venous stasis Neuro: Awake alert oriented x3 Psych: Normal mood and affect G/U: Positive Hay Skin: no rashes, warm and dry Lymphatic: no cervical or axillary lymphadenopathy Results & Data Results & Data Vital Signs (Past 12 Hours) Vital Signs Temp Pulse Pulse Resp BP Pulse Ox O2 Del Method 07/13/24 07:48 36.4 C L 73 22 163/78 H 100 BiPAP 07/13/24 02:32 36.5 C 90 20 177/76 H 100 BiPAP 07/13/24 00:00 75 07/12/24 23:30 84 22 96 07/12/24 22:44 36.5 C 84 20 164/70 H 99 BiPAP FiO2 07/13/24 07:48 07/13/24 02:32 07/13/24 00:00 07/12/24 23:30 50 07/12/24 22:44 Laboratory Results 07/13/24 07:05 07/13/24 07:05 PG Care Time/CCT Total # of Minutes Spent Total Time Spent with Patient: Total time spent is greater than 50% in coordination of care (as documented) at patient's floor/unit and/or counseling patient: Coding Level of Care Code 94959 SUB INP/OBS CARE 3/50MIN Diagnoses CHF (congestive heart failure) I50.9 Heart failure chronicity: acute on chronic Heart failure type: unspecified Chronic combined systolic and diastolic heart failure I50.42 Acute on chronic respiratory failure with hypoxia and hypercapnia J96.21; J96.22 Severe obstructive sleep apnea G47.33 Obesity hypoventilation syndrome E66.2 Chronic respiratory failure with hypoxia J96.11
[2024-07-13] MEDS: POLYETHYLENE (MIRALAX) 17 GM PACK PO SCH (09:55)
--- NOTE | 2024-07-13 12:04 | Hospitalist Progress Note ---
Date of Service July 13, 2024 Assessment & Plan (1) Acute on chronic respiratory failure with hypoxia and hypercapnia: (2) Chronic combined systolic and diastolic heart failure: (3) Pulmonary HTN: (4) T2DM (type 2 diabetes mellitus): (5) Hypertension: (6) Obesity hypoventilation syndrome: (7) Severe obstructive sleep apnea: (8) Atrial fibrillation: (9) Hyperlipidemia: (10) Rheumatoid arthritis: (11) BPH (benign prostatic hyperplasia): Plan 72-year-old male with past medical history of chronic combined systolic and diastolic congestive heart failure, chronic respiratory failure with hypoxia and hypercapnia/O SA/OHS, pulmonary hypertension, Mobitz type I, atrial fibrillation on apixaban, BPH, obesity, type 2 diabetes mellitus, rheumatoid arthritis, hypertension, hyperlipidemia who presents to the ED via EMS for shortness of breath for 1 week and was admitted to the hospitalist service for CHF exacerbation. #Acute on chronic combined systolic and diastolic congestive heart failure with EF of 45% #Moderate to severe pulmonary hypertension #Hypertension # Hyperlipidemia #Atrial fibrillation #Mobitz type I #Episode of V. tach #Hypomagnesemia Outpatient nitro worker Dr. Huffman Patient has not seen cardiology since 2022 Continue Bumex 2 mg IV twice daily I/O monitoring Daily weights BNP is improving with improvement in respiratory status Continue apixaban 5 mg twice daily for anticoagulation Continue hydralazine 100 milligrams p.o. twice daily Add amlodipine 5 mg p.o. daily for better blood pressure control Keep potassium greater than 4 magnesium greater than 2: Replace IV and PO Continue mag oxide 400 mg p.o. twice daily If patient has any further episodes of V. tach, will consult cardiology, otherwise we will have patient follow-up with Dr. 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 Whiteside: Patient has not followed up with his it security specialist in a very long time Hypoxia likely secondary to CHF exacerbation Hypercapnia is from GABRIELLE/OHS Patient states his BiPAP machine is broken and that is why he is not been using it and not because he wants to be noncompliant Respiratory BioFire was negative on 07/09/2024 Pulmonology is following the patient Pulmonology has recommended to continue with BiPAP nightly and as needed for shortness of breath Case management is also involved with the help of pulmonology to get him a new BiPAP machine before he goes home as his old BiPAP machine is not working Pulmonology has recommended to keep O2 saturations between 90 to 92% given pulmonary hypertension #Type 2 diabetes mellitus A1c 6.2 Accu-Cheks before every meal and nightly with sliding scale insulin coverage Monitor glycemic control #Morbid obesity BMI is 47.5 Lifestyle counseling regarding diet, exercise and weight loss provided #BPH Continue finasteride # Depression Continue sertraline #Rheumatoid arthritis Avoid NSAIDs Outpatient follow-up with PCP for referral to rheumatology for further management CODE STATUS: Full code DVT prophylaxis: Patient on apixaban Discharge planning Home with home health based on clinical improvement and BiPAP machine for home use, likely in the next 48 to 72 hours Care plan discussed with patient, nursing staff Admission and Anticipated Discharge Date Admission Date: July 09, 2024 Subjective Patient seen and examined Labs reviewed Telemetry reviewed Patient reports feeling better today Reports improvement in his shortness of breath Patient tells me that he has BiPAP at home does not work. He is compliant with BiPAP during hospital stay. Patient tells me that in February 2024 his BiPAP machine was never replaced he was only cleaned. Patient lives alone He is but his does not live with him He denies any fever, chills, nausea, vomiting or abdominal pain Patient had an episode of 9 beats of V. tach this morning Physical Exam Physical Exam: General: No acute distress Psych: Awake and alert, oriented to place and person HEENT: Anicteric sclera, moist oral mucosa CVS: Regular rate and rhythm Lungs: Bilateral air entry, no wheezing noted, basilar crackles noted Abdomen: Soft, nontender, no rebound, no guarding Ext: Leg edema noted, no calf tenderness Neuro: No focal motor deficits noted Results & Data Results & Data Vital Signs (Past 12 Hours) Vital Signs Temp Pulse Pulse Resp BP Pulse Ox O2 Del Method 07/13/24 11:39 36.5 C 77 20 158/76 H 98 Nasal Cannula 07/13/24 08:00 73 07/13/24 08:00 Nasal Cannula 07/13/24 07:48 36.4 C L 73 22 163/78 H 100 BiPAP 07/13/24 02:32 36.5 C 90 20 177/76 H 100 BiPAP O2 Flow Rate 07/13/24 11:39 2 07/13/24 08:00 07/13/24 08:00 2 07/13/24 07:48 07/13/24 02:32 Laboratory Results Laboratory Results - last 24 hr 07/12/24 07/12/24 07/12/24 12:21 16:10 20:32 WBC 14.29 H RBC 3.20 L Hgb 9.1 L Hct 29.5 L MCV 92.2 MCH 28.4 MCHC 30.8 L RDW Std Deviation 62.0 H RDW Coeff of Darian 18.4 H Plt Count 365 MPV 9.9 Immature Gran % (Auto) 1.0 Neut % (Auto) 83.6 Lymph % (Auto) 5.5 Lyman % (Auto) 7.1 Eos % (Auto) 2.5 Baso % (Auto) 0.3 Neut # (Auto) 11.94 H Lymph # (Auto) 0.79 L Lyman # (Auto) 1.01 H Eos # (Auto) 0.36 Baso # (Auto) 0.04 Immature Gran # (Auto) 0.15 Absolute Nucleated RBC 0.05 Nucleated RBC % (auto) 0.3 PT 13.5 H INR 1.3 H APTT 30 PTT Ratio 1.1 Sodium 140 Potassium 3.9 Chloride 95 L Carbon Dioxide 40 H Anion Gap 5 BUN 20 Creatinine 1.11 Est Cr Clr Drug Dosing 72.0 eGFR 69.68 BUN/Creatinine Ratio 18.0 Glucose 157 H POC Glucose 113 H 143 H Calcium 8.6 Magnesium 1.5 L Total Bilirubin 0.5 AST 16 ALT 15 Alkaline Phosphatase 102 B-Natriuretic Peptide Total Protein 7.7 Albumin 3.3 L Globulin 4.4 H Albumin/Globulin Ratio 0.8 L 07/13/24 07/13/24 07/13/24 07:05 07:27 11:10 WBC 12.17 H RBC 2.91 L Hgb 8.3 L Hct 26.4 L MCV 90.7 MCH 28.5 MCHC 31.4 L RDW Std Deviation 61.3 H RDW Coeff of Darian 18.4 H Plt Count 331 MPV 9.7 Immature Gran % (Auto) Neut % (Auto) Lymph % (Auto) Lyman % (Auto) Eos % (Auto) Baso % (Auto) Neut # (Auto) Lymph # (Auto) Lyman # (Auto) Eos # (Auto) Baso # (Auto) Immature Gran # (Auto) Absolute Nucleated RBC 0.03 Nucleated RBC % (auto) 0.2 PT INR APTT PTT Ratio Sodium 141 Potassium 3.7 Chloride 96 L Carbon Dioxide 40 H Anion Gap 5 BUN 19 Creatinine 0.99 Est Cr Clr Drug Dosing 79.4 eGFR 79.94 BUN/Creatinine Ratio 19.2 Glucose 110 H POC Glucose 109 H 162 H Calcium 8.3 L Magnesium 1.6 L Total Bilirubin AST ALT Alkaline Phosphatase B-Natriuretic Peptide 368 H Total Protein Albumin Globulin Albumin/Globulin Ratio PG Care Time/CCT Total # of Minutes Spent Total Time Spent with Patient: Total time spent is greater than 50% in coordination of care (as documented) at patient's floor/unit and/or counseling patient: Coding Level of Care Code 54844 SUB INP/OBS CARE 3/50MIN Diagnoses Acute on chronic respiratory failure with hypoxia and hypercapnia J96.21; J96.22 Chronic combined systolic and diastolic heart failure I50.42 Pulmonary HTN I27.20 T2DM (type 2 diabetes mellitus) E11.9 Essential hypertension I10 Hypertension type: essential hypertension Obesity hypoventilation syndrome E66.2 Severe obstructive sleep apnea G47.33 Atrial fibrillation I48.91 Hyperlipidemia, unspecified hyperlipidemia type E78.5 Hyperlipidemia type: unspecified Rheumatoid arthritis M06.9 BPH (benign prostatic hyperplasia) N40.0 Time Spent (min) 52 (5) Hypertension Hypertension type: essential hypertension Qualified Code(s): I10 - Essential (primary) hypertension (9) Hyperlipidemia Hyperlipidemia type: unspecified Qualified Code(s): E78.5 - Hyperlipidemia, unspecified
--- NOTE | 2024-07-13 13:49 | XRay Report ---
XR chest 2V PA/lateral CLINICAL HISTORY: chf COMPARISON STUDY: 07/31/2023 FINDINGS: Stable prominent cardiomegaly with pulmonary vascular congestion. There is mild blunting of the posterior costophrenic sulcus. No other lobar consolidation or pleural effusion. IMPRESSION: CHF with trace pleural effusions. ACT 112: Negative or not required by law. Electronically signed by: Steve Bynum M.D. 07/13/2024 1:48 PM
[2024-07-13] MEDS: MAGNESIUM OXIDE 400 MG TAB PO SCH (17:45)
[2024-07-13] MEDS: amLODIPine BESYLATE 5 MG TAB PO ONE (18:40)
[2024-07-13] MEDS: SENNA 8.6 MG TAB PO SCH (20:32)
[2024-07-14 04:31] LABS: Base Excess ABG 15.6 mEq/L (-9-1.8); HCO3 ABG 44 mmol/L (19-24); Oxygen Saturation ABG 98.6 % (90-95); PCO2 ABG 67 mmHg (35-46); PO2 ABG 131 mmHg (80-95); pH ABG 7.42 (7.35-7.45)
[2024-07-14 04:33] LABS: Allen Test Pos (Pos)
--- NOTE | 2024-07-14 08:40 | Pulmonology Progress Note ---
Date of Service July 14, 2024 Assessment & Plan (1) CHF (congestive heart failure): Heart failure chronicity: acute on chronic Heart failure type: u nspecified Qualified Code(s): I50.9 - Heart failure, unspecified (2) Chronic combined systolic and diastolic heart failure: (3) Acute on chronic respiratory failure with hypoxia and hypercapnia: (4) Severe obstructive sleep apnea: (5) Obesity hypoventilation syndrome: (6) Chronic respiratory failure with hypoxia: Plan 2D echo 03/07/2024: EF 45 to 50%, mild concentric LVH, moderate to severe pulmonary hypertension with PASP 55-60 mmHg ABG 7.25/79/78 --Acute on chronic hypoxic hypercapnic respiratory failure Hypoxia is likely secondary to CHF exacerbation Hypercapnia is from GABRIELLE/OHS and noncompliance Respiratory BioFire negative for everything on 07/09/2024 --Pulmonary hypertension Likely type II secondary to CHF --A-fib On Eliquis Plan: In/out: - 9.5 L since coming to the hospital ABG 7.42/67/131 on 50% FiO2 Continue with diuretics to keep the patient negative balance Continue with BiPAP nightly and as needed shortness of breath Try to keep O2 saturation between 90-92% given the pulmonary hypertension. Do not over oxygenate the patient Case management is working on getting him a new BiPAP machine before he goes home as his old BiPAP machine is not working No further recommendation from pulmonary perspective, will sign off Please call directly with any questions Please note the above document was generated using voice recognition software. It may contain grammatical, syntax or spelling errors.Any formal questions or concerns about the content, text or information contained within the body of this dictation should be directly addressed to the provider for clarification. Admission and Anticipated Discharge Date Admission Date: July 09, 2024 Subjective Patient seen and examined at bedside. No acute distress, no adverse events overnight He used BiPAP all night, he was more alert today. Answering all the questions appropriately He was saturating 97% on 4 L, I went down to 2 L Fair appetite, no nausea or vomiting Denies any headache Review of Systems 2 Review of Systems: All systems reviewed & are unremarkable except as noted in Subjective Physical Exam 2 Physical Exam: Constitutional: No acute distress HEENT: EOMI, PERRLA Respiratory system: Decreased air entry bilaterally, no wheeze, no rhonchi, positive crackles bilaterally CVS: S1-S2 positive, no murmurs or gallops Abdomen: Soft, nontender, nondistended, positive bowel sounds x4 Extremities: +2 pulses bilaterally radialis/ dorsalis pedis, no cyanosis, +2 pitting edema bilateral lower extremity, chronic venous stasis Neuro: Awake alert oriented x3 Psych: Normal mood and affect G/U: Positive Hay Skin: no rashes, warm and dry Lymphatic: no cervical or axillary lymphadenopathy Results & Data Results & Data Vital Signs (Past 12 Hours) Vital Signs Temp Pulse Pulse Resp BP Pulse Ox O2 Del Method 07/14/24 07:25 36.3 C L 74 20 161/69 H 100 BiPAP 07/14/24 03:14 76 26 H 99 07/14/24 03:06 36.7 C 66 18 129/60 100 CPAP 07/14/24 00:00 73 07/13/24 22:54 36.7 C 65 16 151/73 H 100 CPAP 07/13/24 22:46 70 20 99 FiO2 07/14/24 07:25 07/14/24 03:14 50 07/14/24 03:06 07/14/24 00:00 07/13/24 22:54 07/13/24 22:46 50 Laboratory Results 07/13/24 07:05 07/13/24 07:05 PG Care Time/CCT Total # of Minutes Spent Total Time Spent with Patient: Total time spent is greater than 50% in coordination of care (as documented) at patient's floor/unit and/or counseling patient: Coding Level of Care Code 81333 SUB INP/OBS CARE 2/35MIN Diagnoses CHF (congestive heart failure) I50.9 Heart failure chronicity: acute on chronic Heart failure type: unspecified Chronic combined systolic and diastolic heart failure I50.42 Acute on chronic respiratory failure with hypoxia and hypercapnia J96.21; J96.22 Severe obstructive sleep apnea G47.33 Obesity hypoventilation syndrome E66.2 Chronic respiratory failure with hypoxia J96.11
[2024-07-14] MEDS: amLODIPine BESYLATE 5 MG TAB PO SCH (09:27)
[2024-07-14 11:10] LABS: Hematocrit (blood only) 28.8 % (42.0-52.0); Hemoglobin 8.8 g/dl (14.0-18.0); Mean Corpuscular Hemoglobin 27.9 pg (25.0-34.0); Mean Corpuscular Hgb Conc 30.6 g/dL (32.0-36.0); Mean Corpuscular Volume 91.4 fL (80.0-100.0); Mean Platelet Volume 9.7 fL (9.4-12.4); Nucleated RBC # (auto) 0.02 K/uL (0.00-0.12); Nucleated RBC % (auto) 0.2 %; Platelet Count 327 K/uL (130-400); RDW Coefficient of Variation 18.6 % (11.5-14.5); RDW Standard Deviation 61.3 fL (36.4-46.3); Red Blood Count 3.15 M/uL (4.70-6.10); White Blood Count 11.04 K/ul (4.8-10.8)
--- NOTE | 2024-07-14 11:31 | Hospitalist Progress Note ---
Date of Service July 14, 2024 Assessment & Plan (1) Acute on chronic respiratory failure with hypoxia and hypercapnia: (2) Chronic combined systolic and diastolic heart failure: (3) Pulmonary HTN: (4) T2DM (type 2 diabetes mellitus): (5) Hypertension: (6) Obesity hypoventilation syndrome: (7) Severe obstructive sleep apnea: (8) Atrial fibrillation: (9) Hyperlipidemia: (10) Rheumatoid arthritis: (11) BPH (benign prostatic hyperplasia): Plan 72-year-old male with past medical history of chronic combined systolic and diastolic congestive heart failure, chronic respiratory failure with hypoxia and hypercapnia/O SA/OHS, pulmonary hypertension, Mobitz type I, atrial fibrillation on apixaban, BPH, obesity, type 2 diabetes mellitus, rheumatoid arthritis, hypertension, hyperlipidemia who presents to the ED via EMS for shortness of breath for 1 week and was admitted to the hospitalist service for CHF exacerbation. #Acute on chronic combined systolic and diastolic congestive heart failure with EF of 45% #Moderate to severe pulmonary hypertension #Hypertension # Hyperlipidemia #Atrial fibrillation #Mobitz type I #Episode of V. 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 twice daily Add amlodipine 5 mg p.o. daily for better blood pressure control Keep potassium greater than 4 magnesium greater than 2: Replace IV and PO Continue mag oxide 400 mg p.o. twice daily Chest x-ray from 07/13/2024 reviewed and shows CHF with trace pleural effusions Cardiology has been consulted: Awaiting cardiology consult and recommendations #Acute on chronic hypoxic and hypercapnic respiratory failure #GABRIELLE/OHS Outpatient client services representative Dr. Whiteside: Patient has not followed up with his client services representative in a very long time Hypoxia likely secondary to CHF exacerbation Hypercapnia is from GABRIELLE/OHS Patient states his BiPAP machine is broken and that is why he is not been using it and not because he wants to be noncompliant Respiratory BioFire was negative on 07/09/2024 Pulmonology is following the patient Pulmonology has recommended to continue with BiPAP nightly and as needed for shortness of breath Case management is also involved with the help of pulmonology to get him a new BiPAP machine before he goes home as his old BiPAP machine is not working Pulmonology has recommended to keep O2 saturations between 90 to 92% given pulmonary hypertension Will have patient follow-up with Dr. Turner on discharge #Type 2 diabetes mellitus A1c 6.2 Accu-Cheks before every meal and nightly with sliding scale insulin coverage Monitor glycemic control #Morbid obesity BMI is 47.5 Lifestyle counseling regarding diet, exercise and weight loss provided #BPH Continue finasteride # Depression Continue sertraline #Rheumatoid arthritis Avoid NSAIDs Outpatient follow-up with PCP for referral to rheumatology for further management CODE STATUS: Full code DVT prophylaxis: Patient on apixaban Discharge planning Home with home health based on clinical improvement, cardiology recommendations and availability of BiPAP machine for home use, likely in the next 48 to 72 hours Care plan discussed with patient, nursing staff Admission and Anticipated Discharge Date Admission Date: July 09, 2024 Subjective Patient seen and examined Sitting up in a chair Reports feeling better today He is grateful for BiPAP prescription and is very compliant with BiPAP here in the hospital He denies any chest pain and reports improvement in his shortness of breath Denies any nausea vomiting or abdominal pain Telemetry reviewed: No more episodes of V. tach today Physical Exam Physical Exam: General: No acute distress Psych: Awake and alert, oriented to place and person HEENT: Anicteric sclera, moist oral mucosa CVS: Regular rate and rhythm Lungs: Bilateral air entry, no wheezing noted, basilar crackles noted Abdomen: Soft, nontender, no rebound, no guarding Ext: Leg edema noted: Improving with chronic skin changes Results & Data Results & Data Vital Signs (Past 12 Hours) Vital Signs Temp Pulse Pulse Resp BP BP Pulse Ox 07/14/24 11:13 36.3 C L 61 19 145/66 H 97 07/14/24 08:00 67 07/14/24 07:25 36.3 C L 74 20 161/69 H 100 07/14/24 03:14 76 26 H 99 07/14/24 03:06 36.7 C 66 18 129/60 100 07/14/24 00:00 73 O2 Del Method O2 Flow Rate FiO2 07/14/24 11:13 Nasal Cannula 2 07/14/24 08:00 07/14/24 07:25 BiPAP 07/14/24 03:14 50 07/14/24 03:06 CPAP 07/14/24 00:00 Laboratory Results Laboratory Results - last 24 hr 07/13/24 07/13/24 07/13/24 16:08 16:44 20:25 WBC RBC Hgb Hct MCV MCH MCHC RDW Std Deviation RDW Coeff of Darian Plt Count MPV Absolute Nucleated RBC Nucleated RBC % (auto) ABG pH ABG pCO2 ABG pO2 ABG HCO3 ABG O2 Saturation ABG Base Excess Mendez Test Oxygen Given Sodium Potassium Chloride Carbon Dioxide Anion Gap BUN Creatinine Est Cr Clr Drug Dosing eGFR BUN/Creatinine Ratio Glucose POC Glucose 119 H 97 160 H Calcium Magnesium Vitamin B12 07/14/24 07/14/24 07/14/24 04:26 07:22 10:49 WBC 11.04 H RBC 3.15 L Hgb 8.8 L Hct 28.8 L MCV 91.4 MCH 27.9 MCHC 30.6 L RDW Std Deviation 61.3 H RDW Coeff of Darian 18.6 H Plt Count 327 MPV 9.7 Absolute Nucleated RBC 0.02 Nucleated RBC % (auto) 0.2 ABG pH 7.42 ABG pCO2 67 H ABG pO2 131 H ABG HCO3 44 H ABG O2 Saturation 98.6 H ABG Base Excess 15.6 H Mendez Test Pos Oxygen Given 50% FI02 Sodium Pending Potassium Pending Chloride Pending Carbon Dioxide Pending Anion Gap Pending BUN Pending Creatinine Pending Est Cr Clr Drug Dosing Pending eGFR Pending BUN/Creatinine Ratio Pending Glucose Pending POC Glucose 106 H Calcium Pending Magnesium Pending Vitamin B12 Pending 07/14/24 11:11 WBC RBC Hgb Hct MCV MCH MCHC RDW Std Deviation RDW Coeff of Darian Plt Count MPV Absolute Nucleated RBC Nucleated RBC % (auto) ABG pH ABG pCO2 ABG pO2 ABG HCO3 ABG O2 Saturation ABG Base Excess Mendez Test Oxygen Given Sodium Potassium Chloride Carbon Dioxide Anion Gap BUN Creatinine Est Cr Clr Drug Dosing eGFR BUN/Creatinine Ratio Glucose POC Glucose 124 H Calcium Magnesium Vitamin B12 Diagnostic Findings Chest X-Ray 07/13/24 12:06 XR chest 2V PA/lateral CLINICAL HISTORY: chf COMPARISON STUDY: 07/31/2023 FINDINGS: Stable prominent cardiomegaly with pulmonary vascular congestion. There is mild blunting of the posterior costophrenic sulcus. No other lobar consolidation or pleural effusion. IMPRESSION: CHF with trace pleural effusions. ACT 112: Negative or not required by law. Electronically signed by: Steve Bynum M.D. 07/13/2024 1:48 PM PG Care Time/CCT Total # of Minutes Spent Total Time Spent with Patient: Total time spent is greater than 50% in coordination of care (as documented) at patient's floor/unit and/or counseling patient: Coding Level of Care Code 34803 SUB INP/OBS CARE 3/50MIN Diagnoses Acute on chronic respiratory failure with hypoxia and hypercapnia J96.21; J9 6.22 Chronic combined systolic and diastolic heart failure I50.42 Pulmonary HTN I27.20 T2DM (type 2 diabetes mellitus) E11.9 Essential hypertension I10 Hypertension type: essential hypertension Obesity hypoventilation syndrome E66.2 Severe obstructive sleep apnea G47.33 Atrial fibrillation I48.91 Hyperlipidemia, unspecified hyperlipidemia type E78.5 Hyperlipidemia type: unspecified Rheumatoid arthritis M06.9 BPH (benign prostatic hyperplasia) N40.0 (5) Hypertension Hypertension type: essential hypertension Qualified Code(s): I10 - Essential (primary) hypertension (9) Hyperlipidemia Hyperlipidemia type: unspecified Qualified Code(s): E78.5 - Hyperlipidemia, unspecified
[2024-07-14 12:16] LABS: Calcium 8.5 mg/dl (8.6-10.3); Creatinine Clr Calc Pharmacy 78.3 ml/min; Magnesium 2.2 mg/dl (1.7-2.4); Potassium 4.4 mmol/L (3.5-5.1)
[2024-07-14] MEDS: CYANOCOBALAMIN 1000 MCG/ML VIAL IM SCH (13:20)
--- NOTE | 2024-07-14 15:15 | Cardiology Consultation ---
Date of Consultation July 14, 2024 Assessment & Plan (1) Acute on chronic respiratory failure with hypoxia and hypercapnia: (2) Chronic combined systolic and diastolic heart failure: (3) Pulmonary HTN: (4) Atrial fibrillation: (5) Ventricular tachycardia: Plan 1. Hypercapnic and hypoxic respiratory failure: Multifactorial. However, his decompensation was likely related to pulmonary edema. He seems to responded very well to diuresis. Unclear precipitant for his decompensation. At this point he appears to be back to his baseline. He does have some wheezing on examination but no evidence of vascular congestion. I think he could continue his outpatient medical regimen which includes a single dose of bumetanide daily. Will arrange some follow-up in our "heart failure" clinic. 2. Heart failure with preserved ejection fraction: In the past his LV function was normal. Most recent study however suggested mild LV dysfunction. Will repeat the echocardiogram in order to direct therapy. In either situation he would benefit from the addition of an SGLT2 inhibitor. I will prescribe him Jardiance. Will see if he will benefit from more aggressive therapy such as Entresto or spironolactone. I think beta-vanessa is relatively contraindicated given his conduction disease. 3. Ventricular tachycardia: He had 2 episodes of tachycardia over the past 24 hours. 1 was certainly ventricular tachycardia. The other could be an SVT. Both were very brief and lasted only a few beats. I do not think this is a clinical concern. In an ideal situation we will prescribe a beta-vanessa, but again given his conduction disease I think this is relatively contraindicated. No symptoms. No history of dizziness or passing out. Will just optimize his medical therapy at this point and monitor him for any additional symptoms. 4. Atrial fibrillation: History of paroxysmal atrial fibrillation by report. No known episodes recently. Possibly a precipitant for his decompensation, but presented in sinus rhythm. He will be maintained on systemic anticoagulation w ith apixaban which appears to be dosed appropriately. 5. Pulmonary hypertension: Severe. Multifactorial. Certainly an element of diastolic or systolic heart failure, but also obesity hypoventilation syndrome and a history of obstructive sleep apnea. No restrictive lung disease. On supplemental oxygen at home and compliant with BiPAP therapy at nighttime. History of Present Illness Reason for Consultation: Congestive heart failure, ventricular tachycardia Requesting Physician: Rosaura Attending Physician: Maximo Kaplan MD History of Present Illness The patient is a 73-year-old gentleman with a history of both heart failure with preserved and reduced ejection fraction. He is known to have an element of pulmonary hypertension felt to be multifactorial. He has a history of obstructive sleep apnea and uses CPAP and occasionally supplemental oxygen during the day. He was admitted to our facility for symptoms of dyspnea. He states that for several days leading up to his admission he became severely short of breath. He difficulty been doing his usual activities without being quite dyspneic. Unclear if he had any orthopnea as he tends to use his CPAP at nighttime. He did not endorse symptoms of swelling or weight gain. He did not have symptoms of chest discomfort leading up to admission. No sense of palpitation, dizziness or presyncope. After admission he underwent a diuresis with significant improvement in his symptoms. He was on telemetry and on 2 occasions was noted to have a brief episode of ventricular tachycardia. No overt symptoms. In general he is a sedentary individual. He requires a walker for assistance with ambulation. He does not as send stairs or perform significant exertion. Outside of his recent decompensation he has not had limiting dyspnea. He denies any symptoms of exertional chest pain. Again, has not been aware of any palpitations or high heart rates. No history of syncope. No lower extremity edema. He claims to be compliant with medical therapy. He cooks at home with his and he is aware of high sodium restriction. Allergies Allergy/AdvReac Type Severity Reaction Status Date / Time No Known Drug Allergies Allergy . Verified 12/11/23 08:50 Home Medications Medication Instructions Recorded Confirmed Type ascorbic acid (vitamin C) 500 mg 500 mg PO DAILY #30 caps 10/30/22 06/15/24 Rx capsule dufnrdcfbrrw-Ww-rypv-minerals 1 tab PO DAILY 02/24/23 06/15/24 History psyllium husk 3.4 gram/5.4 gram 1 tbsp PO DAILY #660 grams 03/13/23 06/15/24 Rx oral powder (Metamucil) acetaminophen 325 mg tablet 650 mg (2 x 325 mg) PO Q4H PRN #1 09/14/23 06/15/24 Rx tab diclofenac sodium 1 % topical gel 2 g EXT TID PRN joint pain #1 tube 09/14/23 06/15/24 Rx (Voltaren Arthritis Pain) ammonium lactate 12 % topical cream 1 applic topical DAILY PRN dry 11/19/23 06/15/24 Rx skin #385 grams atorvastatin 40 mg tablet 40 mg PO DAILY #100 tabs 11/19/23 06/15/24 Rx dutasteride 0.5 mg capsule 0.5 mg PO DAILY #90 caps 11/19/23 06/15/24 Rx omeprazole 20 mg capsule,delayed 20 mg PO DAILY #90 caps 11/19/23 06/15/24 Rx release ipratropium 0.5 mg-albuterol 3 mg 3 ml NEB UD PRN Other 03/05/24 06/15/24 History (2.5 mg base)/3 mL nebulization soln Miscellaneous Medical Supply #1 unit 03/08/24 06/15/24 Rx metformin 500 mg tablet,extended 500 mg PO BIDM #60 tabs 04/26/24 06/15/24 Rx release 24 hr bumetanide 2 mg tablet 2 mg PO DAILY #30 tabs 05/19/24 06/15/24 Rx blood sugar diagnostic (OneTouch #100 ea 05/27/24 06/15/24 Rx Ultra Test strips) blood-glucose meter #1 ea 05/27/24 06/15/24 Rx lancets 28 gauge #100 ea 05/27/24 06/15/24 Rx apixaban 5 mg tablet (Eliquis) 5 mg PO BID #180 tabs 06/08/24 06/15/24 Rx magnesium oxide 400 mg (241.3 mg 400 mg PO QAM #90 tabs 06/08/24 06/15/24 Rx magnesium) tablet famotidine 20 mg tablet 20 mg PO HS #90 tabs 06/10/24 06/15/24 Rx hydralazine 100 mg tablet 100 mg PO BID #180 tabs 06/10/24 06/15/24 Rx sertraline 50 mg tablet 50 mg PO UD #90 tabs 06/10/24 06/15/24 Rx betamethasone valerate 0.1 % 1 applic topical UD PRN skin 06/15/24 06/15/24 Rx topical cream irritation #45 grams miconazole nitrate 2 % topical 1 applic EXT UD #85 grams 06/15/24 06/15/24 Rx powder (Desenex) miscellaneous medical supply See Rx Instructions .Route 06/29/24 Rx .COMPLEX #100 ea Patient History Medical History Wheezing Acute on chronic heart failure with preserved ejection fraction (HFpEF) Pulmonary edema (HFpEF) heart failure with preserved ejection fraction Edema of both legs Elevated C-reactive protein Elevated erythrocyte sedimentation rate Bradycardia Leukocytosis Acute and chronic respiratory failure Fatigue C. difficile diarrhea Acute metabolic encephalopathy Acute pain of right knee Acute hypercapnic respiratory failure Acute pain of right hip Fall Right hip pain Acute hypoxic respiratory failure Pericardial effusion Rectal bleeding Surgical History History of appendectomy History of prostate biopsy Family History Mother Diabetes Hypertension Other Blindness FH: cataracts Family history of blindness Glaucoma History of cataract Denies family history of Ovarian cancer Prostate cancer Myocardial infarction Breast cancer Colorectal cancer Social History Smoking Status: Never smoker Second Hand Exposure: No; Do You Dip or Chew Tobacco: No; Hx Alcohol Use: No Hx Substance Use: No Preferred Language: Romanian Communication Ability: Effective Communication Tools: Other Visual Impairment: Limited Hearing Ability: Normal Ecologist Required: Yes Beliefs That Will Affect Care: None marital status: Current Living Situation: Alone Current Living Situation Comment: lives downstairs, lives seperately upstairs current occupational status: retired Feels Safe at Home: Yes Childhood Exposure to Second-Hand Smoke: No Diet: regular Diet Comment: regular caffeine: No during the past year weight has: remained stable Dental Care, Regularly: No Physical Activity Frequency: Other Physical Activity Frequency Comment: limited by physical condition Seatbelt Use: always Sunscreen Use: No Assistive Devices: BiPap, Oxygen - Continuous and Scooter/Electric Scooter Review of Systems Review of Systems: Per HPI Physical Exam Physical Exam: The patient is alert and oriented. Mood and affect appeared normal. He answered all questions appropriately. Obese HEENT: Pupils are equal and reactive to light and accommodation. Extraocular movements are intact. The sclerae are anicteric. Neuro: Cranial nerves intact Lungs: No rales. Some inspiratory and expiratory wheezing. Normal respiratory effort. Cardiac: Heart demonstrates a regular rate and rhythm. Normal S1 and S2. No murmurs on examination. Pulses: The patient has palpable radial pulses bilaterally that are equal in intensity Extremities: There was no evidence of hypoperfusion. There is no cyanosis or clubbing. Moderate lower extremity edema with trophic changes bilaterally. Skin: I did not appreciate any rashes on examination today. Results & Data Vital Signs (Past 12 Hours) Vital Signs Temp Pulse Pulse Resp BP BP Pulse Ox 07/14/24 14:28 71 07/14/24 11:27 07/14/24 11:13 36.3 C L 61 19 145/66 H 97 07/14/24 08:00 67 07/14/24 07:25 36.3 C L 74 20 161/69 H 100 07/14/24 03:14 76 26 H 99 07/14/24 03:06 36.7 C 66 18 129/60 100 O2 Del Method O2 Flow Rate FiO2 07/14/24 14:28 07/14/24 11:27 Nasal Cannula 2 07/14/24 11:13 Nasal Cannula 2 07/14/24 08:00 07/14/24 07:25 BiPAP 07/14/24 03:14 50 07/14/24 03:06 CPAP Laboratory Results Abnormal Lab Results 07/13/24 07/13/24 07/13/24 16:08 16:44 20:25 WBC RBC Hgb Hct MCV MCH MCHC RDW Std Deviation RDW Coeff of Darian Plt Count MPV Absolute Nucleated RBC Nucleated RBC % (auto) ABG pH ABG pCO2 ABG pO2 ABG HCO3 ABG O2 Saturation ABG Base Excess Mendez Test Oxygen Given Sodium Potassium Chloride Carbon Dioxide Anion Gap BUN Creatinine Est Cr Clr Drug Dosing eGFR BUN/Creatinine Ratio Glucose POC Glucose 119 H 97 160 H Calcium Magnesium Vitamin B12 07/14/24 07/14/24 07/14/24 04:26 07:22 10:49 WBC 11.04 H RBC 3.15 L Hgb 8.8 L Hct 28.8 L MCV 91.4 MCH 27.9 MCHC 30.6 L RDW Std Deviation 61.3 H RDW Coeff of Darian 18.6 H Plt Count 327 MPV 9.7 Absolute Nucleated RBC 0.02 Nucleated RBC % (auto) 0.2 ABG pH 7.42 ABG pCO2 67 H ABG pO2 131 H ABG HCO3 44 H ABG O2 Saturation 98.6 H ABG Base Excess 15.6 H Mendez Test Pos Oxygen Given 50% FI02 Sodium 141 Potassium 4.4 Chloride 96 L Carbon Dioxide 41 H* Anion Gap 4 BUN 21 Creatinine 1.00 Est Cr Clr Drug Dosing 78.3 eGFR 78.98 BUN/Creatinine Ratio 21.0 H Glucose 137 H POC Glucose 106 H Calcium 8.5 L Magnesium 2.2 Vitamin B12 258 07/14/24 07/14/24 11:11 14:12 WBC RBC Hgb Hct MCV MCH MCHC RDW Std Deviation RDW Coeff of Darian Plt Count MPV Absolute Nucleated RBC Nucleated RBC % (auto) ABG pH ABG pCO2 ABG pO2 ABG HCO3 ABG O2 Saturation ABG Base Excess Mendez Test Oxygen Given Sodium Potassium Chloride Carbon Dioxide Anion Gap BUN Creatinine Est Cr Clr Drug Dosing eGFR BUN/Creatinine Ratio Glucose POC Glucose 124 H 150 H Calcium Magnesium Vitamin B12 Diagnostic Findings Echocardiogram 03/07/2024: Mildly reduced LV systolic function with ejection fraction of 45 to 50%. Mild global LV dysfunction. Mild to moderate mitral regurgitation. Moderate to severe pulmonary hypertension with estimated pressures of 55 to 60 mmHg. Trace pericardial effusion. Chest x-ray obtained at the time of admission was consistent with pulmonary vascular congestion. ECG Additional Comments: EKG obtained this admission reveals normal sinus rhythm with first-degree AV block, right bundle branch block and right posterior fascicular block PG Care Time/CCT Total # of Minutes Spent Total Time Spent with Patient: Total time spent is greater than 50% in coordination of care (as documented) at patient's floor/unit and/or counseling patient: Coding Level of Care Code 75674 INT INP/OBS CARE 3/75MIN Diagnoses Acute on chronic respiratory failure with hypoxia and hypercapnia J96.21; J96.22 Chronic combined systolic and diastolic heart failure I50.42 Pulmonary HTN I27.20 Atrial fibrillation I48.91 Ventricular tachycardia I47.20
--- NOTE | 2024-07-14 17:55 | XCELERA ---
[id number]
[2024-07-15] MEDS: VITAMIN B COMPLEX TAB PO SCH (09:29)
[2024-07-15] MEDS: EMPAGLIFLOZIN 10 MG TAB PO SCH (09:29)
--- NOTE | 2024-07-15 10:44 | Hospitalist Progress Note ---
Date of Service July 15, 2024 Assessment & Plan (1) Acute on chronic respiratory failure with hypoxia and hypercapnia: (2) Chronic combined systolic and diastolic heart failure: (3) Pulmonary HTN: (4) T2DM (type 2 diabetes mellitus): (5) Hypertension: (6) Obesity hypoventilation syndrome: (7) Severe obstructive sleep apnea: (8) Atrial fibrillation: (9) Hyperlipidemia: (10) Rheumatoid arthritis: (11) BPH (benign prostatic hyperplasia): Plan 72-year-old male with past medical history of chronic combined systolic and diastolic congestive heart failure, chronic respiratory failure with hypoxia and hypercapnia/O SA/OHS, pulmonary hypertension, Mobitz type I, atrial fibrillation on apixaban, BPH, obesity, type 2 diabetes mellitus, rheumatoid arthritis, hypertension, hyperlipidemia who presents to the ED via EMS for shortness of breath for 1 week and was admitted to the hospitalist service for CHF exacerbation. #Acute on chronic combined systolic and diastolic congestive heart failure with EF of 40% #Moderate to severe pulmonary hypertension #Hypertension # Hyperlipidemia #Atrial fibrillation #Mobitz type I #Episode of V. tach #Hypomagnesemia Outpatient online merchandising specialist Dr. Huffman Patient has not seen cardiology since 2022 I/O monitoring Daily weights BNP is improving with improvement in respiratory status Continue apixaban 5 mg twice daily for anticoagulation Continue hydralazine 100 milligrams p.o. twice daily Continue amlodipine 5 mg p.o. daily for better blood pressure control Keep potassium greater than 4 magnesium greater than 2: Replace IV and PO Continue mag oxide 400 mg p.o. twice daily Chest x-ray from 07/13/2024 reviewed and shows CHF with trace pleural effusions Cardiology saw the patient and repeated echo which showed EF of 40 to 45% with mild global hypokinesis Cardiology recommended switching patient to home diuretic regiment of Bumex 2 mg p.o. daily Cardiology is also started on Jardiance Awaiting cardiology follow-up post echo as they are going to decide on more aggressive therapy such as Entresto or spironolactone. Beta-vanessa is relatively contraindicated per cardiology given his conduction disease. #Acute on chronic hypoxic and hypercapnic respiratory failure #GABRIELLE/OHS Outpatient library manager Dr. Whiteside: Patient has not followed up with his library manager in a very long time Hypoxia likely secondary to CHF exacerbation Hypercapnia is from GABRIELLE/OHS Patient states his BiPAP machine is broken and that is why he is not been using it and not because he wants to be noncompliant Respiratory BioFire was negative on 07/09/2024 Pulmonology saw the patient during hospital stay Pulmonology has recommended to continue with BiPAP nightly and as needed for shortness of breath Patient is compliant with BiPAP during hospital stay and patient continues to use his BiPAP and is benefiting from the therapy to improve his health conditions. Case management is also involved with the help of pulmonology to get him a new BiPAP machine before he goes home as his old BiPAP machine is not working Pulmonology has recommended to keep O2 saturations between 90 to 92% given pulmonary hypertension As per pulmonology, patient is at high risk for readmission without his BiPAP at home Will have patient follow-up with Dr. Turner on discharge #Type 2 diabetes mellitus A1c 6.2 Accu-Cheks before every meal and nightly with sliding scale insulin coverage Monitor glycemic control #Morbid obesity BMI is 47.5 Lifestyle counseling regarding diet, exercise and weight loss provided #BPH Continue finasteride # Depression Continue sertraline #Rheumatoid arthritis Avoid NSAIDs Outpatient follow-up with PCP for referral to rheumatology for further management CODE STATUS: Full code DVT prophylaxis: Patient on apixaban Discharge planning Home with home health based on clinical improvement, cardiology recommendations and availability of BiPAP machine for home use, marie whitaekr in the next 24 to 48 hours Care plan discussed with patient, nursing staff Admission and Anticipated Discharge Date Admission Date: July 09, 2024 Subjective Patient seen and examined Refused labs this morning but is agreeable to getting it now He denies any chest pain or shortness of breath He is eager to go home once BiPAP is set up Denies any nausea, vomiting or abdominal pain Sitting up in a chair Physical Exam Physical Exam: General: No acute distress Psych: Awake and alert, oriented to place and person HEENT: Anicteric sclera, moist oral mucosa CVS: Regular rate and rhythm Lungs: Bilateral air entry, no wheezing noted, mild basilar crackles noted Abdomen: Soft, nontender, no rebound, no guarding Ext: Leg edema noted: Improving with chronic skin changes Results & Data Results & Data Vital Signs (Past 12 Hours) Vital Signs Temp Pulse Pulse Resp BP Pulse Ox O2 Del Method 07/15/24 10:15 69 07/15/24 02:43 36.9 C 80 18 140/78 98 CPAP 07/15/24 02:10 72 21 100 07/14/24 23:41 67 FiO2 07/15/24 10:15 07/15/24 02:43 07/15/24 02:10 50 07/14/24 23:41 Laboratory Results Laboratory Results - last 24 hr 07/14/24 07/14/24 07/14/24 14:12 16:14 20:16 Sodium Potassium Chloride Carbon Dioxide Anion Gap BUN Creatinine Est Cr Clr Drug Dosing eGFR BUN/Creatinine Ratio Glucose POC Glucose 150 H 102 H 159 H Calcium Magnesium 07/15/24 07/15/24 07/15/24 07:16 11:18 11:33 Sodium 140 Potassium 4.0 Chloride 94 L Carbon Dioxide 42 H* Anion Gap 4 BUN 21 Creatinine 1.01 Est Cr Clr Drug Dosing 77.3 eGFR 78.04 BUN/Creatinine Ratio 20.8 H Glucose 131 H POC Glucose 110 H 131 H Calcium 8.6 Magnesium 2.2 PG Care Time/CCT Total # of Minutes Spent Total Time Spent with Patient: Total time spent is greater than 50% in coordination of care (as documented) at patient's floor/unit and/or counseling patient: Coding Level of Care Code 74150 SUB INP/OBS CARE 235MIN Diagnoses Acute on chronic respiratory failure with hypoxia and hypercapnia J96.21; J96.22 Chronic combined systolic and diastolic heart failure I50.42 Pulmonary HTN I27.20 T2DM (type 2 diabetes mellitus) E11.9 Essential hypertension I10 Hypertension type: essential hypertension Obesity hypoventilation syndrome E66.2 Severe obstructive sleep apnea G47.33 Atrial fibrillation I48.91 Hyperlipidemia, unspecified hyperlipidemia type E78.5 Hyperlipidemia type: unspecified Rheumatoid arthritis M06.9 BPH (benign prostatic hyperplasia) N40.0 (5) Hypertension Hypertension type: essential hypertension Qualified Code(s): I10 - Essential (primary) hypertension (9) Hyperlipidemia Hyperlipidemia type: unspecified Qualified Code(s): E78.5 - Hyperlipidemia, unspecified
[2024-07-15] MEDS: BUMETANIDE 1 MG TAB PO ONE (11:06)
[2024-07-15 12:16] LABS: BUN Creatinine Ratio 20.8 (10-20); Calcium 8.6 mg/dl (8.6-10.3); Creatinine Clr Calc Pharmacy 77.3 ml/min; Magnesium 2.2 mg/dl (1.7-2.4)
[2024-07-15] MEDS ORDERED: BUMETANIDE 1 MG TAB PO ONE (17:00)
[2024-07-15] MEDS: MELATONIN 3 MG TAB PO PRN (21:50)
[2024-07-16] MEDS ORDERED: BUMETANIDE 1 MG TAB PO SCH (07:00)
[2024-07-16] MEDS: BUMETANIDE 1 MG TAB PO SCH (08:15)
[2024-07-16] MEDS: VALSARTAN/SACUBITRIL 26/24MG TAB PO SCH (11:37)
[2024-07-16 11:47] VITALS: RESP 20; TEMP 97.9; O2SAT 98
--- NOTE | 2024-07-16 12:37 | Discharge Summary ---
Discharge Summary Date of Service July 16, 2024 Principal Dx & Hospital Course #1 = Principal Diagnosis (1) Acute on chronic respiratory failure with hypoxia and hypercapnia: (2) Chronic combined systolic and diastolic heart failure: (3) Pulmonary HTN: (4) T2DM (type 2 diabetes mellitus): (5) Hypertension: (6) Obesity hypoventilation syndrome: (7) Severe obstructive sleep apnea: (8) Atrial fibrillation: (9) Hyperlipidemia: (10) Rheumatoid arthritis: (11) BPH (benign prostatic hyperplasia): Plan 72-year-old male with past medical history of chronic combined systolic and diastolic congestive heart failure, chronic respiratory failure with hypoxia and hypercapnia/O SA/OHS, pulmonary hypertension, Mobitz type I, atrial fibrillation on apixaban, BPH, obesity, type 2 diabetes mellitus, rheumatoid arthritis, hypertension, hyperlipidemia who presents to the ED via EMS for shortness of breath for 1 week and was admitted to the hospitalist service for CHF exacerbation. #Acute on chronic combined systolic and diastolic congestive heart failure with EF of 40% #Moderate to severe pulmonary hypertension #Hypertension # Hyperlipidemia #Atrial fibrillation #Mobitz type I #Episode of V. tach #Hypomagnesemia Outpatient it program manager Dr. Huffman Patient has not seen cardiology since 2022 I/O monitoring Daily weights BNP is improving with improvement in respiratory status Continue apixaban 5 mg twice daily for anticoagulation Continue hydralazine 100 milligrams p.o. twice daily Continue abdominal pain 2.5 mg p.o. daily Continue mag oxide 400 mg p.o. daily Chest x-ray from 07/13/2024 reviewed and shows CHF with trace pleural effusions Cardiology saw the patient and repeated echo which showed EF of 40 to 45% with mild global hypokinesis Cardiology recommended switching patient to home diuretic regiment of Bumex 2 mg p.o. daily Cardiology has also started on Jardiance Beta-vanessa is relatively contraindicated per cardiology given his conduction disease. I spoke with the it program manager Dr. Ch via secure chat today: He has recommended starting patient on low-dose Entresto twice daily and to hold off on starting spironolactone at this point and patient will be followed up outpatient by cardiology team in the heart failure clinic #Acute on chronic hypoxic and hypercapnic respiratory failure #GABRIELLE/OHS Outpatient barley steeper Dr. Whiteside: Patient has not followed up with his barley steeper in a very long time Hypoxia likely secondary to CHF exacerbation Hypercapnia is from GABRIELLE/OHS Patient states his BiPAP machine is broken and that is why he is not been using it and not because he wants to be noncompliant Respiratory BioFire was negative on 07/09/2024 Pulmonology saw the patient during hospital stay Pulmonology has recommended to continue with BiPAP nightly and as needed for shortness of breath Patient is compliant with BiPAP during hospital stay and patient continues to use his BiPAP and is benefiting from the therapy to improve his health conditi ons. Case management is also involved with the help of pulmonology to get him a new BiPAP machine before he goes home as his old BiPAP machine is not working Pulmonology has recommended to keep O2 saturations between 90 to 92% given pulmonary hypertension As per pulmonology, patient is at high risk for readmission without his BiPAP at home Patient will have new BiPAP machine delivered today prior to discharge Will have patient follow-up with Dr. Turner on discharge #Type 2 diabetes mellitus A1c 6.2 Resume metformin on discharge Patient is also on Jardiance Outpatient follow-up with PCP for diabetes management #Morbid obesity BMI is 47 Lifestyle counseling regarding diet, exercise and weight loss provided Outpatient follow-up with PCP #BPH Continue dutasteride # Depression Continue sertraline #Rheumatoid arthritis Avoid NSAIDs Outpatient follow-up with PCP for referral to rheumatology for further management Patient seen and examined today. He is sitting in a chair, denies any chest pain or shortness of breath. He is tolerating oral diet without any issues. He had a bowel movement yesterday. He is awaiting delivery of new BiPAP machine. Home health has been arranged. Patient is stable for discharge home with home health. I have gone over the discharge care plan, follow-up and medications with the patient in great detail and answered all his questions. This discharge took greater than 30 minutes to coordinate Admission HPI Per Admitting Provider The patient is a 73-year-old male with past medical history including chronic combined systolic and diastolic heart failure, noncompliance with medication regimen, chronic respiratory failure with hypoxia, B12 deficiency, Mobitz 1, pulmonary hypertension, atrial fibrillation on Eliquis, BPH with LUTS, obesity hypoventilation syndrome, severe GABRIELLE, diabetes mellitus type 2, right bundle branch block, RA, hypertension, hyperlipidemia, and depression with anxiety.The patient presents to the emergency department via EMS with shortness of breath that began about 1 week ago,, which worsened considerably over the past 24 hours. The patient has a known history of CHF, and has been taking his medications as directed. He denies any recent change in diet or exercise pattern. He notes that he has had worsening shortness of breath over the past week, and became so short of breath today they had to call EMS was brought into the ED for assessment. He was found to have a pulse ox of 76% on room air, improved with 3 L to the low 90s. From the ED he received bumetanide 2 mg IV, and Nitropaste 2 inches to anterior chest wall. [facility] Discharge Exam General: No acute distress Psych: Awake and alert, oriented to place and person HEENT: Anicteric sclera, moist oral mucosa CVS: Regular rate and rhythm Lungs: Bilateral air entry, no wheezing noted, mild basilar crackles noted Abdomen: Soft, nontender, no rebound, no guarding Ext: Leg edema noted: Improving with chronic skin changes Discharge Plan Discharge Items Patient Disposition: Home - Home Health Services Reason For Visit: CHF EX,HYPOXIA Discharge Diagnosis: #Acute on chronic combined systolic and diastolic congestive heart failure with EF of 40% #Moderate to severe pulmonary hypertension #Hypertension # Hyperlipidemia #Atrial fibrillation #Mobitz type I #Episode of V. tach #Hypomagnesemia #Acute on chronic hypoxic and hypercapnic respiratory failure #GABRIELLE/OHS #Type 2 diabetes mellitus #Morbid obesity #BPH # Depression #Rheumatoid arthritis Condition on Discharge: Fair Activity: As commented below Activity Comment: Ambulate as tolerated with assistance/walker Non-emergency contact: Primary Care Provider Call non-emergency contact if: you have any medication questions, your symptoms worsen, your pain is not controlled and you have a fever Follow-up/Referrals: Lucius Huffman MD [Physician] - Brittaney Dunn DO [Primary Care Provider] - 07/29/24 9:20 am (Hospital follow up scheduled July 29 at 9:20) Dillan Turner MD, [facility] [Physician] - Diet: Carb Consistent or DM2 and Heart Healthy Addtl Attending Provider Instructions: DISCHARGE INSTRUCTION TO PATIENT/FAMILY: Follow-up with your primary care provider within 1 week regarding: Posthospital discharge, medication review, medication refills and follow-up on all your medical problems, labs, outpatient referral to rheumatology Please take all your discharge medications, discharge information and discharge instructions to all your doctors appointments. Avoid all NSAIDs including ibuprofen, Motrin, Advil, Aleve, naproxen, meloxicam, Toradol, diclofenac You have been diagnosed with congestive heart failure and ejection fraction is 40%. Please follow-up with heart failure clinic and also your outpatient it program manager Dr. Huffman in 1 to 2 weeks time You have obstructive sleep apnea and obesity hypoventilation syndrome and you require BiPAP at bedtime and also anytime you take naps. Please make sure you are using a BiPAP machine not only at bedtime but also during nap time. You have been started on new medications called Entresto and Jardiance by the it program manager. These medications are for heart failure. Please weigh yourself daily at the same time on the same scale in the morning. If you gain more than 2 pounds of weight in 24 hours or you are feeling short of breath or you have increased swelling in your legs, please take an extra dose of Bumex 2 mg and call your PCP or it program manager for further instructions. Please see your PCP for referral to computer equipment installer as outpatient regarding rheumatoid arthritis Labs through PCP in 1 week: CBC, CMP, MG, VITAMIN D Pending Studies at Discharge: No Stand-Alone Forms: My [employer], Smoking Cessation Medications and DC Order Prescriptions: New Entresto 24-26 mg Tablet 1 tab PO BID Qty: 60 0RF Jardiance 10 mg Tablet 10 mg PO DAILY Qty: 30 0RF vitamin B complex [Vitamins B Complex] Capsule 1 cap PO QAM Qty: 30 0RF amlodipine 2.5 mg tablet 2.5 mg PO QAM Qty: 30 0RF Continued ammonium lactate 12 % cream 1 applic topical DAILY PRN (Reason: dry skin) Qty: 385 0RF Rx Instructions: out of refills per pharmacy last filled 11/19/23 atorvastatin 40 mg tablet 40 mg PO DAILY Qty: 100 3RF dutasteride 0.5 mg capsule 0.5 mg PO DAILY Qty: 90 3RF omeprazole 20 mg capsule,delayed release(DR/EC) 20 mg PO DAILY Qty: 90 3RF Fluzone High-Dose Triv 24-25 180 mcg/0.5 mL syringe 0.5 ml IM ONCE Qty: 0.5 0RF Rx Instructions: unable to verify (DME) Miscellaneous Medical Supply See Rx Instructions Qty: 1 0RF Rx Instructions: "Loaner Wheelchair" until patients is repaired metformin 500 mg tablet extended release 24 hr 500 mg PO BIDM Qty: 60 1RF Rx Instructions: for diabetes (high sugar) bumetanide 2 mg tablet 2 mg PO DAILY Qty: 30 0RF (DME) OneTouch Ultra Test Strip See Rx Instructions .Route Qty: 100 5RF Rx Instructions: Testing one to three times per day DX: E11.9 (DME) blood-glucose meter Kit See Rx Instructions .ROUTE .MEDSUPPLY Qty: 1 0RF Rx Instructions: As directed, BID. DX: E11.9 (DME) lancets 28 gauge misc See Rx Instructions .Route Qty: 100 5RF Rx Instructions: Testing BS BID daily, E11.9 magnesium oxide 400 mg (241.3 mg magnesium) tablet 400 mg PO QAM Qty: 90 3RF Eliquis 5 mg tablet 5 mg PO BID Qty: 180 3RF famotidine 20 mg tablet 20 mg PO HS Qty: 90 1RF hydralazine 100 mg tablet 100 mg PO BID Qty: 180 1RF sertraline 50 mg tablet 50 mg PO UD Qty: 90 1RF miscellaneous medical supply Misc See Rx Instructions .ROUTE .COMPLEX Qty: 100 3RF Rx Instructions: 2X ADULT BRIEF - USING 3-4 per day - DX:R32 urinary incontinence. Metamucil 3.4 gram/5.4 gram powder 1 tbsp PO DAILY Qty: 660 0RF Rx Instructions: otc unable to verify mix into at least 8 oz of water or juice before administering ascorbic acid (vitamin C) 500 mg capsule 500 mg PO DAILY Qty: 30 5RF Rx Instructions: otc unable to verify betamethasone valerate 0.1 % cream 1 applic topical UD PRN (Reason: skin irritation) Qty: 45 1RF Rx Instructions: 1 virginie top BID prn. unable to verify miconazole nitrate [Desenex] 2 % powder 1 applic EXT UD Qty: 85 1RF Rx Instructions: 1 virginie ext TID. unable to verify apply liberally to groin, under skin folds, scrotal region, etc; use for 7-10 days then stop. uduqfdyyaads-Xt-vgjk-minerals Tablet 1 tab PO DAILY Rx Instructions: otc unable to verify ipratropium-albuterol 0.5 mg-3 mg(2.5 mg base)/3 mL solution for nebulization 3 ml NEB UD PRN (Reason: Other) Rx Instructions: 3 ml NEB QIDR PRN. unable to verify w/pharmacies diclofenac sodium [Voltaren Arthritis Pain] 1 % Gel 2 g EXT TID PRN (Reason: joint pain) Qty: 1 0RF Rx Instructions: unable to verify Changed acetaminophen 325 mg Tablet 650 mg PO Q6H PRN (Reason: pain) Qty: 1 0RF Rx Instructions: otc unable to verify Discharge Orders: Discharge Order- CHF (Routine); Ordered 07/16/24 Ordered By: Maximo Gregory/Other Patient Handouts: High Blood Sugar (Hyperglycemia), Hypoglycemia (Low Blood Sugar), Managing Type 2 Diabetes, Heart Failure Dc, Heart Failure Post Hospital Admission Data Admit Date/Time: 07/09/24 20:01 Attending Provider: Maximo Kaplan Admit Provider: Dirk Ugarte Primary Care Provider: Brittaney Dunn Other Providers: Dirk Ugarte; Dillan Turner; Jasen Perez [facility]; Fidel Ch Hospital Stay Data Consultations 07/09/24 19:38 ED Decision to Admit Stat 07/10/24 16:40 Consult Pulmonology Routine 07/13/24 17:19 Consult Physician Routine Procedures Performed Laboratory Results - last 72 hr 07/13/24 07/13/24 07/13/24 16:08 16:44 20:25 WBC RBC Hgb Hct MCV MCH MCHC RDW Std Deviation RDW Coeff of Darian Plt Count MPV Absolute Nucleated RBC Nucleated RBC % (auto) ABG pH ABG pCO2 ABG pO2 ABG HCO3 ABG O2 Saturation ABG Base Excess Mendez Test Oxygen Given Sodium Potassium Chloride Carbon Dioxide Anion Gap BUN Creatinine Est Cr Clr Drug Dosing eGFR BUN/Creatinine Ratio Glucose POC Glucose 119 H 97 160 H Calcium Magnesium Vitamin B12 07/14/24 07/14/24 07/14/24 04:26 07:22 10:49 WBC 11.04 H RBC 3.15 L Hgb 8.8 L Hct 28.8 L MCV 91.4 MCH 27.9 MCHC 30.6 L RDW Std Deviation 61.3 H RDW Coeff of Darian 18.6 H Plt Count 327 MPV 9.7 Absolute Nucleated RBC 0.02 Nucleated RBC % (auto) 0.2 ABG pH 7.42 ABG pCO2 67 H ABG pO2 131 H ABG HCO3 44 H ABG O2 Saturation 98.6 H ABG Base Excess 15.6 H Mendez Test Pos Oxygen Given 50% FI02 Sodium 141 Potassium 4.4 Chloride 96 L Carbon Dioxide 41 H* Anion Gap 4 BUN 21 Creatinine 1.00 Est Cr Clr Drug Dosing 78.3 eGFR 78.98 BUN/Creatinine Ratio 21.0 H Glucose 137 H POC Glucose 106 H Calcium 8.5 L Magnesium 2.2 Vitamin B12 258 07/14/24 07/14/24 07/14/24 11:11 14:12 16:14 WBC RBC Hgb Hct MCV MCH MCHC RDW Std Deviation RDW Coeff of Darian Plt Count MPV Absolute Nucleated RBC Nucleated RBC % (auto) ABG pH ABG pCO2 ABG pO2 ABG HCO3 ABG O2 Saturation ABG Base Excess Mendez Test Oxygen Given Sodium Potassium Chloride Carbon Dioxide Anion Gap BUN Creatinine Est Cr Clr Drug Dosing eGFR BUN/Creatinine Ratio Glucose POC Glucose 124 H 150 H 102 H Calcium Magnesium Vitamin B12 07/14/24 07/15/24 07/15/24 20:16 07:16 11:18 WBC RBC Hgb Hct MCV MCH MCHC RDW Std Deviation RDW Coeff of Darian Plt Count MPV Absolute Nucleated RBC Nucleated RBC % (auto) ABG pH ABG pCO2 ABG pO2 ABG HCO3 ABG O2 Saturation ABG Base Excess Mendez Test Oxygen Given Sodium 140 Potassium 4.0 Chloride 94 L Carbon Dioxide 42 H* Anion Gap 4 BUN 21 Creatinine 1.01 Est Cr Clr Drug Dosing 77.3 eGFR 78.04 BUN/Creatinine Ratio 20.8 H Glucose 131 H POC Glucose 159 H 110 H Calcium 8.6 Magnesium 2.2 Vitamin B12 07/15/24 07/15/24 07/15/24 11:33 16:13 20:03 WBC RBC Hgb Hct MCV MCH MCHC RDW Std Deviation RDW Coeff of Darian Plt Count MPV Absolute Nucleated RBC Nucleated RBC % (auto) ABG pH ABG pCO2 ABG pO2 ABG HCO3 ABG O2 Saturation ABG Base Excess Mendez Test Oxygen Given Sodium Potassium Chloride Carbon Dioxide Anion Gap BUN Creatinine Est Cr Clr Drug Dosing eGFR BUN/Creatinine Ratio Glucose POC Glucose 131 H 92 188 H Calcium Magnesium Vitamin B12 07/16/24 07/16/24 07:21 11:26 WBC RBC Hgb Hct MCV MCH MCHC RDW Std Deviation RDW Coeff of Darian Plt Count MPV Absolute Nucleated RBC Nucleated RBC % (auto) ABG pH ABG pCO2 ABG pO2 ABG HCO3 ABG O2 Saturation ABG Base Excess Mendez Test Oxygen Given Sodium Potassium Chloride Carbon Dioxide Anion Gap BUN Creatinine Est Cr Clr Drug Dosing eGFR BUN/Creatinine Ratio Glucose POC Glucose 102 H 121 H Calcium Magnesium Vitamin B12 Diagnostic Imagining Performed Chest X-Ray 07/09/24 18:21 EXAM: Portable AP chest radiograph TECHNIQUE: AP portable radiograph of the chest was obtained. INDICATION: Shortness of breath Comparison: Chest radiograph March 10, 2024. FINDINGS: LINES and TUBES: None CARDIOVASCULAR: Cardiac silhouette is stably enlarged in size. Atherosclerosis of the thoracic aorta. LUNGS/PLEURA: Worsened pulmonary vascular congestion, now moderate. Left greater than right basilar densities may represent any combination of pleural fluids, atelectasis and airspace disease. No discernible pneumothorax. OSSEOUS/OTHER: No displaced acute osseous process identified. IMPRESSION: Interval worsening of congestive changes of the cardiovascular system. Bibasilar densities may represent any combination of pleural fluids, atelectasis and airspace disease. Electronically signed by Juvenal Rebolledo 07-09-2024 7:06 PM Chest X-Ray 07/13/24 12:06 XR chest 2V PA/lateral CLINICAL HISTORY: chf COMPARISON STUDY: 07/31/2023 FINDINGS: Stable prominent cardiomegaly with pulmonary vascular congestion. There is mild blunting of the posterior costophrenic sulcus. No other lobar consolidation or pleural effusion. IMPRESSION: CHF with trace pleural effusions. ACT 112: Negative or not required by law. Electronically signed by: Steve Bynum M.D. 07/13/2024 1:48 PM Pending Results Patient Have Any Pending Studies at Discharge: No Discharge Instructions Given to Patient (Per Discharging Provider) DISCHARGE INSTRUCTION TO PATIENT/FAMILY: Follow-up with your primary care provider within 1 week regarding: Posthospital discharge, medication review, medication refills and follow-up on all your medical problems, labs, outpatient referral to rheumatology Please take all your discharge medications, discharge information and discharge instructions to all your doctors appointments. Avoid all NSAIDs including ibuprofen, Motrin, Advil, Aleve, naproxen, meloxicam, Toradol, diclofenac You have been diagnosed with congestive heart failure and ejection fraction is 40%. Please follow-up with heart failure clinic and also your outpatient it program manager Dr. Huffman in 1 to 2 weeks time You have obstructive sleep apnea and obesity hypoventilation syndrome and you require BiPAP at bedtime and also anytime you take naps. Please make sure you are using a BiPAP machine not only at bedtime but also during nap time. You have been started on new medications called Liz and Drew by the it program manager. These medications are for heart failure. Please weigh yourself daily at the same time on the same scale in the morning. If you gain more than 2 pounds of weight in 24 hours or you are feeling short of breath or you have increased swelling in your legs, please take an extra dose of Bumex 2 mg and call your PCP or it program manager for further instructions. Please see your PCP for referral to computer equipment installer as outpatient regarding rheumatoid arthritis Labs through PCP in 1 week: CBC, CMP, MG, VITAMIN D Total Time Total Time Spent Total Time Spent (In Minutes): 45 Coding Level of Care Code 42333 INP/OBS DISCH >30 MIN Diagnoses Acute on chronic respiratory failure with hypoxia and hypercapnia J96.21; J96.22 Chronic combined systolic and diastolic heart failure I50.42 Pulmonary HTN I27.20 T2DM (type 2 diabetes mellitus) E11.9 Essential hypertension I10 Hypertension type: essential hypertension Obesity hypoventilation syndrome E66.2 Severe obstructive sleep apnea G47.33 Atrial fibrillation I48.91 Hyperlipidemia, unspecified hyperlipidemia type E78.5 Hyperlipidemia type: unspecified Rheumatoid arthritis M06.9 BPH (benign prostatic hyperplasia) N40.0
[2024-07-16 14:15] VITALS: BP 152/75; PULSE 83
== END 2024-07-16 14:50 | disposition home health service (06) | DRG 291 ==
LOC: ED 18:15 → 2S 20:01 → SUATTDRO 20:01 → 2S 21:53